=== PATIENT | female | born 1940 | race Caucasian/White ===

== ENCOUNTER 2023-01-06 10:15 | Emergency (ER) | payer MEDICARE, OTHER, SELFPAY ==
[2023-01-06] VITALS (15 sets, daily range): BP systolic 113–223; BP diastolic 49–98; PULSE 56–74; RESP 14–23; TEMP 36.4; O2SAT 91–95; BMI 33.3
--- NOTE | 2023-01-06 10:23 | ED_ITS ---
HPI - Syncope General Chief Complaint: Syncope Time Seen by Provider: 01/06/23 10:23 Source: patient Mode of arrival: ambulance Limitations: no limitations History of Present Illness HPI narrative: Patient presents to emergency department via EMS with a complaint of syncope. Patient comes from an extended care facility. She has a history of diabetes her blood sugar was 108. Patient states she has never passed out before. She was in the bathroom and passed out for approximately 20 seconds. She denies any palpitations, dizziness. She states she just felt weak. She states she had some chest pressure when it occurred. She denies any current chest pain, shortness of breath. She denies any nausea, vomiting, diarrhea, constipation, abdominal pain. She denies any headache, visual disturbance, or speech difficulties. He denies any paresthesias or focal weakness. Patient states she took all of her medications this morning. She states in the past she had a mini stroke. There was no report of seizure activity.She denies any lower extremity edema, or cramping. No previous history of heart disease, thormboembolic disease. Has not had any recent surgeries. Related Data Home Medications Medication Instructions Recorded Confirmed amlodipine 5 mg tablet 5 mg PO DAILY 01/06/23 01/06/23 aspirin 81 mg tablet,delayed 81 mg PO DAILY 01/06/23 01/06/23 release (Adult Low Dose Aspirin) atorvastatin 20 mg tablet 20 mg PO DAILY 01/06/23 01/06/23 carbidopa 25 mg-levodopa 100 mg 1 tab PO TID 01/06/23 01/06/23 tablet clopidogrel 75 mg tablet 75 mg PO DAILY 01/06/23 01/06/23 docusate sodium 100 mg capsule 100 mg PO BID 01/06/23 01/06/23 (Colace) escitalopram oxalate 5 mg tablet 5 mg PO DAILY 01/06/23 01/06/23 hydralazine 25 mg tablet 25 mg PO Q8H 01/06/23 01/06/23 insulin aspart U-100 100 unit/mL 10 unit subcut TID 01/06/23 01/06/23 (3 mL) subcutaneous pen (Novolog FlexPen U-100 Insulin aspart) insulin detemir U-100 100 unit/mL 16 unit subcut DAILY 01/06/23 01/06/23 (3 mL) subcutaneous pen (Levemir FlexPen) labetalol 300 mg tablet 300 mg PO Q12H 01/06/23 01/06/23 melatonin 5 mg capsule 5 mg PO DAILY PRN sleep 01/06/23 01/06/23 polyethylene glycol 3350 17 17 g PO DAILY 01/06/23 01/06/23 gram/dose oral powder (Miralax) Allergies Allergy/AdvReac Type Severity Reaction Status Date / Time acetaminophen [From Percocet] Allergy Unknown Verified 01/06/23 10:21 amoxicillin Allergy Unknown Verified 01/06/23 10:21 codeine Allergy Unknown Verified 01/06/23 10:21 oxycodone [From Percocet] Allergy Unknown Verified 01/06/23 10:21 Penicillins Allergy Unknown Verified 01/06/23 10:21 Sulfa (Sulfonamide Allergy Unknown Verified 01/06/23 10:21 Antibiotics) sulfamethoxazole Allergy Unknown Verified 01/06/23 10:21 [From Bactrim] trimethoprim [From Bactrim] Allergy Unknown Verified 01/06/23 10:21 cephalexin AdvReac Unknown Verified 01/06/23 10:21 Review of Systems ROS Status of ROS 10 or more systems reviewed and unremarkable except as noted in history and below [facility] Social History Smoking status: Never smoker Exam Narrative Exam Narrative: Nurses notes and vital signs reviewed and patient is not hypoxic. General: Nontoxic,Chronically ill,and in no apparent distress. Skin: Warm, dry, no pallor noted. No Rash Head: Normocephalic, atraumatic. Neck: Supple, non-tender. Eye: Pupils are equal, round and EOMI. No scleral icterus. Ears, Nose, Mouth, and Throat: TM clear, no posterior oropharynx erythema or nasal mucosal hypertrophy, uvula is mid-line Oral mucosa is moist Cardiovascular: Regular Rate and Rhythm without murmur, gallop or rub. Respiratory: No accessory muscle use or respiratory distress. Lungs are occasional bilateral rhonchi Chest Wall: no tenderness Back: No midline thoracic or lumbar vertebral tenderness. No CVA tenderness Musculoskeletal: normal ROM, no calf or popliteal tenderness, +1 bilateral lower extremity edema/swelling GI: Abdomen is soft, non-distended. Normal bowel sounds. No masses appreciated. No tenderness to palpation. No rebound, guarding, or rigidity noted. Neurological: A&O x4. No cranial nerve dysfunction observed. Moves all extremities. Psychiatric: Cooperative and interactive. Normal mood and affect. Constitutional Vital Signs, click to edit/add: Last Vital Signs Temp 97.5 F L 01/06/23 10:14 Pulse 59 L 01/06/23 12:01 Resp 16 01/06/23 12:01 BP 155/63 H 01/06/23 12:01 Pulse Ox 94 L 01/06/23 12:01 O2 Del Method Room Air 01/06/23 10:14 Course Vital Signs Vital signs: Vital Signs Temperature 97.5 F L 01/06/23 10:14 Pulse Rate 61 01/06/23 10:14 Respiratory Rate 20 01/06/23 10:14 Blood Pressure 115/62 01/06/23 10:14 Pulse Oximetry 92 L 01/06/23 10:14 Oxygen Delivery Method Room Air 01/06/23 10:14 Temperature 97.5 F L 01/06/23 10:14 Pulse Rate 59 L 01/06/23 12:01 Respiratory Rate 16 01/06/23 12:01 Blood Pressure 155/63 H 01/06/23 12:01 Pulse Oximetry 94 L 01/06/23 12:01 Oxygen Delivery Method Room Air 01/06/23 10:14 MDM - Syncope MDM Narrative Medical decision making narrative: She was given IV fluids. All the results were discussed with patient. The patient was discussed with Dr. Apodaca who advised the patient should be transferred to [facility] since we do nt have neuro or cardiology this weekend. Patient was hospitalized and evaluated for CVA in April. 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 Acutely has small bilateral pleural effusions. No pulmonary embolism. Patient was discussed with the hospitalist who has accepted the patient in transfer. He will be the delay. The patient was discussed with Dr. Smiley on-call for stroke who advised MRA of the head and neck with contrast. Stated he does not have to be done acutely back if available he should be done. MRI is not available today at [place]. Differential Diagnosis Differential diagnosis: Likely syncope due to orthostatic hypotension, complete atrioventricular block, pulmonary embolism and dehydration Medical Records Attestation: I reviewed the patient's medical records. Lab Data Attestation: I reviewed the patient's lab results. Labs: Lab Results 01/06/23 01/06/23 Range/Units 10:25 10:35 WBC 8.0 (4.0-11.0) 10^3/uL RBC 4.17 L (4.20-5.40) 10^6/uL Hgb 12.0 (12.0-16.0) g/dL Hct 38.3 (36.0-48.0) % MCV 91.8 (81.0-99.0) fL MCH 28.8 (26.7-34.0) pg MCHC 31.3 (29.9-35.2) g/dL RDW 13.5 (11.0-15.0) % Plt Count 220 (150-450) 10^3/uL MPV 10.9 (9.5-13.5) fL Neut % (Auto) 69.5 (43.0-75.0) % Lymph % (Auto) 21.6 (20.5-60.0) % [place] % (Auto) 5.7 (1.7-12.0) % Eos % (Auto) 2.4 (0.9-7.0) % Baso % (Auto) 0.4 (0.2-2.0) % Neut # (Auto) 5.6 (1.4-6.5) 10^3/uL Lymph # (Auto) 1.7 (1.2-3.8) 10^3/uL [place] # (Auto) 0.5 (0.3-0.8) 10^3/uL Eos # (Auto) 0.2 (0.0-0.7) 10^3/uL Baso # (Auto) 0.0 (0.0-0.1) 10^3/uL Abs Immat Gran (auto) 0.03 (0.00-0.03) 10^3/uL Imm/Tot Granulo (auto) 0.4 (0.0-0.5) % PT 11.2 (9.0-11.6) sec INR 1.06 Sodium 138 (136-145) mmol/L Potassium 4.0 (3.5-5.1) mmol/L Chloride 104 (98-107) mmol/L Carbon Dioxide 28.0 (21.0-32.0) mmol/L Anion Gap 10.0 BUN 18.0 (7.0-18.0) mg/dL Creatinine 1.27 H (0.55-1.02) mg/dL Est GFR ( Amer) 49 L (>=60) Est GFR (Non-Af Amer) 40 L (>=60) BUN/Creatinine Ratio 14.2 Glucose 190 H (74-106) mg/dL Lactate 2.4 H* (0.4-2.0) mmol/L Calcium 8.7 (8.5-10.1) mg/dL Total Bilirubin 0.5 (0.2-1.0) mg/dL AST 17 (15-37) U/L ALT 7 L (14-59) U/L Alkaline Phosphatase 100 (46-116) U/L Total Creatine Kinase 40 (26-192) U/L CK-MB (CK-2) 1.07 (<=3.60) ng/mL Troponin I High Sens 5.7 (4.0-51.3) pg/mL NT-Pro-B Natriuret Pep 594.0 (<=1800.0) pg/mL Total Protein 6.9 (6.4-8.2) g/dL Albumin 3.3 L (3.4-5.0) g/dL Globulin 3.6 g/dL Albumin/Globulin Ratio 0.9 Urine Color Yellow (YELLOW) Urine Clarity Clear (CLEAR) Urine pH 6.0 (5.0-9.0) Ur Specific [place] 1.010 (1.005-1.025) Urine Protein Negative (NEG/TRACE) mg/dL Urine Glucose (UA) Negative (NEGATIVE) mg/dL Urine Ketones Negative (NEGATIVE) mg/dL Urine Occult Blood Negative (NEGATIVE) Urine Nitrite Negative (NEGATIVE) Urine Bilirubin Negative (NEGATIVE) Urine Urobilinogen 0.2 (0.2-1.0) EU/dL Ur Leukocyte Esterase Negative (NEGATIVE) POC Glucose 189 H (74-106) mg/dL ECG Data Attestation: I personally reviewed and interpreted this ECG as follows: Interpretation: Sinus rhythm 63 bpm. QT 448, QTC 454. There are no acute ischemic changes. Normal axis Discharge Plan Discharge Chief Complaint: Syncope Clinical Impression: Pleural effusion, Syncope, Elevated lactic acid level Patient Disposition: [facility] Time of Disposition Decision: 14:02 Discharge Location: [facility] Condition: Good Mode of Transportation: EMS Prescriptions / Home Meds: No Action amlodipine 5 mg tablet 5 mg PO DAILY atorvastatin 20 mg tablet 20 mg PO DAILY carbidopa-levodopa 25-100 mg tablet 1 tab PO TID aspirin [Adult Low Dose Aspirin] 81 mg tablet,delayed release (DR/EC) 81 mg PO DAILY clopidogrel 75 mg tablet 75 mg PO DAILY docusate sodium [Colace] 100 mg capsule 100 mg PO BID escitalopram oxalate 5 mg tablet 5 mg PO DAILY hydralazine 25 mg tablet 25 mg PO Q8H labetalol 300 mg tablet 300 mg PO Q12H melatonin 5 mg capsule 5 mg PO DAILY PRN (Reason: sleep) polyethylene glycol 3350 [Miralax] 17 gram/dose powder 17 g PO DAILY insulin aspart U-100 [Novolog FlexPen U-100 Insulin] 100 unit/mL (3 mL) insulin pen 10 unit subcut TID Levemir FlexPen 100 unit/mL (3 mL) insulin pen 16 unit SUBCUT DAILY Referrals: Rolf Dai DO [Primary Care Provider] - 1 week
[2023-01-06 10:27] LABS: Glucometer 189 mg/dL (74-106)
--- NOTE | 2023-01-06 10:39 | ECG_ITS ---
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
--- NOTE | 2023-01-06 10:39 | CT_ITS ---
The [address] [address] Patient Name: SHRUTHI DE ANDA MRN: [id number] date: 1940 Sex: F Assigned Patient Location: ER Current Patient Location: Accession/Order Number: [id number] Exam Date: 01/06/2023 11:45 Report Date: 01/06/2023 20:40 At the request of: BLANE RICHMOND Procedure: CT angio chest EXAMINATION: CT angio chest HISTORY: syncope, cp COMPARISON: No relevant comparison available. TECHNIQUE: Multi-planar CT images were created with IV contrast. Axial, Coronal, and Sagittal images. Dose reduction techniques were achieved by using automated exposure control and/or adjustment of mA and/or kV according to patient size and/or use of iterative reconstruction technique. 3-D reconstruction was performed on a separate workstation. FINDINGS: VASCULATURE: No pulmonary embolism or abnormal opacity. LUNGS: Small bilateral pleural effusions and mild emphysematous changes. PLEURA: No mass, effusion, or pneumothorax. NATALIE: No mass or adenopathy. MEDIASTINUM: No mass or adenopathy. CARDIAC: No enlargement, pericardial effusion, or pericardial thickening. AORTA: No aneurysm or dissection. CHEST WALL: No mass or axillary adenopathy. BONES: Marked degenerative disc disease at thoracolumbar junction. No bone lesion or fracture. LIMITED ABDOMEN: No suspicious findings. Limited images of the upper abdomen. OTHER: Negative. CT/CT angio chest IMPRESSION: 1. No pulmonary embolism, pneumothorax, or pulmonary infiltrates. 2. Small bilateral pleural effusions and mild of some is changes. 3. Marked degenerative disc disease at the thoracolumbar junction. Preliminary findings were provided to the emergency department at time of imaging. Electronically authenticated by: JAIDEN EDDY Date: 01/06/2023 20:40
--- NOTE | 2023-01-06 10:39 | XR_ITS ---
The [address] [address] Patient Name: SHRUTHI DE ANDA MRN: [id number] date: 1940 Sex: F Assigned Patient Location: ER Current Patient Location: ER Accession/Order Number: [id number] Exam Date: 01/06/2023 10:58 Report Date: 01/06/2023 11:23 At the request of: BLANE RICHMOND Procedure: XR chest 1V EXAM: XR chest 1V HISTORY: . syncope . COMPARISON: 12/26/2021 TECHNIQUE: Single view of the chest. FINDINGS: Heart is slightly enlarged left ventricular contour. Vascularity is unremarkable. Lungs are free of focal infiltrates. Atherosclerotic changes of the thoracic aorta are noted. XR/XR chest 1V Impression: 1. Cardiac enlargement. 2. No acute heart or lung disease identified. Electronically authenticated by: LAURA ROSA Date: 01/06/2023 11:23
--- NOTE | 2023-01-06 10:41 | CT_ITS ---
The [address] [address] Patient Name: SHRUTHI DE ANDA MRN: [id number] date: 1940 Sex: F Assigned Patient Location: ER Current Patient Location: Accession/Order Number: [id number] Exam Date: 01/06/2023 10:55 Report Date: 01/06/2023 11:25 At the request of: BLANE RICHMOND Procedure: CT head/brain wo con CT head/brain wo con, 01/06/2023 10:55 AM EDT INDICATION: Syncope COMPARISON: Noncontrast CT of the head 04/28/2022, CT angiography of the head 04/30/2022. TECHNIQUE: Axial CT images of the brain from skull base to vertex, including portions of the face and sinuses, were obtained without contrast. Multiplanar reformatted images were generated and reviewed as needed. FINDINGS: No intracranial mass, hydrocephalus, midline shift or acute hemorrhage. No extra-axial collection. Remote ischemic events right frontal and bilateral parietal lobes. Remote lacunar infarct right basal ganglia. Periventricular and deep white matter microvascular ischemic change. Kumar-white matter differentiation is preserved. The paranasal sinuses and mastoid air cells are clear. Orbits are within normal limits. No acute skull fracture. CT/CT head/brain wo con IMPRESSION: No acute intracranial abnormality. Electronically authenticated by: AYAKA AYALA Date: 01/06/2023 11:25
--- NOTE | 2023-01-06 10:52 | PC.NURSE ---
straight cath completed for sample. 8F female kit used. damaris care done, sample labeled and sent to lab
[2023-01-06 11:03] LABS: Alanine Aminotransferase 7 U/L (14-59); Albumin Globulin Ratio 0.9; Albumin Level 3.3 g/dL (3.4-5.0); Alkaline Phosphatase 100 U/L (46-116); Aspartate Amino Transferase 17 U/L (15-37); BUN Creatinine Ratio 14.2; Bilirubin Total 0.5 mg/dL (0.2-1.0); Calcium 8.7 mg/dL (8.5-10.1); Chloride 104 mmol/L (98-107); Estimated GFR (African America 49 (>=60); Estimated GFR (Non-African Ame 40 (>=60); Globulin 3.6 g/dL; Glucose 190 mg/dL (74-106); Sodium 138 mmol/L (136-145); Total Protein 6.9 g/dL (6.4-8.2)
[2023-01-06 11:08] LABS: Lactate/Lactic Acid 2.4 mmol/L (0.4-2.0)
[2023-01-06 11:14] LABS: Basophils Percent Auto 0.4 % (0.2-2.0); Eosinophils Absolute Auto 0.2 10^3/uL (0.0-0.7); Eosinophils Percent Auto 2.4 % (0.9-7.0); Hematocrit 38.3 % (36.0-48.0); Immature Granulocytes Abs Auto 0.03 10^3/uL (0.00-0.03); Immature Granulocytes Pct Auto 0.4 % (0.0-0.5); Lymphocytes Absolute Auto 1.7 10^3/uL (1.2-3.8); Lymphocytes Percent Auto 21.6 % (20.5-60.0); Mean Corpuscular HGB Conc 31.3 g/dL (29.9-35.2); Mean Corpuscular Hemoglobin 28.8 pg (26.7-34.0); Mean Corpuscular Volume 91.8 fL (81.0-99.0); Mean Platelet Volume 10.9 fL (9.5-13.5); Monocytes Absolute Auto 0.5 10^3/uL (0.3-0.8); Monocytes Percent Auto 5.7 % (1.7-12.0); Neutrophils Absolute Auto 5.6 10^3/uL (1.4-6.5); Neutrophils Percent Auto 69.5 % (43.0-75.0); Platelet Count 220 10^3/uL (150-450); Red Blood Count 4.17 10^6/uL (4.20-5.40); Red Cell Distribution Width 13.5 % (11.0-15.0)
[2023-01-06] MEDS: 0.9 % SODIUM CHLORIDE 1,000 ML 999 ML IV (11:19)
[2023-01-06 11:25] LABS: Creatine Kinase 40 U/L (26-192); Creatine Kinase MB 1.07 ng/mL (<=3.60); Troponin I High Sensitivity 5.7 pg/mL (4.0-51.3)
[2023-01-06 11:29] LABS: Bilirubin Urine NEGATIVE (NEGATIVE); Blood Urine NEGATIVE (NEGATIVE); Clarity Urine CLEAR (CLEAR); Color Urine YELLOW (YELLOW); Glucose Urine UA NEGATIVE (NEGATIVE); Ketones Urine NEGATIVE (NEGATIVE); Leukocyte Esterase Urine NEGATIVE (NEGATIVE); Nitrite Urine NEGATIVE (NEGATIVE); Protein Urine NEGATIVE (NEG/TRACE); Urobilinogen Urine 0.2 EU/dL (0.2-1.0)
[2023-01-06 11:31] LABS: INR 1.06; Prothrombin Time 11.2 sec (9.0-11.6)
[2023-01-06 11:34] LABS: Urine Microscopic Indicated NO
[2023-01-06 14:00] LABS: Troponin I High Sensitivity 5.2 pg/mL (4.0-51.3)
--- NOTE | 2023-01-06 17:00 | PC.NURSE ---
pt daughter arrived after patient left to go to [facility]. Daughter was upset stating she did not want her mother to go to [facility] and wanted her to go somewhere closer. Dr. Ewing spoke to daughter informing her why we were sending her to [facility]. RN explained to pt daughter that Son Santiago Cifuentes is listed as POA and was updated on POC for patient at 1414 and was agreeable to patient going to [facility].
== END 2023-01-06 16:49 | disposition short-term general hospital (02) ==
PROVIDERS: Emergency Provider Emergency Medicine; PCP Internal Medicine
DX: R55 Syncope and collapse (principal); J90 Pleural effusion, not elsewhere classified; R79.89 Other specified abnormal findings of blood chemistry; E11.9 Type 2 diabetes mellitus without complications; Z86.73 Personal history of transient ischemic attack (TIA), and cerebral infarction without residual deficits; Z79.4 Long term (current) use of insulin; Z79.82 Long term (current) use of aspirin; Z79.899 Other long term (current) drug therapy
CPT/HCPCS: 36415; 36416; 70450; 71045; 71275; 80053; 81003; 82550; 82553; 83605; 83874; 83880; 84484; 85025; 85610; 93005; 96360; 96361; 99285; Q9967

== ENCOUNTER 2023-02-12 16:47 | Emergency (ER) | payer MEDICARE, OTHER, SELFPAY ==
[2023-02-12] VITALS (14 sets, daily range): BP systolic 163–181; BP diastolic 70–86; PULSE 61–76; RESP 19–24; TEMP 36.7; O2SAT 90–100; BMI 34.4
--- NOTE | 2023-02-12 16:52 | XR_ITS ---
The [address] [address] Patient Name: SHRUTHI DE ANDA MRN: [id number] date: 1940 Sex: F Assigned Patient Location: ER Current Patient Location: ED.MAIN Accession/Order Number: [id number] Exam Date: 02/12/2023 17:30 Report Date: 02/12/2023 18:30 At the request of: YAMILETH GAFFNEY Procedure: XR chest 2V EXAMINATION: XR chest 2V HISTORY: Cough and shortness of breath COMPARISON: Portable chest 01/06/2023 TECHNIQUE: PA and lateral chest x-rays FINDINGS: Small left pleural effusion. The lung parenchyma is free of consolidation or infiltrate. No pneumothorax. The cardiac, mediastinal and hilar contours are normal. The visualized osseous structures exhibit no gross abnormality. XR/XR chest 2V IMPRESSION: Small left pleural effusion. Electronically authenticated by: LAURA THOMAS Date: 02/12/2023 18:30
--- NOTE | 2023-02-12 16:57 | ECG_ITS ---
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
--- NOTE | 2023-02-12 16:57 | ED.GENADUL1 ---
Documented by User: ELISEO Lew 02/12/23 18:54 HPI - General Adult General Chief complaint: Shortness of Breath/Dyspnea Stated complaint: SHORTNESS OF BREATH Time Seen by Provider: 02/12/23 16:51 Source: patient Mode of arrival: ambulance Limitations: no limitations History of Present Illness HPI narrative: patient is an 83-year-old female presents from [facility] for concerns of shortness of breath. Patient denies fever. States she has had cough is semi-productive for the past few days. Recently placed on O2 tank at the facility and started on an inhaler today. Patient admits to wheezing prior to arrival, EMS noted that she was not hypoxic in the mid upper 90s on room air and wheezes improved greatly after one treatment in route. Patient is diabetic. EMS and FACILITY reports being DNR CC. patient denies any chest pain and notes her breathing is improved since transport. Patient appears nontoxic in no acute distress able to speak in full sentences states that she had cookies for breakfast. Related Data Home Medications Medication Instructions Recorded Confirmed amlodipine 5 mg tablet 5 mg PO DAILY 01/06/23 01/06/23 aspirin 81 mg tablet,delayed 81 mg PO DAILY 01/06/23 01/06/23 release (Adult Low Dose Aspirin) atorvastatin 20 mg tablet 20 mg PO DAILY 01/06/23 01/06/23 carbidopa 25 mg-levodopa 100 mg 1 tab PO TID 01/06/23 01/06/23 tablet clopidogrel 75 mg tablet 75 mg PO DAILY 01/06/23 01/06/23 docusate sodium 100 mg capsule 100 mg PO BID 01/06/23 01/06/23 (Colace) escitalopram oxalate 5 mg tablet 5 mg PO DAILY 01/06/23 01/06/23 hydralazine 25 mg tablet 25 mg PO Q8H 01/06/23 01/06/23 insulin aspart U-100 100 unit/mL 10 unit subcut TID 01/06/23 01/06/23 (3 mL) subcutaneous pen (Novolog FlexPen U-100 Insulin aspart) insulin detemir U-100 100 unit/mL 16 unit subcut DAILY 01/06/23 01/06/23 (3 mL) subcutaneous pen (Levemir FlexPen) labetalol 300 mg tablet 300 mg PO Q12H 01/06/23 01/06/23 melatonin 5 mg capsule 5 mg PO DAILY PRN sleep 01/06/23 01/06/23 polyethylene glycol 3350 17 17 g PO DAILY 01/06/23 01/06/23 gram/dose oral powder (Miralax) Previous Rx's Medication Instructions Recorded doxycycline hyclate 100 mg capsule 100 mg PO BID 10 days #20 caps 02/12/23 Allergies Allergy/AdvReac Type Severity Reaction Status Date / Time acetaminophen [From Percocet] Allergy Unknown Verified 01/06/23 10:21 amoxicillin Allergy Unknown Verified 01/06/23 10:21 codeine Allergy Unknown Verified 01/06/23 10:21 oxycodone [From Percocet] Allergy Unknown Verified 01/06/23 10:21 Penicillins Allergy Unknown Verified 01/06/23 10:21 Sulfa (Sulfonamide Allergy Unknown Verified 01/06/23 10:21 Antibiotics) sulfamethoxazole Allergy Unknown Verified 01/06/23 10:21 [From Bactrim] trimethoprim [From Bactrim] Allergy Unknown Verified 01/06/23 10:21 cephalexin AdvReac Unknown Verified 01/06/23 10:21 Review of Systems ROS Constitutional Denies: fever or chills Eyes Denies: change in vision Ears, nose, mouth, and throat Denies: throat pain, neck pain or nasal congestion Cardiovascular Denies: chest pain Respiratory Reports: shortness of breath, cough, wheezing and chest congestion; Denies: pain on inspiration or coughing up blood Gastrointestinal Denies: abdominal pain, nausea or vomiting Musculoskeletal Denies: back pain or neck pain Integumentary/Breast Denies: rash Neurological Denies: headache or behavioral changes Psychiatric Denies: anxiety PFSH PFSH Social History Smoking status: Never smoker Exam Narrative Exam Narrative: Nurses notes and vital signs reviewed and patient is not hypoxic. General:? The patient appears well and in no apparent distress.? Patient is resting comfortably on cart sitting upright? Skin:? Warm, dry, no pallor noted. no evidence of rash.? Head:? Normocephalic, atraumatic Neck:? Supple, trachea mid-line, no tenderness, no lymphadenopathy Eye:? Pupils are equal, round and reactive to light, EOMI Ears, Nose, Mouth, and Throat:? TM are clear, normal light reflex, mild to moderate cerumen bilaterally,? oral mucosa is moist, no posterior oropharynx erythema or hypertrophy, uvula is mid-line, + post nasal drip.? Cardiovascular:? Regular Rate and Rhythm,? Respiratory:? Patient is in no distress, no accessory muscle use, lungs diminished in bases with expiratory wheeze. no rales or rhonchi. Chest Wall:? no tenderness, no pleuritic chest complaints with breathing.? Back:? non-tender, no CVA tenderness, no sacral edema noted Musculoskeletal:? normal ROM, no tenderness, pression stockings bilateral legs, tenderness, 1+ edema.? GI:? Normal bowel sounds, no tenderness to palpation, no masses appreciated.? No rebound, guarding, or rigidity noted. Neurological:? A&O x4 Psychiatric:? Cooperative Constitutional Vital Signs, click to edit/add: Last Vital Signs Temp 98.0 F 02/12/23 16:50 Pulse 62 02/12/23 18:31 Resp 20 02/12/23 18:31 BP 181/86 H 02/12/23 18:31 Pulse Ox 98 02/12/23 18:31 O2 Del Method Room Air 02/12/23 17:07 O2 Flow Rate 2 02/12/23 16:50 Course Vital Signs Vital signs: Vital Signs Temperature 98.0 F 02/12/23 16:50 Pulse Rate 69 02/12/23 16:50 Respiratory Rate 24 02/12/23 16:50 Blood Pressure 163/70 H 02/12/23 16:50 Pulse Oximetry 94 L 02/12/23 16:50 Oxygen Delivery Method Nasal Cannula 02/12/23 16:50 Oxygen Delivery Flow Rate 2 02/12/23 16:50 Temperature 98.0 F 02/12/23 16:50 Pulse Rate 62 02/12/23 18:31 Respiratory Rate 20 02/12/23 18:31 Blood Pressure 181/86 H 02/12/23 18:31 Pulse Oximetry 98 02/12/23 18:31 Oxygen Delivery Method Room Air 02/12/23 17:07 Oxygen Delivery Flow Rate 2 02/12/23 16:50 Medical Decision Making MDM Narrative Medical decision making narrative: patient received albuterol prior to arrival with improvement in breathing, slight expiratory wheeze patient receive a DuoNeb treatment here, we'll hold on steroids pending chest x-ray and labwork evaluation. Prior history of pleural effusion noted in medical history, patient is on Plavix, labetalol and insulin. chest x-ray negative for infiltrate, patient has had upper respiratory symptoms for the past few days, we discussed her diabetes. Patient was educated by respiratory staff on how to use a spacer and inhaler. Recommend she continue with her inhaler as directed. She will be placed on doxycline given her diabetes and concern for asthmatic bronchitis. We will hold on oral steroids given her elevated sugars pending reevaluation with her PCP. Patient notes after receiving breathing treatment in the Emergency Room that her breathing is much improved and back to normal, her son is present at the bedside agreeable with disposition back to [facility], and he will facilitate transportation with his private car.. The patient is to followup with primary care physician in next 2-3 days or to return to the emergency department should any of the signs or symptoms worsen or new symptoms develop. Patient had questions answered. The patient agrees with the following Diagnosis and Treatment plan and the patient will be discharged back to SNF with Rx for doxycyline in hand with 1st dose given in ER. Medical Records Medical records reviewed: Yes I reviewed the patient's medical records Medical records narrative: previous CT of the chest on 01/06/23, noted for no pulmonary embolism pneumothorax or infiltrate, small bilateral pleural effusions with mild emphysematous changes. Lab Data Labs: Lab Results 02/12/23 02/12/23 Range/Units 15:07 16:00 WBC 7.0 (4.0-11.0) 10^3/uL RBC 3.88 L (4.20-5.40) 10^6/uL Hgb 11.3 L (12.0-16.0) g/dL Hct 36.9 (36.0-48.0) % MCV 95.1 (81.0-99.0) fL MCH 29.1 (26.7-34.0) pg MCHC 30.6 (29.9-35.2) g/dL RDW 13.4 (11.0-15.0) % Plt Count 180 (150-450) 10^3/uL MPV 10.5 (9.5-13.5) fL Neut % (Auto) 70.3 (43.0-75.0) % Lymph % (Auto) 19.3 L (20.5-60.0) % Sheridan % (Auto) 7.4 (1.7-12.0) % Eos % (Auto) 2.4 (0.9-7.0) % Baso % (Auto) 0.3 (0.2-2.0) % Neut # (Auto) 4.9 (1.4-6.5) 10^3/uL Lymph # (Auto) 1.4 (1.2-3.8) 10^3/uL [place]idan # (Auto) 0.5 (0.3-0.8) 10^3/uL Eos # (Auto) 0.2 (0.0-0.7) 10^3/uL Baso # (Auto) 0.0 (0.0-0.1) 10^3/uL Abs Immat Gran (auto) 0.02 (0.00-0.03) 10^3/uL Imm/Tot Granulo (auto) 0.3 (0.0-0.5) % Sodium 141 (136-145) mmol/L Potassium 4.0 (3.5-5.1) mmol/L Chloride 104 (98-107) mmol/L Carbon Dioxide 30.9 (21.0-32.0) mmol/L Anion Gap 10.1 BUN 21.0 H (7.0-18.0) mg/dL Creatinine 1.22 H (0.55-1.02) mg/dL Est GFR ( Amer) 51 L (>=60) Est GFR (Non-Af Amer) 42 L (>=60) BUN/Creatinine Ratio 17.2 Glucose 251 H (74-106) mg/dL Calcium 8.2 L (8.5-10.1) mg/dL Total Bilirubin 0.3 (0.2-1.0) mg/dL AST 14 L (15-37) U/L ALT 16 (14-59) U/L Alkaline Phosphatase 98 (46-116) U/L Troponin I High Sens 6.6 (4.0-51.3) pg/mL NT-Pro-B Natriuret Pep 645.0 (<=1800.0) pg/mL Total Protein 7.2 (6.4-8.2) g/dL Albumin 3.6 (3.4-5.0) g/dL Globulin 3.6 g/dL Albumin/Globulin Ratio 1.0 SARS-CoV-2 (PCR) Negative (NEGATIVE) Imaging Data Chest x-ray: Radiologist's impression: At the request of: YAMILETH GAFFNEY Procedure: XR chest 2V EXAMINATION: XR chest 2V HISTORY: Cough and shortness of breath COMPARISON: Portable chest 01/06/2023 TECHNIQUE: PA and lateral chest x-rays FINDINGS: Small left pleural effusion. The lung parenchyma is free of consolidation or infiltrate. No pneumothorax. The cardiac, mediastinal and hilar contours are normal. The visualized osseous structures exhibit no gross abnormality. IMPRESSION: Small left pleural effusion. Electronically authenticated by: LAURA THOMAS Date: 02/12/2023 18:30 ECG Data Interpretation: EKG interpretation: Emergency Department physician interpretation, normal sinus rhythm, 66 bpm first-degree AV block. no ectopy, no ST segment elevation, normal axis. Discharge Plan Discharge Chief Complaint: Shortness of Breath/Dyspnea Clinical Impression: Asthmatic bronchitis Patient Disposition: Home, Self-Care Time of Disposition Decision: 18:24 Condition: Good Mode of Transportation: Private Vehicle Prescriptions / Home Meds: New doxycycline hyclate 100 mg capsule 100 mg PO BID 10 Days Qty: 20 0RF No Action amlodipine 5 mg tablet 5 mg PO DAILY atorvastatin 20 mg tablet 20 mg PO DAILY carbidopa-levodopa 25-100 mg tablet 1 tab PO TID aspirin [Adult Low Dose Aspirin] 81 mg tablet,delayed release (DR/EC) 81 mg PO DAILY clopidogrel 75 mg tablet 75 mg PO DAILY docusate sodium [Colace] 100 mg capsule 100 mg PO BID escitalopram oxalate 5 mg tablet 5 mg PO DAILY hydralazine 25 mg tablet 25 mg PO Q8H labetalol 300 mg tablet 300 mg PO Q12H melatonin 5 mg capsule 5 mg PO DAILY PRN (Reason: sleep) polyethylene glycol 3350 [Miralax] 17 gram/dose powder 17 g PO DAILY insulin aspart U-100 [Novolog FlexPen U-100 Insulin] 100 unit/mL (3 mL) insulin pen 10 unit subcut TID Levemir FlexPen 100 unit/mL (3 mL) insulin pen 16 unit SUBCUT DAILY Instructions: Acute Bronchitis (ED), How to Use a Metered-Dose Inhaler and a Spacer (ED) Stand Alone Forms: Portal Instructions Referrals: Rolf Dai DO [Primary Care Provider] - 02/14/23 Discharge Date/Time: 02/12/23 19:00 Documented by User: Rafael Diaz 02/12/23 19:01 HPI - General Adult General Chief complaint: Shortness of Breath/Dyspnea Stated complaint: SHORTNESS OF BREATH Time Seen by Provider: 02/12/23 16:51 Related Data Home Medications Medication Instructions Recorded Confirmed amlodipine 5 mg tablet 5 mg PO DAILY 01/06/23 01/06/23 aspirin 81 mg tablet,delayed 81 mg PO DAILY 01/06/23 01/06/23 release (Adult Low Dose Aspirin) atorvastatin 20 mg tablet 20 mg PO DAILY 01/06/23 01/06/23 carbidopa 25 mg-levodopa 100 mg 1 tab PO TID 01/06/23 01/06/23 tablet clopidogrel 75 mg tablet 75 mg PO DAILY 01/06/23 01/06/23 docusate sodium 100 mg capsule 100 mg PO BID 01/06/23 01/06/23 (Colace) escitalopram oxalate 5 mg tablet 5 mg PO DAILY 01/06/23 01/06/23 hydralazine 25 mg tablet 25 mg PO Q8H 01/06/23 01/06/23 insulin aspart U-100 100 unit/mL 10 unit subcut TID 01/06/23 01/06/23 (3 mL) subcutaneous pen (Novolog FlexPen U-100 Insulin aspart) insulin detemir U-100 100 unit/mL 16 unit subcut DAILY 01/06/23 01/06/23 (3 mL) subcutaneous pen (Levemir FlexPen) labetalol 300 mg tablet 300 mg PO Q12H 01/06/23 01/06/23 melatonin 5 mg capsule 5 mg PO DAILY PRN sleep 01/06/23 01/06/23 polyethylene glycol 3350 17 17 g PO DAILY 01/06/23 01/06/23 gram/dose oral powder (Miralax) Previous Rx's Medication Instructions Recorded doxycycline hyclate 100 mg capsule 100 mg PO BID 10 days #20 caps 02/12/23 Allergies Allergy/AdvReac Type Severity Reaction Status Date / Time acetaminophen [From Percocet] Allergy Unknown Verified 01/06/23 10:21 amoxicillin Allergy Unknown Verified 01/06/23 10:21 codeine Allergy Unknown Verified 01/06/23 10:21 oxycodone [From Percocet] Allergy Unknown Verified 01/06/23 10:21 Penicillins Allergy Unknown Verified 01/06/23 10:21 Sulfa (Sulfonamide Allergy Unknown Verified 01/06/23 10:21 Antibiotics) sulfamethoxazole Allergy Unknown Verified 01/06/23 10:21 [From Bactrim] trimethoprim [From Bactrim] Allergy Unknown Verified 01/06/23 10:21 cephalexin AdvReac Unknown Verified 01/06/23 10:21 PFSH PFSH Social History Smoking status: Never smoker Exam Constitutional Vital Signs, click to edit/add: Last Vital Signs Temp 98.0 F 02/12/23 16:50 Pulse 62 02/12/23 18:31 Resp 20 02/12/23 18:31 BP 181/86 H 02/12/23 18:31 Pulse Ox 98 02/12/23 18:31 O2 Del Method Room Air 02/12/23 17:07 O2 Flow Rate 2 02/12/23 16:50 Course Vital Signs Vital signs: Vital Signs Temperature 98.0 F 02/12/23 16:50 Pulse Rate 69 02/12/23 16:50 Respiratory Rate 24 02/12/23 16:50 Blood Pressure 163/70 H 02/12/23 16:50 Pulse Oximetry 94 L 02/12/23 16:50 Oxygen Delivery Method Nasal Cannula 02/12/23 16:50 Oxygen Delivery Flow Rate 2 02/12/23 16:50 Temperature 98.0 F 02/12/23 16:50 Pulse Rate 62 02/12/23 18:31 Respiratory Rate 20 02/12/23 18:31 Blood Pressure 181/86 H 02/12/23 18:31 Pulse Oximetry 98 02/12/23 18:31 Oxygen Delivery Method Room Air 02/12/23 17:07 Oxygen Delivery Flow Rate 2 02/12/23 16:50 Medical Decision Making MDM Narrative Medical decision making narrative: patient received albuterol prior to arrival with improvement in breathing, slight expiratory wheeze patient receive a DuoNeb treatment here, we'll hold on steroids pending chest x-ray and labwork evaluation. Prior history of pleural effusion noted in medical history, patient is on Plavix, labetalol and insulin. chest x-ray negative for infiltrate, patient has had upper respiratory symptoms for the past few days, we discussed her diabetes. Patient was educated by respiratory staff on how to use a spacer and inhaler. Recommend she continue with her inhaler as directed. She will be placed on doxycline given her diabetes and concern for asthmatic bronchitis. We will hold on oral steroids given her elevated sugars pending reevaluation with her PCP. Patient notes after receiving breathing treatment in the Emergency Room that her breathing is much improved and back to normal, her son is present at the bedside agreeable with disposition back to [facility], and he will facilitate transportation with his private car.. The patient is to followup with primary care physician in next 2-3 days or to return to the emergency department should any of the signs or symptoms worsen or new symptoms develop. Patient had questions answered. The patient agrees with the following Diagnosis and Treatment plan and the patient will be discharged back to SNF with Rx for doxycyline in hand with 1st dose given in ER. For this patient encounter I reviewed the mid-level provider?s documentation, medical decision-making and treatment plan, and I personally spent time with this patient. Shared APC visit, physician attestation: [id number]: The visit was performed by both a physician and an APC. I performed all aspects of MDM as documented. - DO Rodolfo Lab Data Labs: Lab Results 02/12/23 02/12/23 Range/Units 15:07 16:00 WBC 7.0 (4.0-11.0) 10^3/uL RBC 3.88 L (4.20-5.40) 10^6/uL Hgb 11.3 L (12.0-16.0) g/dL Hct 36.9 (36.0-48.0) % MCV 95.1 (81.0-99.0) fL MCH 29.1 (26.7-34.0) pg MCHC 30.6 (29.9-35.2) g/dL RDW 13.4 (11.0-15.0) % Plt Count 180 (150-450) 10^3/uL MPV 10.5 (9.5-13.5) fL Neut % (Auto) 70.3 (43.0-75.0) % Lymph % (Auto) 19.3 L (20.5-60.0) % Sheridan % (Auto) 7.4 (1.7-12.0) % Eos % (Auto) 2.4 (0.9-7.0) % Baso % (Auto) 0.3 (0.2-2.0) % Neut # (Auto) 4.9 (1.4-6.5) 10^3/uL Lymph # (Auto) 1.4 (1.2-3.8) 10^3/uL Sheridan # (Auto) 0.5 (0.3-0.8) 10^3/uL Eos # (Auto) 0.2 (0.0-0.7) 10^3/uL Baso # (Auto) 0.0 (0.0-0.1) 10^3/uL Abs Immat Gran (auto) 0.02 (0.00-0.03) 10^3/uL Imm/Tot Granulo (auto) 0.3 (0.0-0.5) % Sodium 141 (136-145) mmol/L Potassium 4.0 (3.5-5.1) mmol/L Chloride 104 (98-107) mmol/L Carbon Dioxide 30.9 (21.0-32.0) mmol/L Anion Gap 10.1 BUN 21.0 H (7.0-18.0) mg/dL Creatinine 1.22 H (0.55-1.02) mg/dL Est GFR ( Amer) 51 L (>=60) Est GFR (Non-Af Amer) 42 L (>=60) BUN/Creatinine Ratio 17.2 Glucose 251 H (74-106) mg/dL Calcium 8.2 L (8.5-10.1) mg/dL Total Bilirubin 0.3 (0.2-1.0) mg/dL AST 14 L (15-37) U/L ALT 16 (14-59) U/L Alkaline Phosphatase 98 (46-116) U/L Troponin I High Sens 6.6 (4.0-51.3) pg/mL NT-Pro-B Natriuret Pep 645.0 (<=1800.0) pg/mL Total Protein 7.2 (6.4-8.2) g/dL Albumin 3.6 (3.4-5.0) g/dL Globulin 3.6 g/dL Albumin/Globulin Ratio 1.0 SARS-CoV-2 (PCR) Negative (NEGATIVE) Discharge Plan Discharge Chief Complaint: Shortness of Breath/Dyspnea Clinical Impression: Asthmatic bronchitis Patient Disposition: Home, Self-Care Time of Disposition Decision: 18:24 Condition: Good Mode of Transportation: Private Vehicle Prescriptions / Home Meds: New doxycycline hyclate 100 mg capsule 100 mg PO BID 10 Days Qty: 20 0RF No Action amlodipine 5 mg tablet 5 mg PO DAILY atorvastatin 20 mg tablet 20 mg PO DAILY carbidopa-levodopa 25-100 mg tablet 1 tab PO TID aspirin [Adult Low Dose Aspirin] 81 mg tablet,delayed release (DR/EC) 81 mg PO DAILY clopidogrel 75 mg tablet 75 mg PO DAILY docusate sodium [Colace] 100 mg capsule 100 mg PO BID escitalopram oxalate 5 mg tablet 5 mg PO DAILY hydralazine 25 mg tablet 25 mg PO Q8H labetalol 300 mg tablet 300 mg PO Q12H melatonin 5 mg capsule 5 mg PO DAILY PRN (Reason: sleep) polyethylene glycol 3350 [Miralax] 17 gram/dose powder 17 g PO DAILY insulin aspart U-100 [Novolog FlexPen U-100 Insulin] 100 unit/mL (3 mL) insulin pen 10 unit subcut TID Levemir FlexPen 100 unit/mL (3 mL) insulin pen 16 unit SUBCUT DAILY Instructions: Acute Bronchitis (ED), How to Use a Metered-Dose Inhaler and a Spacer (ED) Stand Alone Forms: Portal Instructions Referrals: Rolf Dai DO [Primary Care Provider] - 02/14/23 Discharge Date/Time: 02/12/23 19:00
[2023-02-12] MEDS: IPRATROPIUM/ALBUTEROL SULFATE 3 ML AMPUL.NEB IH (17:06)
[2023-02-12 17:14] LABS: Basophils Percent Auto 0.3 % (0.2-2.0); Eosinophils Absolute Auto 0.2 10^3/uL (0.0-0.7); Eosinophils Percent Auto 2.4 % (0.9-7.0); Hematocrit 36.9 % (36.0-48.0); Hemoglobin 11.3 g/dL (12.0-16.0); Immature Granulocytes Abs Auto 0.02 10^3/uL (0.00-0.03); Immature Granulocytes Pct Auto 0.3 % (0.0-0.5); Lymphocytes Absolute Auto 1.4 10^3/uL (1.2-3.8); Lymphocytes Percent Auto 19.3 % (20.5-60.0); Mean Corpuscular HGB Conc 30.6 g/dL (29.9-35.2); Mean Corpuscular Hemoglobin 29.1 pg (26.7-34.0); Mean Corpuscular Volume 95.1 fL (81.0-99.0); Mean Platelet Volume 10.5 fL (9.5-13.5); Monocytes Absolute Auto 0.5 10^3/uL (0.3-0.8); Monocytes Percent Auto 7.4 % (1.7-12.0); Neutrophils Absolute Auto 4.9 10^3/uL (1.4-6.5); Neutrophils Percent Auto 70.3 % (43.0-75.0); Platelet Count 180 10^3/uL (150-450); Red Blood Count 3.88 10^6/uL (4.20-5.40); Red Cell Distribution Width 13.4 % (11.0-15.0)
[2023-02-12 17:23] LABS: SARS-CoV-2 Ag NEGATIVE (NEGATIVE)
[2023-02-12 17:29] LABS: Troponin I High Sensitivity 6.6 pg/mL (4.0-51.3)
[2023-02-12 17:34] LABS: Alanine Aminotransferase 16 U/L (14-59); Albumin Level 3.6 g/dL (3.4-5.0); Alkaline Phosphatase 98 U/L (46-116); Anion Gap 10.1; Aspartate Amino Transferase 14 U/L (15-37); BUN Creatinine Ratio 17.2; Bilirubin Total 0.3 mg/dL (0.2-1.0); Calcium 8.2 mg/dL (8.5-10.1); Carbon Dioxide 30.9 mmol/L (21.0-32.0); Chloride 104 mmol/L (98-107); Estimated GFR (African America 51 (>=60); Estimated GFR (Non-African Ame 42 (>=60); Globulin 3.6 g/dL; Glucose 251 mg/dL (74-106); Sodium 141 mmol/L (136-145); Total Protein 7.2 g/dL (6.4-8.2)
[2023-02-12] MEDS: DOXYCYCLINE MONOHYDRATE 100 MG CAPSULE PO (18:53)
[2023-02-14 15:33] LABS: SARS-CoV-2 NAA NOT DETECTED (NOT DETECTE)
== END 2023-02-12 19:00 | disposition home or self-care (01) ==
PROVIDERS: Personal Emergency Response Attendant; Emergency Provider Emergency Medicine; PCP Internal Medicine
DX: J45.909 Unspecified asthma, uncomplicated (principal); E11.9 Type 2 diabetes mellitus without complications; Z99.81 Dependence on supplemental oxygen; Z66 Do not resuscitate; Z79.82 Long term (current) use of aspirin; Z79.4 Long term (current) use of insulin; Z79.899 Other long term (current) drug therapy; Z79.02 Long term (current) use of antithrombotics/antiplatelets; Z20.822 Contact with and (suspected) exposure to COVID-19
CPT/HCPCS: 36415; 71046; 80053; 83880; 84484; 85025; 87635; 93005; 94640; 99285

== ENCOUNTER 2023-04-26 11:30 | Inpatient (IN) | payer MEDICARE, OTHER, SELFPAY ==
[2023-04-26] VITALS (27 sets, daily range): BP systolic 134–175; BP diastolic 66–73; PULSE 63–94; RESP 16–28; TEMP 36.7–37.2; O2SAT 89–95; BMI 33.0; BMI 39.2
--- NOTE | 2023-04-26 11:42 | XR_ITS ---
The [address] [address] Patient Name: SHRUTHI DE ANDA MRN: [id number] date: 1940 Sex: F Assigned Patient Location: ER Current Patient Location: ER Accession/Order Number: [id number] Exam Date: 04/26/2023 11:50 Report Date: 04/26/2023 12:17 At the request of: CRISTI DAVIES Procedure: XR chest 1V EXAM: XR chest 1V at 1152 hours HISTORY: sob COMPARISON: 02/12/2023 TECHNIQUE: AP upright portable chest x-ray FINDINGS: Shallow inspiration. The heart appears borderline enlarged. No acute infiltrate, effusion or pneumothorax is identified. Mild elevation of left hemidiaphragm is noted. The osseous structures are grossly intact. The patient is rotated to the left. XR/XR chest 1V IMPRESSION: Borderline cardiac enlargement without overt cardiac decompensation. A focal infiltrate is not identified. The study is limited by shallow inspiration and rotation of the patient. If further evaluation is clinically indicated then perhaps a follow-up study with the patient taking a deep inspiration in the fully upright position may be helpful. Electronically authenticated by: PHI ALMONTE Date: 04/26/2023 12:17
--- NOTE | 2023-04-26 11:42 | ECG_ITS ---
The [facility] Test Date: 2023-04-26 Pat Name: SHRUTHI DE ANDA Department: Room: - Gender: Female Practice Clinician: : 1940 Requested By: MANUEL FRENCH Order Number: [id number] Reading MD: MANUEL FRENCH Measurements Intervals Morris Rate: 67 P: 24 NV: 202 QRS: 30 QRSD: 80 T: 54 QT: 420 QTc: 435 Interpretive Statements 1100 Sinus rhythm 8102 Low QRS voltage in chest leads 9120 atypical ECG Compared to ECG 02/12/2023 16:55:06 First degree AV block no longer present Electronically Signed On 04-27-2023 7:08:40 EDT by MANUEL FRENCH
[2023-04-26] MEDS: METHYLPREDNISOLONE SOD SUCC PF 125 MG/2 ML VIAL IVP (11:56)
[2023-04-26] MEDS: IPRATROPIUM/ALBUTEROL SULFATE 3 ML AMPUL.NEB IH ×4 (12:24→23:53)
[2023-04-26 12:25] LABS: Basophils Percent Auto 0.3 % (0.2-2.0); Eosinophils Absolute Auto 0.1 10^3/uL (0.0-0.7); Hematocrit 34.1 % (36.0-48.0); Hemoglobin 10.5 g/dL (12.0-16.0); Immature Granulocytes Abs Auto 0.04 10^3/uL (0.00-0.03); Immature Granulocytes Pct Auto 0.4 % (0.0-0.5); Lymphocytes Absolute Auto 1.2 10^3/uL (1.2-3.8); Lymphocytes Percent Auto 12.7 % (20.5-60.0); Mean Corpuscular HGB Conc 30.8 g/dL (29.9-35.2); Mean Corpuscular Hemoglobin 28.8 pg (26.7-34.0); Mean Corpuscular Volume 93.4 fL (81.0-99.0); Mean Platelet Volume 10.8 fL (9.5-13.5); Monocytes Absolute Auto 0.9 10^3/uL (0.3-0.8); Monocytes Percent Auto 9.4 % (1.7-12.0); Neutrophils Absolute Auto 7.5 10^3/uL (1.4-6.5); Neutrophils Percent Auto 76.2 % (43.0-75.0); Platelet Count 202 10^3/uL (150-450); Red Blood Count 3.65 10^6/uL (4.20-5.40); Red Cell Distribution Width 13.3 % (11.0-15.0); White Blood Count 9.8 10^3/uL (4.0-11.0)
[2023-04-26 12:38] LABS: INR 1.07; Prothrombin Time 11.3 sec (9.0-11.6)
[2023-04-26 12:51] LABS: Alanine Aminotransferase 15 U/L (14-59); Albumin Globulin Ratio 0.7; Albumin Level 2.8 g/dL (3.4-5.0); Alkaline Phosphatase 130 U/L (46-116); Anion Gap 8.8; Aspartate Amino Transferase 42 U/L (15-37); BUN Creatinine Ratio 21.5; Bilirubin Total 0.7 mg/dL (0.2-1.0); Calcium 8.6 mg/dL (8.5-10.1); Chloride 102 mmol/L (98-107); Estimated GFR (African America 51 (>=60); Estimated GFR (Non-African Ame 42 (>=60); Globulin 4.2 g/dL; Glucose 201 mg/dL (74-106); Magnesium 2.1 mg/dL (1.8-2.4); Potassium 3.8 mmol/L (3.5-5.1); Sodium 138 mmol/L (136-145)
--- NOTE | 2023-04-26 12:52 | PC.NURSE ---
pt wears 2L of O2 at all times
--- NOTE | 2023-04-26 13:26 | ED.GENADUL1 ---
HPI - General Adult General Chief complaint: Upper Respiratory Infection Stated complaint: SHORTNESS OF BREATH Time Seen by Provider: 04/26/23 12:17 Source: patient Mode of arrival: ambulance History of Present Illness HPI narrative: The patient coming to us from a detention facility with a concern for hypoxemia in addition to wheezing and cough productive of whitish sputum there was no abdominal pain nausea vomiting or any other concerns The patient does not usually use oxygen and she has been using 2 L nasal cannula for the last few days No chest pain no nausea no vomiting Related Data Home Medications Medication Instructions Recorded Confirmed amlodipine 5 mg tablet 5 mg PO DAILY 01/06/23 04/26/23 aspirin 81 mg tablet,delayed 81 mg PO DAILY 01/06/23 04/26/23 release (Adult Low Dose Aspirin) atorvastatin 20 mg tablet 20 mg PO DAILY 01/06/23 04/26/23 carbidopa 25 mg-levodopa 100 mg 1 tab PO TID 01/06/23 04/26/23 tablet clopidogrel 75 mg tablet 75 mg PO DAILY 01/06/23 04/26/23 docusate sodium 100 mg capsule 100 mg PO BID 01/06/23 04/26/23 (Colace) escitalopram oxalate 5 mg tablet 5 mg PO DAILY 01/06/23 04/26/23 hydralazine 25 mg tablet 25 mg PO Q8H 01/06/23 04/26/23 insulin aspart U-100 100 unit/mL 10 unit subcut TID 01/06/23 04/26/23 (3 mL) subcutaneous pen (Novolog FlexPen U-100 Insulin aspart) insulin detemir U-100 100 unit/mL 16 unit subcut DAILY 01/06/23 04/26/23 (3 mL) subcutaneous pen (Levemir FlexPen) labetalol 300 mg tablet 300 mg PO Q12H 01/06/23 04/26/23 melatonin 5 mg capsule 5 mg PO DAILY PRN sleep 01/06/23 04/26/23 polyethylene glycol 3350 17 17 g PO DAILY 01/06/23 04/26/23 gram/dose oral powder (Miralax) Allergies Allergy/AdvReac Type Severity Reaction Status Date / Time acetaminophen [From Percocet] Allergy Unknown Verified 01/06/23 10:21 amoxicillin Allergy Unknown Verified 01/06/23 10:21 codeine Allergy Unknown Verified 01/06/23 10:21 oxycodone [From Percocet] Allergy Unknown Verified 01/06/23 10:21 Penicillins Allergy Unknown Verified 01/06/23 10:21 Sulfa (Sulfonamide Allergy Unknown Verified 01/06/23 10:21 Antibiotics) sulfamethoxazole Allergy Unknown Verified 01/06/23 10:21 [From Bactrim] trimethoprim [From Bactrim] Allergy Unknown Verified 01/06/23 10:21 cephalexin AdvReac Unknown Verified 01/06/23 10:21 Review of Systems ROS Status of ROS 10 or more systems reviewed and unremarkable except as noted in history and below [facility] Social History Smoking status: Never smoker Exam Narrative Exam Narrative: Nurses notes and vital signs reviewed and patient is not hypoxic. General: Well-appearing and in no apparent distress. Skin: Warm, dry, no pallor noted. No rash. Head: Normocephalic, atraumatic. Neck: Supple, non-tender. Eye: Pupils are equal, round and EOMI. No scleral icterus. Ears, Nose, Mouth, and Throat: TM are clear, no nasal mucosal hypertrophy. Oral mucosa is moist, no posterior oropharynx erythema, uvula is mid-line Cardiovascular: Regular Rate and Rhythm without murmur, gallop or rub. Respiratory: No accessory muscle use or respiratory distress. Lungs the patient have wheezing expiratory in both lung lemus, decreased air entry in the bases Chest Wall: no tenderness Back: No midline thoracic or lumbar vertebral tenderness. No CVA tenderness Musculoskeletal: normal ROM, no calf or popliteal tenderness, no lower extremity edema/swelling GI: Abdomen is soft, non-distended. Normal bowel sounds. No masses appreciated. No tenderness to palpation. No rebound, guarding, or rigidity noted. Neurological: A&O x4. No cranial nerve dysfunction observed. Psychiatric: Cooperative and interactive. Normal mood and affect. Constitutional Vital Signs, click to edit/add: Last Vital Signs Temp 98.1 F 04/26/23 11:32 Pulse 64 04/26/23 12:50 Resp 23 04/26/23 12:50 BP 134/73 04/26/23 11:34 Pulse Ox 89 L 04/26/23 12:50 O2 Del Method Nasal Cannula 04/26/23 12:34 O2 Flow Rate 2 04/26/23 12:34 Course Vital Signs Vital signs: Vital Signs Temperature 98.1 F 04/26/23 11:32 Pulse Rate 69 04/26/23 11:32 Respiratory Rate 26 H 04/26/23 11:32 Blood Pressure 134/73 04/26/23 11:32 Pulse Oximetry 94 L 04/26/23 11:32 Oxygen Delivery Method Nasal Cannula 04/26/23 11:32 Oxygen Delivery Flow Rate 2 04/26/23 11:32 Temperature 98.1 F 04/26/23 11:32 Pulse Rate 64 04/26/23 12:50 Respiratory Rate 23 04/26/23 12:50 Blood Pressure 134/73 04/26/23 11:34 Pulse Oximetry 89 L 04/26/23 12:50 Oxygen Delivery Method Nasal Cannula 04/26/23 12:34 Oxygen Delivery Flow Rate 2 04/26/23 12:34 Medical Decision Making MDM Narrative Medical decision making narrative: The patient EKG upon presentation showing sinus rhythm with a heart rate of [address] elevation or depression The patient CBC chemistry showed no acute pathology and the x-ray although it was for poor inspiratory effort did not show any acute pathology Right now the patient presentation is mostly secondary to COPD exacerbation her case was discussed with Dr. Jolly and he agree on the above-mentioned plan the patient be admitted for further treatment Lab Data Labs: Lab Results 04/26/23 Range/Units 11:51 WBC 9.8 (4.0-11.0) 10^3/uL RBC 3.65 L (4.20-5.40) 10^6/uL Hgb 10.5 L (12.0-16.0) g/dL Hct 34.1 L (36.0-48.0) % MCV 93.4 (81.0-99.0) fL MCH 28.8 (26.7-34.0) pg MCHC 30.8 (29.9-35.2) g/dL RDW 13.3 (11.0-15.0) % Plt Count 202 (150-450) 10^3/uL MPV 10.8 (9.5-13.5) fL Neut % (Auto) 76.2 H (43.0-75.0) % Lymph % (Auto) 12.7 L (20.5-60.0) % Hockley % (Auto) 9.4 (1.7-12.0) % Eos % (Auto) 1.0 (0.9-7.0) % Baso % (Auto) 0.3 (0.2-2.0) % Neut # (Auto) 7.5 H (1.4-6.5) 10^3/uL Lymph # (Auto) 1.2 (1.2-3.8) 10^3/uL Hockley # (Auto) 0.9 H (0.3-0.8) 10^3/uL Eos # (Auto) 0.1 (0.0-0.7) 10^3/uL Baso # (Auto) 0.0 (0.0-0.1) 10^3/uL Abs Immat Gran (auto) 0.04 H (0.00-0.03) 10^3/uL Imm/Tot Granulo (auto) 0.4 (0.0-0.5) % PT 11.3 (9.0-11.6) sec INR 1.07 Sodium 138 (136-145) mmol/L Potassium 3.8 (3.5-5.1) mmol/L Chloride 102 (98-107) mmol/L Carbon Dioxide 31.0 (21.0-32.0) mmol/L Anion Gap 8.8 BUN 26.0 H (7.0-18.0) mg/dL Creatinine 1.21 H (0.55-1.02) mg/dL Est GFR ( Amer) 51 L (>=60) Est GFR (Non-Af Amer) 42 L (>=60) BUN/Creatinine Ratio 21.5 Glucose 201 H (74-106) mg/dL Calcium 8.6 (8.5-10.1) mg/dL Magnesium 2.1 (1.8-2.4) mg/dL Total Bilirubin 0.7 (0.2-1.0) mg/dL AST 42 H (15-37) U/L ALT 15 (14-59) U/L Alkaline Phosphatase 130 H (46-116) U/L Troponin I High Sens 6.0 (4.0-51.3) pg/mL NT-Pro-B Natriuret Pep 845.0 (<=1800.0) pg/mL Total Protein 7.0 (6.4-8.2) g/dL Albumin 2.8 L (3.4-5.0) g/dL Globulin 4.2 g/dL Albumin/Globulin Ratio 0.7 Discharge Plan Discharge Chief Complaint: Upper Respiratory Infection Clinical Impression: COPD with acute exacerbation, Hypoxemia Patient Disposition: Admitted As Inpatient Time of Disposition Decision: 13:29
--- NOTE | 2023-04-26 15:48 | P.HP_ITS ---
Patient not seen, agree with assessment and plan below. Admitted with increased SOB and hypoxia. Started steroids and breathing treatments. Resumed home medication. Diagnosis: 1. COPD exacerbation 2. Acute hypoxic resp failure 3. DM2 4. HTN 5. Cerebrovascular disease 6. Parkinson's disease 7. 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 The patient reports 2-day history of increasing shortness of breath, significant cough productive of thick, guzman sputum, requiring O2 supplementation at 2 L at her facility for the last 2 days. The patient denies any known history of COPD or asthma, denies history of tobacco abuse or secondhand smoke exposure. She has been diagnosed with bronchitis a few times and COPD from chronic bronchitis is possible. Work-up in the ED revealed unremarkable chest x-ray without evidence of infiltrate or decompensation. EKG was sinus rhythm. Labs with stable CKD 3. She was treated with nebulized breathing treatments and IV Solu-Medrol and her symptoms improved but persist. She is being admitted to the hospitalist service for acute COPD exacerbation and acute respiratory failure. At the time of my exam the patient is resting comfortably in the ED. She does continue to have mild accessory muscle use but her work of breathing is stable at this time and she does not appear in distress. She continues to have mild audible wheezing and significant end expiratory wheezing on exam. 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 No apparent unilateral deficit at this time but family reports that she remains very weak generally and is not safe to ambulate by herself. Review of Systems ROS Status of ROS 10 or more systems reviewed and unremarkable except as noted in history and below [facility] Medical History (Updated 04/27/23 @ 08:19 by Nalini Law NP) Carpal tunnel syndrome ?G56.00 - Carpal tunnel syndrome, unspecified upper limb (ICD-10) Dementia due to Parkinson's disease ?G20.A1 - Parkinson's disease without dyskinesia, without mention of fluctuations (ICD-10) ?F02.80 - Dementia in other diseases classified elsewhere, unspecified severity, without behavioral disturbance, psychotic disturbance, mood d isturbance, and anxiety (ICD-10) DM2 (diabetes mellitus, type 2) ?E11.9 - Type 2 diabetes mellitus without complications (ICD-10) Hemiplegia ?G81.90 - Hemiplegia, unspecified affecting unspecified side (ICD-10) History of CVA (cerebrovascular accident) ?Z86.73 - Personal history of transient ischemic attack (TIA), and cerebral infarction without residual deficits (ICD-10) HTN (hypertension) ?I10 - Essential (primary) hypertension (ICD-10) Parkinson disease ?G20.A1 - Parkinson's disease without dyskinesia, without mention of fluctuations (ICD-10) Syncope ?R55 - Syncope and collapse (ICD-10) Surgical History (Updated 04/26/23 @ 16:39 by Na Martinez) History of carpal tunnel surgery of left wrist ?Z98.890 - Other specified postprocedural states (ICD-10) History of carpal tunnel surgery of right wrist ?Z98.890 - Other specified postprocedural states (ICD-10) History of hysterectomy ?Z90.710 - Acquired absence of both cervix and uterus (ICD-10) Family History (Updated 04/26/23 @ 16:41 by Na Martinez) Mother Family history of CHF (congestive heart failure) Family history of cancer Son Family history of diabetes mellitus Social History Smoking status: Never smoker Do you think of yourself as: straight/heterosexual Gender Identity: female Meds Home Medications and Allergies Home Medications Medication Instructions Recorded Confirmed Type amlodipine 5 mg tablet 5 mg PO DAILY 01/06/23 04/26/23 History aspirin 81 mg tablet,delayed 81 mg PO DAILY 01/06/23 04/26/23 History release (Adult Low Dose Aspirin) atorvastatin 20 mg tablet 20 mg PO DAILY 01/06/23 04/26/23 History carbidopa 25 mg-levodopa 100 mg 1 tab PO TID 01/06/23 04/26/23 History tablet clopidogrel 75 mg tablet 75 mg PO DAILY 01/06/23 04/26/23 History docusate sodium 100 mg capsule 100 mg PO BID 01/06/23 04/26/23 History (Colace) escitalopram oxalate 5 mg tablet 5 mg PO DAILY 01/06/23 04/26/23 History hydralazine 25 mg tablet 25 mg PO Q8H 01/06/23 04/26/23 History insulin aspart U-100 100 unit/mL 10 unit subcut TID 01/06/23 04/26/23 History (3 mL) subcutaneous pen (Novolog FlexPen U-100 Insulin aspart) insulin detemir U-100 100 unit/mL 16 unit subcut DAILY 01/06/23 04/26/23 History (3 mL) subcutaneous pen (Levemir FlexPen) labetalol 300 mg tablet 300 mg PO Q12H 01/06/23 04/26/23 History melatonin 5 mg capsule 5 mg PO DAILY PRN sleep 01/06/23 04/26/23 History polyethylene glycol 3350 17 17 g PO DAILY 01/06/23 04/26/23 History gram/dose oral powder (Miralax) Allergies Allergy/AdvReac Type Severity Reaction Status Date / Time acetaminophen [From Percocet] Allergy Unknown Verified 01/06/23 10:21 amoxicillin Allergy Unknown Verified 01/06/23 10:21 codeine Allergy Unknown Verified 01/06/23 10:21 oxycodone [From Percocet] Allergy Unknown Verified 01/06/23 10:21 Penicillins Allergy Unknown Verified 01/06/23 10:21 Sulfa (Sulfonamide Allergy Unknown Verified 01/06/23 10:21 Antibiotics) sulfamethoxazole Allergy Unknown Verified 01/06/23 10:21 [From Bactrim] trimethoprim [From Bactrim] Allergy Unknown Verified 01/06/23 10:21 cephalexin AdvReac Unknown Verified 01/06/23 10:21 Exam Constitutional Vital Signs, click to edit/add: Last Vital Signs Temp 98.1 F 04/26/23 11:32 Pulse 64 04/26/23 13:50 Resp 23 04/26/23 13:50 BP 134/73 04/26/23 11:34 Pulse Ox 94 L 04/26/23 13:50 O2 Del Method Nasal Cannula 04/26/23 12:34 O2 Flow Rate 2 04/26/23 12:34 Common normals: no apparent distress, oriented x3, alert and well nourished General appearance: cooperative Orientation/consciousness: Yes awake HENMS Common normals: normocephalic, head/scalp atraumatic, hearing grossly normal bilaterally, external ears normal, external nose normal and moist oral mucous membranes Eye Common normals: PERRL, EOMs intact bilaterally, conjunctivae normal and no scleral icterus General eye: normal appearance of both eyes Chest Common normals: inspection of chest normal Chest: symmetrical chest wall rise Respiratory Common normals: no retractions Effort & inspection: uses accessory muscles (Mild) Auscultation: wheezes (Very tight. EE wheezing throughout. Faint upper airway audible wheezing) Cardio Common normals: no JVD, regular rate, regular rhythm, S1 normal heart sound, S2 normal heart sound, no gallops, no clicks, no murmurs, no rub and peripheral pulses 2+ throughout Heart sounds: murmur (HSM 2/6) GI Common normals: Normal to inspection, nondistended, normoactive bowel sounds present, soft to palpation, non-tender, no hepatosplenomegaly, no masses and no bruits Bladder/kidney exam: bladder normal to palpation Back & Pelvis Common normals: thoracic and lumbar spine normal to inspection Extremity Common normals: normal capillary refill General: normal exam except as noted; no clubbing and no cyanosis Neuro Avinger Coma Scale: GCS not evaluated Common normals: oriented x3, CN's II-XII intact bilaterally, moves all extremities, no focal motor deficits and no sensory deficits noted Sensorium/orientation: awake and alert Speech: speech normal Motor exam: strength 5/5 throughout Psych Common normals: mental status grossly normal, thought process normal, affect normal and activity/motor behavior normal Results Labs Labs: Short CBC 04/26/23 Range/Units 11:51 WBC 9.8 (4.0-11.0) 10^3/uL Hgb 10.5 L (12.0-16.0) g/dL Hct 34.1 L (36.0-48.0) % Plt Count 202 (150-450) 10^3/uL BMP 04/26/23 11:51 Sodium 138 Potassium 3.8 Chloride 102 Carbon Dioxide 31.0 BUN 26.0 H Creatinine 1.21 H Glucose 201 H Calcium 8.6 Liver Function 04/26/23 Range/Units 11:51 Total Bilirubin 0.7 (0.2-1.0) mg/dL AST 42 H (15-37) U/L ALT 15 (14-59) U/L Alkaline Phosphatase 130 H (46-116) U/L Albumin 2.8 L (3.4-5.0) g/dL Pulse Oximetry Attestation: I have reviewed the pertinent pulse oximetry results. ECG Attestation: ?I have reviewed the pertinent ECG results. Interpretation: Interpretive Statements 1100 Sinus rhythm 8102 Low QRS voltage in chest leads 9120 atypical ECG No previous ECG available for comparison Imaging Chest x-ray: Attestation: I have reviewed the pertinent imaging results. Radiologist's impression: IMPRESSION: Borderline cardiac enlargement without overt cardiac decompensation. A focal infiltrate is not identified. The study is limited by shallow inspiration and rotation of the patient. If further evaluation is clinically indicated then perhaps a follow-up study with the patient taking a deep inspiration in the fully upright position may be helpful. Assessment and Plan Assessment and Plan (1) COPD with acute exacerbation: Assessment and Plan: ACUTE * Adm inpatient * No Hx of COPD or asthma but clinically presents as COPD exacerbation * Duonebs q4h jack and PRN albuterol nebs * Pulmicort nebs BID * Solu-medrol 125 x 1 in ED, then 40 mg q6h * Levaquin for suspected underlying bronchitis vs occult pneumonia - gram neg and atypical coverage * Check D dimer to consider PE as possible source of acute hypoxia - obtain CTA chest if elevated * Repeat CXR in AM * CBC, CMP daily (2) Acute respiratory failure with hypoxia: Assessment and Plan: ACUTE * 89% on 2L on arrival * PF ratio remains 242 (<300) despite ED treatment * 2/2 COPD exacerbation and suspected underlying bronchitis * O2 to keep sats above 90 % (3) DM2 (diabetes mellitus, type 2): Assessment and Plan: CHRONIC * Continue home levemir and SS correction * Consider adding CHO coverage and/or increasing SS correction if BS poorly controlled * Check A1C in AM * ACHS glucometer checks * Med CC diet (4) Dementia due to Parkinson's disease: Assessment and Plan: CHRONIC * Not on dementia meds at home * Bed/chair alarms at all times * close monitoring - family reports impulsiveness (5) Hemiplegia: Assessment and Plan: CHRONIC * d/t CVA Mar 2022 * Resolved/nearly resolved per pt and family * Significant generalized weakness persists (6) Parkinson disease: Assessment and Plan: CHRONIC * Continue home Sinimet (7) HTN (hypertension): Assessment and Plan: CHRONIC * Continue home labetalol, hydralazine, amlodipine (8) History of CVA (cerebrovascular accident): Assessment and Plan: CHRONIC * Continue home ASA, plavix and statin * PT consult eval and treat
--- NOTE | 2023-04-26 16:13 | RESP.RT ---
Wears 2L @ shelter
[2023-04-26 16:57] LABS: D Dimer 0.94 mg/L FEU (<=0.59)
--- NOTE | 2023-04-26 17:03 | CT_ITS ---
[address] [address] Patient Name: SHRUTHI DE ANDA MRN: [id number] date: 1940 Sex: F Assigned Patient Location: [place] Current Patient Location: Accession/Order Number: [id number] Exam Date: 04/26/2023 17:34 Report Date: 04/26/2023 18:21 At the request of: JONO CASTRO Procedure: CT angio chest EXAM: CT angio chest; [id number] REASON FOR EXAM: cRITICAL D-DIMER TECHNIQUE: Helical CT images of the chest were obtained after the administration of IV contrast. Multiplanar reformats and maximum intensity projection images were created at the scanner. Dose reduction technique used: Automated exposure control and/or adjustment of the mA and/or kV according to patient size and/or use of iterative reconstruction technique. COMPARISON: CT pulmonary angiogram 01/06/2023. FINDINGS: Technical quality: Moderate respiratory motion obscures the right-sided segmental and subsegmental pulmonary arteries as well as the left-sided subsegmental pulmonary arteries.. Chest: Support devices: None. Chest wall: Within normal limits. Ora/mediastinum/esophagus: No mass. Thoracic lymph nodes: Mild mediastinal and bilateral hilar adenopathy is mildly worse compared with 01/06/2023. For example right anterior paratracheal lymph node measuring 12 x 15 mm (series 4 image 25), previously 12 x 9 mm. Heart and vasculature: -No large pulmonary embolism of the unobscured pulmonary arteries. -No pericardial effusion or aortic aneurysm. Visualized portions of the upper abdomen: Within normal limits. Musculoskeletal: No acute abnormality or suspicious osseous lesion. Lungs/airways: -Mild multifocal and bilateral consolidation is new compared with 01/06/2023. -The central airways are patent. Pleura: Trace bilateral pleural effusions, similar. No pneumothorax. CT/CT angio chest IMPRESSION: 1. Moderate respiratory motion obscures the right-sided segmental and subsegmental pulmonary arteries as well as the left-sided subsegmental pulmonary arteries. No large pulmonary embolism of the unobscured pulmonary arteries. 2. Mild multifocal and bilateral consolidation most compatible with mild bronchopneumonia. 3. Mild worsening mediastinal and bilateral hilar adenopathy, likely reactive. Electronically authenticated by: ALLEN STARR Date: 04/26/2023 18:21
[2023-04-26] MEDS: INSULIN ASPART 300 UNIT/3 ML PEN 10 UNIT SUBQ (18:05)
[2023-04-26 18:06] LABS: Glucometer 289 mg/dL (74-106)
[2023-04-26] MEDS: ENOXAPARIN SODIUM 40 MG/0.4 ML SYRINGE SUBQ (18:14)
[2023-04-26 20:16] LABS: Glucometer 365 mg/dL (74-106)
[2023-04-26] MEDS: CARBIDOPA/LEVODOPA 25 MG-100 MG TABLET 1 TAB PO (21:32)
[2023-04-26] MEDS: DOCUSATE SODIUM 100 MG CAPSULE PO (21:32)
[2023-04-26] MEDS: METHYLPREDNISOLONE SOD SUCC PF 40 MG/ML VIAL IVP (21:34)
[2023-04-26] MEDS: LABETALOL HCL 100 MG TABLET 300 MG PO (21:42)
[2023-04-26] MEDS: INSULIN ASPART 300 UNIT/3 ML PEN SUBQ (21:43)
[2023-04-26] MEDS: HYDRALAZINE HCL 25 MG TABLET PO (22:07)
[2023-04-26] MEDS: BUDESONIDE 0.5 MG/2 ML AMPULE NEB IH (23:53)
[2023-04-27] VITALS (16 sets, daily range): BP systolic 134–178; BP diastolic 64–74; PULSE 64–81; RESP 18–22; TEMP 36.8–37.2; O2SAT 88–96
[2023-04-27] MEDS: METHYLPREDNISOLONE SOD SUCC PF 40 MG/ML VIAL IVP ×4 (03:01→20:47)
[2023-04-27] MEDS: IPRATROPIUM/ALBUTEROL SULFATE 3 ML AMPUL.NEB IH ×6 (03:45→23:41)
--- NOTE | 2023-04-27 04:00 | XR_ITS ---
The [address] [address] Patient Name: SHRUTHI DE ANDA MRN: [id number] date: 1940 Sex: F Assigned Patient Location: [place] Current Patient Location: Accession/Order Number: [id number] Exam Date: 04/27/2023 04:11 Report Date: 04/27/2023 05:01 At the request of: JONO CASTRO Procedure: XR chest 1V EXAM: XR chest 1V HISTORY: hypoxia, sob COMPARISON: Chest x-ray, 04/26/2023. TECHNIQUE: AP upright portable chest x-ray. FINDINGS: The heart, mediastinum and pulmonary vascularity are within normal limits. The lungs are hypoinflated exaggerating bronchovascular markings. Mild central bronchial wall thickening is seen in the perihilar regions. Nonspecific mild blunting of the left costophrenic angle is noted. XR/XR chest 1V IMPRESSION: Hypoinflation exaggerating bronchovascular markings with mild central bronchial wall thickening compatible with bronchitis or possibly reactive airways disease. Mild blunting the left costophrenic angle could reflect small pleural effusion, lateral basilar atelectasis and/or infiltrate. Electronically authenticated by: JOSE RACHEL Date: 04/27/2023 05:01
[2023-04-27] MEDS: CARBIDOPA/LEVODOPA 25 MG-100 MG TABLET 1 TAB PO ×3 (05:19→21:37)
--- NOTE | 2023-04-27 05:26 | PC.NURSE ---
Patient got angry with this RN. Refused medication, will try again.
[2023-04-27 05:59] LABS: Basophils Percent Auto 0.1 % (0.2-2.0); Hematocrit 34.4 % (36.0-48.0); Hemoglobin 10.9 g/dL (12.0-16.0); Immature Granulocytes Abs Auto 0.08 10^3/uL (0.00-0.03); Immature Granulocytes Pct Auto 0.8 % (0.0-0.5); Lymphocytes Absolute Auto 0.6 10^3/uL (1.2-3.8); Lymphocytes Percent Auto 6.3 % (20.5-60.0); Mean Corpuscular HGB Conc 31.7 g/dL (29.9-35.2); Mean Corpuscular Volume 91.5 fL (81.0-99.0); Mean Platelet Volume 10.6 fL (9.5-13.5); Monocytes Absolute Auto 0.2 10^3/uL (0.3-0.8); Monocytes Percent Auto 1.8 % (1.7-12.0); Neutrophils Absolute Auto 8.6 10^3/uL (1.4-6.5); Platelet Count 221 10^3/uL (150-450); Red Blood Count 3.76 10^6/uL (4.20-5.40); White Blood Count 9.4 10^3/uL (4.0-11.0)
[2023-04-27] MEDS: HYDRALAZINE HCL 25 MG TABLET PO ×3 (06:03→21:37)
[2023-04-27 06:14] LABS: Alanine Aminotransferase 15 U/L (14-59); Albumin Globulin Ratio 0.6; Albumin Level 2.9 g/dL (3.4-5.0); Alkaline Phosphatase 135 U/L (46-116); Anion Gap 8.7; Aspartate Amino Transferase 28 U/L (15-37); BUN Creatinine Ratio 26.1; Bilirubin Total 0.4 mg/dL (0.2-1.0); Calcium 9.1 mg/dL (8.5-10.1); Carbon Dioxide 30.3 mmol/L (21.0-32.0); Chloride 100 mmol/L (98-107); Estimated GFR (African America 52 (>=60); Estimated GFR (Non-African Ame 43 (>=60); Globulin 4.5 g/dL; Glucose 293 mg/dL (74-106); Sodium 135 mmol/L (136-145); Total Protein 7.4 g/dL (6.4-8.2)
[2023-04-27 07:36] LABS: Glucometer 379 mg/dL (74-106)
[2023-04-27] MEDS: INSULIN ASPART 300 UNIT/3 ML PEN SUBQ ×7 (07:42→21:50)
[2023-04-27] MEDS: POLYETHYLENE GLYCOL 3350 17 GM POWDER PACKET PO (08:23)
[2023-04-27] MEDS: AMLODIPINE BESYLATE 5 MG TABLET PO (08:24)
[2023-04-27] MEDS: DOCUSATE SODIUM 100 MG CAPSULE PO ×2 (08:24→21:36)
[2023-04-27] MEDS: CLOPIDOGREL BISULFATE 75 MG TABLET PO (08:26)
[2023-04-27] MEDS: ATORVASTATIN CALCIUM 20 MG TABLET PO (08:26)
[2023-04-27] MEDS: ESCITALOPRAM 10 MG TABLET 5 MG PO (08:27)
[2023-04-27] MEDS: ASPIRIN 81 MG TABLET.DR PO (08:27)
[2023-04-27] MEDS: INSULIN DETEMIR 300 UNIT/3 ML INSULN.PEN 16 UNIT SUBQ (08:30)
[2023-04-27] MEDS: LABETALOL HCL 100 MG TABLET 300 MG PO ×2 (08:44→21:36)
[2023-04-27 08:45] LABS: Adenovirus NOT DETECTED (NOT DETECTE); Bordetella parapertussis NOT DETECTED (NOT DETECTE); Coronavirus 229E NOT DETECTED (NOT DETECTE); Coronavirus HKU1 NOT DETECTED (NOT DETECTE); Coronavirus NL63 NOT DETECTED (NOT DETECTE); Coronavirus OC43 NOT DETECTED (NOT DETECTE); Human Metapneumovirus NOT DETECTED (NOT DETECTE); Human Rhinovirus/Enterovirus NOT DETECTED (NOT DETECTE); Influenza A NOT DETECTED (NOT DETECTE); Influenza B NOT DETECTED (NOT DETECTE); Mycoplasma pneumoniae NOT DETECTED (NOT DETECTE); Parainfluenza Virus 1 NOT DETECTED (NOT DETECTE); Parainfluenza Virus 2 NOT DETECTED (NOT DETECTE); Parainfluenza Virus 3 NOT DETECTED (NOT DETECTE); Parainfluenza Virus 4 NOT DETECTED (NOT DETECTE); Respiratory Syncytial Virus NOT DETECTED (NOT DETECTE); SARS-CoV-2 NOT DETECTED (NOT DETECTE)
[2023-04-27 08:51] LABS: Estimated Average Glucose 146 mg/dL; Glycohemoglobin A1C 6.7 % (4.5-6.2)
[2023-04-27] MEDS: BUDESONIDE 0.5 MG/2 ML AMPULE NEB IH ×2 (11:00→23:41)
[2023-04-27 11:04] LABS: Glucometer 360 mg/dL (74-106)
--- NOTE | 2023-04-27 11:09 | P.PN_ITS ---
Patient seen and examined, agree with assessment and plan below. CT showed infiltrate and likely pneumonia. Continue antibiotics, steroids, and breathing treatments. Wean O2 as tolerated. Continue PT/OT for weakness. Diagnosis: 1. Pneumonia 2. COPD exacerbation 3. Acute hypoxic resp failure 4. DM2 5. HTN 6. Cerebrovascular disease 7. Parkinson's disease 8. 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 Her hypoxia persists and she remains on O2 supplementation. Her wheezing is improved and she no longer is using accessory muscles. CTA obtained yesterday evening after an elevated D-dimer result was neg for PE but did reveal multifocal, bilateral infiltrates. She is already on Levaquin IVPB which is appropriate for Gram neg (suspected in community living setting) and atypical pathogens. She remains slightly confused per her baseline but is cooperative with exam. She verbalizes feeling a little better . Exam Constitutional Vital Signs, click to edit/add: Last Vital Signs Temp 98.9 F 04/27/23 05:18 Pulse 78 04/27/23 05:18 Resp 18 04/27/23 08:00 BP 153/64 H 04/27/23 08:24 Pulse Ox 96 04/27/23 11:00 O2 Del Method Nasal Cannula 04/27/23 11:00 O2 Flow Rate 2 04/27/23 11:00 Common normals: no apparent distress, oriented x3 and alert General appearance: cooperative Orientation/consciousness: Yes awake HENCT Common normals: normocephalic, head/scalp atraumatic and hearing grossly normal bilaterally Head and scalp: normocephalic and atraumatic Eye Common normals: PERRL, EOMs intact bilaterally, conjunctivae normal and no scleral icterus General eye: normal appearance of both eyes Chest Common normals: inspection of chest normal Chest: symmetrical chest wall rise Respiratory Common normals: normal respiratory effort and no use of accessory muscles Effort & inspection: able to speak in complete sentences Auscultation: wheezes (Faint EE BUL) and diminished lung sounds (BLL) Cardio Common normals: no JVD, regular rate, regular rhythm, S1 normal heart sound, S2 normal heart sound, no gallops, no clicks, no murmurs, no rub and peripheral pulses 2+ throughout GI Common normals: Normal to inspection, nondistended, normoactive bowel sounds present, soft to palpation, non-tender and no hepatosplenomegaly Bladder/kidney exam: bladder normal to palpation Extremity Common normals: normal to inspection and no calf tenderness General: no clubbing, no cyanosis and no edema Neuro Common normals: oriented x3, CN's II-XII intact bilaterally, moves all extremities, no focal motor deficits and no sensory deficits noted Sensorium/orientation: awake and alert Psych Common normals: mental status grossly normal Progress Note: Objective Labs Labs: Short CBC 04/26/23 04/27/23 Range/Units 11:51 05:30 WBC 9.8 9.4 (4.0-11.0) 10^3/uL Hgb 10.5 L 10.9 L (12.0-16.0) g/dL Hct 34.1 L 34.4 L (36.0-48.0) % Plt Count 202 221 (150-450) 10^3/uL BMP 04/26/23 04/27/23 11:51 05:30 Sodium 138 135 L Potassium 3.8 4.0 Chloride 102 100 Carbon Dioxide 31.0 30.3 BUN 26.0 H 31.0 H Creatinine 1.21 H 1.19 H Glucose 201 H 293 H Calcium 8.6 9.1 Liver Function 04/26/23 04/27/23 Range/Units 11:51 05:30 Total Bilirubin 0.7 0.4 (0.2-1.0) mg/dL AST 42 H 28 (15-37) U/L ALT 15 15 (14-59) U/L Alkaline Phosphatase 130 H 135 H (46-116) U/L Albumin 2.8 L 2.9 L (3.4-5.0) g/dL Imaging CTA Chest: Attestation: I have reviewed the pertinent imaging results. Radiologist's impression: 04/26/23 6923 IMPRESSION: 1. Moderate respiratory motion obscures the right-sided segmental and subsegmental pulmonary arteries as well as the left-sided subsegmental pulmonary arteries. No large pulmonary embolism of the unobscured pulmonary arteries. 2. Mild multifocal and bilateral consolidation most compatible with mild bronchopneumonia. 3. Mild worsening mediastinal and bilateral hilar adenopathy, likely reactive. Chest x-ray: Attestation: I have reviewed the pertinent imaging results. Radiologist's impression: IMPRESSION: Hypoinflation exaggerating bronchovascular markings with mild central bronchial wall thickening compatible with bronchitis or possibly reactive airways disease. Mild blunting the left costophrenic angle could reflect small pleural effusion, lateral basilar atelectasis and/or infiltrate. Progress Note: A&P Assessment and Plan (1) COPD with acute exacerbation: Assessment and Plan: ACUTE * Mildly improved * No Hx of COPD or asthma but clinically presents as COPD exacerbation * Continue Duonebs q4h jack and PRN albuterol nebs * Continue Pulmicort nebs BID * Continue Solu-medrol 40 mg q6h * Continue Levaquin for suspected underlying bronchitis vs occult pneumonia - gram neg and atypical coverage * D-Dimer elevated but CTA neg for PE. Multifocal, bilateral pneumonia noted on CTA (see below) * Sputum culture ordered - pending collection * Repeat CXR in AM * CBC, CMP daily (2) Pneumonia: Assessment and Plan: ACUTE * Multifocal, bilateral infiltrates noted on CTA Chest 04/26/23 * Pt already on Levaquin - appropriate gram neg and atypical coverage * Remains afebrile, without leukocytosis * * See COPD exacerbation above and resp failure below (3) Acute respiratory failure with hypoxia: Assessment and Plan: ACUTE * Persistent hypoxia requiring O2 supplementation. * Not usually on home O2 - only the last few days d/t SOB * PF ratio remains low at 213 (<300) despite aggressive tx * 2/2 COPD exacerbation and underlying pneumonia * O2 to keep sats above 90% (4) DM2 (diabetes mellitus, type 2): Assessment and Plan: CHRONIC * Continue home levemir and SS correction * Add 4 un CHO w/ meals * A1C - 6.7 today. No indication for acute adjustment to home regimen. Defer to PCP management * ACHS glucometer checks * Med CC diet (5) Dementia due to Parkinson's disease: Assessment and Plan: CHRONIC * Not on dementia meds at home * Bed/chair alarms at all times * close monitoring - family reports impulsiveness (6) Hemiplegia: Assessment and Plan: CHRONIC * d/t CVA Mar 2022 * Resolved/nearly resolved per pt and family * Significant generalized weakness persists (7) Parkinson disease: Assessment and Plan: CHRONIC * Continue home Sinimet (8) HTN (hypertension): Assessment and Plan: CHRONIC * Continue home labetalol, hydralazine, amlodipine (9) History of CVA (cerebrovascular accident): Assessment and Plan: CHRONIC * Continue home ASA, plavix and statin * PT consult eval and treat
--- NOTE | 2023-04-27 11:14 | SWNOTE1 ---
Pt is from [facility].
--- NOTE | 2023-04-27 11:46 | CM.NOTE ---
Rounds made with Dr. Jolly, no discharge today. PT and OT will evaluate pt today for further discharge planning.
--- NOTE | 2023-04-27 11:50 | CM.NOTE ---
Important Message From Medicare discussed with pt, pt verbalizes understanding and signs paper. Original given to pt and copy placed on pt's chart.
--- NOTE | 2023-04-27 13:01 | SWNOTE1 ---
SW spoke with case management and pt would like to go skilled at [facility]. She worked with therapy and SNF was recommended. SW to send referral to [facility].
--- NOTE | 2023-04-27 13:29 | SWNOTE1 ---
History of dementia documented for pt. SW called to speak with daughter in regards to rehab. Pt's daughter is here in room. SW spoke with daughter. SW explained that therapy recommended rehab. Pt's daughter asked for what? SW explained for strengthening. Daughter voiced she has been like that for a year, and she has been to [facility] in past. She stated she does not feel it is beneficial to take her out of [facility] and have her go skilled as she is pretty much at baseline. She stated the aides at [facility] walk with her and family stops in nearly daily to walk her as well. She stated she thinks [facility] is coming in again to do therapy 2x a week. She has them for awhile and then is cut and then they get them back. SW to call [facility] to find out. SW sent updates to [facility] as well.
--- NOTE | 2023-04-27 13:44 | SWNOTE1 ---
[facility]. MIL sent updates to them. MIL called [facility] and OT is coming in currently, PT ended at beginning of March. MIL to resume HH and add on PT at discharge.
[2023-04-27 16:42] LABS: Glucometer 391 mg/dL (74-106)
[2023-04-27] MEDS: ENOXAPARIN SODIUM 40 MG/0.4 ML SYRINGE SUBQ (16:44)
[2023-04-27 20:47] LABS: Glucometer 331 mg/dL (74-106)
[2023-04-28] VITALS (9 sets, daily range): BP systolic 126–186; BP diastolic 71–83; PULSE 65–77; RESP 16–22; TEMP 36.7–36.8; O2SAT 91–95; BMI 15.4
[2023-04-28] MEDS: METHYLPREDNISOLONE SOD SUCC PF 40 MG/ML VIAL IVP ×2 (01:36→08:09)
[2023-04-28] MEDS: IPRATROPIUM/ALBUTEROL SULFATE 3 ML AMPUL.NEB IH ×3 (03:52→11:05)
--- NOTE | 2023-04-28 04:00 | XR_ITS ---
The [address] [address] Patient Name: SHRUTHI DE ANDA MRN: [id number] date: 1940 Sex: F Assigned Patient Location: [place] Current Patient Location: [place] Accession/Order Number: [id number] Exam Date: 04/28/2023 04:05 Report Date: 04/28/2023 04:32 At the request of: JONO CASTRO Procedure: XR chest 1V EXAM: XR chest 1V HISTORY: SOB COMPARISON: Chest x-ray, 04/27/2023. TECHNIQUE: AP upright portable chest x-ray. FINDINGS: The heart, mediastinum and pulmonary vascularity are within normal limits. The lungs are grossly clear. There is mild asymmetric elevation of the left diaphragm. A small left pleural effusion cannot be excluded. XR/XR chest 1V IMPRESSION: Possible small left pleural effusion. The lungs appear otherwise clear. Electronically authenticated by: JOSE RACHEL Date: 04/28/2023 04:32
[2023-04-28 05:04] LABS: Basophils Percent Auto 0.1 % (0.2-2.0); Hematocrit 35.2 % (36.0-48.0); Immature Granulocytes Abs Auto 0.09 10^3/uL (0.00-0.03); Immature Granulocytes Pct Auto 0.7 % (0.0-0.5); Lymphocytes Absolute Auto 0.8 10^3/uL (1.2-3.8); Mean Corpuscular HGB Conc 31.3 g/dL (29.9-35.2); Mean Corpuscular Hemoglobin 28.8 pg (26.7-34.0); Mean Corpuscular Volume 92.1 fL (81.0-99.0); Mean Platelet Volume 10.6 fL (9.5-13.5); Monocytes Absolute Auto 0.4 10^3/uL (0.3-0.8); Monocytes Percent Auto 2.8 % (1.7-12.0); Neutrophils Absolute Auto 11.5 10^3/uL (1.4-6.5); Neutrophils Percent Auto 90.4 % (43.0-75.0); Platelet Count 250 10^3/uL (150-450); Red Blood Count 3.82 10^6/uL (4.20-5.40); Red Cell Distribution Width 13.1 % (11.0-15.0); White Blood Count 12.7 10^3/uL (4.0-11.0)
[2023-04-28] MEDS: CARBIDOPA/LEVODOPA 25 MG-100 MG TABLET 1 TAB PO (05:06)
[2023-04-28] MEDS: HYDRALAZINE HCL 25 MG TABLET PO (05:06)
[2023-04-28 05:22] LABS: Alanine Aminotransferase 18 U/L (14-59); Albumin Globulin Ratio 0.7; Alkaline Phosphatase 128 U/L (46-116); Aspartate Amino Transferase 28 U/L (15-37); Bilirubin Total 0.3 mg/dL (0.2-1.0); Calcium 9.3 mg/dL (8.5-10.1); Carbon Dioxide 32.3 mmol/L (21.0-32.0); Chloride 100 mmol/L (98-107); Estimated GFR (African America 48 (>=60); Estimated GFR (Non-African Ame 39 (>=60); Globulin 4.4 g/dL; Glucose 323 mg/dL (74-106); Potassium 4.3 mmol/L (3.5-5.1); Sodium 136 mmol/L (136-145); Total Protein 7.4 g/dL (6.4-8.2)
[2023-04-28 08:06] LABS: Glucometer 323 mg/dL (74-106)
[2023-04-28] MEDS: INSULIN ASPART 300 UNIT/3 ML PEN SUBQ ×4 (08:10→14:03)
[2023-04-28] MEDS: ATORVASTATIN CALCIUM 20 MG TABLET PO (08:12)
[2023-04-28] MEDS: AMLODIPINE BESYLATE 5 MG TABLET PO (08:12)
[2023-04-28] MEDS: ESCITALOPRAM 10 MG TABLET 5 MG PO (08:12)
[2023-04-28] MEDS: CLOPIDOGREL BISULFATE 75 MG TABLET PO (08:12)
[2023-04-28] MEDS: LABETALOL HCL 100 MG TABLET 300 MG PO (08:12)
[2023-04-28] MEDS: DOCUSATE SODIUM 100 MG CAPSULE PO (08:12)
[2023-04-28] MEDS: POLYETHYLENE GLYCOL 3350 17 GM POWDER PACKET PO (08:12)
[2023-04-28] MEDS: ASPIRIN 81 MG TABLET.DR PO (08:12)
[2023-04-28] MEDS: INSULIN DETEMIR 300 UNIT/3 ML INSULN.PEN 16 UNIT SUBQ (08:48)
[2023-04-28 10:29] LABS: Bilirubin Urine NEGATIVE (NEGATIVE); Blood Urine NEGATIVE (NEGATIVE); Clarity Urine CLEAR (CLEAR); Color Urine LT. YELLOW (YELLOW); Glucose Urine UA 500 mg/dL (NEGATIVE); Ketones Urine NEGATIVE (NEGATIVE); Leukocyte Esterase Urine NEGATIVE (NEGATIVE); Nitrite Urine NEGATIVE (NEGATIVE); Protein Urine TRACE mg/dL (NEG/TRACE); Specific Gravity Urine 1.025 (1.005-1.025); Urobilinogen Urine 0.2 EU/dL (0.2-1.0)
[2023-04-28] MEDS: LEVOFLOXACIN IN DEXTROSE 5 % 750 MG/150 ML IV.SOLN 100 MG IV (10:29)
[2023-04-28 10:30] LABS: Urine Microscopic Indicated NO
[2023-04-28] MEDS: BUDESONIDE 0.5 MG/2 ML AMPULE NEB IH (11:05)
[2023-04-28 11:06] LABS: Glucometer 360 mg/dL (74-106)
--- NOTE | 2023-04-28 11:37 | CM.NOTE ---
Rounds made with Dr. Jolly, pt ok to discharge back to [facility] and pt has [facility].
--- NOTE | 2023-04-28 11:49 | PT.DAILY ---
Physical Therapy Daily Note PT Daily Note/Assess Start: 04/28/23 11:45 Freq: Status: Active Protocol: Document 04/28/23 11:45 ANA (Rec: 04/28/23 11:49 ANA [id number]) Physical Therapy Daily Note/Assessment Time In/Time Out Time In 10:05 Time Out 10:20 Pain In Pain N/A Pain Out Pain N/A Subjective Subjective Pt supine upon arrival. agrees to PT. Denies pain just tired . Reports being in chair this morning. Therapeutic Exercise Time Therapeutic Exercise Minutes (minutes) 5 Therapeutic Exercise Units 0 Therapeutic Exercise Treatment Therapeutic Exercise Treatment Pt completes bilat LE strengthening ex in supine prior to gait/transfers - AP, heel slides, abd slides, and SLR 10x ea. Increased time needed and occ vc to stay on task. Therapeutic Activity Time Therapeutic Activity Minutes (minutes) 8 Therapeutic Activity Units 1 Therapeutic Activity Treatment Bed Mobility Ability Moderate Assist Chair Transfer Ability Standby Assistance Therapeutic Activity Comments Supine>sit ModA to advance upper body to sit EOB. Pt sits EOB 2 min unsupported without LOB. Sit>stand to RW SBA with increased time needed to complete. Pt amb in room 60' then needs to use restroom. Pt tends to drag L foot. Pt unable to make it to toilet and soils her brief. Pt sits on toilet and brief is changed . Sit>stand from toilet SBA with increased time and requires assistance for pericare. Pt amb back to bed 30' with RW without LOB - short step length and drags L foot. Pt requires ModA to advance LEs into bed. Remains supine upon completion with call light in reach and bed alarm set. Total Physical Therapy Time Total Therapy Minutes 13 Total Physical Therapy Units 1 Summary Daily Note Summary Improved gait endurance. Fatigued with activity. Cont to need modA for transfers due to weakness.
--- NOTE | 2023-04-28 12:03 | SWNOTE1 ---
MIL spoke with nurse practicioner and pt will need nebulizer at [place]. MIL spoke with daughter and she does not think she has one there. SW called [employer] and pt does have a nebulizer, it was ordered recently and she is getting albuterol. MIL let CLAY MAKER know. CLAY MAKER printed script for nebulizer, SW to place in the packet for pt to go back with. Pt's daughter can't transport today. SW to set up trips. SW to also resume [facility] .
--- NOTE | 2023-04-28 12:49 | SWNOTE1 ---
MIL did call and confirm, pt is wearing 2 liters of oxygen continuous at Assisted Living. SW let them know time she is returning and let them know there are scripts in the packet. MIL let daughter know time as well. MIL sent discharge orders to [facility].
--- NOTE | 2023-04-28 13:14 | P.DS_ITS ---
Patient seen and examined, agree with assessment and plan below. Admitted with SOB and hypoxia then found pneumonia. Improved with antibiotics, steroids, and breathing treatments. Discharged in stable condition. Diagnosis: 1. Pneumonia 2. COPD exacerbation 3. Acute hypoxic resp failure 4. DM2 5. HTN 6. Cerebrovascular disease 7. Parkinson's disease 8. 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 Residual gen weakness Has provider been notified: No 04/27/23 Occupational Therapy Eval and Treat Routine Reason for consultation: weakness Discharging clinician: Nalini Law DS: Diagnosis Discharge Diagnosis (1) COPD with acute exacerbation: (2) Pneumonia: (3) Acute respiratory failure with hypoxia: (4) DM2 (diabetes mellitus, type 2): (5) Dementia due to Parkinson's disease: (6) Hemiplegia: (7) Parkinson disease: (8) HTN (hypertension): (9) History of CVA (cerebrovascular accident): DS: Summary Hospital Course Hospital Course: The patient was admitted with a COPD exacerbation despite no previous COPD diagnosis as this fit her clinical presentation; and acute on chronic respiratory failure. She was subsequently diagnosed with pneumonia based on CT chest imaging results. A PE was ruled out w/ a CTA Chest study. She was treated with high-dose IV steroids, scheduled breathing treatments, and antibiotics. We initially thought that she was not on O2 prior to admission, but have subsequently found that she was placed on 2 L of O2 continuously approximately 2 months ago per her jewel lathe operator so there is clearly at least some chronic respiratory failure. Her clinical condition improved and she was stable on her baseline 2 L of O2 supplementation at the time of discharge. Her adventitious lung sounds are significantly improved and her cough is resolving. She is being discharged back to her home assisted living facility with home health services in stable condition. She has been prescribed albuterol/duoneb nebulized treatments, p.o. Levaquin to complete a 10-day course, and a long st eroid taper. She should follow-up with her PCP in 5 to 7 days. Status at Discharge Functional status at discharge: uses cane/walker Overall status at discharge: patient is progressing back to baseline Time Spent with Patient Time attestation: Total time spent providing and/or coordinating discharge services: Time spent: greater than 30 minutes Specific discharge activities: Physical exam, discussion of discharge plan, questions answered. Exam Constitutional Vital Signs, click to edit/add: Last Vital Signs Temp 98.2 F 04/28/23 09:17 Pulse 74 04/28/23 09:17 Resp 20 04/28/23 08:04 BP 126/72 04/28/23 09:17 Pulse Ox 91 L 04/28/23 11:09 O2 Del Method Nasal Cannula 04/28/23 11:09 O2 Flow Rate 2 04/28/23 11:09 Common normals: no apparent distress, oriented x3 and alert General appearance: cooperative Orientation/consciousness: Yes awake HENMT Common normals: normocephalic and head/scalp atraumatic Eye Common normals: PERRL, EOMs intact bilaterally, conjunctivae normal and no scleral icterus Respiratory Common normals: normal respiratory effort and no use of accessory muscles Effort & inspection: able to speak in complete sentences and symmetric chest movement Auscultation: wheezes (faint, scattered EE) and diminished lung sounds (BLL) Cardio Common normals: no JVD, regular rate, regular rhythm, S1 normal heart sound, S2 normal heart sound, no gallops, no clicks, no murmurs, no rub and peripheral pulses 2+ throughout GI Common normals: Normal to inspection, nondistended, normoactive bowel sounds present, soft to palpation and non-tender Extremity Common normals: normal to inspection, full ROM, normal capillary refill and no pedal edema General: no clubbing and no cyanosis Neuro Common normals: oriented x3, CN's II-XII intact bilaterally, moves all extremities, no focal motor deficits and no sensory deficits noted Psych Common normals: mental status grossly normal and activity/motor behavior normal DS: Data Data Completed and Pending Labs on day of discharge: Labs from last 24 hours 04/28/23 04/28/23 04/28/23 11:06 10:00 08:05 WBC RBC Hgb Hct MCV MCH MCHC RDW Plt Count MPV Neut % (Auto) Lymph % (Auto) [place] % (Auto) Eos % (Auto) Baso % (Auto) Neut # (Auto) Lymph # (Auto) [place] # (Auto) Eos # (Auto) Baso # (Auto) Abs Immat Gran (auto) Imm/Tot Granulo (auto) Sodium Potassium Chloride Carbon Dioxide Anion Gap BUN Creatinine Est GFR ( Amer) Est GFR (Non-Af Amer) BUN/Creatinine Ratio Glucose Calcium Total Bilirubin AST ALT Alkaline Phosphatase Total Protein Albumin Globulin Albumin/Globulin Ratio Urine Color Lt. yellow Urine Clarity Clear Urine pH 6.0 Ur Specific [place] 1.025 Urine Protein Trace Urine Glucose (UA) 500 A Urine Ketones Negative Urine Occult Blood Negative Urine Nitrite Negative Urine Bilirubin Negative Urine Urobilinogen 0.2 Ur Leukocyte Esterase Negative POC Glucose 360 H 323 H 04/28/23 04/27/23 04/27/23 04:46 20:46 16:35 WBC 12.7 H RBC 3.82 L Hgb 11.0 L Hct 35.2 L MCV 92.1 MCH 28.8 MCHC 31.3 RDW 13.1 Plt Count 250 MPV 10.6 Neut % (Auto) 90.4 H Lymph % (Auto) 6.0 L [place] % (Auto) 2.8 Eos % (Auto) 0.0 L Baso % (Auto) 0.1 L Neut # (Auto) 11.5 H Lymph # (Auto) 0.8 L [place] # (Auto) 0.4 Eos # (Auto) 0.0 Baso # (Auto) 0.0 Abs Immat Gran (auto) 0.09 H Imm/Tot Granulo (auto) 0.7 H Sodium 136 Potassium 4.3 Chloride 100 Carbon Dioxide 32.3 H Anion Gap 8.0 BUN 40.0 H Creatinine 1.29 H Est GFR ( Amer) 48 L Est GFR (Non-Af Amer) 39 L BUN/Creatinine Ratio 31.0 Glucose 323 H Calcium 9.3 Total Bilirubin 0.3 AST 28 ALT 18 Alkaline Phosphatase 128 H Total Protein 7.4 Albumin 3.0 L Globulin 4.4 Albumin/Globulin Ratio 0.7 Urine Color Urine Clarity Urine pH Ur Specific [place] Urine Protein Urine Glucose (UA) Urine Ketones Urine Occult Blood Urine Nitrite Urine Bilirubin Urine Urobilinogen Ur Leukocyte Esterase POC Glucose 331 H 391 H Imaging Chest x-ray: Radiologist's impression: 04/26/23 IMPRESSION: Borderline cardiac enlargement without overt cardiac decompensation. A focal infiltrate is not identified. The study is limited by shallow inspiration and rotation of the patient. If further evaluation is clinically indicated then perhaps a follow-up study with the patient taking a deep inspiration in the fully upright position may be helpful. 04/27/23 IMPRESSION: Hypoinflation exaggerating bronchovascular markings with mild central bronchial wall thickening compatible with bronchitis or possibly reactive airways disease. Mild blunting the left costophrenic angle could reflect small pleural effusion, lateral basilar atelectasis and/or infiltrate. 04/28/23 IMPRESSION: Possible small left pleural effusion. The lungs appear otherwise clear. CT scan - chest: Radiologist's impression: 04/26/23 IMPRESSION: 1. Moderate respiratory motion obscures the right-sided segmental and subsegmental pulmonary arteries as well as the left-sided subsegmental pulmonary arteries. No large pulmonary embolism of the unobscured pulmonary arteries. 2. Mild multifocal and bilateral consolidation most compatible with mild bronchopneumonia. 3. Mild worsening mediastinal and bilateral hilar adenopathy, likely reactive. Discharge Plan Discharge Disposition: Home Health Service Discharge Medications: New albuterol sulfate 2.5 mg /3 mL (0.083 %) Solution For Nebulization 2.5 mg inhalation Q4H PRN (Reason: Shortness Of Breath Or Wheezing) Qty: 75 0RF ipratropium-albuterol 0.5 mg-3 mg(2.5 mg base)/3 mL Solution For Nebulization 3 ml inhalation Q4H 14 Days Qty: 90 0RF levofloxacin 750 mg tablet 750 mg PO DAILY 10 Days Qty: 10 0RF prednisone 10 mg tablet See Rx Instructions .ROUTE .COMPLEX Qty: 42 0RF Rx Instructions: 6 tabs daily x 2 days, then 5 tabs daily x 2 days, then 4 tabs daily x 2 days, then 3 tabs daily x 2 days, then 2 tabs daily x 2 days, then 1 tab daily x 2 days, then stop Continued amlodipine 5 mg tablet 5 mg PO DAILY atorvastatin 20 mg tablet 20 mg PO DAILY carbidopa-levodopa 25-100 mg tablet 1 tab PO TID aspirin [Adult Low Dose Aspirin] 81 mg tablet,delayed release (DR/EC) 81 mg PO DAILY clopidogrel 75 mg tablet 75 mg PO DAILY docusate sodium [Colace] 100 mg capsule 100 mg PO BID escitalopram oxalate 5 mg tablet 5 mg PO DAILY hydralazine 25 mg tablet 25 mg PO Q8H labetalol 300 mg tablet 300 mg PO Q12H melatonin 5 mg capsule 5 mg PO DAILY PRN (Reason: sleep) polyethylene glycol 3350 [Miralax] 17 gram/dose powder 17 g PO DAILY insulin aspart U-100 [Novolog FlexPen U-100 Insulin] 100 unit/mL (3 mL) insulin pen 10 unit subcut TID Levemir FlexPen 100 unit/mL (3 mL) insulin pen 16 unit SUBCUT DAILY Partner Cco/Husbandry Technician Instructions: Discharge back to [facility], will resume her [facility] coming in as well. [facility] phone number is [phone] Forms: Portal Instructions Follow Up Appointments: - Follow up with PCP in 5-7 days
--- NOTE | 2023-05-01 15:22 | CM.DCFOLLOWU ---
Attempted call back at home phone and 's cell phone listed in this chart. Both numbers were non working numbers. Attempted discharge follow up call at this time without success, first attempt.
--- NOTE | 2023-05-01 15:23 | CM.DCFOLLOWU ---
First discharge follow up call attempted at patient's home number and 's cell listed in this chart and both numbers a recording stated they were non-working numbers. Will attempt again at later date.
--- NOTE | 2023-05-02 14:36 | CM.DCFOLLOWU ---
Spoke with MARIO Sousa and stated patient resides at [facility] and home phone number is no longer a working number but patient is doing well post-discharge.
== END 2023-04-28 14:25 | disposition home health service (06) | DRG 193 ==
LOC: ER 13:29 → MS 14:21
PROVIDERS: Nurse Practitioner; Admitting Provider Family Medicine; Emergency Provider Emergency Medicine; PCP Internal Medicine; Visit Provider Family Medicine
DX: J18.9 Pneumonia, unspecified organism (principal); J96.21 Acute and chronic respiratory failure with hypoxia; J44.1 Chronic obstructive pulmonary disease with (acute) exacerbation; J44.0 Chronic obstructive pulmonary disease with (acute) lower respiratory infection; I12.9 Hypertensive chronic kidney disease with stage 1 through stage 4 chronic kidney disease, or unspecified chronic kidney disease; E11.22 Type 2 diabetes mellitus with diabetic chronic kidney disease; N18.31 Chronic kidney disease, stage 3a; G20.A1 Parkinson's disease without dyskinesia, without mention of fluctuations; F02.80 Dementia in other diseases classified elsewhere, unspecified severity, without behavioral disturbance, psychotic disturbance, mood disturbance, and anxiety; Z79.82 Long term (current) use of aspirin; Z79.4 Long term (current) use of insulin; Z99.81 Dependence on supplemental oxygen; Z79.899 Other long term (current) drug therapy; Z88.1 Allergy status to other antibiotic agents; Z88.5 Allergy status to narcotic agent; Z88.0 Allergy status to penicillin; Z88.2 Allergy status to sulfonamides; Z90.710 Acquired absence of both cervix and uterus; Z83.3 Family history of diabetes mellitus; Z82.49 Family history of ischemic heart disease and other diseases of the circulatory system; Z80.9 Family history of malignant neoplasm, unspecified; Z86.73 Personal history of transient ischemic attack (TIA), and cerebral infarction without residual deficits
CPT/HCPCS: 0202U; 36415; 71045; 71275; 80053; 81003; 82948; 83036; 83735; 83880; 84484; 85025; 85378; 85610; 87070; 87205; 87811; 93005; 94640; 94667; 94668; 94761; 96365; 96366; 96372; 96375; 96376; 97110; 97163; 97165; 97530; 99285; J2920; J2930; Q9967

== ENCOUNTER 2023-07-27 13:02 | Emergency (ER) | payer MEDICARE, OTHER, SELFPAY ==
[2023-07-27 13:04] VITALS: BP 176/70; PULSE 67; RESP 18; TEMP 36.7; O2SAT 98; BMI 34.1
--- OUTSIDE RECORDS SUMMARY | 2023-07-27 13:16 | XMS_ITS | CCD ---
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 Name Role Phone SUHAS, DR JACKSON Admitting Unavailable BALL, DR JACKSON Attending Unavailable BALL, DR JACKSON Primary Care Unavailable BALL, DR JACKSON Consulting Unavailable SUHAS, DR JACKSON Primary Care Unavailable ALYSA, DR GRIDER Admitting Unavailable HOY, DR GRIDER Attending Unavailable HOY, DR GRIDER Consulting Unavailable WEST, DR LAURA Bahena Consulting Unavailable NADERER, DR LISA Grady Consulting Unavailable GRECHNY, ELISEO MESSINA Consulting Unavailable HAY, DR HALEY Consulting Unavailable FALVO, AMY Consulting Unavailable KLYM, CM Consulting Unavailable KLIPPER, LAURA Consulting Unavailable CRONIN, TANVIR Consulting Unavailable BUNDY, CARLEY Consulting Unavailable Suhas, Rolf Unavailable Allergies Allergy Classification Reported Allergen(s) Allergy Type Date of Onset Reaction(s) Facility (1 source) Acetaminophen / oxyCODONE Drug Allergy 11-21-19 16 [facility] (20 sources) Amoxicillin Drug Allergy Unknown [facility] (1 source) Cephalosporins (Antibiotic) Drug allergy (disorder) [facility] (1 source) Codeine Drug Allergy 11-21-19 16 [facility] (20 sources) levoFLOXacin Drug Allergy Unknown [facility] (20 sources) Penicillin Drug Allergy Unknown [facility] (1 source) Sulfamethoxazole / Trimethoprim Drug Allergy [facility] (1 source) Sulfonamides (Antibiotic) Drug allergy (disorder) [facility] (20 sources) Codeine Drug Allergy 03-15-20 13 Unknown [facility] Other (20 sources) Non-steroidal anti-inflammatory agent Drug allergy Unknown [facility] Other (20 sources) predniSONE Drug Allergy Unknown [facility] Other (20 sources) Sulfamethoxazole / Trimethoprim Drug Allergy Unknown [facility] Other (17 sources) Cephalosporins (Antibiotic) Drug allergy 03-15-20 13 Unknown [facility] Other (17 sources) Corticosteroids Drug allergy 03-15-20 13 Unknown [facility] Other (17 sources) HMG-CoA reductase inhibitor Drug allergy 03-15-20 13 Unknown [facility] Other (17 sources) Penicillins Drug allergy 03-15-20 13 Unknown [facility] Other (17 sources) Sulfamethoxazole Drug Allergy 03-15-20 13 Unknown [facility] Other (17 sources) patient allergy list reviewed by nurse or physicia Propensity to adverse reactions 01-25-20 16 Comment:Done [facility] Other (17 sources) Vioxx *ANALGESICS - ANTI-INFLAMMATORY* Propensity to adverse reactions 03-15-20 13 Unknown [facility] Other Medications Current Medications Medication Drug Class(es) Dates Sig (Normalized) Sig (Original) acetaminophen 325 mg oral tablet (13 sources) take 1 tablet by mouth every four hours Acetaminophen 325 MG 1 tablet as needed Orally every 4 hrs Active albuterol 0.83 mg/ml inhalation solution (20 sources) beta2-Adrenergic Agonist Start: 02-13-2023 Albuterol Sulfat e 0.63 MG/3ML as directed Inhalation Active take 1 puff(s) by in halation every four hours as needed Ventolin HFA 108 (90 Base) MCG/ACT 1 puf f as needed Inhalation every 4 hrs Not-Taking/PRN aluminum hydroxide 40 mg/ml / magnesium hydroxide 40 mg/ml / simethicone 4 mg/ml oral suspension (1 source) take 10 mL by mouth four times daily as needed Christiana-Lanta 200-200-20 MG/5ML 10 mL as needed Orally Four times a day Active amLODIPine 5 mg oral tablet (20 sources) Dihydropyridine Calcium Channel Dariana Start: take 1 tablet by mouth every twenty-four hours amLODIPine Besylate 5 MG 1 tablet Orally Once a day Jun, Active Aspir-81 81 MG (20 sources) take 1 tablet by mouth once toribio y Aspir-81 81 MG 1 tablet Orally Once a day Active aspirin 81 mg delayed release oral tablet (1 source) Platelet Aggregation Inhibitor, Nonsteroidal Anti-inflammatory Drug take 1 tablet by mouth every twenty-four hours Aspirin Adult Low Dose 81 MG 1 tablet Orally Once a day Active atorvastatin 40 mg oral tablet (20 sources) HMG-CoA Reductase Inhibitor Start: take 1 tablet by mouth every twenty-four hours Atorvastatin Calcium 20 MG 1 tablet Orally Once a day Jun, Active Start: 07-20-2022 take 1 tablet by georgina th every twenty-four hours Atorvastatin Calcium 40 MG 1 tablet Orally Once a day Jun, Active carbidopa 25 mg / levodopa 100 mg oral tablet (20 sources) Aromatic Amino Acid Decarboxylation Inhibitor, Aromatic Amino Acid Start: 07-20-2022 take 1 tablet by mouth two times weekly as needed Carbidopa-Levodopa 25-100 MG 1 tablet as needed Orally Two times a Week Jun, Active Start: 07-20-2022 clopidogrel 75 mg oral tablet (14 sources) P2Y12 Platelet Inhibitor take 1 tablet by mouth every twenty-four hours Clopidogrel Bisulfate 75 MG 1 tablet Orally Once a day Active 12 hr dextromethorphan hydrobromide 60 mg / guaiFENesin 1200 mg extended release oral tablet (6 sources) Uncompetitive H-tqoqxr-D-aspartat e Receptor Antagonist, Sigma-1 Agonist Start: 2022 take 1 tablet by mouth every twelve hours Mucinex DM Maximum Strength 60-1200 MG 1 tablet as needed Orally every 12 hrs for 14 days Mar, Active docusate sodium 100 mg oral capsule (12 sources) take 1 capsule by mouth every twenty-four hours Docusate Sodium 100 MG 1 capsule as needed Orally Once a day Active doxycycline hyclate 100 mg oral capsule (12 sources) Tetracycline-class Drug take 1 capsule by mouth every twenty-four hours Doxycycline Hyclate 100 MG 1 capsule Orally Once a day Active escitalopram 5 mg oral tablet (20 sources) Serotonin Reuptake Inhibitor Start: 2022 take 1 tablet by mouth once at bedtime Escitalopram Oxalate 5 MG 1 tablet Orally q HS for 90 days Jul, Active FreeStyle Ronna 14 Day Sensor - (10 sources) Start: 2022 FreeStyle Ronna 14 Day Sensor - Use to monitor BS transcutaneous 6x daily for 30 days Feb, Active FreeStyle Ronna 2 Sensor - (1 source) Start: 2023 FreeStyle Ronna 2 Sensor - Use to test home BS transcutaneous 4x daily for 30 days Jun, Active gabapentin 100 mg oral capsule (20 sources) Anti-epileptic Agent hydrALAZINE hydrochloride 25 mg oral tablet (20 sources) Arteriolar Vasodilator Start: 2022 take 1 tablet by mouth every eight hours hydrALAZINE HCl 25 MG 1 tablet with food Orally Three times a day Jun, Active 3 ml insulin aspart, human 100 unt/ml pen injector (10 sources) Insulin Analog Start: 2022 inject 100 [IU] by subcutaneous injection three times daily before mealtime Insulin Aspart FlexPen 100 UNIT/ML 6-14units Subcutaneous AC tid for 30 days Feb, Active Start: 03-13-2023 inject 10 [IU] by arizmendi bcutaneous injection three times daily before mealtime Insulin Aspart FlexPen 100 UNIT/ML Up to 10 units before meals Subcutaneous AC tid for 30 days Feb, Active 3 ml insulin detemir 100 unt/ml pen injector (20 sources) Insulin Analog Start: 03-13-2023 Levemir FlexPe n 100 UNIT/ML 16 units Subcutaneous q HS for 30 days Feb, Active Start: 03-13-2023 inject 10 [IU] by arizmendi bcutaneous injection once at bedtime Levemir FlexPen 100 UNIT/ML 10 units Subcutaneous q HS for 30 days Feb, Active Levemir FlexPen 100 UNIT/ML as directed Subcutaneous Active 1.5 ml insulin glargine 300 unt/ml pen injector (1 source) Insulin Analog Start: 07-25-2023 inject 300 [IU] by subcutaneous injection once daily Toujeo SoloStar 300 UNIT/ML 10-12 units Subcutaneous qd for 30 days Jun, Active 3 ml insulin lispro 100 unt/ml pen injector (20 sources) Insulin Analog Start: 07-20-2022 HumaLOG KwikPe n 100 UNIT/ML as directed Subcutaneous Jun, Active Start: 07-20-2022 labetalol hydrochloride 300 mg oral tablet (20 sources) beta-Adrenergic Dariana Start: 07-20-2022 take 1 tablet by mouth every twelve hours Labetalol HCl 300 MG 1 tablet Orally Twice a day Jun, Active magnesium hydroxide 80 mg/ml oral suspension (1 source) Milk of Magnesia 400 MG/5ML 5 mL at least 4 hours between doses as needed Orally Four times a day Active melatonin 5 mg oral tablet (13 sources) take 1 tablet by mouth every twenty-four hours Melatonin 5 MG 1 tablet in the evening Orally Once a day Active Milk of Magnesia (12 sources) Milk of Magnesia Active nitroglycerin 0.4 mg sublingual tablet (12 sources) Nitrate Vasodilator Nitroglyceri n 0.4 MG as directed Sublingual Active polyethylene glycol 3350 02810 mg powder for oral solution (1 source) Osmotic Laxative ClearLax 17 GM/SCOOP 1 scoop mixed with 8 ounces of fluid Orally Once a day Active Polyethylene Glycols (12 sources) Polyethylene Glycol - as directed Active Completed/Discontinued Medications Medication Drug Class(es) Dates Sig (Normalized) Sig (Original) Calcium + D3 600-200 MG-UNIT (20 sources) Calcium + D3 600 -200 MG-UNIT Orally Not-Taking Co Q-10 200 MG (20 sources) take 1 capsule by mo uth once daily Co Q-10 200 MG 1 capsule with a meal Orally Once a day Not-Taking take 1 capsule by mouth once liliana ly doxepin hydrochloride 10 mg oral capsule (20 sources) Tricyclic Antidepressant take 1 capsule by mouth every twenty-four hours Doxepin HCl 10 MG 1 capsule at bedtime Orally Once a day Not-Taking gemfibrozil 600 mg oral tablet (20 sources) Peroxisome Proliferator Receptor alpha Agonist take 1 tablet by mouth every twelve hours Gemfibrozil 600 MG 1 tablet Orally Twice a day Not-Taking lisinopril 40 mg oral tablet (20 sources) Angiotensin Converting Enzyme Inhibitor Lisinopril 40 MG Orally Not-Taking losartan potassium 25 mg oral tablet (20 sources) Angiotensin 2 Receptor Dariana take 1 tablet by mouth every twenty-four hours Losartan Potassium 25 MG 1 tablet Orally Once a day Not-Taking metFORMIN hydrochloride 1000 mg oral tablet (20 sources) Biguanide take 1 tablet by mouth every twelve hours metFORMIN HCl 1000 MG 1 tablet with meals Orally Twice a day Not-Taking OXcarbazepine 150 mg oral tablet (20 sources) Anti-epileptic Agent take 1 tablet by mouth every twelve hours Trileptal 150 MG 1 tablet Orally Twice a day Not-Taking Problems Active Problems Problem Classification Problem Date Documented Date Episodic/Chronic Acute and unspecified renal failure (1 source) Acute kidney failure, unspecified; Translations: [ACUTE KIDNEY FAILURE UNSPECIFIED] Onset: 05-09-2022 Episodic Acute cerebrovascular disease (20 sources) Cerebral infarction, unspecified; 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] Onset: 05-09-2022 Chronic Chronic kidney disease (17 sources) Chronic kidney disease stage 3; Translations: [Chronic kidney disease, stage 3 unspecified] Onset: 03-28-2018 Chronic Chronic kidney disease (1 source) Chronic kidney disease; Translations: [CHRONIC KIDNEY DISEASE STAGE 3A] Onset: 05-09-2022 Chronic obstructive pulmonary disease and bronchiectasis (17 sources) Mucopurulent chronic bronchitis; Translations: [Mucopurulent chronic bronchitis] Chronic Diabetes mellitus with complications (20 sources) Type 2 diabetes mellitus with hyperglycemia; Translations: [Type 2 diabetes mellitus with diabetic chronic kidney disease] Onset: 01-07-2014 Chronic Diabetes mellitus without complication (17 sources) Type 2 diabetes mellitus without complication; Translations: [Diabetes mellitus without mention of complication, type II or unspecified type, not stated as uncontrolled] Onset: 03-15-2013 Chronic Disorders of lipid metabolism (20 sources) Hyperlipidemia, unspecified; Translations: [Hypercholesterolemia ] Onset: 12-30-2014 Chronic Esophageal disorders (9 sources) Gastro-esophageal reflux disease with esophagitis; Translations: [Gastro-esophageal reflux disease with esophagitis, without bleeding] Chronic Essential hypertension (20 sources) Essential hypertension; Translations: [Essential (primary) hypertension] Chronic Fluid and electrolyte disorders (1 source) Dehydration; Translations: [DEHYDRATION] Onset: 05-09-2022 Episodic Hypertension with complications and secondary hypertension (2 sources) Hypertensive urgency; Translations: [Hypertensive chronic kidney disease with stage 1 through stage 4 chronic kidney disease, or unspecified chronic kidney disease] Onset: 05-09-2022 Chronic Immunizations and screening for infectious disease (18 sources) Encounter for immunization; Translations: [Vaccination given] Onset: 02-17-2022 Episodic Late effects of cerebrovascular disease (20 sources) 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; Translations: [Hemiplegia and 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] Chronic Melanomas of skin (20 sources) Melanoma in situ of trunk; Translations: [Melanoma in situ of other part of trunk] Onset: 06-26-2011 Chronic Menopausal disorders (17 sources) Primary ovarian failure; Translations: [Other primary ovarian failure] Onset: 01-15-2017 Chronic Mood disorders (20 sources) Recurrent major depressive episodes, mild ; Translations: [Major depressive disorder, recurrent, mild] Chronic Neoplasms of unspecified nature or uncertain behavior (17 sources) Neoplasm of uncertain behavior of colon; Translations: [Neoplasm of uncertain behavior of colon] Episodic Nutritional deficiencies (17 sources) Vitamin D deficiency; Translations: [Unspecified vitamin D deficiency] Chronic Osteoarthritis (17 sources) Localized, primary osteoarthritis of the ankle and/or foot; Translations: [Primary localized osteoarthrosis, ankle and foot] Onset: 01-07-2014 Chronic Other aftercare (1 source) terminal operations supervisor (current) use of aspirin; Translations: [LINUX SERVER ADMINISTRATOR CURRENT USE OF ASPIRIN] Onset: 05-09-2022 Episodic Other aftercare (1 source) terminal operations supervisor (current) use of oral hypoglycemic drugs; Translations: [LINUX SERVER ADMINISTRATOR USE ORAL HYPOGLYCEMIC DX] Onset: 05-09-2022 Episodic Other aftercare (17 sources) Long-term current use of drug therapy; Translations: [Other remote computer terminal operator (current) drug therapy] Episodic Other aftercare (1 source) Long-term current use of insulin; Translations: [terminal operations supervisor (current) use of insulin] Episodic Other and ill-defined cerebrovascular disease (20 sources) Cerebral atherosclerosis; Translations: [Cerebral atherosclerosis] Chronic Other and ill-defined cerebrovascular disease (5 sources) Cerebral atherosclerosis Chronic Other and unspecified benign neoplasm (17 sources) Benign neoplasm of descending colon; Translations: [Benign neoplasm of descending colon] Episodic Other circulatory disease (17 sources) Orthostatic hypotension; Translations: [Orthostatic hypotension] Episodic Other circulatory disease (1 source) Orthostatic hypotension Episodic Other diseases of veins and lymphatics (20 sources) Peripheral venous insufficiency; Translations: [Venous insufficiency (chronic) (peripheral)] Onset: 07-11-2017 Episodic Other hereditary and degenerative nervous system conditions (2 sources) Impaired cognition; Translations: [Mild cognitive impairment, so stated] Chronic Other hereditary and degenerative nervous system conditions (2 sources) Resting tremor; Translations: [Other specified forms of tremor] Chronic Other hereditary and degenerative nervous system conditions (1 source) Mild cognitive impairment, so stated Chronic Other infections; including parasitic (17 sources) H/O: infectious disease; Translations: [Personal history of other infectious and parasitic diseases] Episodic Other lower respiratory disease (17 sources) Solitary nodule of lung; Translations: [Solitary pulmonary nodule] Episodic Other lower respiratory disease (17 sources) Hypoxemia; Translations: [Hypoxemia] Episodic Other lower respiratory disease (2 sources) Hypoxemia Episodic Other nervous system disorders (17 sources) Hereditary peripheral neuropathy; Translations: [Unspecified hereditary and idiopathic peripheral neuropathy] Onset: 01-07-2014 Chronic Other non-epithelial cancer of skin (20 sources) 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; Translations: [Basal cell carcinoma of skin of nose] Episodic Other nutritional; endocrine; and metabolic disorders (20 sources) Obese class II; Translations: [Body mass index (BMI) 35.0-35.9, adult] Onset: 12-30-2014 Chronic Other nutritional; endocrine; and metabolic disorders (17 sources) Obesity; Translations: [Obesity, unspecified] Chronic Other nutritional; endocrine; and metabolic disorders (17 sources) Body mass index 30+ - obesity; Translations: [Body mass index 36.0-36.9, adult] Onset: 12-30-2014 Chronic Paralysis (20 sources) Hemiplegia, unspecified affecting left nondominant side; Translations: [Left hemiparesis] Onset: 05-09-2022 Chronic Parkinson`s disease (20 sources) Parkinson's disease; Translations: [Parkinson's disease] Onset: 05-09-2022 Chronic Residual codes; unclassified (20 sources) Obstructive sleep apnea syndrome; Translations: [Obstructive sleep apnea (adult) (pediatric)] Chronic Residual codes; unclassified (4 sources) Obstructive sleep apnea (adult) (pediatric) Chronic Residual codes; unclassified (2 sources) Altered mental status, unspecified; Translations: [ALTERED MENTAL STATUS UNSPECIFIED] Onset: 04-29-2022 Episodic Residual codes; unclassified (1 source) Patient's other noncompliance with medication regimen; Translations: [PT OTH NONCOMPLIANCE W/ MED REGIMEN] Onset: 05-09-2022 Episodic Respiratory failure; insufficiency; arrest (adult) (18 sources) Dependence on supplemental oxygen; Translations: [Dependence on supplemental oxygen] Chronic Spondylosis; intervertebral disc disorders; other back problems (17 sources) Cervical spondylosis without myelopathy; Translations: [Spondylosis without myelopathy or radiculopathy, cervical region] Chronic Unclassified (1 source) CONTACT W/AND (SUSP) EXPOS COVID-19; Translations: [CONTACT W/AND (SUSP) EXPOS COVID-19] Onset: 05-09-2022 Urinary tract infections (1 source) Urinary tract infection, site not specified; Translations: [UTI SITE NOT SPECIFIED] Onset: 05-09-2022 Episodic Viral infection (20 sources) COVID-19; Translations: [Disease caused by 2019-nCoV] Onset: 02-15-2022 Past or Other Problems Problem Classification Problem Date Documented Da te Episodic/Chronic Acute bronchitis (17 sources) Acute bronchitis; Translations: [Acute bronchitis, unspecified] Onset: 10-07-2014 Episodic Conditions associated with dizziness or vertigo (17 sources) Benign paroxysmal positional vertigo; Translations: [Benign paroxysmal vertigo, unspecified ear] Onset: 01-25-2016 Episodic Esophageal disorders (16 sources) Esophageal disorders; Translations: [Gastro-esophageal reflux disease with esophagitis, without bleeding] Joint disorders and dislocations; trauma-related (17 sources) Current tear of medial cartilage AND/OR meniscus of knee; Translations: [Tear of medial cartilage or meniscus of knee, current] Onset: 02-27-2015 Episodic Malaise and fatigue (17 sources) Malaise and fatigue; Translations: [Other malaise and fatigue] Onset: 12-14-2016 Episodic Mycoses (17 sources) Candidal vulvovaginitis; Translations: [Candidiasis of vulva and vagina] Onset: 10-03-2014 Episodic Nausea and vomiting (17 sources) Nausea and vomiting; Translations: [Nausea with vomiting, unspecified] Onset: 01-25-2016 Episodic Other and unspecified benign neoplasm (17 sources) History of polyp of colon; Translations: [Personal history of colonic polyps] Onset: 07-11-2017 Episodic Other injuries and conditions due to external causes (17 sources) History of fall; Translations: [Personal history of fall] Onset: 12-14-2016 Episodic Other lower respiratory disease (17 sources) Cough; Translations: [Cough, unspecified] Onset: 10-07-2014 Episodic Other non-traumatic joint disorders (17 sources) Arthralgia of the lower leg; Translations: [Pain in unspecified knee] Onset: 02-20-2015 Episodic Other nutritional; endocrine; and metabolic disorders (17 sources) Morbid obesity; Translations: [Morbid (severe) obesity due to excess calories] Resolved: 09-01-2020 Chronic Other screening for suspected conditions (not mental disorders or infectious disease) (17 sources) Mammography abnormal; Translations: [Unspecified abnormal mammogram] Onset: 01-06-2015 Episodic Other upper respiratory infections (20 sources) Acute maxillary sinusitis; Translations: [Acute maxillary sinusitis, unspecified] Onset: 10-03-2014 Episodic Parkinson`s disease (1 source) Parkinson`s disease Unclassified (2 sources) Acute cough R05.1 Results Test Name Value Interpretation Reference Range Facility CBC AUTO DIFFon 05-01-2022 BASO # 0.0 103/ul Normal 0.0-0.1 [facility] Comment on above: Performed By: #### C BC #### [facility] [address] [place] [address] Dr. Misha Torres Basophils/100 WBC (Bld) 0.5 % Normal 0.2-2.0 [facility] Comment on above: Performed By: #### C BC #### [facility] [address] [place] [address] Dr. Misha Torres EO # 0.2 103/ul Normal 0.0-0.7 [facility] Comment on above: Performed By: #### C BC #### [facility] [address] [place] [address] Dr. Misha Torres Eosinophils/100 WBC (Bld) 2.5 % Normal 0.9-7.0 [facility] Comment on above: Performed By: #### C BC #### [facility] [address] [place] [address] Dr. Misha Torres Erythrocyte distribution width (RBC) [Ratio] 13.6 % Normal 11.0-15.0 [facility] Comment on above: Performed By: #### C BC #### [facility] [address] [place] [address] Dr. Misha Torres Hematocrit (Bld) [Volume fraction] 36.0 % Normal 36.0-48.0 [facility] Comment on above: Performed By: #### C BC #### [facility] [address] [place] [address] Dr. Misha Torres Hemoglobin (Bld) [Mass/Vol] 11.7 g/dL Critically low 12.0-16.0 [facility] Comment on above: Performed By: #### C BC #### [facility] [address] [place] [address] Dr. Misha Torres IG # 0.01 10e3/ul Normal 0.00-0.03 [facility] Comment on above: Performed By: #### C BC #### [facility] [address] [place] [address] Dr. Misha Torres IG % 0.2 % Normal 0.0-0.5 [facility] Comment on above: Performed By: #### C BC #### [facility] [address] [place] [address] Dr. Misha Torres LYMPH # 2.0 103/ul Normal 1.2-3.8 [facility] Comment on above: Performed By: #### C BC #### [facility] [address] [place] [address] Dr. Misha Torres Lymphocytes/100 WBC (Bld) 31.2 % Normal 20.5-60.0 [facility] Comment on above: Performed By: #### C BC #### [facility] [address] [place] [address] Dr. Misha Torres MANUAL DIFF REQ NO Normal [facility] Comment on above: Performed By: #### C BC #### [facility] [address] [place] [address] Dr. Misha Torres MCH (RBC) [Entitic mass] 29.4 pg Normal 26.7-34.0 [facility] Comment on above: Performed By: #### C BC #### [facility] [address] [place] [address] Dr. Misha Torres MCHC (RBC) [Mass/Vol] 32.5 g/dL Normal 29.9-35.2 [facility] Comment on above: Performed By: #### C BC #### [facility] [address] [address] [address] Misha Torres MCV (RBC) [Entitic vol] 90.5 fL Normal 81.0-99.0 [facility] Comment on above: Performed By: #### C BC #### [facility] [address] [address] [address] Misha Torres MONO # 0.6 103/ul Normal 0.3-0.8 [facility] Comment on above: Performed By: #### C BC #### [facility] [address] [address] [address] Misha Torres Monocytes/100 WBC (Bld) 9.5 % Normal 1.7-12.0 [facility] Comment on above: Performed By: #### C BC #### [facility] [address] [address] [address] Misha Torres NEUT # 3.6 103/ul Normal 1.4-6.5 [facility] Comment on above: Performed By: #### C BC #### [facility] [address] [address] [address] Misha Torres Neutrophils/100 WBC (Bld) 56.1 % Normal 43.0-75.0 [facility] Comment on above: Performed By: #### C BC #### [facility] [address] [address] [address] Misha Torres Platelet mean volume (Bld) [Entitic vol] 11.0 fL Normal 9.5-13.5 [facility] Comment on above: Performed By: #### C BC #### [facility] [address] [address] [address] Misha Torres PLT 152 103/ul Normal 150-450 [facility] Comment on above: Performed By: #### C BC #### [facility] [id number] Misha Torres RBC 3.98 106/ul Critically low 4.20-5.40 [facility] Comment on above: Performed By: #### C BC #### [facility] [address] [address] [address] Misha Torres WBC 6.4 103/ul Normal 4.0-11.0 [facility] Comment on above: Performed By: #### C BC #### [facility] [address] [address] [address] Misha Torres POINT OF CARE GLUCOSEon 110 Glucose [Mass/Vol] 253 mg/dL Critically high 74-106 [facility] Comment on above: Performed By: #### P OCGLUC #### [facility] [address] [address] [address] Misha Torres Glucose [Mass/Vol] 201 mg/dL Critically high 74-106 [facility] Comment on above: Performed By: #### P OCGLUC #### [facility] [address] [place] [address] Dr. Misha Torres PROF CHEM 8 (BAS METB)on Anion gap [Moles/Vol] 9.2 mmol/L Normal [facility] Comment on above: Performed By: #### P OCGLUC #### [facility] [address] [address] [address] Misha Torres Calcium [Mass/Vol] 8.1 mg/dL Critically low 8.5-10.1 [facility] Comment on above: Performed By: #### P OCGLUC #### [facility] [address] [address] [address] Misha Torres Chloride [Moles/Vol] 104 mmol/L Normal 98-107 [facility] Comment on above: Performed By: #### P OCGLUC #### [facility] [address] [address] [address] Misha Torres CO2 [Moles/Vol] 25.4 mmol/L Normal 21.0-32.0 [place] Comment on above: Performed By: #### P OCGLUC #### [facility] [address] [place] [address] Dr. Misha Torres Creatinine [Mass/Vol] 1.22 mg/dL Critically high 0.55-1.02 [facility] Comment on above: Performed By: #### P OCGLUC #### [facility] [address] [address] [address] Misha Torres EGFR-AF JAPANESE 51 mL/min/1.73m2 Critically low >=60 [facility] Comment on above: Performed By: #### P OCGLUC #### [facility] [address] [address] [address] Misha Torres EGFR-NON AF [place] 42 mL/min/1.73m2 Critically low >=60 [facility] Comment on above: Performed By: #### P OCGLUC #### [facility] [address] [address] [address] Misha Torres Glucose [Mass/Vol] 180 mg/dL Critically high 74-106 [facility] Comment on above: Performed By: #### P OCGLUC #### [facility] [address] [address] [address] Misha Torres Potassium [Moles/Vol] 3.6 mmol/L Normal 3.5-5.1 [facility] Comment on above: Performed By: #### P OCGLUC #### [facility] [address] [address] [address] Misha Torres Sodium [Moles/Vol] 135 mmol/L Critically low 136-145 Th [facility] Comment on above: Performed By: #### P OCGLUC #### [facility] [address] [address] [address] Misha Torres Urea nitrogen [Mass/Vol] 23.0 mg/dL Critically high 7.0-18.0 [facility] Comment on above: Performed By: #### P OCGLUC #### [facility] [address] [address] [address] Misha Torres Urea nitrogen/Creatinine [Mass ratio] 18.9 mg/mg Normal [facility] Comment on above: Performed By: #### P OCGLUC #### [facility] [address] [address] [address] Misha Torres CBC AUTO DIFFon 04-30-2022 BASO # 0.0 103/ul Normal 0.0-0.1 [facility] Comment on above: Performed By: #### P OCGLUC #### [facility] [address] [place] [address] Dr. Misha Torres Basophils/100 WBC (Bld) 0.3 % Normal 0.2-2.0 [facility] Comment on above: Performed By: #### P OCGLUC #### [facility] [address] [place] [address] Dr. Misha Torres EO # 0.1 103/ul Normal 0.0-0.7 [facility] Comment on above: Performed By: #### P OCGLUC #### [facility] [address] [place] [address] Dr. Misha Torres Eosinophils/100 WBC (Bld) 0.8 % Critically low 0.9-7.0 [facility] Comment on above: Performed By: #### P OCGLUC #### [facility] [address] [place] [address] Dr. Misha Torres Erythrocyte distribution width (RBC) [Ratio] 13.3 % Normal 11.0-15.0 [facility] Comment on above: Performed By: #### P OCGLUC #### [facility] [address] [place] [address] Dr. Misha Torres Hematocrit (Bld) [Volume fraction] 37.7 % Normal 36.0-48.0 [facility] Comment on above: Performed By: #### P OCGLUC #### [facility] [address] [place] [address] Dr. Misha Torres Hemoglobin (Bld) [Mass/Vol] 12.4 g/dL Normal 12.0-16.0 [facility] Comment on above: Performed By: #### P OCGLUC #### [facility] [address] [place] [address] Dr. Misha Torres IG # 0.02 10e3/ul Normal 0.00-0.03 [facility] Comment on above: Performed By: #### P OCGLUC #### [facility] [address] [place] [address] Dr. Misha Torres IG % 0.2 % Normal 0.0-0.5 [facility] Comment on above: Performed By: #### P OCGLUC #### [facility] [address] [place] [address] Dr. Misha Torres LYMPH # 2.4 103/ul Normal 1.2-3.8 [facility] Comment on above: Performed By: #### P OCGLUC #### [facility] [address] [place] [address] Dr. Misha Torres Lymphocytes/100 WBC (Bld) 24.6 % Normal 20.5-60.0 [facility] Comment on above: Performed By: #### P OCGLUC #### [facility] [address] [place] [address] Dr. Misha Torres MANUAL DIFF REQ NO Normal [facility] Comment on above: Performed By: #### P OCGLUC #### [facility] [address] [place] [address] Dr. Misha Torres MCH (RBC) [Entitic mass] 29.4 pg Normal 26.7-34.0 [facility] Comment on above: Performed By: #### P OCGLUC #### [facility] [address] [place] [address] Dr. Misha Torres MCHC (RBC) [Mass/Vol] 32.9 g/dL Normal 29.9-35.2 [facility] Comment on above: Performed By: #### P OCGLUC #### [facility] [address] [place] [address] Dr. Misha Torres MCV (RBC) [Entitic vol] 89.3 fL Normal 81.0-99.0 [facility] Comment on above: Performed By: #### P OCGLUC #### [facility] [address] [place] [address] Dr. Misha Torres MONO # 0.9 103/ul Critically high 0.3-0.8 [facility] Comment on above: Performed By: #### P OCGLUC #### [facility] [address] [place] [address] Dr. Misha Torres Monocytes/100 WBC (Bld) 8.9 % Normal 1.7-12.0 [facility] Comment on above: Performed By: #### P OCGLUC #### [facility] [address] [place] [address] Dr. Misha Torres NEUT # 6.2 103/ul Normal 1.4-6.5 [facility] Comment on above: Performed By: #### P OCGLUC #### [facility] [address] [place] [address] Dr. Misha Torres Neutrophils/100 WBC (Bld) 65.2 % Normal 43.0-75.0 [facility] Comment on above: Performed By: #### P OCGLUC #### [facility] [address] [place] [address] Dr. Misha Torres Platelet mean volume (Bld) [Entitic vol] 10.3 fL Normal 9.5-13.5 [facility] Comment on above: Performed By: #### P OCGLUC #### [facility] [address] [place] [address] Dr. Misha Torres PLT 168 103/ul Normal 150-450 [facility] Comment on above: Performed By: #### P OCGLUC #### [facility] [address] [place] [address] Dr. Misha Torres RBC 4.22 106/ul Normal 4.20-5.40 [facility] Comment on above: Performed By: #### P OCGLUC #### [facility] [address] [place] [address] Dr. Misha Torres WBC 9.6 103/ul Normal 4.0-11.0 [facility] Comment on above: Performed By: #### P OCGLUC #### [facility] [address] [place] [address] Dr. Misha Torres CTA HEAD WO W CONon 04-30-20 CTA HEAD WO W CON CTA HEAD/NECK. HISTORY: Disturbance of consciousness COMPARISON: None. TECHNIQUE: CT angiogram of the head and neck obtained after administration of 75 mL of nonionic intravenous contrast material, Isovue-300. Multiplanar and volume rendered 3-D reformats were created. NASCET criteria was used for evaluation of luminal stenosis. Approximately 100 ml Omnipaque 350 was administered intravenously. 3-D vascular images were constructed on a separate workstation. FINDINGS: THORACIC AORTA: Normal. There is a normal anatomy at the origin of the great vessels. RIGHT COMMON CAROTID ARTERY: No significant stenosis. There is approximately 30-40% stenosis of the right CCA bifurcation secondary to calcified atherosclerosis. RIGHT EXTERNAL CAROTID ARTERY: There is approximately 70-80% stenosis RIGHT INTERNAL CAROTID ARTERY: No significant stenosis. LEFT COMMON CAROTID ARTERY: No significant stenosis. There is approximately 30% stenosis of the distal CCA secondary to calcified pelvis quadrant plaque. LEFT EXTERNAL CAROTID ARTERY: No significant stenosis. LEFT INTERNAL CAROTID ARTERY: There is approximately 50% stenosis of the proximal ICA secondary to noncalcified discrete plaque. RIGHT VERTEBRAL ARTERY: No significant stenosis. LEFT VERTEBRAL ARTERY: No significant stenosis. [place]: The bilateral intracranial internal carotid arteries, anterior cerebral arteries, middle cerebral arteries and anterior and posterior communicating arteries are normal. 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 There is reconstitution of the distal segment. Somewhat limited evaluation. 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 There is a 6 mm fusiform dilatation of the left cavernous ICA.. No intracranial AVM. LUNG APICES: The lung apices are clear. SOFT TISSUES: The prevertebral soft tissues are normal. No soft tissue inflammation. OSSEOUS STRUCTURES: No acute osseous abnormality throughout the imaged axial skeleton and skull base. IMPRESSION: 1. 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 2. Approximately 50% stenosis of the proximal left ICA. 3. Approximately 30% stenosis of the distal left CCA. 4. Approximately 30-40% stenosis of the right CCA bifurcation. 5. Left cavernous ICA focal 6 mm dilatation suggestive of a nonruptured aneurysm. Electronically authenticated by: CARLEY BUNDY Date: 2022-04-30 13:42 Normal [facility] POINT OF CARE GLUCOSEon 11-0 Glucose [Mass/Vol] 320 mg/dL Critically high 74-106 [facility] Comment on above: Performed By: #### P OCGLUC #### [facility] [address] [address] [address] Misha Torres Glucose [Mass/Vol] 289 mg/dL Critically high 74-106 [facility] Comment on above: Performed By: #### P OCGLUC #### [facility] [address] [address] [address] Misha Torres Glucose [Mass/Vol] 285 mg/dL Critically high 74-106 [facility] Comment on above: Performed By: #### P OCGLUC #### [facility] [address] [address] [address] Misha Torres Glucose [Mass/Vol] 179 mg/dL Critically high 74-106 [facility] Comment on above: Performed By: #### P OCGLUC #### [facility] [address] [place] [address] Dr. Misha Torres PROF CHEM 8 (BAS METB)on Anion gap [Moles/Vol] 7.6 mmol/L Normal [facility] Comment on above: Performed By: #### B MP #### [facility] [address] [address] [address] Misha Torres Calcium [Mass/Vol] 8.1 mg/dL Critically low 8.5-10.1 [facility] Comment on above: Performed By: #### B MP #### [facility] [address] [place] [address] Dr. Misha Torres Chloride [Moles/Vol] 102 mmol/L Normal 98-107 [facility] Comment on above: Performed By: #### B MP #### [facility] [address] [address] [address] Misha Torres CO2 [Moles/Vol] 27.8 mmol/L Normal 21.0-32.0 [place] Comment on above: Performed By: #### B MP #### [facility] [address] [place] [address] Dr. Misha Torres Creatinine [Mass/Vol] 1.34 mg/dL Critically high 0.55-1.02 [facility] Comment on above: Performed By: #### B MP #### [facility] [address] [address] [address] Misha Torres EGFR-AF JAPANESE 46 mL/min/1.73m2 Critically low >=60 [facility] Comment on above: Performed By: #### B MP #### [facility] [address] [address] [address] Misha Torres EGFR-NON AF [place]ESE 38 mL/min/1.73m2 Critically low >=60 [facility] Comment on above: Performed By: #### B MP #### [facility] [address] [address] [address] Misha Torres Glucose [Mass/Vol] 178 mg/dL Critically high 74-106 [facility] Comment on above: Performed By: #### B MP #### [facility] [address] [address] [address] Misha Torres Potassium [Moles/Vol] 3.4 mmol/L Critically low 3.5-5.1 [facility] Comment on above: Performed By: #### B MP #### [facility] [address] [address] [address] Misha Torres Sodium [Moles/Vol] 134 mmol/L Critically low 136-145 Th [facility] Comment on above: Performed By: #### B MP #### [facility] [address] [address] [address] Misha Torres Urea nitrogen [Mass/Vol] 24.0 mg/dL Critically high 7.0-18.0 [facility] Comment on above: Performed By: #### B MP #### [facility] [address] [address] [address] Misha Torres Urea nitrogen/Creatinine [Mass ratio] 17.9 mg/mg Normal [facility] Comment on above: Performed By: #### B MP #### [facility] [address] [address] [address] Misha Torres CBC AUTO DIFFon 04-29-2022 BASO # 0.0 103/ul Normal 0.0-0.1 [facility] Comment on above: Performed By: #### C BC ####[facility] [address] [place], [place] [id number]. Misha Torres Basophils/100 WBC (Bld) 0.2 % Normal 0.2-2.0 [facility] Comment on above: Performed By: #### C BC ####[facility] [address] [place], [place] [address]Dr. Misha Torres EO # 0.0 103/ul Normal 0.0-0.7 [facility] Comment on above: Performed By: #### C BC ####[facility] [address] [place], [place] [address]Dr. Misha Torres Eosinophils/100 WBC (Bld) 0.1 % Critically low 0.9-7.0 [facility] Comment on above: Performed By: #### C BC ####[facility] [address] [place], [place] [address]Dr. Misha Torres Erythrocyte distribution width (RBC) [Ratio] 13.1 % Normal 11.0-15.0 [facility] Comment on above: Performed By: #### C BC ####[facility] [address] [place], [place] [address]Dr. Misha Torres Hematocrit (Bld) [Volume fraction] 41.3 % Normal 36.0-48.0 [facility] Comment on above: Performed By: #### C BC ####[facility] [address] [place], [place] [address]Dr. Misha Torres Hemoglobin (Bld) [Mass/Vol] 13.9 g/dL Normal 12.0-16.0 [facility] Comment on above: Performed By: #### C BC ####[facility] [address] [place], [place] [address]Dr. Misha Torres IG # 0.03 10e3/ul Normal 0.00-0.03 [facility] Comment on above: Performed By: #### C BC ####[facility] [address] [place], [place] [address]Dr. Misha Torres IG % 0.3 % Normal 0.0-0.5 [facility] Comment on above: Performed By: #### C BC ####[facility] [address] [id number]. Misha Torres LYMPH # 1.7 103/ul Normal 1.2-3.8 [facility] Comment on above: Performed By: #### C BC ####[facility] [address] [place], [place] [address]Ok. Misha Brian Lymphocytes/100 WBC (Bld) 16.3 % Critically low 20.5-60.0 [facility] Comment on above: Performed By: #### C BC ####[facility] [address] [id number]. Misha Torres MANUAL DIFF REQ NO Normal [facility] Comment on above: Performed By: #### C BC ####[facility] [address] [id number]. Kirajonna Torres MCH (RBC) [Entitic mass] 29.4 pg Normal 26.7-34.0 [facility] Comment on above: Performed By: #### C BC ####[facility] [address] [id number]. Misha Torres MCHC (RBC) [Mass/Vol] 33.7 g/dL Normal 29.9-35.2 [facility] Comment on above: Performed By: #### C BC ####[facility] [address] [id number]. Misha Torres MCV (RBC) [Entitic vol] 87.3 fL Normal 81.0-99.0 [facility] Comment on above: Performed By: #### C BC ####[facility] [address] [address]Dr. Misha Brian MONO # 0.7 103/ul Normal 0.3-0.8 [facility] Comment on above: Performed By: #### C BC ####[facility] [address] [id number]. Misha Torres Monocytes/100 WBC (Bld) 6.9 % Normal 1.7-12.0 [facility] Comment on above: Performed By: #### C BC ####[facility] [address] [place], [place] [address]Rs. Misha Torres NEUT # 7.9 103/ul Critically high 1.4-6.5 [facility] Comment on above: Performed By: #### C BC ####[facility] [address] [id number]. Misha Torres Neutrophils/100 WBC (Bld) 76.2 % Critically high 43.0-75.0 [facility] Comment on above: Performed By: #### C BC ####[facility] [address] [id number]. Misha Torres Platelet mean volume (Bld) [Entitic vol] 10.8 fL Normal 9.5-13.5 [facility] Comment on above: Performed By: #### C BC ####[facility] [address] [id number]. Misha Torres PLT 202 103/ul Normal 150-450 [facility] Comment on above: Performed By: #### C BC ####[facility] [address] [address]Dr. Misha Torres RBC 4.73 106/ul Normal 4.20-5.40 [facility] Comment on above: Performed By: #### C BC ####[facility] [address] [id number]. Misha Torres WBC 10.3 103/ul Normal 4.0-11.0 [facility] Comment on above: Performed By: #### C BC ####[facility] [address] [id number]. Misha Torres ECHOCARDIO M/2D COMPLETEon 1 06-29-2021 ECHOCARDIO M/2D COMPLETE Patient: SHRUTHI DE ANDA Exam Date: 04/29/2022 : 1940 Gender:F Ordering : TANVIR CRONIN Admission #: [id number] Family : DR LISA WAYNE . Order #: [id number] CLICK HERE TO VIEW EXAM ECHOCARDIOGRAM REPORT PROCEDURE: CARDIO PULMONARY ECHOCARDIO M/2D COMP INDICATIONS: Confusion, CVA symptoms, Parkinson's, hypertension COMPARISON: None. DESCRIPTION: COMPLETE ECHOCARDIOGRAM Real-time transthoracic echocardiography with 2D, M-mode, spectral and color flow Doppler performed. QUALITY: Technically difficult due to patients condition. 67 200# BP 188/91 LEFT VENTRICLE: Normal chamber size. Moderate concentric left ventricular hypertrophy. Systolic function is normal. LV EF: Normal left ventricular ejection fraction, (>55%). DIASTOLIC: Diastolic function is indeterminate. ATRIAL SEPTUM: Visually appears intact. LEFT ATRIUM: Normal chamber size. RIGHT ATRIUM: Normal chamber size. RIGHT VENTRICLE: Normal chamber size. Normal systolic function. TRICUSPID VALVE: Normal mobility and thickness. No stenosis with no regurgitation. MITRAL VALVE: Normal mobility and thickness. No evidence of mitral valve stenosis. There is no mitral annular calcification. No mitral regurgitation. AORTIC VALVE: Normal trileaflet appearance. Mildly calcified aortic valve. Normal leaflet mobility. No evidence of aortic valve stenosis. No aortic regurgitation. AORTIC ROOT: Normal diameter and appearance. PULMONIC VALVE: Not well visualized. No stenosis. No regurgitation. PERICARDIUM: No evidence of pericardial effusion. IVC: Collapses with inspirations. IVC is normal in size. PLEURA: CONCLUSION: 1. Moderate concentric left ventricular hypertrophy. Normal ventricular systolic function. LVEF is 60 to 65%. 2. No significant valvular dysfunction. 3. No pericardial effusion. Adult Echocardiography Procedure Report Left Ventricle LVEDD (3.7 - 5.6 cm): 4.25 cm LVESD (2.2 - 4.0 cm): 2.85 cm LVIVS thickness (0.6 - 1.2 cm): 1.30 cm LVPW thickness (0.5 - 1.0 cm): 1.36 cm e': 0.06 m/s E - e': 10.55 LVOT Max Gradient: 3.34 mm[Hg] Peak Velocity (LVOT): 0.91 m/s LVOT Diameter 2.54 cm Left Ventricular Ejection Fraction: 60-65% Left Atrium LA Volume Index (2D A2C): 61.54 ml, 61.54 ml Left Atrium Systolic Dimension: 4.36 cm Mitral Valve MV E to A Ratio: 0.56 Mitral Valve A-Wave Peak Velocity: 1.20 m/s Mitral Valve E-Wave Peak Velocity: 0.68 m/s Right Ventricle Aorta AO Root Diam: 3.14 cm Aortic Valve AoV Area (Peak Joni): 2.98 cm2, 2.98 cm2 Peak Velocity(Antegrade Flow): 1.56 m/s, 1.56 m/s Peak Gradient(Antegrade Flow): 9.68 mm[Hg], 9.68 mm[Hg] Mean Velocity(Antegrade Flow): 1.09 m/s, 1.06 m/s Mean Gradient(Antegrade Flow): 5.35 mm[Hg], 5.12 mm[Hg] Velocity Time Integral: 34.86 cm, 34.40 cm Tricuspid Valve Peak Velocity: 0.61 m/s Pulmonic Valve Peak Velocity: 0.97 m/s, 0.89 m/s Peak Gradient: 3.73 mm[Hg], 3.13 mm[Hg] Right Atrium Right Atrium Systolic Pressure: 45.31 ml, 45.31 ml Dictated by: Mesfin Pretty M.D. on 04/29/2022 at 17:58 Approved by: Mesfin Pretty M.D. on 04/29/2022 at 18:00 Normal [facility] GLYCOHEMOGLOBIN A1Con 2021 ADA RECOMMENDATION SEE BELOW Normal [facility] Comment on above: Result Comment: ADA RECOMMENDED LIMIT 4.0 - 6.0 ADA THERAPEUTIC TARGET < 7.0 ACTION SUGGESTED > 7.0 Performed By: #### A 1C ####[facility] [address] [place], [place] [address]Dr. Misha Torres Glucose [Mass/Vol] 269 mg/dL Normal [facility] Comment on above: Performed By: #### A 1C ####[facility] [address] [place] [address]Dr. Misha Torres HbA1c (Bld) [Mass fraction] 11.0 % Critically high 4.5-6.2 [facility] Comment on above: Performed By: #### A 1C ####[facility] D[address]bf[address] [place], [place] [address]Dr. Misha Torres LACTATE/LACTIC ACIDon 2021 Lactate [Moles/Vol] 1.8 mmol/L Normal 0.4-1.9 [facility] Comment on above: Performed By: #### L ACT ####[facility] [address] [place] [id number]. Misha Torres LIPID PROFILEon 04-29-2022 CHOL-HDL RATIO NORM SEE BELOW Normal [facility] Comment on above: Result Comment: 3.3 - 4.4 LOW RISK 4.4 - 7.1 AVERAGE RISK 7.1 - 11.0 MODERATE RISK >11.0 HIGH RISK Performed By: #### M [place], LIPID, BMP ####[facility] [address] [place] [id number]. Misha Torres Cholesterol [Mass/Vol] 231 mg/dL Critically high <=200 [facility] Comment on above: Performed By: #### M [place], LIPID, BMP ####[facility] Yzehs[address]ul[address] [place] [phone]. Kirajonna Torres Cholesterol in HDL [Mass/Vol] 39 mg/dL Critically low 40-60 [facility] Comment on above: Performed By: #### [place] Eisenberg, LIPID, BMP ####[facility] [address] [place] [phone]. Kirajonna Torres Cholesterol in LDL [Mass/Vol] 144.6 mg/dL Normal [facility] Comment on above: Performed By: #### M [place], LIPID, BMP ####[facility] Fsx[address]un[address] [place] [id number]. Misha Torres Cholesterol.total/[place] sterol in HDL [Mass ratio] 5.9 {ratio} Normal [facility] Comment on above: Performed By: #### [place] Eisenberg, LIPID, BMP ####[facility] [address] [place] [id number]. Kiralan Torres HDL NORMAL > or = 60 mg/dl - LO W CARDIOVASCULAR RISK <40 mg/dl - HIGH CARDIOVASCULAR RISK Normal [facility] Comment on above: Performed By: #### [place] Eisenberg, LIPID, BMP ####[facility] [address]re[address] [place] [phone]. Kiralan Torres LDL CALC NORMAL SEE BELOW Normal [facility] Comment on above: Result Comment: <100 mg/dl OPTIMAL 100 - 129 mg/dl NEAR OR ABOVE OPTIMAL 130 - 159 mg/dl BORDERLINE HIGH 160 - 189 mg/dl HIGH >190 mg/dl VERY HIGH Performed By: #### M G, LIPID, BMP ####[facility] [address] [place], [place] [address]Gm. Misha Torres Triglyceride [Mass/Vol] 237 mg/dL Critically high <=150 [facility] Comment on above: Performed By: #### M G, LIPID, BMP ####[facility] [address] [place], [place] [address]Su. Misha Torres VLDL CALC 47.4 mg/dL Normal The [facility] Comment on above: Performed By: #### M G, LIPID, BMP ####[facility] [address] [place], [place] [address]Ay. Misha Torres MAGNESIUMon 04-29-2022 Magnesium [Mass/Vol] 1.7 mg/dL Critically low 1.8-2.4 [facility] Comment on above: Performed By: #### M [place], LIPID, BMP ####[facility] [address] [place], [place] [address]Ap. Misha Torres MRI BRAIN WO CONon MRI BRAIN WO CON EXAM: MRI BRAIN WO CON CLINICAL INDICATION: Disturbance of consciousness COMPARISON: CT head 04/28/2022 TECHNIQUE/PROTOCOL: Standard noncontrast protocol brain MRI performed (Sagittal T1 with axial T1, T2, GRE, FLAIR, and diffusion-weighted imaging). FINDINGS: Evaluation is limited due to patient motion artifact. Given this constraint, there are a few small diffusion restricting foci scattered throughout the superior right frontal and parietal lobes with faint hyperintense T2 and FLAIR parenchymal signal changes. No extra-axial fluid collection, hydrocephalus, midline shift, or other mass effect. Intracranial flow voids are grossly maintained. Patchy hyperintense T2/FLAIR periventricular and subcortical foci are likely on the basis of chronic microvascular angiopathic changes. Moderate to advanced symmetric global volume loss without lobar predominance. Commensurate ventricular system enlargement. Left parietal, occipital, and temporal encephalomalacia/glio sis. Normal marrow signal. No soft tissue abnormalities. Paranasal sinuses and mastoid air cells are well-aerated. 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 Report was submitted to the clinical operation support team for expedited review by the provider. Electronically authenticated by: AMY SHANNAN Date: 2022-04-29 12:50 Normal [facility] POINT OF CARE GLUCOSEon 11- Glucose [Mass/Vol] 216 mg/dL Critically high 74-106 [facility] Comment on above: Performed By: #### P OCGLUC ####[facility] [address] [place] [address]DrErrol Torres Glucose [Mass/Vol] 308 mg/dL Critically high 74-106 [facility] Comment on above: Performed By: #### P OCGLUC #### [facility] [address] [place] [address] [address] Misha Torres Glucose [Mass/Vol] 305 mg/dL Critically high -106 [facility] Comment on above: Performed By: #### P OCGLUC #### [facility] [address] [address] [address] Misha Torres PROF CHEM 8 (BAS METB)on Anion gap [Moles/Vol] 9.6 mmol/L Normal [facility] Comment on above: Performed By: #### M G, LIPID, BMP ####[facility] [address] [place] [address]DrErrol Torres Calcium [Mass/Vol] 8.3 mg/dL Critically low 8.5-10.1 [facility] Comment on above: Performed By: #### M G, LIPID, BMP ####[facility] [address]fr[address] [place] [phone] Torres Chloride [Moles/Vol] 98 mmol/L Normal 98-107 [facility] Comment on above: Performed By: #### M G, LIPID, BMP ####[facility] [address]26[address] [place] [phone] Torres CO2 [Moles/Vol] 27.2 mmol/L Normal 21.0-32.0 [place] Comment on above: Performed By: #### M G, LIPID, BMP ####[facility] I[address]ctrs[address] [place] [address]Dr. Misha Torres Creatinine [Mass/Vol] 1.09 mg/dL Critically high 0.55-1.02 [facility] Comment on above: Performed By: #### M [place], LIPID, BMP ####[facility] [address] [place] [address]Dr. Misha Torres EGFR-AF JAPANESE 58 mL/min/1.73m2 Critically low >=60 [facility] Comment on above: Performed By: #### M [place], LIPID, BMP ####[facility] [address] [place] [address]Dr. Misha Torres EGFR-NON AF JAPANESE 48 mL/min/1.73m2 Critically low >=60 [facility] Comment on above: Performed By: #### M [place], LIPID, BMP ####[facility] [address] [place] [address]Dr. Kirajonna Torres Glucose [Mass/Vol] 288 mg/dL Critically high 74-106 [facility] Comment on above: Performed By: #### M [place], LIPID, BMP ####[facility] F[address]ilqypx[address] [place] [address]Dr. Misha Torres Potassium [Moles/Vol] 3.8 mmol/L Normal 3.5-5.1 [facility] Comment on above: Performed By: #### M [place], LIPID, BMP ####[facility] [address] [place] [address]Dr. Kirajonna Torres Sodium [Moles/Vol] 131 mmol/L Critically low 136-145 [facility] Comment on above: Performed By: #### M [place], LIPID, BMP ####[facility] [address] [place] [address]Dr. Kirajonna Torres Urea nitrogen [Mass/Vol] 17.0 mg/dL Normal 7.0-18.0 [facility] Comment on above: Performed By: #### M G, LIPID, BMP ####[facility] [address] [place] [address]Dr. Misha Torres Urea nitrogen/Creatinine [Mass ratio] 15.6 mg/mg Normal [facility] Comment on above: Performed By: #### M G, LIPID, BMP ####[facility] [address] [place], [place] [address]Sm. Misha Torres US CAROTID ART BILon 022 US CAROTID ART AMY EXAMINATION: US CAROTID ART AMY HISTORY: Disturbance of consciousness COMPARISON: No relevant comparison available. TECHNIQUE: Duplex Doppler ultrasound analysis of carotid and vertebral arteries. . Bilateral carotid arterial duplex examination was performed using B-mode, color flow and spectral analysis. Carotid stenosis is reported according to validated velocity parameters, similar to NASCET criteria. FINDINGS: RIGHT CAROTID ARTERY Marked atherosclerotic plaque in the bulb Subclavian: PSV: 52.9 cm/s cm/s EDV: 10.1 cm/s cm/s CCA: Prox: PSV: 47.6 cm/s cm/s EDV: 0.0 cm/s cm/s Mid: PSV: 60.7 cm/s cm/s EDV: 9.2 cm/s cm/s Distal: PSV: 68.6 cm/s cm/s EDV: 11.9 cm/s cm/s BULB: PSV: 52.9 cm/s cm/s EDV: 7.5 cm/s cm/s ICA: Prox: PSV: 52.6 cm/s cm/s EDV: 10.9 cm/s cm/s Mid: PSV: 96.8 cm/s cm/s EDV: 19.2 cm/s cm/s Distal: PSV: 72.5 cm/s cm/s EDV: 14.4 cm/s cm/s ECA: PSV: 244.4 cm/s cm/s EDV: 8.4 cm/s cm/s VERTEBRAL: PSV: 52.4 cm/s cm/s EDV: 7.1 cm/s cm/s ICA/CCA ratio: PSV: 1.4 EDV: 1.6 LEFT CAROTID ARTERY Marked atherosclerotic plaque in the bulb Subclavian: PSV: 139.0 cm/s cm/s EDV: 0.0 cm/s CCA: Prox: PSV: 89.8 cm/s cm/s EDV: 13.0 cm/s Mid: PSV: 112.4 cm/s cm/s EDV: 13.9 cm/s Distal: PSV: 123.7 cm/s cm/s EDV: 13.9 cm/s BULB: PSV: 65.9 cm/s cm/s EDV: 6.3 cm/s ICA: Prox: PSV: 87.5 cm/s cm/s EDV: 16.3 cm/s Mid: PSV: 62.9 cm/s cm/s EDV: 11.1 cm/s Distal: PSV: 77.1 cm/s cm/s EDV: 15.0 cm/s ECA: PSV: 160.8 cm/s cm/s EDV: 5.1 cm/s VERTEBRAL: PSV: 81.7 cm/s cm/s EDV: 0.0 cm/s ICA/CCA ratio: PSV: 0.7 EDV: 1.2 IMPRESSION: Marked bilateral carotid bulb atherosclerotic plaque 0-49% flow stenosis bilateral internal carotid arteries Elevated flow velocity right external carotid artery Spectral Doppler US Thresholds (Reference: Prince EG, et al. Radiology 2000; 214:247-252) Stenosis (%) PSV (cm/sec) VICA/VCCA 0-49 <150 <2.5 50-69 150-225 2.5-4.0 >70 >225 >4.0 Electronically authenticated by: LAURA BRAGA Date: 2022-04-29 14:17 Normal The [facility] ACETONE SERUMon 04-28-2022 ACETONE Negative Normal NEGATIVE The [facility] Comment on above: Performed By: #### A CETON ####[facility] [address] [place] [address]Dr. Misha Torres AMMONIAon 04-28-2022 Ammonia (P) [Mass/Vol] ug/dL Critically low The [facility] Comment on above: Performed By: #### P OCGLUC #### [facility] [address] [place] [address] [address] Misha Torres BLOOD CULTURE ID PANELon A. baumannii Not detected Normal NOT DETECTED [facility] Comment on above: Performed By: #### B CID2 ####[facility] [address]wsq[address] [place] [address]Dr. Misha Torres Bacteriodes fragilis Not detected Normal NOT DETECTED The [facility] Comment on above: Performed By: #### B CID2 ####[facility] [address]dexm[address] [place] [id number]. Yilan Torres BCID CONTROLS PASSED Normal [facility] Comment on above: Performed By: #### B CID2 ####[facility] Uv[address]jouwf[address] [place] [id number]. Yijonna Torres BCIDBTHD BLOOD CULTURE BOTTLE INFORMATION Normal The [facility] Comment on above: Performed By: #### B CID2 ####[facility] Ofq[address]alzjsg[address] [place] [address]Dr. Yilan Torres BCIDHD1 ANTIMICROBIAL RESISTANCE GENES Normal [facility] Comment on above: Performed By: #### B CID2 ####[facility] [address] [place] [address]Dr. Yilan Torres BCIDHD2 SEE BELOW [place] [facility] Comment on above: Result Comment: Note : Antimicrobial resitance can occur via multiple mechanisms. A Not Detected result for the [employer] antomicrobial resistance gene assays does not indicate antimicrobial susceptibility. Subculturing is required for species identification and susceptibility testing of isolates. Performed By: #### B CID2 ####[facility] [address] [place], [place] [address]Dr. Yilan Torres BCIDHD3 Positive Normal [facility] Comment on above: Performed By: #### B CID2 ####[facility] [address] [place] [address]Dr. Yilan Torres BCIDHD4 Negative Normal The [facility] Comment on above: Performed By: #### B CID2 ####[facility] [address] [place] [address]Dr. Yilan Torres BCIDHD5 YEAST Normal The [facility] Comment on above: Performed By: #### B CID2 ####[facility] [address] [place], [place] [address]Dr. Yilan Torres Bottle Set: Set 2 Normal [facility] Comment on above: Performed By: #### B CID2 ####[facility] C[address]es[address]cil[address] [place], [place] [address]Dr. Yilan Torres Bottle: Anaerobic Normal [facility] Comment on above: Performed By: #### B CID2 ####[facility] [address]scj[address] [place] [address]Dr. Yijonna Torres C. neoformans/gattii Not detected Normal NOT DETECTED The [facility] Comment on above: Performed By: #### B CID2 ####[facility] O[address]iew[address]zmh[address] [place] [phone]. Yijonna Torres Rylee albicans Not detected Normal NOT DETECTED The [facility] Comment on above: Performed By: #### B CID2 ####[facility] Onq[address]qsafh[address] [place] [address]Dr. Yijonna Torres Rylee auris Not detected Normal NOT DETECTED The [facility] Comment on above: Performed By: #### B CID2 ####[facility] [address]vb[address] [place], [place] [address]Dr. Yijonna Torres Rylee glabrata Not detected Normal NOT DETECTED The [facility] Comment on above: Performed By: #### B CID2 ####[facility] Aoeruggtdq[address] [place], [place] [address]Dr. Yijonna Torres Rylee Krusei Not detected Normal NOT DETECTED [facility] Comment on above: Performed By: #### B CID2 ####[facility] [address]scadqxcsz[address] [place], [place] [address]Dr. Yijonna Torres Rylee Parapsilosis Not detected Normal NOT DETECTED The [facility] Comment on above: Performed By: #### B CID2 ####[facility] Ewunqhdoti[address] [place], [place] [address]Dr. Yijonna Torres Rylee Tropicalis Not detected Normal NOT DETECTED [facility] Comment on above: Performed By: #### B CID2 ####[facility] Imrosiepmn[address] [place], [place] [address]Dr. Misha Torres CTX-M Resistant Gene Not detected Normal NOT DETECTED The [facility] Comment on above: Performed By: #### B CID2 ####[facility] Aeqvdxzdxx[address] [place], [place] [address]Dr. Yijonna Torres E. Cloacae complex Not detected Normal NOT DETECTED [facility] Comment on above: Performed By: #### B CID2 ####[facility] Zbievzuehh[address] [place] [address]Dr. Misha Torres E. faecalis Not detected Normal NOT DETECTED [facility] Comment on above: Performed By: #### B CID2 ####[facility] Jjywknmbwz[address] [place], [place] [address]Dr. Misha Torres E. faecium Not detected Normal NOT DETECTED The [facility] Comment on above: Performed By: #### B CID2 ####[facility] Neixksjjbz[address] [place], [place] [address]Dr. Misha Torres Enterobacteriaceae Not detected Normal NOT DETECTED [facility] Comment on above: Performed By: #### B CID2 ####[facility] Fjcrxfidxp[address] [place], [place] [address]Dr. Misha Torres Escherichia coli Not detected Normal NOT DETECTED The [facility] Comment on above: Performed By: #### B CID2 ####[facility] Zpwiobrcpr[address] [place], [place] [address]Dr. Misha Torres H. influenzae Not detected Normal NOT DETECTED The [facility] Comment on above: Performed By: #### B CID2 ####[facility] Djnbqnvery[address] [place], [place] [address]Dr. Misha Torres IMP Resistant Gene Not detected Normal NOT DETECTED [facility] Comment on above: Performed By: #### B CID2 ####[facility] Odsxmwcgof[address] [place], [place] [address]Dr. Misha Torres K. oxytoca Not detected Normal NOT DETECTED The [facility] Comment on above: Performed By: #### B CID2 ####[facility] Jnnviashkg[address] [place], [place] [address]Dr. Misha Torres K. pneumoniae Not detected Normal NOT DETECTED The [facility] Comment on above: Performed By: #### B CID2 ####[facility] Oktxjzjyqc[address] [place], [place] [address]Dr. Misha Torres Klebsiella aerogenes Not detected Normal NOT DETECTED The [facility] Comment on above: Performed By: #### B CID2 ####[facility] Qdsyenxugf[address] [place] [address]Dr. Misha Torres KPC Resistant Gene Not detected Normal NOT DETECTED [facility] Comment on above: Performed By: #### B CID2 ####[facility] Roomftfaqw[address] [place] [address]Dr. Misha Torres List. monocytogenes Not detected Normal NOT DETECTED [facility] Comment on above: Performed By: #### B CID2 ####[facility] M[address]dvsevfpb[address] [place], [place] [address]Dr. Misha Torres Mcr-1 Resistant Gene Not detected Normal NOT DETECTED The [facility] Comment on above: Performed By: #### B CID2 ####[facility] Tucgreblrz[address] [place], [place] [address]Dr. Misha Torres mecA/C Not detected Normal NOT DETECTED The [facility] Comment on above: Performed By: #### B CID2 ####[facility] [address]qeywry[address] [place], [place] [address]Dr. Misha Torres mecA/C MREJ Not detected Normal NOT DETECTED [facility] Comment on above: Performed By: #### B CID2 ####[facility] Arafyxrkvz[address] [place], [place] [address]Dr. Misha Torres N. meningitidis Not detected Normal NOT DETECTED The [facility] Comment on above: Performed By: #### B CID2 ####[facility] Jdvninooto[address] [place], [place] [address]Dr. Misha Torres NDM Resistant Gene Not detected Normal NOT DETECTED [facility] Comment on above: Performed By: #### B CID2 ####[facility] Fsldunbiqq[address] [place], [place] [address]Dr. Misha Torres Oxa-48-like Not detected Normal NOT DETECTED [facility] Comment on above: Performed By: #### B CID2 ####[facility] Layqtaxmmx[address] [place], [place] [address]Dr. Misha Torres Proteus Not detected Normal NOT DETECTED The [facility] Comment on above: Performed By: #### B CID2 ####[facility] Hredgclkgj[address] [place], [place] [address]Dr. Misha Torres Pseud. aeruginosa Not detected Normal NOT DETECTED The [facility] Comment on above: Performed By: #### B CID2 ####[facility] Lqqamkwtfy[address] [place], [place] [address]Dr. Misha Torres S. maltophilia Not detected Normal NOT DETECTED [facility] Comment on above: Performed By: #### B CID2 ####[facility] Wqljesdmlw[address] [place], [place] [address]Dr. Misha Torres Salmonella Not detected Normal NOT DETECTED The [facility] Comment on above: Performed By: #### B CID2 ####[facility] Tdgvuqxcxz[address] [place], [place] [address]Dr. Misha Torres Seratia marcescens Not detected Normal NOT DETECTED [facility] Comment on above: Performed By: #### B CID2 ####[facility] Opujxkuxht[address] [place], [place] [address]Dr. Misha Torres Site: left ac Normal The [facility] Comment on above: Performed By: #### B CID2 ####[facility] Ukroncpxjx[address] [place], [place] [address]Dr. Misha Torres Staph. aureus Not detected Normal NOT DETECTED The [facility] Comment on above: Performed By: #### B CID2 ####[facility] [address]qvjv[address] [place], [place] [address]Dr. Misha Torres Staph. epidermidis Not detected Normal NOT DETECTED [facility] Comment on above: Performed By: #### B CID2 ####[facility] Ywvrgvpvxs[address] [place], [place] [address]Dr. Misha Torres Staph. lugdunensis Not detected Normal NOT DETECTED [facility] Comment on above: Performed By: #### B CID2 ####[facility] [address]hlawfhlc[address] [place], [place] [address]Dr. Misha Torres Staphylococcus Not detected Normal NOT DETECTED [facility] Comment on above: Performed By: #### B CID2 ####[facility] Bdynwtlrjj[address] [place], [place] [address]Dr. Misha Torres Strep. agalactiae Not detected Normal NOT DETECTED [facility] Comment on above: Performed By: #### B CID2 ####[facility] Tornesxyag[address] [place], [place] [address]Dr. Misha Torres Strep. pneumoniae Not detected Normal NOT DETECTED [facility] Comment on above: Performed By: #### B CID2 ####[facility] Oidjavedej[address] [place], [place] [address]Dr. Misha Torres Strep. pyogenes Not detected Normal NOT DETECTED The [facility] Comment on above: Performed By: #### B CID2 ####[facility] [address]ounbsogkf[address] [place], [place] [address]Dr. Misha Torres Streptococcus Not detected Normal NOT DETECTED The [facility] Comment on above: Performed By: #### B CID2 ####[facility] Vlrctkderi[address] [place], [place] [address]Dr. Misha Torres Murtaza/B Resist. Gene Not detected Normal NOT DETECTED [facility] Comment on above: Performed By: #### B CID2 ####[facility] Ncloiiprjl[address] [place], [place] [address]Dr. Misha Torres VIM Resistant Gene Not detected Normal NOT DETECTED [facility] Comment on above: Performed By: #### B CID2 ####[facility] Djabvfekbe[address] [place], [place] [address]Dr. Misha Torres CBC AUTO DIFFon 04-28-2022 BASO # 0.0 103/ul Normal 0.0-0.1 [facility] Comment on above: Performed By: #### P OCGLUC #### [facility] [address] [place] [address] Dr. Misha Torres Basophils/100 WBC (Bld) 0.3 % Normal 0.2-2.0 [facility] Comment on above: Performed By: #### P OCGLUC #### [facility] [address] [place] [address] Dr. Msiha Torres EO # 0.0 103/ul Normal 0.0-0.7 [facility] Comment on above: Performed By: #### P OCGLUC #### [facility] [address] [address] [address] Misha Torres Eosinophils/100 WBC (Bld) 0.0 % Critically low 0.9-7.0 [facility] Comment on above: Performed By: #### P OCGLUC #### [facility] [address] [place] [address] Dr. Misha Torres Erythrocyte distribution width (RBC) [Ratio] 13.1 % Normal 11.0-15.0 [facility] Comment on above: Performed By: #### P OCGLUC #### [facility] [address] [place] [address] Dr. Misha Torres Hematocrit (Bld) [Volume fraction] 46.8 % Normal 36.0-48.0 [facility] Comment on above: Performed By: #### P OCGLUC #### [facility] [address] [place] [address] Dr. Misha Torres Hemoglobin (Bld) [Mass/Vol] 15.9 g/dL Normal 12.0-16.0 [facility] Comment on above: Performed By: #### P OCGLUC #### [facility] [address] [place] [address] Dr. Misha Torres IG # 0.03 10e3/ul Normal 0.00-0.03 [facility] Comment on above: Performed By: #### P OCGLUC #### [facility] [address] [place] [address] Dr. Misha Torres IG % 0.3 % Normal 0.0-0.5 The [facility] Comment on above: Performed By: #### P OCGLUC #### [facility] [address] [place] [address] Dr. Misha Torres LYMPH # 1.4 103/ul Normal 1.2-3.8 The [facility] Comment on above: Performed By: #### P OCGLUC #### [facility] [address] [place] [address] Dr. Misha Torres Lymphocytes/100 WBC (Bld) 14.8 % Critically low 20.5-60.0 [facility] Comment on above: Performed By: #### P OCGLUC #### [facility] [address] [address] [address] Misha Torres MANUAL DIFF REQ NO Normal [facility] Comment on above: Performed By: #### P OCGLUC #### [facility] [address] [place] [address] Dr. Misha Torres MCH (RBC) [Entitic mass] 29.6 pg Normal 26.7-34.0 [facility] Comment on above: Performed By: #### P OCGLUC #### [facility] [address] [place] [address] Dr. Misha Torres MCHC (RBC) [Mass/Vol] 34.0 g/dL Normal 29.9-35.2 [facility] Comment on above: Performed By: #### P OCGLUC #### [facility] [address] [place] [address] Dr. Misha Torres MCV (RBC) [Entitic vol] 87.0 fL Normal 81.0-99.0 [facility] Comment on above: Performed By: #### P OCGLUC #### [facility] [address] [place] [address] Dr. Misha Torres MONO # 0.4 103/ul Normal 0.3-0.8 [facility] Comment on above: Performed By: #### P OCGLUC #### [facility] [address] [place] [address] Dr. Misha Torres Monocytes/100 WBC (Bld) 3.6 % Normal 1.7-12.0 [facility] Comment on above: Performed By: #### P OCGLUC #### [facility] [address] [place] [address] Dr. Misha Torres NEUT # 7.8 103/ul Critically high 1.4-6.5 [facility] Comment on above: Performed By: #### P OCGLUC #### [facility] [address] [place] [address] Dr. Misha Torres Neutrophils/100 WBC (Bld) 81.0 % Critically high 43.0-75.0 [facility] Comment on above: Performed By: #### P OCGLUC #### [facility] [address] [address] [address] Misha Torres Platelet mean volume (Bld) [Entitic vol] 10.7 fL Normal 9.5-13.5 [facility] Comment on above: Performed By: #### P OCGLUC #### [facility] [address] [address] [address] Misha Torres PLT 231 103/ul Normal 150-450 [facility] Comment on above: Performed By: #### P OCGLUC #### [facility] [address] [address] [address] Misha Torres RBC 5.38 106/ul Normal 4.20-5.40 [facility] Comment on above: Performed By: #### P OCGLUC #### [facility] [address] [address] [address] Misha Torres WBC 9.6 103/ul Normal 4.0-11.0 [facility] Comment on above: Performed By: #### P OCGLUC #### [facility] [address] [address] [address] STROKE HEAD WOon 04-28-20 CT STROKE HEAD WO HEAD CT WITHOUT CONTRAST: 04/28/2022 4:25 PM EDT Clinical Data: Disturbance of consciousness Comparison: No previous Unenhanced axial data from base to vertex. INTRA-AXIAL: No acute hemorrhage. No acute infarction is evident. Chronic encephalomalacia/infa rction left parietal region. This is primarily subcortical. 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 Small old lacunar infarcts right lentiform region and a few tiny old lacunar infarcts in the periventricular regions EXTRA-AXIAL: No acute hemorrhage. No focal fluid collection. BRAIN VOLUME: Unremarkable for age. VENTRICLES: No hydrocephalus PARANASAL SINUSES: No air-fluid levels in the included aspects. MASTOIDS: Clear. CALVARIUM: No acute finding. EXTRACALVARIAL: No acute findings IMPRESSION: 1. No evidence of acute intracranial process on this unenhanced study as described. All CT scans at this facility use dose modulation, iterative reconstruction, and/or weight based dosing when appropriate to reduce radiation dose to as low as reasonably achievable. Electronically authenticated by: CM SANTOS Date: 2022-04-28 16:41 Normal [facility] CULTURE BLOODon 04-28-2022 Microscopic examination of blood, culture Culture Observations: NO GROWTH AT 5 DAYS. Normal [facility] Comment on above: Performed By: #### B LDCX2 #### [facility] [address] [address] [address] Misha Torres Performed By: #### B LDCX1 ####[facility] [address] [id number]. Misha Torres CULTURE URINEon 04-28-2022 CULTURE URINE Culture Observations : NO GROWTH. Normal [facility] Comment on above: Performed By: #### U RCX ####[facility] [address] [id number]. Misha Torres [facility]on SARS-CoV-2 (COVID-19) RNA KRYSTA+probe Ql (Unsp spec) Not detected Normal NOT DETECTED [facility] Comment on above: Result Comment: When diagnostic testing is negative, the possibility of a false negative should be considered in the context of a patient's recent exposures and the presence of clinical signs and symptoms consistent with SARS-CoV-2. This test is not yet approved or cleared by the [place] FDA. When there are no FDA-approved or cleared tests available, and other criteria are met, FDA can make tests available under an emergency access mechanism called an Emergency Use Authorization (EUA). The EUA for this test is supported by the [employer] of Health and Human Service's declaration that circumstances exist to justify the emergency use of in vitro diagnostics for the detection and/or diagnosis of the virus that causes COVID-19. This EUA will remain in effect for the duration of the COVID-19 declaration justifying emergency of IVDs, unless it is terminated or revoked by the FDA (after which the test may no longer be used). Performed By: #### P OCGLUC #### [facility] [address] [address] [address] Misha Torres ER URINE PROFILEon 2 Bilirubin Ql (U) Negative Normal NEGATIVE [facility] Comment on above: Performed By: #### U MICRO, ERUR ####[facility] [address] [place], [place] [address]Dr. Misha Torres Clarity (U) CLEAR Normal CLEAR [facility] Comment on above: Performed By: #### U MICRO, ERUR ####[facility] [address] [place], [place] [address]Dr. Misha Torres Color (U) LT. YELLOW Normal YELLOW [facility] Comment on above: Performed By: #### U MICRO, ERUR ####[facility] [address] [place], [place] [address]Dr. Misha Torres ERUAHD A micrscopic examination will be performed if indicated. Normal [facility] Comment on above: Performed By: #### U MICRO, ERUR ####[facility] [address] [place], [place] [address]Dr. Misha Torres Glucose Ql (U) >1000 Abnormal NEGATIVE [facility] Comment on above: Performed By: #### U MICRO, ERUR ####[facility] [address] [place], [place] [address]Dr. Misha Torres Hemoglobin Ql (U) TRACE-INTACT Abnormal NEGATIVE [facility] Comment on above: Performed By: #### U MICRO, ERUR ####[facility] [address] [place], [place] [address]Dr. Misha Torres Ketones Ql (U) 40 mg/dl Abnormal NEGATIVE [facility] Comment on above: Performed By: #### U MICRO, ERUR ####[facility] [address] [place], [place] [address]Dr. Misha Torres LEUKOCYTES TRACE Abnormal NEGATIVE [facility] Comment on above: Performed By: #### U MICRO, ERUR ####[facility] [address] [place], [place] [address]Dr. Misha Torres Nitrite Ql (U) Negative Normal NEGATIVE [facility] Comment on above: Performed By: #### U MICRO, ERUR ####[facility] [address] [place], [place] [address]Dr. Misha Torres pH (U) 5.5 [pH] Normal 5-9 [facility] Comment on above: Performed By: #### U MICRO, ERUR ####[facility] [address] [address]Dr. Misha Torres Protein (U) [Mass/Vol] 30 mg/dL Abnormal NEGAT CAROLYN/ TRACE [facility] Comment on above: Performed By: #### U MICRO, ERUR ####[facility] [address] [address]Dr. Misha Torres SPEC GRAVITY >=1.030 Abnormal 1.005-<=1.025 [facility] Comment on above: Performed By: #### U MICRO, ERUR ####[facility] [address] [place], [place] [address]Dr. Misha Torres UR MICRO IND INDICATED Normal [facility] Comment on above: Performed By: #### U MICRO, ERUR ####[facility] [address] [address]Dr. Misha Torres Urobilinogen Qn (U) 0.2 {Felipa'U}/dL Normal 0.2 - 1. 0 [facility] Comment on above: Performed By: #### U MICRO, ERUR ####[facility] [address] [place], [place] [address]Dr. Misha Torres LACTATE/LACTIC ACIDon 2021 Lactate [Moles/Vol] 1.8 mmol/L Normal 0.4-1.9 [facility] Comment on above: Performed By: #### L ACT #### [facility] [address] [place] [address] Dr. Misha Torres Lactate [Moles/Vol] 2.1 mmol/L Critically high 0.4-1.9 [facility] Comment on above: Performed By: #### P OCGLUC #### [facility] [address] [address] [address] Misha Torres PH VENOUS BLOODon 04-28-2022 PCO2 VENOUS 47.6 mmHg Normal 40.0-52.0 [facility] Comment on above: Performed By: #### P OCGLUC #### [facility] [address] [address] [address] Misha Torres pH VENOUS 7.403 Normal 7.330-7.430 [facility] Comment on above: Performed By: #### P OCGLUC #### [facility] [address] [place] [address] Dr. Misha Torres POINT OF CARE GLUCOSEon 11-0 Glucose [Mass/Vol] 337 mg/dL Critically high 74-106 [facility] Comment on above: Performed By: #### P OCGLUC #### [facility] [address] [place] [address] Dr. Misha Torres PROF 14(COMP METB)on 022 Albumin [Mass/Vol] 3.7 g/dL Normal 3.4-5.0 [facility] Comment on above: Performed By: #### P OCGLUC #### [facility] [address] [place] [address] Dr. Misha Torres Albumin/Globulin [Mass ratio] 0.9 {ratio} Normal [facility] Comment on above: Performed By: #### P OCGLUC #### [facility] [address] [place] [address] Dr. Misha Torres ALP [Catalytic activity/Vol] 115 U/L Normal 46-116 [facility] Comment on above: Performed By: #### P OCGLUC #### [facility] [address] [place] [address] Dr. Misha Torres ALT [Catalytic activity/Vol] 36 U/L Normal 14-59 [facility] Comment on above: Performed By: #### P OCGLUC #### [facility] [address] [place] [address] Dr. Misha Torres Anion gap [Moles/Vol] 8.8 mmol/L Normal [facility] Comment on above: Performed By: #### P OCGLUC #### [facility] [address] [place] [address] Dr. Misha Torres AST [Catalytic activity/Vol] 24 U/L Normal 15-37 [facility] Comment on above: Performed By: #### P OCGLUC #### [facility] [address] [address] [address] Misha Torres Bilirubin [Mass/Vol] 0.8 mg/dL Normal 0.2-1.0 [facility] Comment on above: Performed By: #### P OCGLUC #### [facility] [address] [address] [address] Misha Torres Calcium [Mass/Vol] 9.0 mg/dL Normal 8.5-10.1 [facility] Comment on above: Performed By: #### P OCGLUC #### [facility] [address] [address] [address] Misha Torres Chloride [Moles/Vol] 96 mmol/L Critically low 98-107 [facility] Comment on above: Performed By: #### P OCGLUC #### [facility] [address] [address] [address] Misha Torres CO2 [Moles/Vol] 30.1 mmol/L Normal 21.0-32.0 [place] Comment on above: Performed By: #### P OCGLUC #### [facility] [address] [address] [address] Misha Torres Creatinine [Mass/Vol] 1.24 mg/dL Critically high 0.55-1.02 [facility] Comment on above: Performed By: #### P OCGLUC #### [facility] [address] [address] [address] Misha Torres EGFR-AF JAPANESE 50 mL/min/1.73m2 Critically low >=60 [facility] Comment on above: Performed By: #### P OCGLUC #### [facility] [address] [address] [address] Misha Torres EGFR-NON AF JAPANESE 41 mL/min/1.73m2 Critically low >=60 [facility] Comment on above: Performed By: #### P OCGLUC #### [facility] [address] [address] [address] Misha Torres Globulin (S) [Mass/Vol] 4.3 g/dL Normal [facility] Comment on above: Performed By: #### P OCGLUC #### [facility] [address] [address] [address] Misha Torres Glucose [Mass/Vol] 309 mg/dL Critically high 74-106 [facility] Comment on above: Performed By: #### P OCGLUC #### [facility] [address] [address] [address] Misha Torres Potassium [Moles/Vol] 3.9 mmol/L Normal 3.5-5.1 [facility] Comment on above: Performed By: #### P OCGLUC #### [facility] [address] [address] [address] Misha Torres Protein [Mass/Vol] 8.0 g/dL Normal 6.4-8.2 [facility] Comment on above: Performed By: #### P OCGLUC #### [facility] [address] [address] [address] Misha Torres Sodium [Moles/Vol] 131 mmol/L Critically low 136-145 [facility] Comment on above: Performed By: #### P OCGLUC #### [facility] [address] [address] [address] Misha Torres Urea nitrogen [Mass/Vol] 17.0 mg/dL Normal 7.0-18.0 [facility] Comment on above: Performed By: #### P OCGLUC #### [facility] [address] [address] [address] Misha Torres Urea nitrogen/Creatinine [Mass ratio] 13.7 mg/mg Normal [facility] Comment on above: Performed By: #### P OCGLUC #### [facility] [address] [address] [address] Misha Torres PROTIMEon 04-28-2022 INR Coag (PPP) [Relative time] 1.00 {INR} Normal [facility] Comment on above: Performed By: #### P T, PTT ####[facility] [address] [address]Dr. Misha Torres INR GUIDELINES SEE BELOW Normal [facility] Comment on above: Result Comment: KRISTOPHER RED INR: 2.0 - 3.0 CONDITIONS NOT LISTED BELOW 2.5 - 3.5 FOR PROSTHETIC HEART VALVE REPLACEMENT 2.5 - 3.5 RECURRENT THROMBOSIS Performed By: #### P T, PTT ####[facility] [address] [address]Dr. Misha Torres PT Coag (PPP) [Time] 10.8 s Normal 9.0-11.6 [facility] Comment on above: Performed By: #### P T, PTT ####[facility] [address] [address]DrErrol Torres PTTon 04-28-2022 aPTT Coag (Bld) [Time] 26.6 s Normal 22.3-36.2 [facility] Comment on above: Performed By: #### P T, PTT ####[facility] [address] [address]Dr. Misha Torres TROPONIN, HIGH SENSITIVITYon 04-28-2022 HSTROP 21.3 pg/mL Normal 4.0-51.3 [facility] Comment on above: Result Comment: CUT- OFF POINTS HAVE BEEN ESTABLISHED BASED ON THE FOURTH UNIVERSAL DEFINITIONS OF MYOCARDIAL INFARCTION. THE UPPER REFERENCE LIMIT (URL) OF TROPONIN, DEFINED THE 99TH PERCENTILE OF cTnI DISTRIBUTION IN A REFERENCE POPULATION, HAS BEEN CONFIRMED THE DECISION THRESHOLD FOR [place] DIAGNOSIS. Performed By: #### P OCGLUC #### [facility] [address] [place] [address] Dr. Misha Torres TSHon 04-28-2022 TSH 1.257 uIU/mL Normal 0.358-3.740 [facility] Comment on above: Performed By: #### P OCGLUC #### [facility] [address] [place] [address] Dr. Misha Torres URINE MICROSCOPIC ONLYon BACTERIA LARGE Abnormal NONE SEEN The [facility] Comment on above: Performed By: #### U MICRO, ERUR ####[facility] [address] [address]DrErrol Torres Bacteria identified Cx Nom (U) INDICATED Normal [facility] Comment on above: Performed By: #### U MICRO, ERUR ####[facility] [address] [address]Dr. Misha Torres CAST NONE SEEN Normal NONE SEEN [facility] Comment on above: Performed By: #### U MICRO, ERUR ####[facility] [address] [address]Dr. Misha Torres Crystals LM Nom (Urine sed) NONE SEEN Normal NONE SEEN [facility] Comment on above: Performed By: #### U MICRO, ERUR ####[facility] [address] [address]Dr. Misha Torres Epithelial cells LM Ql (Urine sed) RARE Normal NONE SEEN /RARE [facility] Comment on above: Performed By: #### U MICRO, ERUR ####[facility] [address] [address]Dr. Misha Torres MUCOUS NONE SEEN Normal NONE SEEN [facility] Comment on above: Performed By: #### U MICRO, ERUR ####[facility] [address] [address]Dr. Misha Torres RBC NONE SEEN Abnormal 0-2 [facility] Comment on above: Performed By: #### U MICRO, ERUR ####[facility] [address] [address]Dr. Misha Torres WBC 0-2 Abnormal NONE SEEN The [facility] Comment on above: Performed By: #### U MICRO, ERUR ####[facility] [address] [address]Dr. Misha Torres XR CHEST 1 Von 04-28-2022 XR CHEST 1 V EXAMINATION: XR CHES T 1 V HISTORY: Altered mental status COMPARISON: Portable chest 04/15/2019 TECHNIQUE: PA and lateral chest x-rays FINDINGS: The lung parenchyma is free of consolidation or infiltrate. No pneumothorax or pleural effusion. The cardiac, mediastinal and hilar contours are normal. The visualized osseous structures exhibit no gross abnormality. IMPRESSION: No acute cardiopulmonary abnormality. Electronically authenticated by: LAURA THOMAS Date: 2022-04-28 17:27 Normal [facility] Coding Summary.on 01-11-2021 Coding Summary. CD:[id number] G h0bWw+PGhlYWQ+YC1XZTA vV80qcPFhbE2SJ0zYBH4H SCNHMCNJBE0ROS6bnRA0D QhyP1GgvxAk YrspnVYoWY67DQl2EUO5l LxmOQeebI2hsSDhE1l0Ho GlSS35mE30IDslUFKyKiW 3LjZpbjsgbWFy E5mtKsIzxZWhFnj+PHRhY mxlIHdpZHRoPScxMDAlJy YosMurRT0gGz6bZVItBRR vbGxhcHNlOiBj b6ozZBQeXZouAG5esAtxE 7MdnOR7HCPth7v1Hg59iE I+AMUrONG0dSicIQnrs94 0QiKoy2dsXRX8 nXAiDAbvQVB7M70sr4V8M RZaOUQcQQX2aDJ3gI9nzY zjimldS4RppRQxTjR3BGW 0iBAmcQ4glQbz seyvhQ0jFkc+M92GSC1DF AXHBH9ZOqs9S8KaWvxhwR I+EE58MKKgJQ95lRMgnWT hf4wtdWy5LoCt NXXzGGF3vUifXLogg1EtQ XAwS79scEAbj8C2OUAthW bzyUHxLxGtnCX8xB5xJRj enhqaa7erlrcm Frrua7zlsx04iU96U92jG PzgBCUhERM3PBKpCHFofK plee3obF7sIo2+ODskc3l ph7gimMd1XpZq KYVzwqUpfZpqJED0t1EwG o06F8SsbMwxf7JlErz3pw 00wHNpx5K4qDK8HPhyMHF wzL8iACglWjK4 NIZpFlVanE92cFNcZZcjN v7nuGdxxXplQD6mVDWtmz zlNCPlnJ9vMZVclYAcvXy oGY6aXIResrsf b581DvMsLID1FOGhbSIhZ 9RgvV2oOdHgXXTeWVIhC4 TgpUNmWWzlY896GNseVvF 7IYOofdZlZ4Iq UKTwcZscUpN6w0K9Ws3Hj 8CmvfleAUX0JVljECD7Iq R5GgNwEpF4F2PiDlv4ISI vlYccKO8aM7Fj NENnlcfjehpmyWO6EKJaJ JNiiO64zFEmJOjrXe4fm6 M8q049CMKiYERzkH83Zx0 udDogMTBwdCBU dF5ihruoy1habixqErIyW LRwDYw9VCg7PXPzwGstLe SpKFL7FcT2NSZ4pRMlsA2 npSckbvpzeB9c Oyc+P10tfT1iGOO5NIT8l barWTZjlnZjJH16SO06G5 RyPjwvdGFibGU+PGRpdiB mcDwhBI3aOxBk d4coz9EiUGgqR5TkVFZyF EqeGfr2VNYkYOI0fPT6kP 6hSFGwEEfmg5W3nEF6J1D ljcKyct9ao2cp OKQcHFxeR34cbMIko1U9X GLykSH8KXKfaHdbUbJzeF 93Oyc+VCNziZhme3CmWwy gt1vyc5qirWc1 LhZaPYMwfyAwfTmfYTK4o 9IwDt67T18iVTkeNFYrQY FzCUXtHQYpgKqppe4gzL7 wIi8+PGNvbCB3 kHN5sE3jNULqQkU8CYyiI 330YhIqmPZzYdnhr8abt1 ontYy5FyYqGKWxwyDiyWt cVKU7z1ZcWu58 U14nNRotJXZuDWZsDZBhD GEaiEebsr9qkM1vTh1+PC 6gz5pjgo22gD56yOB+PHR vCGC5oZfqCPwl AKXfuJ1qLYnpNoS1KBAsT yLuoS67bCGgXSkaFr0ypQ kunDemVI1xMJEqxsmnr93 5MeLvy8ptNZJd kCCnVZymLOJ3C34nk6N3O ICiHNDbSQA7tMI9fM7eyH lnbjogbGVmdDsgdmVydGl rGTgqHQuzL483 IHRvcDsnPlBhdGllbnQgT xSnECg1X8ViQoi7AUMaeS xqRE2ubHYrWVomMl7aoKp ttVlzKR9cXTRo gtunz300RzKrc7swTZOyx FUlWJcvQNE7A16fb7R7HF BrXXEdFVN8xLQ2wS3ikAr nbjogbGVmdDsg rvEleFofJYlxGVmuY176Y HRvcDsnPkJpcnRoIERhdG K5VI64JI96bCKcs1T2uSY 1J5XuROLogaid yrvokLX6EAUbWPPdjO34Q k0pwVmiZk7qJHPeODS6IT OscIHlM5VfjV5mIlUiSPU wCUUdV9UekXUc NOdvZ923IOqyPwZ1LIMvr iYbF7JtWABivTqsWoA8y0 J7Iv1MP8J9HM47NH72iOI fh0I7oGW0W0Nr QGFvkegnefrueBR0JCLeZ NRsaI82Zw9idMhvKo6lPS YrKAK1DINykYPoF5SmfG0 yOiAjMDAwMDAw W9TtbAMeXQccN671UXorO lU0CZOigeNvH8VdMXOxkH iwZpT5f6B4Al9COLs5US4 8RS08iCBxo6W4 iLH0B5SnNXMjvqgjvzxid SS5JHWmBZSbyN83Pr4gpV qfKf3tGZHrNWG9SFVunZN lC5TnfY1fXjMw KOKbRWWvC7NgdAUrOOmtA 560YCvuCrZ6BGTurvKiO7 WqABHfkOkpDfQ9y5H3Qg8 TJRNtEQ03IJE0 yOG7IM67TD08M0SyVrqku GFibGU+PHRhYmxlIHdpZH RoPScxMDAlJyBzdHlsZT0 mWi4zBTXxLIFt pSxiaWOfNfJgs9jlGEPtA LkcBP1kmIlwU9AylCQ6VE Uhk0a2Fq63A02rC6BwzEB +EFEuaNS3qHP5 bY3gTmSxRvQ4JXvfN692Q zXjlHTkHcuye1bhc6wohW y3GmZ6SEAofuYofTueJWY 1z3HnXs01C02k IHdpZHRoPSIxNSUiIHZhb Jteyg7wsJ0sYp9+PGNvbC X0vGX0zE4tHxRtBcR7EHk lQ130GuXyqVFs Zsoiv7xxa5iesZh0PoSlZ MUulkCioXwePBF2c0IyXx 38K1ItcRuux7KoHhj4kz9 5kDOkt1S6fZP9 Y2OtAZCpxvvrtKSzcAyyF R1eVXQllmrcBQKrhC1lLM VsY9w4EtWaYmL8VYcaL5T llnU3GNBjgFBo EAdqWYU7T03me6P5IXLsQ ZNpJHM4wUA7dV1ltIoeit ogbGVmdDsgdmVydGljYWw mHCneM281MGCn eSvkHYKwhA4jIRJawHNrz HnkXV9sDIGgutrvQsnDNr MUXdiOMmooURTYCP1OHCQ 5V2WgPnz9WFIb tHjmQX3kjNOgAVjwIv6yz RzvvYxrJH7yGDRdyktbVV XafG1gNRQhkQEobDtxMQ3 oBDImviche321 HiUyQUB0EIYefWNtG3Uly O1eDiQcEPXrWDZdX0CmdJ CfXDthH311XMysTxX9EHZ bosZtI2CbLOOx zRlmZjI4v8N3Mh4wKB3yK H0gGOEkNE98KI69cGDzn5 U1aCV9B2YfILFfiqdqvse zhPB2RTXwZHTo dV69qDXdMDjpGr7ac4R9y 844VDEgGVDavI25Iy2atY ylSTHfyHMNkD9fstqyu5q vcjogIzAwMDAw SBd3TMs3GEBnpGwsQkCnL IW8FsD0LEU5xXSwkZ8axS xriqelfZ2jTls+ODAgWWV oyhA5O8BbZdf1 KLZzxNxtMW1yoMLyWYeiX x5dfIbouEyuOW3iOHWqxq reHVXajT0oMYZchTKalOc rLL2mCVXkrbod h003DhGxGYA4JWKqyLUxP 9UpmB7yJyNuOVJbDULrM8 ArjEEeSFypQ375MHscFpX 6IHTjbrKdB8Wg XKKnfWliMtX1u8H9Fg3EQ I4iaGH5Y0BnWmt2CXFxyH yqTD0miSGePSoiWw4anAq vjQovLI4jOADr xzzeDQIaoX3rJCMseMMxv BpcDM3cYPOyqvvih262Ww LrYYO3KCLsfWKzC1LnvQ7 yOiAjMDAwMDAw O1OxiKQdRClcG232CGozX aP9SEQxrvOwY4CnIMPrgC cbDjJ3s9N6Gj6UbEJrRFY kZM91SI98PA57 P9GxVpnqvXQabLE+PHRhY mxlIHdpZHRoPScxMDAlJy FvsJqmJA2jWj9mSRWsWDG vbGxhcHNlOiBj r1icUKYoFMmpAI1roHxdL 9UarGT0EJZhm3a8Iy94S1 9gX0FlaYW+WJVpwMO6vHR 0bE9cGfSyGkN9 IYofO130AcYnkRZuAmswc 1elg1jdeSi1DgVqHPCydb VuzYvtZDO4y7SwTd47I44 sIHdpZHRoPSIy LVUzZZAvlPhxft6tyE5gG i8+FZBdbQG2vRJ1wB5nAn RuXwT1AHbrW958OeQqiRK tYynfT32mY4Km dXA+KYCbAko2PVKtqMzoI O8axUMpFGccPp2iGYX4Ct MnBnKpRZroP6ZiUNSucys oqilirZY9WKHh ZYPjeP14Iv7qbVecDx2rA ONjXVC8XKNiwFBuM4KxwU 2fHkJaULEbYBMcM5AauZM lHOxsV560LGjz YxZ4HLNewiDgP1HeGBFze QekIyI1j4P1Jd6PmGogcX QtTF0yFaYoITa7R8ZuFfw 2WHZjpIevSR3d oPIwGByyPe9okAovcIwdZ S9nRCOvymjxz450YqYnw6 muDQRqnODzHBlcEMC6R84 ws3R3MMKuGQBu INN8eXU7pY0piHjuduiwl GVmdDsgdmVydGljYWwtYW teJ854PAVidFkkVxQWKub 6V1WiCrm3YZBp iFfoFJ6woLZhWAtdWk4ao FnttFrtIH1oKDSczdpmr8 05NcJio6ppTGWywDEtJOh uKVY4X60ik3M9 QCCmIVNoADQ0mBX0gB9bk GlnbjogbGVmdDsgdmVydG mfZSkaLQujU194WANpdFa xSv4QZrd8C0Xs Xiu7SBMdpJohDW6jhTSnV TzrGr4iyGradOrnTM1gWX Pmcezqd692OdOcq1ncGME wcHQgVGltZXM7 W94wa0B5FVGcNQIfOTB4f NK7uD3xtMmuyfqxzREjbT ezucEqmDljRTeyVNxnC46 6IHRvcDsnPlBh eWVyOjwvdGQ+BK82eb33D 8KcCkqrWjq6MLGbPMJ7jW K3kR0iFGAjALiaa8G8fSJ 3V7IqpwIfof5w b2xs (more content not included)... Normal [facility] IntraOperative Documentson 0 01-11-2021 IntraOperative Documents [id number]# [email or web address] Normal [facility] Consent for Procedure/Surger yon 01-06-2021 Consent for Procedure/Surgery [id number]# [email or web address] Normal [facility] Main OR Intraoperative Recor don 01-05-2021 Main OR Intraoperative Record IntraOp Document Type FT Summary Primary Physician: Sherine DAO MD Finalized Date/Time: 01/05/21 12:27:08 Pt. Name: SHRUTHI DE ANDA/Sex: 1940 Female Med Rec #: [id number] Physician: Sherine DAO MD Financial #: [id number] Pt. Type: O Room/Bed: / Admit/Disch: 01/01/21 09:41:37 - 01/01/21 23:59:59 Institution: Case Times FT Entry 1 Patient Times In Room 01/01/21 10:41:00 Out Room 01/01/21 10:59:00 Procedure Times Start 01/01/21 10:46:00 Stop 01/01/21 10:57:00 Anesthesia Times Start 01/01/21 10:41:00 Stop 01/01/21 10:59:00 Time at [facility] 01/01/21 10:49:00 Last Modified By: Brina Garvin RN 01/01/21 10:59:23 General Comments: 01/05/2021 Chart opened to review and send charges. David VERGARA. Case Attendance FT Entry 1 Entry 2 Entry 3 Case Attendee Papito Oliver Jr., DO, MD, Brina Reis RN Role Performed Anesthesiologist of Surgeon - Primary Director Adult - Primary Record Time In 01/01/21 10:41:00 01/01/21 10:41:00 01/01/21 10:41:00 Time Out 01/01/21 10:59:00 01/01/21 10:59:00 01/01/21 10:59:00 Procedure COLONOSCOPY(.) COLONOSCOPY(.) COLONOSCOPY(.) Comments Last Modified By: Virgie GARY, Brina Garvin RN, Brina Garvin RN, Brina 01/01/21 10:59:28 01/01/21 10:59:28 01/01/21 10:59:28 Entry 4 Entry 5 Case Attendee Yadira Saucedo Micala E Role Performed Scrub - Primary Scrub - Primary Time In 01/01/21 10:41:00 01/01/21 10:41:00 Time Out 01/01/21 10:59:00 01/01/21 10:59:00 Procedure COLONOSCOPY(.) COLONOSCOPY(.) Comments Last Modified By: Virgie GARY, Brina Garvin RN, Brina 01/01/21 10:59:28 01/01/21 10:59:28 Perioperative Protocols FT Pre-Care Text: Implements protective measures prior to operative or invasive procedure, confirms identity before the operative or invasive procedure, verifies operative procedure, surgical site, and laterality Entry 1 Procedure(s) COLONOSCOPY(.) Patient Identity Birthday, ID Band Verified (select at Check, Patient least 2): Participation Consents / H and P Anesthesia Consent, Operative Site N/A Verified HandP, Surgery/Procedure Marking Verified Consent Surgical Site Yes Laterality Verified n/a Verified Procedure Verified Yes Correct Patient Yes Position Verified Availability Equipment, Medication Prep Dry n/a Verified (If Applicable) PreOp Antibiotic No Time Out Papito Oliver Jr., DO Given Participants ALLEN Eisenberg MD, Virgie Basurto RN, Antonino Gonsalves Micala E Time Out Complete 01/01/21 10:44:00 Outcomes Met? Yes Last Modified By: Brina Garvin RN 01/01/21 10:45:03 Post-Care Text: The patient is free from signs and symptoms of injury caused by extraneous objects Allergy Information FT Pre-Care Text: Verifies allergies Entry 1 Allergies Reviewed? Yes Allergies Reviewed Self/Patient With Outcomes Met? Yes Last Modified By: Brina Garvin RN 01/01/21 10:45:07 Post-Care Text: The patient received appropriate medication(s) safely administered during the perioperative period Surgical Procedures FT Entry 1 Procedure Description Procedure COLONOSCOPY Modifiers . Surgeon Description Colonoscopy with ascending colon polypectomies Primary Procedure Yes Primary Surgeon Sherine DAO MD 01/01/21 10:46:00 Stop 01/01/21 10:57:00 Anesthesia Type General Surgical Service Gastroenterology Wound Class 2 - Clean-Contaminated Last Modified By: Brina Garvin RN 01/01/21 10:57:35 General Case Data FT Pre-Care Text: Classifies surgical wound, implements aseptic technique, initiates traffic control Entry 1 Case Information OR ENDO 1 FT Case Level Level 2 Wound Class 2 - Clean-Contaminated Specialty Gastroenterology ASA Class 3 Preop Diagnosis PERSONAL HX OF COLON Postop Same As Preop No POLYPS Postop Diagnosis Ascending colon polyps, Outcomes Met? Yes diverticulosis Last Modified By: Brina Garvin RN 01/01/21 10:56:53 Post-Care Text: The patient is free from signs and symptoms of infection Skin Assessment (Pre Procedure) FT Pre-Care Text: Implements protective measures to prevent skin/ tissue injury due to thermal or mechanical sources Evaluates for signs and symptoms of physical injury to skin and tissue Entry 1 Skin Integrity Intact, [place], Warm, and Skin Abnormality No Dry Outcomes Met? Yes Last Modified By: Brina Garvin RN 01/01/21 10:45:31 Post-Care Text: The patient is free from signs and symptoms of injury caused by extraneous objects Patient Positioning FT Pre-Care Text: Identifies physical alterations that require additional precautions for procedure-specific positioning, verifies presence of prosthetics or corrective devices, positions the patient, evaluates the patient for signs and symptoms of injury as a result of positioning Entry 1 Procedure COLONOSCOPY(.) Body Position Lateral, right side up Feet Uncrossed? Yes Left Arm Position Resting at Side Right Arm Position Resting at [place] (more content not included)... Normal [facility] Postoperative Documentson Postoperative Documents [id number]# 1.00CD:127 Normal [facility] IntraOperative Documentson 0 01-04-2021 IntraOperative Documents [id number]# 1.00CD:127 [facility] Consent for Anesthesiaon Consent for Anesthesia [id number]#1 .00CD:127 [facility] Consent for Treatmenton Consent for Treatment [id number]#1 .00CD:127 [facility] Discharge Instructionson Discharge Instructions [id number]#1 .00CD:127 [facility] Endoscopic Procedure Report - Otheron 01-01-2021 Endoscopic Procedure Report - Other Patient: SHRUTHI DE ANDA Age: 80 years Sex: Female : 1940 Associated Diagnoses: None Author: Sherine DAO MD Pre-Procedure Procedure Date 01/01/2021 10:58:00 . Procedure Type: Colonoscopy with removal of tumor(s), polyp(s), or other lesion(s) by cold snare technique. Procedure provider Performed by Sherine Dao MD. Current history and physical Documented on chart. Colorectal neoplasm risk assessment Average risk. Informed Consent After discussing the rationale, risks and benefits, and alternatives to this procedure, the patient provided signed consent for the procedure. Pre-procedure diagnosis: History of colon polyps. ASA Classification: Class II. . Procedure The procedure was performed in the hospital. Rectal exam was performed and was normal with no masses palpated. The patient was positioned in the left lateral decubitus position and a digital rectal exam was performed.. Endoscope type used was an adult-size. The endoscope was lubricated then introduced through the anus. The scope was advanced to the cecum verified by photographing the appendiceal orifice, verified by photographing the ileocecal valve, verified by transillumination, The time to the cecum was 3 minutes, The withdrawal time was 8 minutes. No difficulties encountered during the procedure. The bowel preparation quality was adequate (see polyps greater than or equal to 6 millimeters). The patient tolerated the procedure well. Findings 1. 2 sessile polyps, 5 mm each, in the ascending, both removed with cold snare 2. Mild diverticulosis in the sigmoid and descending colon 3. Small nonbleeding internal hemorrhoids Images Procedure images: [id number]_ _[id number].jpg Rec1_hd_video_ _[id number].jpg [id number]_video_[id number]_ _[id number].jpg [id number]_hd_video_[id number]_ _[id number].jpg [id number]_hd_video_[id number]_ _[id number].jpg . Post-Procedure Complications: none. Estimated blood loss: none. Specimens: sent to pathology. Devices/ implants: none left in place. Impression and Plan 1. 2 sessile polyps, 5 mm each, in the ascending, both removed with cold snare 2. Mild diverticulosis in the sigmoid and descending colon 3. Small nonbleeding internal hemorrhoids Recommendations: Repeat colonoscopy:: None, Pending pathology results. Follow-up:: Clinic follow-up in 1-2 weeks. Diet:: Resume previous diet. Medication resumption:: Continue current medications. Return to activities:: After 24 hours. Normal [facility] Comment on above: Result Comment: Elec tronically Signed By: ALLEN REED, Sherine\.br\Date and Time Signed: 01/01/21 11:00 EDT Other Comment: Aaliyah thompson Attachment - attachment storage system not supported [id number] Can be viewed in source systemMissing Attachment - attachment storage system not supported [id number] Can be viewed in source systemMissing Attachment - attachment storage system not supported [id number] Can be viewed in source systemMissing Attachment - attachment storage system not supported [id number] Can be viewed in source systemMissing Attachment - attachment storage system not supported [id number] Can be viewed in source system Inpatient Patient Summaryon 01-01-2021 Inpatient Patient Summary [address] [address] [facility] Clinical Discharge Instructions PERSON INFORMATION Name: SHRUTHI DE ANDA PHYSICIANS Admitting Physician: Sherine DAO MD Attending Physician: Sherine DAO MD PCP: ROLF DAI DO Discharge Diagnosis: Colon polyp Comment: PATIENT EDUCATION INFORMATION Instructions: Medication Leaflets: Follow up: MEDICATION LIST Medications to Continue with No Changes Other Medications amlodipine 10 Milligram By Mouth every day. aspirin 81 Milligram By Mouth every day. bisoprolol-hydrochlor othiazide (bisoprolol-hydrochlo rothiazide 5 mg-6.25 mg Tab) 1 Tablets By Mouth every day. diphenhydrAMINE-ibupr ofen (Ibuprofen PM) 2 Tablets By Mouth once a day (at bedtime). gabapentin 100 Milligram By Mouth 3 times a day. glimepiride 1 Milligram By Mouth every day. lisinopril 40 Milligram By Mouth every day. Comment: Normal [facility] Main OR PACU I Recordon Main OR PACU I Record PACU Phase I Docum ent Type FT Summary Primary Physician: Sherine DAO MD Finalized Date/Time: 01/01/21 13:03:02 Pt. Name: SHRUTHI DE ANDA Miguel A Oneil/Sex: 1940 Female Med Rec #: [id number] Physician: Sherine DAO MD Financial #: [id number] Pt. Type: O Room/Bed: / Admit/Disch: 01/01/21 09:41:37 - Institution: Case Times PACU I FT Pre-Care Text: Identifies barriers to communication and implements measures to provide psychological support Develops individualized plan of care, and ensures continuity of care Maintains patient's dignity and privacy, and maintains patient confidentiality Identifies and reports philosophical, cultural, and spiritual beliefs and values Identifies individual values and wishes concerning care Implements aseptic technique, and administers prescribed antibiotic therapy and immunizing agents as ordered Evaluates postoperative tissue perfusion Implements thermoregulation measures, and monitors body temperature Evaluates postoperative respiratory status Evaluates postoperative cardiac status Evaluates postoperative neurological status Assesses pain control, collaborated in initiating patient-controlled analgesia and implements alternative methods of pain control Verifies allergies, administers prescribed medications and solutions, evaluates response to medications Entry 1 In PACU I 01/01/21 11:00:00 Discharge from PACU 01/01/21 11:30:00 I Outcomes Met? Yes Last Modified By: Francesca Ramirez RN 01/01/21 13:02:48 Post-Care Text: The patient demonstrates knowledge of the expected response to the operative or invasive procedure The patient's care is consistent with the individualized perioperative plan of care The patient's right to privacy is maintained The patient's value system, lifestyle, ethnicity, and culture are considered, respected, and incorporated into the perioperative plan of care The patient participates in decisions affecting his or her perioperative plan of care The patient is free from signs and symptoms of infection The patient has wound/tissue perfusion consistent with or improved from baseline levels established preoperatively The patient is at or returning to normothermia at the conclusion of the immediate postoperative period The patient's respiratory function is consistent with or improved from baseline levels established preoperatively The patient's cardiovascular status is consistent with or improved from baseline levels established preoperatively The patient's cardiovascular status is consistent with or improved from baseline levels established preoperatively The patient demonstrates and/or reports adequate pain control throughout the perioperative period The patient received appropriate medication(s), safely administered during the perioperative period Acuity Level PACU I FT Entry 1 Start Time 01/01/21 11:00:00 Stop Time 01/01/21 11:30:00 Acuity Level Acuity Level I Last Modified By: Francesca Ramirez RN 01/01/21 13:02:58 Finalized By: Francesca Ramirez RN Document Signatures Signed By: Francesca Ramirez RN 01/01/21 13:03 Normal [facility] Main OR Preoperative Recordo n 01-01-2021 Main OR Preoperative Record Holding Area Document Type FT Summary Primary Physician: Sherine DAO MD Finalized Date/Time: 01/01/21 10:41:02 Pt. Name: SHRUTHI DE ANDA/Sex: 1940 Female Med Rec #: [id number] Physician: Sherine DAO MD Financial #: [id number] Pt. Type: O Room/Bed: / Admit/Disch: 01/01/21 09:41:37 - Institution: Case Times Holding FT Pre-Care Text: Verifies consent for planned procedure, identifies individual values and wishes concerning care, includes family members in perioperative teaching Secures patient's records' belongings, and valuables, maintains patient's dignity and privacy, and maintains patient confidentiality Entry 1 In Holding 01/01/21 09:56:00 Outcomes Met? Yes Last Modified By: Yoon Best RN 01/01/21 09:56:11 Post-Care Text: The patient participates in decisions affecting his or her perioperative plan of care The patient's right to privacy is maintained Surgery Checklist FT Entry 1 Patient Birthday, ID Band Procedure History and Physical, Identification: Check, Patient Verification: Surgical Consent, With Participation Patient NPO after Midnight: No Personal Items Walker Comment: Limitations: Walker Case Cancelled in No Holding Area see comments below for reason Last Modified By: Yoon Best RN 01/01/21 09:57:50 General Comments: NPO after prep completed around per patient. RHRn Finalized By: Yoon Best RN Document Signatures Signed By: Yoon Best RN 01/01/21 10:41 Normal [facility] Monitor Recordon 01-01-2021 Monitor Record [id number]# 1.00CD:127 Normal [facility] Outpatient Surgery Discharge Instructionon 01-01-2021 Outpatient Surgery Discharge Instruction [place] [id number] Patient Discharge Instructions PERSON INFORMATION Name: NEETU SHRUTHI Grady Date of : 1940 Current Date: 01/01/2021 10:59:40 PHYSICIANS Admitting Physician: ALLEN REED, Basurto Discharge Diagnosis: Colon polyp SHRUTHI DE ANDA has been given the following list of follow-up instructions, prescriptions, and patient education materials: PATIENT FOLLOW-UP INFORMATION Diet: Regular Discharge Activity: Resume normal activities in 24 hours Discharge Restrictions: No driving for 24 hrs, Do not operate machinery or tools, Do not make important decisions for 24 hours IF UNABLE TO CONTACT YOUR PHYSICIAN AND YOU FEEL IT IS AN EMERGENCY, GO TO THE NEAREST EMERGENCY ROOM OR CALL 911 I, SHRUTHI DE NADA, have received the attached patient education materials/instruction s and have verbalized understanding: May we do a follow up call? Yes No I was present when discharge instructions were given Patient Signature Date Clinican/Nurse Signature Date Follow up: Pharmacy Information: [facility] You may receive a survey from [facility] asking you to rate your care experience. Your feedback is important and will help us understand what we do well and how we can improve the quality of care we provide to you, your loved ones and our community. It?s an honor to serve you. Thank you for choosing [facility] HERE ARE THE MEDICATION CHANGES THAT OCCURRED DURING YOUR HOSPITAL STAY Medications to Continue with No Changes Other Medications amlodipine 10 Milligram By Mouth every day. aspirin 81 Milligram By Mouth every day. bisoprolol-hydrochlor othiazide (bisoprolol-hydrochlo rothiazide 5 mg-6.25 mg Tab) 1 Tablets By Mouth every day. diphenhydrAMINE-ibupr ofen (Ibuprofen PM) 2 Tablets By Mouth once a day (at bedtime). gabapentin 100 Milligram By Mouth 3 times a day. glimepiride 1 Milligram By Mouth every day. lisinopril 40 Milligram By Mouth every day. PATIENT EDUCATION INFORMATION Instructions: Normal [facility] Patient Education - Texton 0 01-01-2021 Patient Education - Text [facility] Progress Note-Physicianon Progress Note-Physician Patient: SHRUTHI SAVAGE Age: 80 years Sex: Female : 1940 Associated Diagnoses: None Author: Papito Oliver Jr., DO Postoperative Information Post Operative Note: Post Anesthesia Care Unit. Anesthetic utilized: General. Health Status Allergies: Allergic Reactions (Selected) Severity Not Documented Beta-lactam antibiotics- Unknown. Cephalosporins- Unknown. Codeine- Unknown. Demerol HCl- Unknown. Penicillins- Unknown. Sulfa drugs- Unknown. Problem list: No problem items selected or recorded. Physical Examination Vital Signs 01/01/2021 11:30 EDT Heart Rate Monitored 65 bpm Respiratory Rate Monitored 25 br/min Systolic Blood Pressure 163 mmHg HI Diastolic Blood Pressure 78 mmHg SpO2 93 % 01/01/2021 11:15 EDT Heart Rate Monitored 69 bpm Respiratory Rate Monitored 14 br/min Systolic Blood Pressure 148 mmHg HI Diastolic Blood Pressure 77 mmHg SpO2 93 % 01/01/2021 11:10 EDT Heart Rate Monitored 68 bpm Respiratory Rate Monitored 12 br/min Systolic Blood Pressure 161 mmHg HI Diastolic Blood Pressure 70 mmHg SpO2 94 % 01/01/2021 11:05 EDT Heart Rate Monitored 73 bpm Respiratory Rate Monitored 13 br/min Systolic Blood Pressure 146 mmHg HI Diastolic Blood Pressure 89 mmHg SpO2 99 % 01/01/2021 11:00 EDT Temperature Temporal Artery 36.4 DegC Heart Rate Monitored 73 bpm Respiratory Rate Monitored 20 br/min Systolic Blood Pressure 152 mmHg HI Diastolic Blood Pressure 73 mmHg Blood Pressure Location Right arm SpO2 98 % Pain assessment: Controlled. General: Alert and oriented, No acute distress, No nausea. Adequate hydration.. Respiratory: Adequate air exchange.. Cardiovascular: stable. Neurologic: Normal sensory. Review / Management Condition: Stable. Assessment Anesthetic outcome No anesthetic complications noted. Plan Transfer/ Discharge: Condition stable. [facility] Comment on above: Result Comment: Elec tronically Signed By: Papito Oliver Jr., DO\.br\Date and Time Signed: 01/01/21 12:05 EDT Progress Note-Physician Patient: SHRUTHI SAVAGE Age: 80 years Sex: Female : 1940 Associated Diagnoses: None Author: Papito Oliver Jr., DO Preoperative Information Anesthesia history: Patient History: No prior problems.. Re-eval prior to induction: Inital eval reviewed: No significant interval change. Anesthesia results Review of Systems Constitutional: Negative except as documented in history of present illness. Cardiovascular: Negative except as documented in history of present illness. Respiratory: Negative. Health Status Allergies: Allergic Reactions (Selected) Severity Not Documented Beta-lactam antibiotics- Unknown. Cephalosporins- Unknown. Codeine- Unknown. Demerol HCl- Unknown. Penicillins- Unknown. Sulfa drugs- Unknown., Allergies (6) Active Reaction beta-lactam antibiotics Unknown cephalosporins Unknown codeine Unknown Demerol HCl Unknown penicillins Unknown sulfa drugs unknown Current medications: (Selected) Inpatient Medications Ordered Sodium Chloride 0.9% IV Breanna 1000 mL 1,000 mL: 1,000 mL, IV, 20 mL/hr, Routine, Start date 01/01/21 10:01:00 EDT, 50 hour(s), Total volume (mL): 1,000 Prescriptions Prescribed Sutab oral tablet: See Instructions, 1 EA, Refill(s) 0, Please follow instructions per packaging and physician's handout, [facility] [id number] Documented Medications Documented Ibuprofen PM: 2 tab(s), Oral, Once a day (at bedtime), Refill(s) 0, Sleep Trulicity Pen: 1.5 mg, SubCutaneous, qWeek, Refills(s) 0, Blood glucose amlodipine: 10 mg, Oral, Daily, Refills(s) 0, High blood pressure aspirin: 81 mg, Oral, Daily, Refills(s) 0, Prophylaxis bisoprolol-hydrochlor othiazide 5 mg-6.25 mg Tab: 1 tab(s), Oral, Daily, 90 tab(s), Refill(s) 0, High blood pressure gabapentin: 100 mg, Oral, TID, Refills(s) 0, Pain glimepiride: 1 mg, Oral, Daily, Refills(s) 0, Blood glucose lisinopril: 40 mg, Oral, Daily, Refills(s) 0, High blood pressure Histories Past Medical History: No active or resolved past medical history items have been selected or recorded. Family History: No family history items have been selected or recorded. Procedure history: Colonoscopy ([id number]). Social History Social & Psychosocial Habits Tobacco 11/30/2020 Tobacco Use: Never (less than 100 in l . Physical Examination Respiratory: Lungs are clear to auscultation. Cardiovascular: Regular rhythm. Plan [employer] [employer] (ASA) physical status classification: Class III. Anesthetic Preoperative Plan Anesthesia: General. . Anesthetic plan, risks, benefits, and alternatives discussed with the patient and/or family. Patient verbalized understanding. [facility] Comment on above: Result Comment: Elec tronically Signed By: Papito Oliver Jr., DO.haley\Date and Time Signed: 01/01/21 10:04 EDT Consent for Procedure/Surger yon 12-02-2020 Consent for Procedure/Surgery [id number]# 1.00CD:127 [facility] Historical Records Officeon 12-02-2020 Historical Records Office [id number]#1 .00CD:127 [facility] Gastroenterology Office/Clin ic Noteon 12-01-2020 Gastroenterology Office/Clinic Note Chief Complaint 3yr colon recall HPI Staff This is a 80 year old female who presents today for a 3 year colon recall. History of Present Illness The patient or their guardian verbally consented to allow [facility]err[facility] Peter to record this visit. The patient presents today for a 3-year surveillance colonoscopy. She had a colonoscopy done by Dr. Bright Menchaca in 10/25/2017 and had 6 polyps removed, revealing tubular adenoma. She is not currently taking anticoagulants other than aspirin. Review of Systems PHQ Score Initial Depression Screen Score: 1 Constitutional: no fever, no chills, no sweats, no weakness Skin: no Jaundice, no rash, no lesions, no petechiae ENMT: no ear pain, no sore throat, no congestion, no hoarseness Respiratory: no shortness of breath, no cough, no orthopnea, no wheezing Cardiovascular: no chest pain, no palpitations, no edema Gastrointestinal: no nausea, no vomiting, no diarrhea, no constipation, no GI bleeding, no abdominal pain, no dysphagia, no bloating, no heartburn Genitourinary: no dysuria, no hematuria, no discharge, no pain Musculoskeletal: no back pain, no trauma Neurologic: no numbness, no sleeping problems Additional ROS info: Except as noted in the above Review of Systems and in the History of Present Illness all other systems have been reviewed and are negative or noncontributory. Physical Exam Vitals & Measurements T: 36.5 ?C (Temporal Artery) HR: 69(Peripheral) RR: 16 BP: 154/83 Constitutional: Appearance: well developed Skin: Inspection: no rashes, ulcers, icterus, or telangiectasias. Eyes: Conjunctivae/lids: normal conjunctivae and lids. ENMT: Hearing: within normal limits. Lips/Teeth/Gums: normal oral mucosa Neck: Neck: normal motion, central trachea Respiratory: Percussion: thorax normoresonant. Auscultation: normal breath sounds; no rubs, wheezes, rale or ronchi. Cardiovascular: Auscultation: normal rhythm, S1 and S2; no rubs, murmurs or gallop. Peripheral: no edema Gastrointestinal/Abdo men: Abdomen: normal consistency and bowel sounds; no tenderness or masses. Liver/Spleen: normal size and consistency, not palpable. Rectal: deferred Musculoskeletal: Gait/station: normal gait Procedure RESULTS Colonoscopy(6-month follow-up) 10/25/2017 Findings: Internal hemorrhoids Colonoscopy 02/15/2017 Findings: 1. 4 sessile polyps, in transverese colon, removed with cold snare. 2. 2 polyps, in sigmoid colon, a 4mm polyp removed with cold snare, and a 1.5cm polyp with short stalk removed with hot snare. An endo clip was applied to polypectomy site. 3. Internal hemmorhoids 4. Mild diverticulosis in the sigmoid colon Surgical Pathology 02/15/2017 Final Diagnosis: A: POLYPS, SIGMOID COLON, POLYPECTOMY: ? TUBULOVILLOUS ADENOMAS. ? ONE HYPERPLASTIC POLYP. B: POLYPS, TRANSVERSE COLON, POLYPECTOMY: ? TUBULAR ADENOMAS. Assessment/Plan 1. Personal history of colonic polyps (Z86.010: Personal history of colonic polyps) The patient will be scheduled for a surveillance colonoscopy. The risks and benefits were discussed with her. ATTESTATION: Documentation services were performed by DANNY after patient consented to recording for virtual orthopedic cast specialist and provider reviewed before signing. DANNY: Carolann Aguila Follow-up With When Contact Information ALLEN REED, Sherine, GAS, MED Only if needed [facility] [address] [place] [address]- Additional Instructions: Patient Education Colon Polyps Problem List/Past Medical History Ongoing No qualifying data Historical No qualifying data Procedure/Surgical History Colonoscopy. Medications amlodipine, 10 mg, Oral, Daily aspirin, 81 mg, Oral, Daily bisoprolol-hydrochlor othiazide 5 mg-6.25 mg Tab, 1 tab(s), Oral, Daily gabapentin, 100 mg, Oral, TID glimepiride, 1 mg, Oral, Daily Ibuprofen PM, 2 tab(s), Oral, Once a day (at bedtime) lisinopril, 40 mg, Oral, Daily Trulicity Pen, 1.5 mg, SubCutaneous, qWeek Allergies Demerol HCl (Unknown) beta-lactam antibiotics (Unknown) cephalosporins (Unknown) codeine (Unknown) penicillins (Unknown) sulfa drugs (unknown) Social History Tobacco Never (less than 100 in lifetime) Tobacco Use:., 11/30/2020 [facility] Comment on above: Result Comment: Elec tronically Signed By: Sherine ADO MD\.br\Date and Time Signed: 12/01/20 12:38 EDT\.br\Electronically Co-Signed By: Carolann Aguila\.br\Date and Time Co-Signed: 11/30/20 15:20 EDT Ambulatory Clinical Summaryo n 11-30-2020 Ambulatory Clinical Summary {[id number]}CD:[id number] [facility] Patient Educationon 12-01-19 21 Patient Education Oncology Colon Polyps Polyps are tissue growths inside the body. Polyps can grow in many places, including the large intestine (colon). A polyp may be a round bump or a mushroom-shaped growth. You could have one polyp or several. Most colon polyps are noncancerous (benign). However, some colon polyps can become cancerous over time. Finding and removing the polyps early can help prevent this. What are the causes? The exact cause of colon polyps is not known. What increases the risk? You are more likely to develop this condition if you: ? Have a family history of colon cancer or colon polyps. ? Are older than 50 or older than 45 if you are . ? Have inflammatory bowel disease, such as ulcerative colitis or Crohn's disease. ? Have certain hereditary conditions, such as: ? Familial adenomatous polyposis. ? Alfaro syndrome. ? Turcot syndrome. ? Peutz?Jeghers syndrome. ? Are overweight. ? Smoke cigarettes. ? Do not get enough exercise. ? Drink too much alcohol. ? Eat a diet that is high in fat and red meat and low in fiber. ? Had childhood cancer that was treated with abdominal radiation. What are the signs or symptoms? Most polyps do not cause symptoms. If you have symptoms, they may include: ? Blood coming from your rectum when having a bowel movement. ? Blood in your stool. The stool may look dark red or black. ? Abdominal pain. ? A change in bowel habits, such as constipation or diarrhea. How is this diagnosed? This condition is diagnosed with a colonoscopy. This is a procedure in which a lighted, flexible scope is inserted into the anus and then passed into the colon to examine the area. Polyps are sometimes found when a colonoscopy is done as part of routine cancer screening tests. How is this treated? Treatment for this condition involves removing any polyps that are found. Most polyps can be removed during a colonoscopy. Those polyps will then be tested for cancer. Additional treatment may be needed depending on the results of testing. Follow these instructions at home: Lifestyle ? Maintain a healthy weight, or lose weight if recommended by your health care provider. ? Exercise every day or as told by your health care provider. ? Do not use any products that contain nicotine or tobacco, such as cigarettes and e-cigarettes. If you need help quitting, ask your health care provider. ? If you drink alcohol, limit how much you have: ? 0?1 drink a day for women. ? 0?2 drinks a day for men. ? Be aware of how much alcohol is in your drink. In the [place] one drink equals one 12 oz bottle of beer (355 mL), one 5 oz glass of wine (148 mL), or one 1? oz shot of hard liquor (44 mL). Eating and drinking ? Eat foods that are high in fiber, such as fruits, vegetables, and whole grains. ? Eat foods that are high in calcium and vitamin D, such as milk, cheese, yogurt, eggs, liver, fish, and broccoli. ? Limit foods that are high in fat, such as fried foods and desserts. ? Limit the amount of red meat and processed meat you eat, such as hot dogs, sausage, valencia, and lunch meats. General instructions ? Keep all follow-up visits as told by your health care provider. This is important. ? This includes having regularly scheduled colonoscopies. ? Talk to your health care provider about when you need a colonoscopy. Contact a health care provider if: ? You have new or worsening bleeding during a bowel movement. ? You have new or increased blood in your stool. ? You have a change in bowel habits. ? You lose weight for no known reason. Summary ? Polyps are tissue growths inside the body. Polyps can grow in many places, including the colon. ? Most colon polyps are noncancerous (benign), but some can become cancerous over time. ? This condition is diagnosed with a colonoscopy. ? Treatment for this condition involves removing any polyps that are found. Most polyps can be removed during a colonoscopy. This information is not intended to replace advice given to you by your health care provider. Make sure you discuss any questions you have with your health care provider. Document Released: 03/08/2005 Document Revised: 09/27/2018 Document Reviewed: 09/27/2018 [place] [employer] Patient Education ? 2019 [employer]. [facility] November 16, [address]DA [address] [place] [address] SHRUTHI DE ANDA 1940 Dear Shruthi, This is a SECOND ATTEMPT to remind you that you are due for an appointment with Dr. Dao or Dr. Omer. Please call [facility] at [phone] to schedule an appointment at your earliest convenience. Thank you, [facility] Patient Letter FTon 2020 Patient Letter [facility] September 30, 2020 [address] DE ANDA [address] [place] [address] SHRUTHI DE ANDA 1940 Dear Shruthi, This is a reminder that you are due for an appointment with Dr. Dao or Dr. Omer. Please call [facility] at [phone] to schedule an appointment at your earliest convenience. Thank you, [facility] Encounters Encounter Date Encounter Type Care Provider Facility Start: 07-17-2023 End: 07-17-2023 ambulatory Rolf Dai Other [facility] Other Start: 07-17-2023 Telephone encounter Rolf Ball [facility] Start: 06-08-2023 End: 06-08-2023 ambulatory Rolf Ball Other [facility] Other Start: 06-08-2023 Home visit est pt mod-hi severity 40 minutes Rolf Dai [facility] Start: 05-15-2023 End: 05-15-2023 ambulatory Rolf Suhas Other [facility] Other Start: 05-15-2023 Telephone encounter Rolf Ball [facility] Start: 05-04-2023 End: 05-04-2023 ambulatory Rolf Ball Other [facility] Other Start: 05-04-2023 Telephone encounter Rolf Ball [facility] Start: 04-28-2023 End: 04-28-2023 ambulatory Rolf Ball Other [facility] Other Start: 04-28-2023 Telephone encounter Rolf Ball [facility] Start: 04-26-2023 End: 04-26-2023 ambulatory Rolf Ball Other [facility] Other Start: 04-26-2023 Telephone encounter Rolf Ball [facility] Start: 04-24-2023 End: 04-24-2023 ambulatory Rolf Ball Other [facility] Other Start: 04-24-2023 Telephone encounter Rolf Ball [facility] Start: 04-07-2023 End: 04-07-2023 ambulatory Rolf Ball Other [facility] Other Start: 04-07-2023 Telephone encounter Rolf Ball [facility] Start: 03-15-2023 End: 03-15-2023 ambulatory Rolf Ball Other [facility] Other Start: 03-15-2023 Telephone encounter Rolf Ball [facility] Start: 03-13-2023 End: 03-13-2023 ambulatory Rolf Ball Other [facility] Other Start: 03-13-2023 Telephone encounter Rolf Ball [facility] Start: 02-16-2023 End: 02-16-2023 ambulatory Rolf Ball Other [facility] Other Start: 02-16-2023 Telephone encounter Rolf Ball [facility] Start: 02-13-2023 End: 02-13-2023 ambulatory Rolf Ball Other [facility] Other Start: 02-13-2023 Telephone encounter Rolf Ball [facility] Start: 01-17-2023 End: 01-17-2023 ambulatory Rolf Ball Other [facility] Other Start: 01-17-2023 Telephone encounter Rolf Ball [facility] Start: 01-12-2023 End: 01-12-2023 ambulatory Rolf Ball Other [facility] Other Start: 01-12-2023 Home visit est pt mod-hi severity 40 minutes Rolf Dai [facility] Start: 01-11-2023 End: 01-11-2023 ambulatory Rolf Ball Other [facility] Other Start: 01-11-2023 Telephone encounter Rolf Ball [facility] Start: 01-03-2023 End: 01-03-2023 ambulatory Rolf Ball Other [facility] Other Start: 01-03-2023 Telephone encounter Rolf Ball [facility] Start: 12-26-2022 End: 12-26-2022 ambulatory Rolf Ball Other [facility] Other Start: 12-26-2022 Telephone encounter Rolf Ball [facility] Start: 12-22-2022 End: 12-22-2022 ambulatory Rolf Ball Other [facility] Other Start: 12-22-2022 Home visit est pt mod-hi severity 40 minutes Rolf Ball [facility] [address] Start: 12-08-2022 End: 12-08-2022 ambulatory Rolf Ball Other [facility] Other Start: 12-08-2022 Telephone encounter Rolf Ball [facility] Start: 10-26-2022 End: 10-26-2022 ambulatory Rolf Ball Other [facility] Other Start: 10-26-2022 Telephone encounter Rolf Ball [facility] Start: 10-06-2022 End: 10-06-2022 ambulatory Rolf Ball Other [facility] Other Start: 10-06-2022 Telephone encounter Rolf Ball [facility] Start: 09-22-2022 End: 09-22-2022 ambulatory Rolf Ball Other [facility] Other Start: 09-22-2022 Home visit est pt mod-hi severity 40 minutes Rolf Ball [facility] Start: 04-29-2022 End: 05-01-2022 Evaluation and management of inpatient DR ROLF DAI Facility:[facility] Start: 02-15-2022 End: 02-15-[address] ROLF DAI Facility:[facility] Start: 05-19-2020 Adult health examination Rolf Dai Other [facility] Other Procedures Date Procedure Procedure Detail Performing Clinician Start: 01-15-2017 Screening for osteoporosis Rolf Dai Other Start: 08-05-2016 Pre-surgery evaluation Rolf Dai Other Start: 08-05-2016 Preoperative cardiov ascular examination Rolf Dai Other Start: 12-30-2014 Screening for osteoporosis Rolf Dai Other Start: 12-30-2014 Screening mammography B keke Dai Other Start: 03-15-2013 General examination of patient Rolf Dai Other Depression screening Lexis Dai Other Screening for malign ant neoplasm of breast Rolf Dai Other Immunizations Immunization Date Immunization Notes Care Provider Graciela morales 03-10-2021 influenza virus vaccine, split virus (incl. purified surface antigen) Rolf Dai Other [facility] Other 07-27-2020 COVID-19 Vaccine Moderna - Documentation Purposes Only Rolf Dai Other [facility] Other 04-01-2020 influenza virus vaccine, split virus (incl. purified surface antigen) Rolf Dai Other [facility] Other 04-19-2017 influenza virus vaccine, split virus (incl. purified surface antigen) Rolf Dai Other [facility] Other 05-11-2016 influenza virus vaccine, split virus (incl. purified surface antigen) Rolf Dai Other [facility] Other 03-08-2016 pneumococcal conjuga te vaccine, 13 valent Rolf Dai Other [facility] Other 03-08-2016 pneumococcal Conjuga te, unspecified formulation; Translations: [Need for prophylactic vaccination against Streptococcus pneumoniae (pneumococcus)] Rolf Dai Other [facility] Other 02-29-2012 tetanus and diphther ia toxoids, adsorbed, preservative free, for adult use (5 Lf of tetanus toxoid and 2 Lf of diphtheria toxoid) Rolf Dai Other [facility] Other Payers Date Payer Category Payer Medicare [id number] 1959 Private Health Insurance [id number] 1940 Unknown [id number] 1940 Unknown [id number] Unknown [id number] Social History Date Type Detail Facility Sex Assigned At [facility] Other Medical Equipment Procedure Code Equipment Code Equipment Origin al Text Equipment Identifier Dates Pen [place] [id number] X 8 MM Start: 03-13-2023 Clinical Notes 01-06-2021 to 06-08-2023 Note Date & Type Note Facility 06-08-2023 Evaluation note Encounter Date Diagnosis Assessment Notes May, Type 2 diabetes mellitus with hyperglycemia (ICD-10 - E11.65) This patient is following a comprehensive diabetic treatment plan. They are checking their feet daily for calluses and nonhealing ulcers. They are being seen for yearly dilated eye examinations. Goals: SBP less than 130, LDL less than 100, FBS less than 140, A1C less than 7%. They are checking their BS daily, will which are reviewed at the office visit. Continue regular routine monitoring of A1C,] Microalbumin, Dilated eye exam and Foot exam May, Mucopurulent chronic bronchitis (ICD-10 - J41.1) HHN as needed to clear secretions. Weakened by age, cerebral infartion, Parkinson's desease causing increased secretions difficult to clear May, Hypoxemia (ICD-10 - R09.02) Continue supplemental oxygen to maintain sats > 90%. Elevate HOB to assist w/ pulmonary toilet. May, Cerebral atherosclerosis (ICD-10 - I67.2) Continue secondary prevention measures. Monitor for stroke symptoms. Continue assists w/ MRADL. May, Hemiparesis of left nondominant side as late effect of cerebral infarction (ICD-10 - I69.354) Much improved but remains weak. Impairs MRADL and ADL involving personal hygiene and feeding May, Parkinson's disease without dyskinesia or fluctuating manifestations (ICD-10 - G20.A1) Stable w/ treatment but continues w/ persistent bradykinesia, ataxia, and cognitive impairment. May, Mild cognitive impairment (ICD-10 - G31.84) Due to vascular disease and Parkinson's disease. Require assistance w/ ADL. Requires assistance w/ IADL Requires assistance w/ all MRADL [facility] Other 10-30-2023 Evaluation note* Encounter Date Diagnosis Assessment Notes Treatment Notes Treatment Clinical Notes Mar, Acute cough (ICD-10 - R05.1) [facility] Other 09-18-2023 Evaluation note* Encounter Date Diagnosis Assessment Notes Treatment Notes Treatment Clinical Notes Feb, Type 2 diabetes mellitus with hyperglycemia (ICD-10 - E11.65) This patient is following a comprehensive diabetic treatment plan. They are checking their feet daily and scheduling a dilated eye exam yearly. Goals: SBP<130, LDL<100, BS<140 AC, A1C<7% They are checking their BS before each meal. Humalog 5u before each meal Correction dose: added to the 5u order before e meals < 150 no correction 151-200 6u 201-250 8u 251-300 10u 301-350 12u > 350 14u Continue to monitor BS. [facility] Other 08-21-2023 Evaluation note* Encounter Date Diagnosis Assessment Notes Treatment Notes Treatment Clinical Notes Jan, Mucopurulent chronic bronchitis (ICD-10 - J41.1) [facility] Other 07-19-2023 Evaluation note* Encounter Date Diagnosis Assessment Notes Treatment Notes Treatment Clinical Notes Dec, High cholesterol (ICD-10 - E78.00) [facility] Other 06-29-2023 Evaluation note* Encounter Date Diagnosis Assessment Notes Treatment Notes Treatment Clinical Notes Nov, Controlled type 2 diabetes mellitus with hyperglycemia (ICD-10 - E11.65) This patient is following a comprehensive diabetic treatment plan. They are checking their feet daily for calluses and nonhealing ulcers. They are being seen for yearly dilated eye examinations. Goals: SBP less than 130, LDL less than 100, FBS less than 140, AC and A1C less than 7%. They are checking their BS daily, will which are reviewed at the office visit. Continue regular routine monitoring of A1C,] Microalbumin, Dilated eye exam and Foot exam Nov, Type 2 diabetes mellitus with diabetic polyneuropathy (ICD-10 - E11.42) Inspect feet daily for cuts and calluses.Recommend diabetic shoes and inserts to prevent callus formation.Fall precautions. Nov, Essential hypertension (ICD-10 - I10) This patient is instructed to consume a healthy, low-fat, low-salt diet. They are also encouraged to continue exercise to achieve/maintain a normal BMI. Nov, Left hemiparesis (ICD-10 - G81.94) Continue ROM exercises and strengthening exercises. Nov, Obstructive sleep apnea (adult) (pediatric) (ICD-10 - G47.33) This patient is aware of the benefits associated with RAMÓN: With continued use, the patient reduces the risk for OH, CVA, HTN, cardiac dysrhythmias and sudden cardiac deaths.The patient is also aware of the association between RAMÓN and morning headaches, daytime somnolence, fatigue and obesity, which also has been improved with continued use.The patient is compliant with treatment, wearing the equipment every night for greater than 4 hours.The patient is instructed to continue use of the CPAP for RAMÓN treatment. Nov, Cerebral atherosclerosis (ICD-10 - I67.2) Continue secondary preventive measures. No new focal neurologic deficits Nov, Parkinson''s disease (ICD-10 - G20) Fall precautions, stable w/ treatment. f/u Neurology Nov, High cholesterol (ICD-10 - E78.00) [facility] Other 03-30-2023 Evaluation note* Encounter Date Diagnosis Assessment Notes Treatment Notes Treatment Clinical Notes Aug, Essential hypertension (ICD-10 - I10) This patient is instructed to consume a healthy, low-fat, low-salt diet. They are also encouraged to continue exercise to achieve/maintain a normal BMI. Aug, Controlled type 2 diabetes mellitus with hyperglycemia (ICD-10 - E11.65) Aug, Type 2 diabetes mellitus with diabetic polyneuropathy (ICD-10 - E11.42) This patient is following a comprehensive diabetic treatment plan. They are checking their feet daily for calluses and nonhealing ulcers. They are being seen for yearly dilated eye examinations. Goals: SBP less than 130, LDL less than 100, FBS less than 140, AC and A1C less than 7%. They are checking their BS daily, will which are reviewed at the office visit. Aug, Left hemiparesis (ICD-10 - G81.94) Fall precautions, up w/ assistance only. Aug, Obstructive sleep apnea (adult) (pediatric) (ICD-10 - G47.33) This patient is aware of the benefits associated with RAMÓN: With continued use, the patient reduces the risk for OH, CVA, HTN, cardiac dysrhythmias and sudden cardiac deaths.The patient is also aware of the association between RAMÓN and morning headaches, daytime somnolence, fatigue and obesity Aug, Cerebral atherosclerosis (ICD-10 - I67.2) Continue secondary prevention w/ ASA and Statin therapy Aug, Parkinson''s disease (ICD-10 - G20) Continue present treatment, f/u Neurology as needed [place] [facility] Other 07-14-2021 Note [id number]:[address] [place] [address] 01-06-2021 [id number]:[address] [place], [place] [address]Evaluation noteNo InformationNortFoundations [facility]al [facility] Other Evaluation noteNortFoundations [facility]al Health [facility] Other History general Narrative - Reported* Type Description Date Medical History Essential hypertension Medical History Controlled type 2 diabetes karina serrano with hyperglycemia Medical History Type 2 diabetes mellitus with di abetic polyneuropathy Medical History Obstructive sleep apnea (adult) (pediatric) Medical History 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 Medical History Gastro-esophageal re flux disease with esophagitis, without bleeding Medical History Chronic venous insufficiency Medical History Left hemiparesis Medical History Cerebral atherosclerosis Medical History Parkinson''s disease Medical History High cholesterol Medical History Obesity (BMI 30-39.9) Medical History COVID Medical History Pulmonary nodule, right Medical History Adenomatous polyp of descending colon Medical History Hyperlipidemia type II Medical History High risk medication use Surgical History hysterectomy Surgical History tonsillectomy Surgical History bladder surgery Surgical History cancer Hospitalization History SEE SURGICAL HX [facility] Other History general Narrative - [facility]No[facility] Other History general Narrative - [facility]ortedNoprogress [facility] Other Summary Purpose Family History No Family History Records FoundNo Family History Records Found Advance Directives No Advanced Directives Records FoundNo Advanced Directives Records Found Additional Source Comments INFORMATION SOURCE (unrecogn ized section and content) DATE CREATED AUTHOR 01/11/2021 [facility] DATE CREATED AUTHOR AUTHOR'S ORGANIZ ATION 05/09/2022 [facility] REASON FOR VISIT (unrecogniz ed section and content) [facility] PlaceERRORUpdateRefillcompression stockingsNebulizer and medicationNo InformationClyde Gardens PlaceNo InformationNo InformationUpdatePTCoughPrescription needs faxedupdateTCMmessageUpdateCle [facility] bed FOR RECORDS PERTAINING TO PATIENTS WHO ARE OR HAVE BEEN ENROLLED IN A CHEMICAL DEPENDENCY/SUBSTANCEABUSE PROGRAM, SOME INFORMATION MAY BE OMITTED. This clinical summary was aggregated from multiple sources. Caution should be exercised in using it in the provision of clinical care. This summary normalizes information from multiple sources, and as a consequence, information in this document may materially change the coding, format and clinical context of patient data. In addition, data may be omitted in some cases. CLINICAL DECISIONS SHOULD BE BASED ON THE PRIMARY CLINICAL RECORDS. [facility] [email or web address]. provides no warranty or guarantee of the accuracy or completeness of information in this document.
--- NOTE | 2023-07-27 13:56 | CT_ITS ---
The [address] [address] Patient Name: SHRUTHI DE ANDA MRN: [id number] date: 1940 Sex: F Assigned Patient Location: ER Current Patient Location: ER Accession/Order Number: [id number] Exam Date: 07/27/2023 14:39 Report Date: 07/27/2023 15:25 At the request of: BERT DIAZ Procedure: CT head/brain wo con CT head without contrast, 07/27/2023. HISTORY: Fall. Head injury. Hematoma at back of head. COMPARISON: CT head, 01/06/2023. TECHNIQUE: Noncontrast axial CT images obtained through the head. Reconstructions were obtained in the sagittal and coronal planes. Dose reduction techniques were achieved by using automated exposure control and/or adjustment of mA and/or kV according to patient size and/or use of iterative reconstruction technique. FINDINGS: Paranasal sinuses are clear. The mastoid air cells and middle ear cavities are clear. Skull base is intact. No skull fracture identified. Orbital contents are normal. Nasopharynx and professor of poultry science spaces are normal. Generalized brain atrophy is stable. There are areas of chronic infarction throughout the right frontal and right parietal lobes as well as left parietal lobe. These findings are stable. No mass effect or shift of midline. No subdural fluid collections. No acute intracranial hemorrhage. CT/CT head/brain wo con IMPRESSION: 1. Stable CT of the head. No new acute findings. No intracranial hemorrhage. No skull fracture. 2. Areas of chronic infarction in the right frontal and parietal lobes as well as left parietal lobe are stable. Stable brain atrophy. Electronically authenticated by: GLORIA HINSON Date: 07/27/2023 15:25
--- NOTE | 2023-07-27 13:56 | CT_ITS ---
The [address] [address] Patient Name: SHRUTHI DE ANDA MRN: [id number] date: 1940 Sex: F Assigned Patient Location: ER Current Patient Location: ER Accession/Order Number: [id number] Exam Date: 07/27/2023 14:39 Report Date: 07/27/2023 15:26 At the request of: BERT DIAZ Procedure: CT cervical spine wo con CLINICAL HISTORY: Trauma. Status post fall. EXAMINATION: Unenhanced CT scan of the cervical spine: COMPARISON: None. TECHNIQUE: 2 mm axial images from skull base through top of T3 without intravenous or intrathecal contrast were obtained. Sagittal, coronal reconstructions were also performed. The visualized skull base calvarium, mastoid air cells appear intact. The C1 ring appears intact. At C2-C3 there is no significant spinal stenosis, or neural foraminal narrowing. There is no focal disc bulge. There is slight asymmetric hypertrophy of the uncovertebral joints, left greater than right. C3-C4: There is diffuse degenerative disc disease with asymmetric hypertrophic changes of the uncovertebral joints, left greater than right, which results in moderate to severe left and minimal neural foraminal narrowing on the right without spinal canal stenosis. C4-C5: There is degenerative disc disease with hypertrophic changes of the uncovertebral joints, right greater than left, without significant spinal canal stenosis or neural foraminal narrowing. C5-C6: There is significant degenerative disc disease with broad-based slightly asymmetric disc-osteophyte complex towards the left. This results in some impingement of the thecal sac with severe left, moderate to severe right neural foraminal narrowing with central canal measuring approximately 8 mm. C6-C7 there is significant degenerative disc disease with asymmetric disc-osteophyte complex towards left, measuring approximately 5 mm, impinging on the thecal sac towards the left with mild narrowing with central canal measuring 8 mm. This results in moderate to severe left, mild neural foraminal narrowing on the right. There are no fractures of the cervical or the upper thoracic segments of the vertebral bodies. The visualized clavicles, upper ribs appear intact. The visualized upper lungs, pre-, paravertebral soft tissues appear normal. There is normal alignment on sagittal, coronal reconstructions. CT/CT cervical spine wo con IMPRESSION: 1. No acute fractures or subluxations. 2. Multilevel degenerative changes, most pronounced at C5-C6, C6-C7. Electronically authenticated by: GIGI RENDON Date: 07/27/2023 15:26
[2023-07-27 14:22] LABS: Basophils Percent Auto 0.3 % (0.2-2.0); Eosinophils Absolute Auto 0.1 10^3/uL (0.0-0.7); Eosinophils Percent Auto 1.9 % (0.9-7.0); Hematocrit 34.8 % (36.0-48.0); Hemoglobin 10.9 g/dL (12.0-16.0); Immature Granulocytes Abs Auto 0.02 10^3/uL (0.00-0.03); Immature Granulocytes Pct Auto 0.3 % (0.0-0.5); Lymphocytes Absolute Auto 1.2 10^3/uL (1.2-3.8); Lymphocytes Percent Auto 16.6 % (20.5-60.0); Mean Corpuscular HGB Conc 31.3 g/dL (29.9-35.2); Mean Corpuscular Hemoglobin 28.9 pg (26.7-34.0); Mean Corpuscular Volume 92.3 fL (81.0-99.0); Mean Platelet Volume 10.6 fL (9.5-13.5); Monocytes Absolute Auto 0.5 10^3/uL (0.3-0.8); Monocytes Percent Auto 7.4 % (1.7-12.0); Neutrophils Absolute Auto 5.4 10^3/uL (1.4-6.5); Neutrophils Percent Auto 73.5 % (43.0-75.0); Platelet Count 163 10^3/uL (150-450); Red Blood Count 3.77 10^6/uL (4.20-5.40); Red Cell Distribution Width 13.9 % (11.0-15.0); White Blood Count 7.3 10^3/uL (4.0-11.0)
[2023-07-27 14:46] LABS: Anion Gap 9.8; BUN Creatinine Ratio 17.3; Calcium 8.9 mg/dL (8.5-10.1); Carbon Dioxide 32.5 mmol/L (21.0-32.0); Chloride 104 mmol/L (98-107); Estimated GFR (African America 57 (>=60); Estimated GFR (Non-African Ame 47 (>=60); Glucose 155 mg/dL (74-106); Potassium 4.3 mmol/L (3.5-5.1); Sodium 142 mmol/L (136-145)
[2023-07-27 15:53] LABS: Bilirubin Urine NEGATIVE (NEGATIVE); Blood Urine SMALL (NEGATIVE); Clarity Urine CLEAR (CLEAR); Color Urine LT. YELLOW (YELLOW); Glucose Urine UA NEGATIVE (NEGATIVE); Ketones Urine NEGATIVE (NEGATIVE); Leukocyte Esterase Urine TRACE (NEGATIVE); Nitrite Urine NEGATIVE (NEGATIVE); Protein Urine NEGATIVE (NEG/TRACE); Specific Gravity Urine 1.015 (1.005-1.025); Urobilinogen Urine 0.2 EU/dL (0.2-1.0)
[2023-07-27 15:56] LABS: Urine Microscopic Indicated YES
[2023-07-27 16:07] LABS: Bacteria Urine TRACE #/HPF (NONE SEEN); Cast Seen? NONE SEEN #/LPF (NONE SEEN); Crystals Seen? None Seen #/HPF (None Seen); Mucus Urine NONE SEEN (NONE SEEN); RBC Urine 20-50 #/HPF (0-2); Squamous Epithelial Cell Urine FEW #/LPF (NONE/RARE); Urine Culture Indicated YES; WBC Urine 20-50 #/HPF (NONE SEEN)
[2023-07-27] MEDS: CIPROFLOXACIN HCL 500 MG TABLET PO (16:39)
--- NOTE | 2023-07-27 18:02 | ED.GENADUL1 ---
HPI - General Adult General Chief complaint: Head Injury Stated complaint: FELL Time Seen by Provider: 07/27/23 13:08 Source: patient Mode of arrival: ambulance History of Present Illness HPI narrative: 83-year-old female presents to the emergency department via EMS from extended care facility status post fall. Patient states she went to push herself away from a lunch table while in the wheelchair, when she fell over. States she struck the back of her head on the corner of the table. Complains of mild headache. Facility also reported some intermittent episodes of confusion over the past couple days. Patient also complains of some neck pain. Denies any loss of consciousness, memory impairment, chest, back, extremity, pelvis pain. Patient is on Plavix. 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 Modifying factors:?none Associated symptoms: as above Related Data Home Medications Medication Instructions Recorded Confirmed amlodipine 5 mg tablet 5 mg PO DAILY 01/06/23 07/27/23 aspirin 81 mg tablet,delayed 81 mg PO DAILY 01/06/23 07/27/23 release (Adult Low Dose Aspirin) atorvastatin 20 mg tablet 20 mg PO DAILY 01/06/23 07/27/23 carbidopa 25 mg-levodopa 100 mg 1 tab PO TID 01/06/23 07/27/23 tablet clopidogrel 75 mg tablet 75 mg PO DAILY 01/06/23 07/27/23 docusate sodium 100 mg capsule 100 mg PO BID 01/06/23 07/27/23 (Colace) escitalopram oxalate 5 mg tablet 5 mg PO DAILY 01/06/23 07/27/23 hydralazine 25 mg tablet 25 mg PO Q8H 01/06/23 07/27/23 insulin aspart U-100 100 unit/mL 10 unit subcut TID 01/06/23 07/27/23 (3 mL) subcutaneous pen (Novolog FlexPen U-100 Insulin aspart) insulin detemir U-100 100 unit/mL 16 unit subcut DAILY 01/06/23 07/27/23 (3 mL) subcutaneous pen (Levemir FlexPen) melatonin 5 mg capsule 5 mg PO DAILY PRN sleep 01/06/23 07/27/23 polyethylene glycol 3350 17 17 g PO DAILY 01/06/23 07/27/23 gram/dose oral powder (Miralax) Previous Rx's Medication Instructions Recorded albuterol sulfate 2.5 mg/3 mL 2.5 mg (3 mL) inhalation Q4H PRN 04/28/23 (0.083 %) solution for nebulization Shortness Of Breath Or Wheezing #75 mL ipratropium 0.5 mg-albuterol 3 mg 3 ml inhalation Q4H 2 weeks #90 mL 04/28/23 (2.5 mg base)/3 mL nebulization soln ciprofloxacin HCl 500 mg tablet 500 mg PO BID 7 days #14 tabs 07/27/23 (Cipro) Allergies Allergy/AdvReac Type Severity Reaction Status Date / Time acetaminophen [From Percocet] Allergy Unknown Verified 01/06/23 10:21 amoxicillin Allergy Unknown Verified 01/06/23 10:21 codeine Allergy Unknown Verified 01/06/23 10:21 oxycodone [From Percocet] Allergy Unknown Verified 01/06/23 10:21 Penicillins Allergy Unknown Verified 01/06/23 10:21 Sulfa (Sulfonamide Allergy Unknown Verified 01/06/23 10:21 Antibiotics) sulfamethoxazole Allergy Unknown Verified 01/06/23 10:21 [From Bactrim] trimethoprim [From Bactrim] Allergy Unknown Verified 01/06/23 10:21 cephalexin AdvReac Unknown Verified 01/06/23 10:21 Review of Systems ROS Narrative CONST: Denies activity change HENT: Denies facial swelling, dental problems, hearing loss, tinnitus EYES: Denies visual changes, eye pain RESP: Denies shortness of breath, chest tightness CV: Denies chest pain, palpitations GI: Denies abd pain, nausea : Denies flank pain MS: + neck pain. Denies arthralgias, myalgias, back pain SKIN: Denies known color change, swelling NEURO: +headache.? 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 ?I69.352 - Hemiplegia and 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 (ICD-10) HTN (hypertension) ?I10 - Essential (primary) hypertension (ICD-10) Carpal tunnel syndrome ?G56.00 - Carpal tunnel syndrome, unspecified upper limb (ICD-10) Hemiplegia ?G81.90 - Hemiplegia, unspecified affecting unspecified side (ICD-10) History of CVA (cerebrovascular accident) ?Z86.73 - Personal history of transient ischemic attack (TIA), and cerebral infarction without residual deficits (ICD-10) Parkinson disease ?G20.A1 - Parkinson's disease without dyskinesia, without mention of fluctuations (ICD-10) Dementia due to Parkinson's disease ?G20.A1 - Parkinson's disease without dyskinesia, without mention of fluctuations (ICD-10) ?F02.80 - Dementia in other diseases classified elsewhere, unspecified severity, without behavioral disturbance, psychotic disturbance, mood disturbance, and anxiety (ICD-10) DM2 (diabetes mellitus, type 2) ?E11.9 - Type 2 diabetes mellitus without complications (ICD-10) Asthmatic bronchitis ?J45.909 - Unspecified asthma, uncomplicated (ICD-10) Elevated lactic acid level ?R79.89 - Other specified abnormal findings of blood chemistry (ICD-10) Syncope ?R55 - Syncope and collapse (ICD-10) Surgical History History of carpal tunnel surgery of right wrist ?Z98.890 - Other specified postprocedural states (ICD-10) History of carpal tunnel surgery of left wrist ?Z98.890 - Other specified postprocedural states (ICD-10) History of hysterectomy ?Z90.710 - Acquired absence of both cervix and uterus (ICD-10) Family History Mother Family history of CHF (congestive heart failure) Family history of cancer Son Family history of diabetes mellitus Social History Smoking status: Never smoker Do you think of yourself as: straight/heterosexual Gender Identity: female Exam Narrative Exam Narrative: Vital signs reviewed Nurses notes noted CONST: Nontoxic, well appearing, well nourished, in no distress.? No diaphoresis.?? HENT: + cephalohematoma to the mid posterior parietal aspect of the scalp with mild tenderness. Normocephalic.? There is no crepitus, instability, step off of the scalp, face. Moist mucous membrane, no abnormalities of the nose noted, normal appearing ext ears.? No drainage, blood from ears.? Hearing normal.? No dental injury. EYES: PERRL, EOMI.? Normal appearing conjunctiva, no apparent discharge bilat.? No orbital or periorbital swelling or tenderness. NECK: normal appearance, no tenderness, swelling CV: normal rate, regular rhythm, no murmur RESP: normal effort, speaking in complete sentences, Lung sounds clear and equal bilat.? No wheezes, rales, rhonchi.? 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 No extremity tenderness, swelling.? No tenderness of the spinous process, paraspinal musculature of the T, L-S. + left lateral muscular tenderness of the neck. No spinous processes of the cervical spine. No swelling, discoloration, crepitus, deformity, instability, step off. SKIN: intact.? Warm, dry.? No abrasions, lacerations, pallor NEURO: A&Ox 3, GCS = 15, no sensory, motor deficits.? CN normal as tested.? No abnormalities noted with coordination PSYCH: normal mood, affect.? Normal speech.? Memory intact. Constitutional Vital Signs, click to edit/add: Last Vital Signs Temp 98.0 F 07/27/23 13:04 Pulse 67 07/27/23 13:04 Resp 07/27/23 13:04 BP 176/70 H 07/27/23 13:04 Pulse Ox 98 07/27/23 13:04 O2 Del Method Nasal Cannula 07/27/23 13:04 Course Vital Signs Vital signs: Vital Signs Temperature 98.0 F 07/27/23 13:04 Pulse Rate 67 07/27/23 13:04 Respiratory Rate 18 07/27/23 13:04 Blood Pressure 176/70 H 07/27/23 13:04 Pulse Oximetry 98 07/27/23 13:04 Oxygen Delivery Method Nasal Cannula 07/27/23 13:04 Temperature 98.0 F 02/01/24 13:04 Pulse Rate 67 07/27/23 13:04 Respiratory Rate 18 07/27/23 13:04 Blood Pressure 176/70 H 07/27/23 13:04 Pulse Oximetry 98 07/27/23 13:04 Oxygen Delivery Method Nasal Cannula 07/27/23 13:04 Medical Decision Making MDM Narrative Medical decision making narrative: This is a pleasant 83-year-old female presented via EMS from [facility] for evaluation status post fall, head injury. States she was pushing himself away from the table when she fell over, striking the corner of the table. Complains of pain, tenderness, swelling to the back of her head. Facility also reports that she has seemed a little bit intermittently confused over the past couple days. Patient voices no other complaints of injury. She is on Plavix. On arrival, afebrile, vital signs are stable. On exam, nontoxic, well-appearing patient in no apparent distress. She has tenderness, swelling to the midline, posterior parietal region of her scalp. No crepitus, instability, step-off was noted. Patient is alert and oriented ?4. No focal deficits were noted. 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 No facial asymmetry. She does have some tenderness to the posterior lateral aspect, left side of her neck. No spinous process tenderness. Denies any tenderness throughout the remainder of her spine as well. Denies any extremity injury, pain. Denies any pelvis injury or pain. Labs reveal no leukocytosis, stable anemia, no thrombocytopenia. No electrolyte imbalance, renal impairment. Urinalysis reveals evidence of infection with 20?50 red and white blood cells. She had trace leukocyte esterase. Urine culture was sent for further analysis. Patient remained stable during Emergency Department course. She was given dose of Cipro after ALLERGIES reviewed. Prior urine cultures were reviewed in the old system without findings concerning for multidrug resistant urinary infections in the past. Favor head contusion, neck strain status post fall Suspect urinary tract infection as etiology for the reported confusion over the past couple days. ICH less likely based on imaging Fracture, dislocation. Likely based on imaging CVA less likely based on history and physical exam. She is alert and oriented ?4, no deficits Disposition ? The patient was discharged. Prescription for Cipro recent for her pharmacy. Plan: Patient will be discharged to [facility]. Condition at time of disposition: stable ? Advised to follow up with referral provider, phone number to call for appointment placed on discharge instructions. Advised to return for any worsening and/or development of new, concerning signs or symptoms Lab Data Lab results reviewed: Yes I reviewed the patient's lab results Labs: Lab Results 07/27/23 07/27/23 Range/Units 14:14 15:43 WBC 7.3 (4.0-11.0) 10^3/uL RBC 3.77 L (4.20-5.40) 10^6/uL Hgb 10.9 L (12.0-16.0) g/dL Hct 34.8 L (36.0-48.0) % MCV 92.3 (81.0-99.0) fL MCH 28.9 (26.7-34.0) pg MCHC 31.3 (29.9-35.2) g/dL RDW 13.9 (11.0-15.0) % Plt Count 163 (150-450) 10^3/uL MPV 10.6 (9.5-13.5) fL Neut % (Auto) 73.5 (43.0-75.0) % Lymph % (Auto) 16.6 L (20.5-60.0) % [place] % (Auto) 7.4 (1.7-12.0) % Eos % (Auto) 1.9 (0.9-7.0) % Baso % (Auto) 0.3 (0.2-2.0) % Neut # (Auto) 5.4 (1.4-6.5) 10^3/uL Lymph # (Auto) 1.2 (1.2-3.8) 10^3/uL [place] # (Auto) 0.5 (0.3-0.8) 10^3/uL Eos # (Auto) 0.1 (0.0-0.7) 10^3/uL Baso # (Auto) 0.0 (0.0-0.1) 10^3/uL Abs Immat Gran (auto) 0.02 (0.00-0.03) 10^3/uL Imm/Tot Granulo (auto) 0.3 (0.0-0.5) % Sodium 142 (136-145) mmol/L Potassium 4.3 (3.5-5.1) mmol/L Chloride 104 (98-107) mmol/L Carbon Dioxide 32.5 H (21.0-32.0) mmol/L Anion Gap 9.8 BUN 19.0 H (7.0-18.0) mg/dL Creatinine 1.10 H (0.55-1.02) mg/dL Est GFR ( Amer) 57 L (>=60) Est GFR (Non-Af Amer) 47 L (>=60) BUN/Creatinine Ratio 17.3 Glucose 155 H (74-106) mg/dL Calcium 8.9 (8.5-10.1) mg/dL Urine Color Lt. yellow (YELLOW) Urine Clarity Clear (CLEAR) Urine pH 7.0 (5.0-9.0) Ur Specific [place] 1.015 (1.005-1.025) Urine Protein Negative (NEG/TRACE) mg/dL Urine Glucose (UA) Negative (NEGATIVE) mg/dL Urine Ketones Negative (NEGATIVE) mg/dL Urine Occult Blood Small A (NEGATIVE) Urine Nitrite Negative (NEGATIVE) Urine Bilirubin Negative (NEGATIVE) Urine Urobilinogen 0.2 (0.2-1.0) EU/dL Ur Leukocyte Esterase Trace A (NEGATIVE) Urine RBC 20-50 A (0-2) #/HPF Urine WBC 20-50 A (NONE SEEN) #/HPF Ur Squamous Epith Cells Few A (NONE/RARE) #/LPF Urine Crystals None seen (None Seen) #/HPF Urine Bacteria Trace A (NONE SEEN) #/HPF Urine Casts None seen (NONE SEEN) #/LPF Urine Mucus None seen (NONE SEEN) Ur Culture Indicated? Yes Imaging Data CT scan - head: Radiologist's impression: ITS Impressions Cervical Spine CT 07/27/23 13:56 IMPRESSION: 1. No acute fractures or subluxations. 2. Multilevel degenerative changes, most pronounced at C5-C6, C6-C7. Electronically authenticated by: GIGI RENDON Date: 07/27/2023 15:[address] 07/27/23 13:56 IMPRESSION: 1. Stable CT of the head. No new acute findings. No intracranial hemorrhage. No skull fracture. 2. Areas of chronic infarction in the right frontal and parietal lobes as well as left parietal lobe are stable. Stable brain atrophy. Electronically authenticated by: GLORIA HINSON Date: 07/27/2023 15:25 Discharge Plan Discharge Chief Complaint: Head Injury Clinical Impression: Acute UTI Neck strain Qualifiers: Encounter type: initial encounter Qualified Code(s): S16.1XXA - Strain of muscle, fascia and tendon at neck level, initial encounter Contusion of head Qualifiers: Encounter type: initial encounter Contusion of head detail: scalp Qualified Code(s): S00.03XA - Contusion of scalp, initial encounter Patient Disposition: Home, Self-Care Time of Disposition Decision: 16:29 Condition: Good Mode of Transportation: Other Prescriptions / Home Meds: New ciprofloxacin HCl [Cipro] 500 mg tablet 500 mg PO BID 7 Days Qty: 14 0RF No Action amlodipine 5 mg tablet 5 mg PO DAILY atorvastatin 20 mg tablet 20 mg PO DAILY carbidopa-levodopa 25-100 mg tablet 1 tab PO TID aspirin [Adult Low Dose Aspirin] 81 mg tablet,delayed release (DR/EC) 81 mg PO DAILY clopidogrel 75 mg tablet 75 mg PO DAILY docusate sodium [Colace] 100 mg capsule 100 mg PO BID escitalopram oxalate 5 mg tablet 5 mg PO DAILY hydralazine 25 mg tablet 25 mg PO Q8H melatonin 5 mg capsule 5 mg PO DAILY PRN (Reason: sleep) polyethylene glycol 3350 [Miralax] 17 gram/dose powder 17 g PO DAILY insulin aspart U-100 [Novolog FlexPen U-100 Insulin] 100 unit/mL (3 mL) insulin pen 10 unit subcut TID Levemir FlexPen 100 unit/mL (3 mL) insulin pen 16 unit SUBCUT DAILY albuterol sulfate 2.5 mg /3 mL (0.083 %) Solution For Nebulization 2.5 mg inhalation Q4H PRN (Reason: Shortness Of Breath Or Wheezing) Qty: 75 0RF ipratropium-albuterol 0.5 mg-3 mg(2.5 mg base)/3 mL Solution For Nebulization 3 ml inhalation Q4H 14 Days Qty: 90 0RF Instructions: Cervical Strain (ED), Head Injury (ED), Urinary Tract Infection in Older Adults (ED) Stand Alone Forms: Portal Instructions Referrals: Rolf Dai DO [Primary Care Provider] - 1 week Discharge Date/Time: 07/27/23 17:05
== END 2023-07-27 17:05 | disposition home or self-care (01) ==
PROVIDERS: Physician Assistant; Emergency Provider Emergency Medicine; PCP Internal Medicine
DX: S00.03XA Contusion of scalp, initial encounter (principal); S16.1XXA Strain of muscle, fascia and tendon at neck level, initial encounter; N39.0 Urinary tract infection, site not specified; W05.0XXA Fall from non-moving wheelchair, initial encounter; G47.33 Obstructive sleep apnea (adult) (pediatric); N18.31 Chronic kidney disease, stage 3a; I12.9 Hypertensive chronic kidney disease with stage 1 through stage 4 chronic kidney disease, or unspecified chronic kidney disease; I69.352 Hemiplegia and hemiparesis following cerebral infarction affecting left dominant side; G20.A1 Parkinson's disease without dyskinesia, without mention of fluctuations; F02.80 Dementia in other diseases classified elsewhere, unspecified severity, without behavioral disturbance, psychotic disturbance, mood disturbance, and anxiety; E11.22 Type 2 diabetes mellitus with diabetic chronic kidney disease; J45.909 Unspecified asthma, uncomplicated; Z98.890 Other specified postprocedural states; Z79.02 Long term (current) use of antithrombotics/antiplatelets; Z79.82 Long term (current) use of aspirin; Z79.899 Other long term (current) drug therapy; Z79.4 Long term (current) use of insulin; Z90.710 Acquired absence of both cervix and uterus
CPT/HCPCS: 36415; 70450; 72125; 80048; 81001; 85025; 87086; 87150; 87186; 99285

== ENCOUNTER 2023-08-31 12:46 | Emergency (ER) | payer MEDICARE, OTHER, SELFPAY ==
[2023-08-31] VITALS (10 sets, daily range): BP systolic 166–179; BP diastolic 65–80; PULSE 52–88; RESP 16–24; TEMP 36.7; O2SAT 97–100; BMI 39.1
--- NOTE | 2023-08-31 13:06 | XR_ITS ---
The [address] [address] Patient Name: SHRUTHI DE ANDA MRN: [id number] date: 1940 Sex: F Assigned Patient Location: ER Current Patient Location: ER Accession/Order Number: [id number] Exam Date: 08/31/2023 13:15 Report Date: 08/31/2023 13:33 At the request of: MAYURI ORONA Procedure: XR chest 1V EXAM: XR chest 1V HISTORY: Altered mental COMPARISON: None. TECHNIQUE: AP view of the chest. FINDINGS: The cardiomediastinal silhouette is normal. The lungs are clear. There is no pneumothorax. There is trace left pleural effusion. The osseous structures are intact. XR/XR chest 1V IMPRESSION: Trace left pleural effusion. Electronically authenticated by: AMAYA SALAZAR Date: 08/31/2023 13:33
--- NOTE | 2023-08-31 13:06 | ECG_ITS ---
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
--- NOTE | 2023-08-31 13:06 | CT_ITS ---
The [address] [address] Patient Name: SHRUTHI DE ANDA MRN: [id number] date: 1940 Sex: F Assigned Patient Location: ER Current Patient Location: ER Accession/Order Number: [id number] Exam Date: 08/31/2023 13:15 Report Date: 08/31/2023 13:59 At the request of: MAYURI ORONA Procedure: CT stroke head/brain wo con EXAMINATION: CT stroke head/brain wo con HISTORY: Altered mental , weakness; recent fall striking head COMPARISON: CT head 07/27/2023 oh TECHNIQUE: Axial CT images were obtained without IV contrast. Dose reduction techniques were achieved by using automated exposure control and/or adjustment of mA and/or kV according to patient size and/or use of iterative reconstruction technique. FINDINGS: BRAIN: Stable large areas of decreased attenuation involving the right frontal, parietal, and left parietal-occipital regions consistent with encephalomalacic changes from remote infarctions. No edema, hemorrhage, mass, or appreciable acute infarction. CSF SPACES: No hydrocephalus, subarachnoid hemorrhage, or mass. Appropriate for age. SKULL: No fracture, mass, or other significant visible lesion. SINUSES: No significant mucosal thickening or fluid on the limited views. ORBITS: No appreciable abnormality on the limited views. OTHER: Negative CT/CT stroke head/brain wo con IMPRESSION: 1. No acute cranial hemorrhage or appreciable acute abnormality. 2. Stable chronic atrophy and prominent encephalomalacic changes from remote infarctions. Findings discussed with Cynthia in the emergency department to be relayed to Dr. Almendarez at 1:56 PM. Electronically authenticated by: JAIDEN EDDY Date: 08/31/2023 13:59
--- NOTE | 2023-08-31 13:07 | ED.GENADUL1 ---
HPI - General Adult General Chief complaint: Altered Mental Status Stated complaint: ALTERED MENTAL Time Seen by Provider: 08/31/23 13:04 Source: EMR Mode of arrival: ambulance Limitations: altered mental status and other Limitations comment: possibly baseline AMS History of Present Illness HPI narrative: Patient is an 83-year-old female with a history of dementia who presents to the emergency department from the group home where she is a resident for the evaluation of possible altered mental status. assisted staff reports that the patient did not respond to them when they called her name, on EMS arrival she is alert and oriented to self. On my evaluation, patient is alert and oriented to person and place. She is a DNR comfort care. She denies any focal medical complaints at this time. History is otherwise limited. Per group home documentation, patient is a DNR comfort care, she has a history of diabetes, Parkinson's, hemiparesis and history of stroke. She takes Plavix and aspirin daily. Related Data Home Medications Medication Instructions Recorded Confirmed amlodipine 5 mg tablet 5 mg PO DAILY 01/06/23 07/27/23 aspirin 81 mg tablet,delayed 81 mg PO DAILY 01/06/23 07/27/23 release (Adult Low Dose Aspirin) atorvastatin 20 mg tablet 20 mg PO DAILY 01/06/23 07/27/23 carbidopa 25 mg-levodopa 100 mg 1 tab PO TID 01/06/23 07/27/23 tablet clopidogrel 75 mg tablet 75 mg PO DAILY 01/06/23 07/27/23 docusate sodium 100 mg capsule 100 mg PO BID 01/06/23 07/27/23 (Colace) escitalopram oxalate 5 mg tablet 5 mg PO DAILY 01/06/23 07/27/23 hydralazine 25 mg tablet 25 mg PO Q8H 01/06/23 07/27/23 insulin aspart U-100 100 unit/mL 10 unit subcut TID 01/06/23 07/27/23 (3 mL) subcutaneous pen (Novolog FlexPen U-100 Insulin aspart) insulin detemir U-100 100 unit/mL 16 unit subcut DAILY 01/06/23 07/27/23 (3 mL) subcutaneous pen (Levemir FlexPen) melatonin 5 mg capsule 5 mg PO DAILY PRN sleep 01/06/23 07/27/23 polyethylene glycol 3350 17 17 g PO DAILY 01/06/23 07/27/23 gram/dose oral powder (Miralax) Previous Rx's Medication Instructions Recorded albuterol sulfate 2.5 mg/3 mL 2.5 mg (3 mL) inhalation Q4H PRN 04/28/23 (0.083 %) solution for nebulization Shortness Of Breath Or Wheezing #75 mL ipratropium 0.5 mg-albuterol 3 mg 3 ml inhalation Q4H 2 weeks #90 mL 04/28/23 (2.5 mg base)/3 mL nebulization soln ciprofloxacin HCl 500 mg tablet 500 mg PO BID 7 days #14 tabs 07/27/23 (Cipro) ciprofloxacin HCl 500 mg tablet 500 mg PO BID #14 tabs 08/31/23 (Cipro) Allergies Allergy/AdvReac Type Severity Reaction Status Date / Time acetaminophen [From Percocet] Allergy Unknown Verified 01/06/23 10:21 amoxicillin Allergy Unknown Verified 01/06/23 10:21 codeine Allergy Unknown Verified 01/06/23 10:21 oxycodone [From Percocet] Allergy Unknown Verified 01/06/23 10:21 Penicillins Allergy Unknown Verified 01/06/23 10:21 Sulfa (Sulfonamide Allergy Unknown Verified 01/06/23 10:21 Antibiotics) sulfamethoxazole Allergy Unknown Verified 01/06/23 10:21 [From Bactrim] trimethoprim [From Bactrim] Allergy Unknown Verified 01/06/23 10:21 cephalexin AdvReac Unknown Verified 01/06/23 10:21 Review of Systems ROS Constitutional Denies: fever or chills Ears, nose, mouth, and throat Denies: throat pain or nasal congestion Cardiovascular Denies: chest pain Respiratory Denies: shortness of breath or cough Gastrointestinal Denies: nausea or vomiting Musculoskeletal Denies: back pain or neck pain Neurological Denies: numbness in extremities or slurred speech [facility] Medical History RAMÓN (obstructive sleep apnea) ?G47.33 - Obstructive sleep apnea (adult) (pediatric) (ICD-10) Stage 3a chronic kidney disease (CKD) ?N18.31 - Chronic kidney disease, stage 3a (ICD-10) 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 ?I69.352 - Hemiplegia and 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 (ICD-10) HTN (hypertension) ?I10 - Essential (primary) hypertension (ICD-10) Carpal tunnel syndrome ?G56.00 - Carpal tunnel syndrome, unspecified upper limb (ICD-10) Hemiplegia ?G81.90 - Hemiplegia, unspecified affecting unspecified side (ICD-10) History of CVA (cerebrovascular accident) ?Z86.73 - Personal history of transient ischemic attack (TIA), and cerebral infarction without residual deficits (ICD-10) Parkinson disease ?G20.A1 - Parkinson's disease without dyskinesia, without mention of fluctuations (ICD-10) Dementia due to Parkinson's disease ?G20.A1 - Parkinson's disease without dyskinesia, without mention of fluctuations (ICD-10) ?F02.80 - Dementia in other diseases classified elsewhere, unspecified severity, without behavioral disturbance, psychotic disturbance, mood disturbance, and anxiety (ICD-10) DM2 (diabetes mellitus, type 2) ?E11.9 - Type 2 diabetes mellitus without complications (ICD-10) Asthmatic bronchitis ?J45.909 - Unspecified asthma, uncomplicated (ICD-10) Elevated lactic acid level ?R79.89 - Other specified abnormal findings of blood chemistry (ICD-10) Syncope ?R55 - Syncope and collapse (ICD-10) Surgical History History of carpal tunnel surgery of right wrist ?Z98.890 - Other specified postprocedural states (ICD-10) History of carpal tunnel surgery of left wrist ?Z98.890 - Other specified postprocedural states (ICD-10) History of hysterectomy ?Z90.710 - Acquired absence of both cervix and uterus (ICD-10) Family History Mother Family history of CHF (congestive heart failure) Family history of cancer Son Family history of diabetes mellitus Social History Smoking status: Former smoker Do you think of yourself as: straight/heterosexual Gender Identity: female Exam Narrative Exam Narrative: Gen.: Awake, alert, in no distress Head: Normocephalic, atraumatic ENT: Moist mucous membranes Respiratory: No respiratory distress, lungs clear bilaterally Cardio: Regular rate and rhythm Gastrointestinal: Abdomen is soft, nondistended and nontender to palpation Extremities: Moves extremities equally, no injuries noted Psych: Normal mood and affect Neuro: Resting on entering her room, wakes easily and alert and oriented to person, place; 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 Skin: Warm, dry, intact Constitutional Vital Signs, click to edit/add: Last Vital Signs Temp 98.1 F 08/31/23 12:48 Pulse 61 08/31/23 14:01 Resp 16 08/31/23 14:01 BP 179/80 H 08/31/23 13:28 Pulse Ox 100 08/31/23 14:11 O2 Del Method Nasal Cannula 08/31/23 14:11 O2 Flow Rate 3 08/31/23 14:11 Course Vital Signs Vital signs: Vital Signs Temperature 98.1 F 08/31/23 12:48 Pulse Rate 63 08/31/23 12:48 Respiratory Rate 18 08/31/23 12:48 Blood Pressure 166/65 H 08/31/23 12:48 Pulse Oximetry 97 08/31/23 12:48 Oxygen Delivery Method Nasal Cannula 08/31/23 12:48 Oxygen Delivery Flow Rate 3 08/31/23 12:48 Temperature 98.1 F 08/31/23 12:48 Pulse Rate 61 08/31/23 14:01 Respiratory Rate 16 08/31/23 14:01 Blood Pressure 179/80 H 08/31/23 13:28 Pulse Oximetry 100 08/31/23 14:11 Oxygen Delivery Method Nasal Cannula 08/31/23 14:11 Oxygen Delivery Flow Rate 3 08/31/23 14:11 Medical Decision Making [facility] Narrative Medical decision making narrative: Patient sent for CT of the brain, chest x-ray, the studies are unremarkable per the radiologist. EKG with no acute changes. Patient with stable labs, nitrate positive UTI. Previous urine culture was reviewed showing growth of E. coli with global susceptibility to antibiotic therapy. The patient's daughter did present to bedside, she is the patient's POA. She is very frustrated with the facility that the patient is in. Patient was reevaluated by myself and attending physician. She is started on oral Cipro in the ER. Discharged with Cipro for the facility. She does not meet any sepsis criteria and is at her baseline on reevaluation. She is discharged home to follow-up with PCP and return to the ER if symptoms change or worsen Medical Records Medical records reviewed: Yes I reviewed the patient's medical records Lab Data Lab results reviewed: Yes I reviewed the patient's lab results Labs: Lab Results 08/31/23 Range/Units 13:57 WBC 6.7 (4.0-11.0) 10^3/uL RBC 3.94 L (4.20-5.40) 10^6/uL Hgb 11.3 L (12.0-16.0) g/dL Hct 36.9 (36.0-48.0) % MCV 93.7 (81.0-99.0) fL MCH 28.7 (26.7-34.0) pg MCHC 30.6 (29.9-35.2) g/dL RDW 13.2 (11.0-15.0) % Plt Count 175 (150-450) 10^3/uL MPV 10.9 (9.5-13.5) fL Neut % (Auto) 64.5 (43.0-75.0) % Lymph % (Auto) 24.0 (20.5-60.0) % [place] % (Auto) 7.6 (1.7-12.0) % Eos % (Auto) 3.0 (0.9-7.0) % Baso % (Auto) 0.6 (0.2-2.0) % Neut # (Auto) 4.3 (1.4-6.5) 10^3/uL Lymph # (Auto) 1.6 (1.2-3.8) 10^3/uL [place] # (Auto) 0.5 (0.3-0.8) 10^3/uL Eos # (Auto) 0.2 (0.0-0.7) 10^3/uL Baso # (Auto) 0.0 (0.0-0.1) 10^3/uL Abs Immat Gran (auto) 0.02 (0.00-0.03) 10^3/uL Imm/Tot Granulo (auto) 0.3 (0.0-0.5) % PT 10.8 (9.0-11.6) sec INR 1.02 Sodium 143 (136-145) mmol/L Potassium 4.0 (3.5-5.1) mmol/L Chloride 105 (98-107) mmol/L Carbon Dioxide 31.8 (21.0-32.0) mmol/L Anion Gap 10.2 BUN 21.0 H (7.0-18.0) mg/dL Creatinine 1.09 H (0.55-1.02) mg/dL Est GFR ( Amer) 58 L (>=60) Est GFR (Non-Af Amer) 48 L (>=60) BUN/Creatinine Ratio 19.3 Glucose 146 H (74-106) mg/dL Lactate 1.3 (0.4-2.0) mmol/L Calcium 8.8 (8.5-10.1) mg/dL Total Bilirubin 0.3 (0.2-1.0) mg/dL AST 14 L (15-37) U/L ALT 10 L (14-59) U/L Alkaline Phosphatase 92 (46-116) U/L Troponin I High Sens <4.0 L (4.0-51.3) pg/mL Total Protein 7.1 (6.4-8.2) g/dL Albumin 3.3 L (3.4-5.0) g/dL Globulin 3.8 g/dL Albumin/Globulin Ratio 0.9 TSH 3.701 (0.358-3.740) uIU/mL Urine Color Lt. yellow (YELLOW) Urine Clarity Clear (CLEAR) Urine pH 6.0 (5.0-9.0) Ur Specific [place] 1.025 (1.005-1.025) Urine Protein Negative (NEG/TRACE) mg/dL Urine Glucose (UA) Negative (NEGATIVE) mg/dL Urine Ketones Negative (NEGATIVE) mg/dL Urine Occult Blood Small A (NEGATIVE) Urine Nitrite Positive A (NEGATIVE) Urine Bilirubin Negative (NEGATIVE) Urine Urobilinogen 0.2 (0.2-1.0) EU/dL Ur Leukocyte Esterase Small A (NEGATIVE) Urine RBC 5-10 A (0-2) #/HPF Urine WBC 10-20 A (NONE SEEN) #/HPF Ur Squamous Epith Cells Rare (NONE/RARE) #/LPF Urine Crystals None seen (None Seen) #/HPF Urine Bacteria Large A (NONE SEEN) #/HPF Urine Casts None seen (NONE SEEN) #/LPF Urine Mucus None seen (NONE SEEN) Ur Culture Indicated? Yes Imaging Data Chest x-ray: Attestation: I have reviewed the pertinent imaging results. Radiologist's impression: ITS Impressions Brain CT 08/31/23 13:06 IMPRESSION: 1. No acute cranial hemorrhage or appreciable acute abnormality. 2. Stable chronic atrophy and prominent encephalomalacic changes from remote infarctions. Findings discussed with Cynthia in the emergency department to be relayed to Dr. Almendarez at 1:56 PM. Electronically authenticated by: JAIDEN EDDY Date: 08/31/2023 13:59 Chest X-Ray 08/31/23 13:06 IMPRESSION: Trace left pleural effusion. Electronically authenticated by: AMAYA SALAZAR Date: 08/31/2023 13:33 ECG Data Attestation: I personally reviewed and interpreted this ECG as follows: (Normal sinus rhythm at a rate of 55, first-degree AV block with no acute ST elevation or ectopy. EKG reviewed by attending physician) Discharge Plan Discharge Stand Alone Forms: Portal Instructions Chief Complaint: Altered Mental Status Clinical Impression: Acute UTI Patient Disposition: Home, Self-Care Time of Disposition Decision: 15:14 Condition: Good Prescriptions / Home Meds: New ciprofloxacin HCl [Cipro] 500 mg tablet 500 mg PO BID Qty: 14 0RF No Action amlodipine 5 mg tablet 5 mg PO DAILY atorvastatin 20 mg tablet 20 mg PO DAILY carbidopa-levodopa 25-100 mg tablet 1 tab PO TID aspirin [Adult Low Dose Aspirin] 81 mg tablet,delayed release (DR/EC) 81 mg PO DAILY clopidogrel 75 mg tablet 75 mg PO DAILY docusate sodium [Colace] 100 mg capsule 100 mg PO BID escitalopram oxalate 5 mg tablet 5 mg PO DAILY hydralazine 25 mg tablet 25 mg PO Q8H melatonin 5 mg capsule 5 mg PO DAILY PRN (Reason: sleep) polyethylene glycol 3350 [Miralax] 17 gram/dose powder 17 g PO DAILY insulin aspart U-100 [Novolog FlexPen U-100 Insulin] 100 unit/mL (3 mL) insulin pen 10 unit subcut TID Levemir FlexPen 100 unit/mL (3 mL) insulin pen 16 unit SUBCUT DAILY albuterol sulfate 2.5 mg /3 mL (0.083 %) Solution For Nebulization 2.5 mg inhalation Q4H PRN (Reason: Shortness Of Breath Or Wheezing) Qty: 75 0RF ipratropium-albuterol 0.5 mg-3 mg(2.5 mg base)/3 mL Solution For Nebulization 3 ml inhalation Q4H 14 Days Qty: 90 0RF ciprofloxacin HCl [Cipro] 500 mg tablet 500 mg PO BID 7 Days Qty: 14 0RF Instructions: Urinary Tract Infection in Older Adults (ED) Referrals: Rolf Dai DO [Primary Care Provider] - 1 week
--- OUTSIDE RECORDS SUMMARY | 2023-08-31 13:17 | XMS_ITS | CCD ---
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 (20 sources) Amoxicillin Drug Allergy Unknown [facility] (1 source) Cephalosporins (Antibiotic) Drug allergy (disorder) [facility] (1 source) Codeine Drug Allergy 11-21-[address] [facility] (20 sources) levoFLOXacin Drug Allergy Unknown [facility] (20 sources) Penicillin Drug Allergy Unknown [facility] (1 source) Sulfamethoxazole / Trimethoprim Drug Allergy [facility] (1 source) Sulfonamides (Antibiotic) Drug allergy (disorder) [facility] (20 sources) Codeine Drug Allergy 03-15-20 13 Unknown [email or web address] Other (20 sources) Non-steroidal anti-inflammatory agent Drug allergy Unknown [email or web address] Other (20 sources) predniSONE Drug Allergy Unknown [email or web address] Other (20 sources) Sulfamethoxazole / Trimethoprim Drug Allergy Unknown [email or web address] Other (20 sources) Cephalosporins (Antibiotic) Drug allergy 03-15-20 13 Unknown [email or web address] Other (20 sources) Corticosteroids Drug allergy 03-15-20 13 Unknown [email or web address] Other (20 sources) HMG-CoA reductase inhibitor Drug allergy 03-15-20 13 Unknown [email or web address] Other (20 sources) Penicillins Drug allergy 03-15-20 13 Unknown [email or web address] Other (20 sources) Sulfamethoxazole Drug Allergy 03-15-20 13 Unknown [email or web address] Other (20 sources) patient allergy list reviewed by nurse or physicia Propensity to adverse reactions 01-25-20 16 Comment:Done [email or web address] Other (20 sources) Vioxx *ANALGESICS - ANTI-INFLAMMATORY* Propensity to adverse reactions 03-15-20 13 Unknown [email or web address] Other Medications Current Medications Medication Drug Class(es) Dates Sig (Normalized) Sig (Original) acetaminophen 325 mg oral tablet (17 sources) take 1 tablet by mouth every [...] mg/ml / simethicone 4 mg/ml oral suspension (5 sources) take 10 mL by mouth four times [...] aspirin 81 mg delayed release oral tablet (5 sources) Platelet Aggregation Inhibitor, Nonsteroidal Anti-inflammatory Drug take [...] Active Start: 07-20-2022 [facility] Atorvastatin Calcium 40 MG [...] Start: 07-20-2022 clopidogrel 75 mg oral tablet (18 sources) P2Y12 Platelet Inhibitor take 1 tablet by mouth every twenty-four hours Clopidogrel Bisulfate 75 MG 1 tablet Orally Once a day Active 12 hr dextromethorphan hydrobromide 60 mg / guaiFENesin 1200 mg extended release oral tablet (6 sources) Uncompetitive U-nexffo-R-aspartate Receptor Antagonist, Sigma-1 Agonist Start: take 1 tablet by mouth every twelve hours Mucinex DM Maximum Strength 60-1200 MG 1 tablet as needed Orally every 12 hrs for 14 days Mar, Active docusate sodium 100 mg oral capsule (12 sources) take 1 capsule by mouth every twenty-four hours Docusate Sodium 100 MG 1 capsule as needed Orally Once a day Active doxycycline hyclate 100 mg oral capsule (13 sources) Tetracycline-class Drug Start: take 1 capsule by mouth twice daily Doxycycline Hyclate 100 MG 1 capsule Orally twice daily for 5 days Jul, Active take 1 capsule by mo [facility] every twenty-four hours Doxycycline Hyclate 100 MG 1 capsule Orally Once a day Active escitalopram 5 mg oral tablet (20 sources) Serotonin Reuptake Inhibitor Start: 08-18-2022 take 1 tablet by mouth once at bedtime Escitalopram Oxalate 5 MG 1 tablet Orally q HS for 90 days Jul, Active FreeStyle Ronna 14 Day Sensor - (10 sources) Start: 03-13-2023 FreeStyle Ronna 14 Day Sensor - Use to monitor BS transcutaneous 6x daily for 30 days Feb, Active FreeStyle Ronna 2 Sensor - (5 sources) Start: 07-05-2023 FreeStyle Ronna 2 Sensor - Use to test home BS transcutaneous 4x daily for 30 days Jun, Active gabapentin 100 mg oral capsule (20 sources) Anti-epileptic Agent hydrALAZINE hydrochloride 25 mg oral tablet (20 sources) Arteriolar Vasodilator Start: 07-20-2022 take 1 tablet by mouth every eight hours hydrALAZINE HCl 25 MG 1 tablet with food Orally Three times a day Jun, Active 3 ml insulin aspart, human 100 unt/ml pen injector (10 sources) Insulin Analog Start: 03-13-2023 inject 100 [IU] by subcutaneous injection three [...] ml insulin glargine 300 unt/ml pen injector (5 sources) Insulin Analog Start: 07-25-2023 inject 300 [IU] [...] Active magnesium hydroxide 80 mg/ml oral suspension (5 sources) Milk of Magnesia 400 MG/5ML 5 mL at least 4 hours between doses as needed Orally Four times a day Active melatonin 5 mg oral tablet (17 sources) take 1 tablet by mouth every twenty-four hours Melatonin 5 MG 1 tablet in the evening Orally Once a day Active Milk of Magnesia (12 sources) Milk of Magnesia Active nitroglycerin 0.4 mg sublingual tablet (12 sources) Nitrate Vasodilator Nitroglyceri n 0.4 MG as directed Sublingual Active polyethylene glycol 3350 [id number] mg powder for oral solution (5 sources) Osmotic Laxative ClearLax 17 GM/SCOOP 1 scoop [...] stroke] Onset: 05-09-2022 Chronic Chronic kidney disease (20 sources) Chronic kidney disease stage 3; Translations: [Chronic kidney disease, stage 3 unspecified] Onset: 03-28-2018 Chronic Chronic kidney disease (1 source) Chronic kidney disease; Translations: [CHRONIC KIDNEY DISEASE STAGE 3A] Onset: 05-09-2022 Chronic obstructive pulmonary disease and bronchiectasis (20 sources) Mucopurulent chronic bronchitis; Translations: [Mucopurulent chronic bronchitis] Chronic Diabetes mellitus with complications (20 sources) Type 2 diabetes mellitus with hyperglycemia; Translations: [Type 2 diabetes mellitus with diabetic chronic kidney disease] Onset: 01-07-2014 Chronic Diabetes mellitus without complication (20 sources) Type 2 diabetes mellitus without complication; Translations: [Diabetes mellitus without mention of complication, type II or unspecified type, not stated as uncontrolled] Onset: 03-15-2013 Chronic Disorders of lipid metabolism (20 sources) Hyperlipidemia, unspecified; Translations: [Hypercholesterolemia ] Onset: 12-30-2014 Chronic Esophageal disorders (13 sources) Gastro-esophageal reflux disease with esophagitis; Translations: [...] Chronic Immunizations and screening for infectious disease (20 sources) Encounter for immunization; Translations: [Vaccination given] Onset: 02-17-2022 Episodic Late effects of cerebrovascular disease (20 sources) 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; Translations: [Hemiplegia and 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] Chronic Melanomas of skin (20 sources) Melanoma in situ of trunk; Translations: [Melanoma in situ of other part of trunk] Onset: 06-26-2011 Chronic Menopausal disorders (20 sources) Primary ovarian failure; Translations: [Other primary ovarian failure] Onset: 01-15-2017 Chronic Mood disorders (20 sources) Recurrent major depressive episodes, mild ; Translations: [Major depressive disorder, recurrent, mild] Chronic Neoplasms of unspecified nature or uncertain behavior (20 sources) Neoplasm of uncertain behavior of colon; Translations: [Neoplasm of uncertain behavior of colon] Episodic Nutritional deficiencies (20 sources) Vitamin D deficiency; Translations: [Unspecified vitamin D deficiency] Chronic Osteoarthritis (20 sources) Localized, primary osteoarthritis of the ankle and/or foot; Translations: [Primary localized osteoarthrosis, ankle and foot] Onset: 01-07-2014 Chronic Other aftercare (1 source) shelter (current) use of aspirin; Translations: [WOOD FUEL PELLETIZER CURRENT USE OF ASPIRIN] Onset: 05-09-2022 Episodic Other aftercare (1 source) terminal carman (current) use of oral hypoglycemic drugs; Translations: [JAIL USE ORAL HYPOGLYCEMIC DX] Onset: 05-09-2022 Episodic Other aftercare (20 sources) Long-term current use of drug therapy; Translations: [Other senior care (current) drug therapy] Episodic Other aftercare (5 sources) Long-term current use of insulin; Translations: [shelter (current) use of insulin] Episodic Other aftercare (1 source) terminal carman (current) use of insulin Episodic Other and ill-defined cerebrovascular disease (20 sources) Cerebral atherosclerosis; Translations: [Cerebral atherosclerosis] Chronic Other and ill-defined cerebrovascular disease (5 sources) Cerebral atherosclerosis Chronic Other and unspecified benign neoplasm (20 sources) Benign neoplasm of descending colon; Translations: [Benign neoplasm of descending colon] Episodic Other circulatory disease (20 sources) Orthostatic hypotension; Translations: [Orthostatic hypotension] Episodic Other circulatory disease (1 source) Orthostatic hypotension Episodic Other diseases of veins and lymphatics (20 sources) Peripheral venous insufficiency; Translations: [Venous insufficiency (chronic) (peripheral)] Onset: 07-11-2017 Episodic Other hereditary and degenerative nervous system conditions (6 sources) Impaired cognition; Translations: [Mild cognitive impairment, so stated] Chronic Other hereditary and degenerative nervous system conditions (6 sources) Resting tremor; Translations: [Other specified forms of tremor] Chronic Other hereditary and degenerative nervous system conditions (1 source) Mild cognitive impairment, so stated Chronic Other infections; including parasitic (20 sources) H/O: infectious disease; Translations: [Personal history of other infectious and parasitic diseases] Episodic Other lower respiratory disease (20 sources) Solitary nodule of lung; Translations: [Solitary pulmonary nodule] Episodic Other lower respiratory disease (20 sources) Hypoxemia; Translations: [Hypoxemia] Episodic Other lower respiratory disease (2 sources) Hypoxemia Episodic Other nervous system disorders (20 sources) Hereditary peripheral neuropathy; Translations: [Unspecified hereditary [...] Chronic Other nutritional; endocrine; and metabolic disorders (20 sources) Obesity; Translations: [Obesity, unspecified] Chronic Other nutritional; endocrine; and metabolic disorders (20 sources) Body mass index 30+ - obesity; [...] 05-09-2022 Episodic Respiratory failure; insufficiency; arrest (adult) (20 sources) Dependence on supplemental oxygen; Translations: [Dependence on supplemental oxygen] Chronic Spondylosis; intervertebral disc disorders; other back problems (20 sources) Cervical spondylosis without myelopathy; Translations: [Spondylosis without myelopathy or radiculopathy, cervical region] Chronic Unclassified (1 source) CONTACT W/AND (SUSP) EXPOS COVID-19; Translations: [CONTACT W/AND (SUSP) EXPOS COVID-19] Onset: 05-09-2022 Urinary tract infections (2 sources) Urinary tract infection, site not specified; Translations: [Acute cystitis with hematuria] Onset: 05-09-2022 Episodic Viral infection (20 sources) COVID-19; Translations: [Disease caused by 2019-nCoV] Onset: 02-15-2022 Past or Other Problems Problem Classification Problem Date Documented Da te Episodic/Chronic Acute bronchitis (20 sources) Acute bronchitis; Translations: [Acute bronchitis, unspecified] Onset: 10-07-2014 Episodic Conditions associated with dizziness or vertigo (20 sources) Benign paroxysmal positional vertigo; Translations: [Benign paroxysmal vertigo, unspecified ear] Onset: 01-25-2016 Episodic Esophageal disorders (16 sources) Esophageal disorders; Translations: [Gastro-esophageal reflux disease with esophagitis, without bleeding] Joint disorders and dislocations; trauma-related (20 sources) Current tear of medial cartilage AND/OR meniscus of knee; Translations: [Tear of medial cartilage or meniscus of knee, current] Onset: 02-27-2015 Episodic Malaise and fatigue (20 sources) Malaise and fatigue; Translations: [Other malaise and fatigue] Onset: 12-14-2016 Episodic Mycoses (20 sources) Candidal vulvovaginitis; Translations: [Candidiasis of vulva and vagina] Onset: 10-03-2014 Episodic Nausea and vomiting (20 sources) Nausea and vomiting; Translations: [Nausea with vomiting, unspecified] Onset: 01-25-2016 Episodic Other and unspecified benign neoplasm (20 sources) History of polyp of colon; Translations: [Personal history of colonic polyps] Onset: 07-11-2017 Episodic Other injuries and conditions due to external causes (20 sources) History of fall; Translations: [Personal history of fall] Onset: 12-14-2016 Episodic Other lower respiratory disease (20 sources) Cough; Translations: [Cough, unspecified] Onset: 10-07-2014 Episodic Other non-traumatic joint disorders (20 sources) Arthralgia of the lower leg; Translations: [Pain in unspecified knee] Onset: 02-20-2015 Episodic Other nutritional; endocrine; and metabolic disorders (20 sources) Morbid obesity; Translations: [Morbid (severe) obesity due to excess calories] Resolved: 09-01-2020 Chronic Other screening for suspected conditions (not mental disorders or infectious disease) (20 sources) Mammography abnormal; Translations: [Unspecified abnormal mammogram] Onset: 01-06-2015 Episodic Other upper respiratory infections (20 sources) Acute maxillary sinusitis; Translations: [Acute maxillary sinusitis, unspecified] Onset: 10-03-2014 Episodic Parkinson`s disease (1 source) Parkinson`s disease Unclassified (2 sources) Acute cough R05.1 Results Test Name Value Interpretation Reference Range Facility CBC AUTO DIFFon 05-01-2022 BASO # 0.0 103/ul Normal 0.0-0.1 [facility] Comment on above: Performed By: #### C BC #### [facility] [address] [place] [address] Dr. Misha Torres Basophils/100 WBC (Bld) 0.5 % Normal 0.2-2.0 [facility] Comment on above: Performed By: #### C BC #### [facility] [address] [address] [address] Misha Torers EO # 0.2 103/ul Normal 0.0-0.7 [facility] Comment on above: Performed By: #### C BC #### [facility] [address] [address] [address] Misha Torres Eosinophils/100 WBC (Bld) 2.5 % Normal 0.9-7.0 [facility] Comment on above: Performed By: #### C BC #### [facility] [address] [place] [address] Dr. Misha Torres Erythrocyte distribution width (RBC) [Ratio] 13.6 % Normal 11.0-15.0 [facility] Comment on above: Performed By: #### C BC #### [facility] [address] [place] [address] Dr. Misha Torres Hematocrit (Bld) [Volume fraction] 36.0 % Normal 36.0-48.0 [facility] Comment on above: Performed By: #### C BC #### [facility] [address] [place] [address] Dr. Misha Torres Hemoglobin (Bld) [Mass/Vol] 11.7 g/dL Critically low 12.0-16.0 [facility] Comment on above: Performed By: #### C BC #### [facility] [address] [place] [address] Dr. Misha Torres IG # 0.01 10e3/ul Normal 0.00-0.03 [facility] Comment on above: Performed By: #### C BC #### [facility] [address] [place] [address] Dr. Misha Torres IG % 0.2 % Normal 0.0-0.5 [facility] Comment on above: Performed By: #### C BC #### [facility] [address] [place] [address] Dr. Misha Torres LYMPH # 2.0 103/ul Normal 1.2-3.8 [facility] Comment on above: Performed By: #### C BC #### [facility] [address] [place] [address] Dr. Misha Torres Lymphocytes/100 WBC (Bld) 31.2 % Normal 20.5-60.0 [facility] Comment on above: Performed By: #### C BC #### [facility] [address] [place] [address] Dr. Misha Torres MANUAL DIFF REQ NO Normal [facility] Comment on above: Performed By: #### C BC #### [facility] [address] [place] [address] Dr. Misha Torres MCH (RBC) [Entitic mass] 29.4 pg Normal 26.7-34.0 [facility] Comment on above: Performed By: #### C BC #### [facility] [address] [address] [address] Misha Torres MCHC (RBC) [Mass/Vol] 32.5 g/dL Normal 29.9-35.2 [facility] Comment on above: Performed By: #### C BC #### [facility] [address] [place] [address] Dr. Misha Torres MCV (RBC) [Entitic vol] 90.5 fL Normal 81.0-99.0 [facility] Comment on above: Performed By: #### C BC #### [facility] [address] [place] [address] Dr. Misha Torres MONO # 0.6 103/ul Normal 0.3-0.8 [facility] Comment on above: Performed By: #### C BC #### [facility] [address] [place] [address] Dr. Misha Torres Monocytes/100 WBC (Bld) 9.5 % Normal 1.7-12.0 [facility] Comment on above: Performed By: #### C BC #### [facility] [address] [place] [address] Dr. Misha Torres NEUT # 3.6 103/ul Normal 1.4-6.5 [facility] Comment on above: Performed By: #### C BC #### [facility] [address] [place] [address] Dr. Misha Torres Neutrophils/100 WBC (Bld) 56.1 % Normal 43.0-75.0 [facility] Comment on above: Performed By: #### C BC #### [facility] [address] [place] [address] Dr. Misha Torres Platelet mean volume (Bld) [Entitic vol] 11.0 fL Normal 9.5-13.5 [facility] Comment on above: Performed By: #### C BC #### [facility] [address] [place] [address] Dr. Misha Torres PLT 152 103/ul Normal 150-[address] [facility] Comment on above: Performed By: #### C BC #### [facility] [address] [address] [address] Misha Torres RBC 3.98 106/ul Critically low 4.20-5.40 [facility] Comment on above: Performed By: #### C BC #### [facility] [address] [address] [address] Misha Torres WBC 6.4 103/ul Normal 4.0-11.0 [facility] Comment on above: Performed By: #### C BC #### [facility] [address] [address] [address] Misha Torres POINT OF CARE GLUCOSEon 11-0 Glucose [Mass/Vol] 253 mg/dL Critically high 74-106 [facility] Comment on above: Performed By: #### P OCGLUC #### [facility] [address] [address] [address] Misha Torres Glucose [Mass/Vol] 201 mg/dL Critically high 74-106 [facility] Comment on above: Performed By: #### P OCGLUC #### [facility] [address] [address] [address] Misha Torres PROF CHEM 8 (BAS METB)on Anion gap [Moles/Vol] 9.2 mmol/L Normal [facility] Comment on above: Performed By: #### P OCGLUC #### [facility] [address] [address] [address] Misha Torres Calcium [Mass/Vol] 8.1 mg/dL Critically low 8.5-10.1 [facility] Comment on above: Performed By: #### P OCGLUC #### [facility] [address] [address] [address] Misha Torres Chloride [Moles/Vol] 104 mmol/L Normal 98-107 [facility] Comment on above: Performed By: #### P OCGLUC #### [facility] [address] [address] [address] Misha Torres CO2 [Moles/Vol] 25.4 mmol/L Normal 21.0-32.0 [facility] Comment on above: Performed By: #### P OCGLUC #### [facility] [address] [address] [address] Misha Torres Creatinine [Mass/Vol] 1.22 mg/dL Critically high 0.55-1.02 [facility] Comment on above: Performed By: #### P OCGLUC #### [facility] [address] [address] [address] Misha Torres EGFR-AF [place] 51 mL/min/1.73m2 Critically low >=60 [facility] Comment on above: Performed By: #### P OCGLUC #### [facility] [address] [address] [address] Misha Torres EGFR-NON AF [place] 42 mL/min/1.73m2 Critically low >=60 [facility] Comment on above: Performed By: #### P OCGLUC #### [facility] [address] [address] [address] Misha Torres Glucose [Mass/Vol] 180 mg/dL Critically high 74-106 [facility] Comment on above: Performed By: #### P OCGLUC #### [facility] [address] [address] [address] Misha Torres Potassium [Moles/Vol] 3.6 mmol/L Normal 3.5-5.1 [facility] Comment on above: Performed By: #### P OCGLUC #### [facility] [address] [address] [address] Misha Torres Sodium [Moles/Vol] 135 mmol/L Critically low 136-[address] [facility] Comment on above: Performed By: #### P OCGLUC #### [facility] [address] [address] [address] Misha Torres Urea nitrogen [Mass/Vol] 23.0 mg/dL Critically high 7.0-18.0 [facility] Comment on above: Performed By: #### P OCGLUC #### [facility] [address] [address] [address] Misha Torres Urea nitrogen/Creatinine [Mass ratio] 18.9 mg/mg Normal [facility] Comment on above: Performed By: #### P OCGLUC #### [facility] [address] [place] [address] Dr. Misha Torres CBC AUTO DIFFon 04-30-2022 BASO # 0.0 103/ul Normal 0.0-0.1 [facility] Comment on above: Performed By: #### P OCGLUC #### [facility] [address] [place] [address] Dr. Misha Torres Basophils/100 WBC (Bld) 0.3 % Normal 0.2-2.0 [facility] Comment on above: Performed By: #### P OCGLUC #### [facility] [address] [place] [address] Dr. Misha Torres EO # 0.1 103/ul Normal 0.0-0.7 [facility] Comment on above: Performed By: #### P OCGLUC #### [facility] [address] [place] [address] Dr. Misha Torres Eosinophils/100 WBC (Bld) 0.8 % Critically low 0.9-7.0 [facility] Comment on above: Performed By: #### P OCGLUC #### [facility] [address] [place] [address] Dr. Misha Torres Erythrocyte distribution width (RBC) [Ratio] 13.3 % Normal 11.0-15.0 [facility] Comment on above: Performed By: #### P OCGLUC #### [facility] [address] [place] [address] Dr. Misha Torres Hematocrit (Bld) [Volume fraction] 37.7 % Normal 36.0-48.0 [facility] Comment on above: Performed By: #### P OCGLUC #### [facility] [address] [place] [address] Dr. Misha Torres Hemoglobin (Bld) [Mass/Vol] 12.4 g/dL Normal 12.0-16.0 [facility] Comment on above: Performed By: #### P OCGLUC #### [facility] [address] [place] [address] Dr. Misha Torres IG # 0.02 10e3/ul Normal 0.00-0.03 [facility] Comment on above: Performed By: #### P OCGLUC #### [facility] [address] [place] [address] Dr. Misha Torres IG % 0.2 % Normal 0.0-0.5 [facility] Comment on above: Performed By: #### P OCGLUC #### [facility] [address] [place] [address] Dr. Misha Torres LYMPH # 2.4 103/ul Normal 1.2-3.8 [facility] Comment on above: Performed By: #### P OCGLUC #### [facility] [address] [place] [address] Dr. Misha Torres Lymphocytes/100 WBC (Bld) 24.6 % Normal 20.5-60.0 [facility] Comment on above: Performed By: #### P OCGLUC #### [facility] [address] [place] [address] Dr. Misha Torres MANUAL DIFF REQ NO Normal [facility] Comment on above: Performed By: #### P OCGLUC #### [facility] [address] [place] [address] Dr. Misha Torres MCH (RBC) [Entitic mass] 29.4 pg Normal 26.7-34.0 [facility] Comment on above: Performed By: #### P OCGLUC #### [facility] [address] [place] [address] Dr. Misha Torres MCHC (RBC) [Mass/Vol] 32.9 g/dL Normal 29.9-35.2 [facility] Comment on above: Performed By: #### P OCGLUC #### [facility] [address] [place] [address] Dr. Misha Torres MCV (RBC) [Entitic vol] 89.3 fL Normal 81.0-99.0 [facility] Comment on above: Performed By: #### P OCGLUC #### [facility] [address] [place] [address] Dr. Misha Torres MONO # 0.9 103/ul Critically high 0.3-0.8 [facility] Comment on above: Performed By: #### P OCGLUC #### [facility] [facility] [address] [address] [address] Misha Torres Monocytes/100 WBC (Bld) 8.9 % Normal 1.7-12.0 [facility] Comment on above: Performed By: #### P OCGLUC #### [facility] [address] [place] [address] Dr. Misha Torres NEUT # 6.2 103/ul Normal 1.4-6.5 [facility] Comment on above: Performed By: #### P OCGLUC #### [facility] [address] [place] [address] Dr. Misha Torres Neutrophils/100 WBC (Bld) 65.2 % Normal 43.0-75.0 [facility] Comment on above: Performed By: #### P OCGLUC #### [facility] [address] [place] [address] Dr. Misha Torres Platelet mean volume (Bld) [Entitic vol] 10.3 fL Normal 9.5-13.5 [facility] Comment on above: Performed By: #### P OCGLUC #### [facility] [address] [place] [address] Dr. Misha Torres PLT 168 103/ul Normal 150-450 [facility] Comment on above: Performed By: #### P OCGLUC #### [facility] [address] [place] [address] Dr. Misha Torres RBC 4.22 106/ul Normal 4.20-5.40 [facility] Comment on above: Performed By: #### P OCGLUC #### [facility] [address] [place] [address] Dr. Misha Torres WBC 9.6 103/ul Normal 4.0-11.0 [facility] Comment on above: Performed By: #### P OCGLUC #### [facility] [address] [place] [address] Dr. Misha Torres CTA HEAD WO W CONon 04-30-20 22 CTA HEAD WO W CON CTA HEAD/NECK. [...] stenosis. LEFT VERTEBRAL ARTERY: No significant stenosis. [place] OF [place]: The bilateral intracranial internal carotid arteries, anterior cerebral arteries, middle cerebral arteries and anterior and posterior communicating arteries are normal. 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 There is reconstitution of the distal segment. Somewhat limited evaluation. Patent bilateral TWITCHELL OPERATOR. 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 [address] [address] [address] Misha Torres Glucose [Mass/Vol] 289 mg/dL Critically high 74-106 [facility] Comment on above: Performed By: #### P OCGLUC #### [facility] [address] [address] [address] Misha Torres Glucose [Mass/Vol] 285 mg/dL Critically high -106 [facility] Comment on above: Performed By: #### P OCGLUC #### [facility] [address] [address] [address] Misha Torres Glucose [Mass/Vol] 179 mg/dL Critically high -106 [facility] Comment on above: Performed By: #### P OCGLUC #### [facility] [address] [address] [address] Misha Torres PROF CHEM 8 (BAS METB)on Anion gap [Moles/Vol] 7.6 mmol/L Normal [facility] Comment on above: Performed By: #### B MP #### [facility] [address] [address] [address] Misha Torres Calcium [Mass/Vol] 8.1 mg/dL Critically low 8.5-10.1 [facility] Comment on above: Performed By: #### B MP #### [facility] [address] [address] [address] Misha Torres Chloride [Moles/Vol] 102 mmol/L Normal 98-107 [facility] Comment on above: Performed By: #### B MP #### [facility] [address] [address] [address] Misha Torres CO2 [Moles/Vol] 27.8 mmol/L Normal 21.0-32.0 [facility] Comment on above: Performed By: #### B MP #### [facility] [address] [address] [address] Misha Torres Creatinine [Mass/Vol] 1.34 mg/dL Critically high 0.55-1.02 [facility] Comment on above: Performed By: #### B MP #### [facility] [address] [address] [address] Misha Torres EGFR-AF SOLOMON ISLANDER 46 mL/min/1.73m2 Critically low >=60 [facility] Comment on above: Performed By: #### B MP #### [facility] [address] [address] [address] Misha Torres EGFR-NON AF [place] ISLANDER 38 mL/min/1.73m2 Critically low >=60 [facility] Comment on above: Performed By: #### B MP #### [facility] [address] [address] [address] Misha Torres Glucose [Mass/Vol] 178 mg/dL Critically high 74-106 [facility] Comment on above: Performed By: #### B MP #### [facility] [address] [address] [address] Misha Torres Potassium [Moles/Vol] 3.4 mmol/L Critically low 3.5-5.1 [facility] Comment on above: Performed By: #### B MP #### [facility] [address] [address] [address] Misha Torres Sodium [Moles/Vol] 134 mmol/L Critically low 136-[address] [facility] Comment on above: Performed By: #### B MP #### [facility] [address] [address] [address] Misha Torres Urea nitrogen [Mass/Vol] 24.0 mg/dL Critically high 7.0-18.0 [facility] Comment on above: Performed By: #### B MP #### [facility] [address] [address] [address] Misha Torres Urea nitrogen/Creatinine [Mass ratio] 17.9 mg/mg Normal [facility] Comment on above: Performed By: #### B MP #### [facility] [address] [address] [address] Misha Torres CBC AUTO DIFFon 04-29-2022 BASO # 0.0 103/ul Normal 0.0-0.1 [facility] Comment on above: Performed By: #### C BC ####[facility] [address] [address]Dr. Misha Torres Basophils/100 WBC (Bld) 0.2 % Normal 0.2-2.0 [facility] Comment on above: Performed By: #### C BC ####[facility] [address] [place], [place] [address]DrErrol Torres EO # 0.0 103/ul Normal 0.0-0.7 [facility] Comment on above: Performed By: #### C BC ####[facility] [address] [place], [place] [address]DrErrol Torres Eosinophils/100 WBC (Bld) 0.1 % Critically low 0.9-7.0 [facility] Comment on above: Performed By: #### C BC ####[facility] [address] [place], [place] [address]Dr. Misha Torres Erythrocyte distribution width (RBC) [Ratio] 13.1 % Normal 11.0-15.0 [facility] Comment on above: Performed By: #### C BC ####[facility] [address] [place], [place] [address]Dr. Misha Torres Hematocrit (Bld) [Volume fraction] 41.3 % Normal 36.0-48.0 [facility] Comment on above: Performed By: #### C BC ####[facility] [address] [place], [place] [address]Dr. Misha Torres Hemoglobin (Bld) [Mass/Vol] 13.9 g/dL Normal 12.0-16.0 [facility] Comment on above: Performed By: #### C BC ####[facility] [address] [place], [place] [address]Dr. Misha Torres IG # 0.03 10e3/ul Normal 0.00-0.[address] [facility] Comment on above: Performed By: #### C BC ####[facility] [address] [place], [place] [address]Tq. Misha Torres IG % 0.3 % Normal 0.0-0.5 [facility] Comment on above: Performed By: #### C BC ####[facility] [address] [address]Dr. Misha Torres LYMPH # 1.7 103/ul Normal 1.2-3.8 [facility] Comment on above: Performed By: #### C BC ####[facility] [address] [id number]. Misha Torres Lymphocytes/100 WBC (Bld) 16.3 % Critically low 20.5-60.0 [facility] Comment on above: Performed By: #### C BC ####[facility] [address] [address]Dr. Misha Torres MANUAL DIFF REQ NO Normal [facility] Comment on above: Performed By: #### C BC ####[facility] [address] [address]Dr. Misha Torres MCH (RBC) [Entitic mass] 29.4 pg Normal 26.7-34.0 [facility] Comment on above: Performed By: #### C BC ####[facility] [address] [address]Dr. Misha Torres MCHC (RBC) [Mass/Vol] 33.7 g/dL Normal 29.9-35.2 [facility] Comment on above: Performed By: #### C BC ####[facility] [address] [address]Dr. Misha Torres MCV (RBC) [Entitic vol] 87.3 fL Normal 81.0-99.0 [facility] Comment on above: Performed By: #### C BC ####[facility] [address] [address]Dr. Misha Torres MONO # 0.7 103/ul Normal 0.3-0.8 [facility] Comment on above: Performed By: #### C BC ####[facility] [address] [address]Dr. Misha Torres Monocytes/100 WBC (Bld) 6.9 % Normal 1.7-12.0 [facility] Comment on above: Performed By: #### C BC ####[facility] [address] [address]Dr. Misha Torres NEUT # 7.9 103/ul Critically high 1.4-6.5 [facility] Comment on above: Performed By: #### C BC ####[facility] [address] [address]Dr. Misha Torres Neutrophils/100 WBC (Bld) 76.2 % Critically high 43.0-75.0 [facility] Comment on above: Performed By: #### C BC ####[facility] [address] [address]Dr. Misha Torres Platelet mean volume (Bld) [Entitic vol] 10.8 fL Normal 9.5-13.5 [facility] Comment on above: Performed By: #### C BC ####[facility] [address] [address]Dr. Misha Torres PLT 202 103/ul Normal 150-450 [facility] Comment on above: Performed By: #### C BC ####[facility] [address] [address]Dr. Misha Torres RBC 4.73 106/ul Normal 4.20-5.[address] [facility] Comment on above: Performed By: #### C BC ####[facility] [address] [address]Dr. Misha Torres WBC 10.3 103/ul Normal 4.0-11.[address] [facility] Comment on above: Performed By: #### C BC ####[facility] [address] [address]Dr. Misha Torres ECHOCARDIO M/2D COMPLETEon 1 06-29-2021 ECHOCARDIO M/2D COMPLETE Patient: SHRUTHI DE ANDAErrol Exam Date: 04/29/2022 : 1940 Gender:F Ordering : TANVIR CRNOIN Admission #: [id number] Family : DR LISA WAYNE . Order #: [id number] CLICK HERE TO VIEW EXAM ECHOCARDIOGRAM REPORT [...] Pretty M.D. on 04/29/2022 at 18:00 Normal [facility] GLYCOHEMOGLOBIN A1Con 2021 ADA RECOMMENDATION SEE BELOW Normal [facility] Comment on above: Result Comment: ADA RECOMMENDED LIMIT 4.0 - 6.0 ADA THERAPEUTIC TARGET < 7.0 ACTION SUGGESTED > 7.0 Performed By: #### A 1C ####[facility] [address] [address]Dr. Misha Torres Glucose [Mass/Vol] 269 mg/dL Normal [facility] Comment on above: Performed By: #### A 1C ####[facility] [address] [address]Dr. Misha Torres HbA1c (Bld) [Mass fraction] 11.0 % Critically high 4.5-6.2 [facility] Comment on above: Performed By: #### A 1C ####[facility] [address] [address]Dr. Misha Torres LACTATE/LACTIC ACIDon 2021 Lactate [Moles/Vol] 1.8 mmol/L Normal 0.4-1.9 [facility] Comment on above: Performed By: #### L ACT ####[facility] [address] [address]Dr. Misha Torres LIPID PROFILEon 04-29-2022 CHOL-HDL RATIO NORM SEE BELOW Normal [facility] Comment on above: Result Comment: 3.3 - 4.4 LOW RISK 4.4 - 7.1 AVERAGE RISK 7.1 - 11.0 MODERATE RISK >11.0 HIGH RISK Performed By: #### M [place], LIPID, BMP ####[facility] [address] [address]Dr. Misha Torres Cholesterol [Mass/Vol] 231 mg/dL Critically high <=200 [facility] Comment on above: Performed By: #### Sonia Eisenberg, LIPID, BMP ####[facility] [address] [address]Dr. Misha Torres Cholesterol in HDL [Mass/Vol] 39 mg/dL Critically low 40-60 [facility] Comment on above: Performed By: #### Sonia Eisenberg, LIPID, BMP ####[facility] [address] [address]Dr. Misha Torres Cholesterol in LDL [Mass/Vol] 144.6 mg/dL Normal [facility] Comment on above: Performed By: #### Sonia Eisenberg, LIPID, BMP ####[facility] [address] [address]Dr. Misha Torres Cholesterol.total/[place] sterol in HDL [Mass ratio] 5.9 {ratio} Normal [facility] Comment on above: Performed By: #### M [place], LIPID, BMP ####[facility] [address] [address]Dr. Misha Torres HDL NORMAL > or = 60 mg/dl - LO W CARDIOVASCULAR RISK <40 mg/dl - HIGH CARDIOVASCULAR RISK Normal [facility] Comment on above: Performed By: #### Sonia G, LIPID, BMP ####[facility] [address] [place], [place] [address]Ij. Misha Torres LDL CALC NORMAL SEE BELOW Normal [facility] Comment on above: Result Comment: <100 mg/dl OPTIMAL 100 - 129 mg/dl NEAR OR ABOVE OPTIMAL 130 - 159 mg/dl BORDERLINE HIGH 160 - 189 mg/dl HIGH >190 mg/dl VERY HIGH Performed By: #### M G, LIPID, BMP ####[facility] [address] [place], [place] [address]Hb. Misha Torres Triglyceride [Mass/Vol] 237 mg/dL Critically high <=[address] [facility] Comment on above: Performed By: #### M G, LIPID, BMP ####[facility] [address] [place], [place] [address]Zb. Misha Torres VLDL CALC 47.4 mg/dL Normal [facility] Comment on above: Performed By: #### M G, LIPID, BMP ####[facility] [address] [phone]. Misha Torres MAGNESIUMon 04-29-2022 Magnesium [Mass/Vol] 1.7 mg/dL Critically low 1.8-2.[address] [facility] Comment on above: Performed By: #### M G, LIPID, BMP ####[facility] [address] [phone]. Misha Torres MRI BRAIN WO CONon 2 MRI BRAIN WO CON EXAM: MRI BRAIN [...] by the provider. Electronically authenticated by: AMY CAMPBELL Date: 2022-04-29 12:50 Normal [facility] POINT OF CARE GLUCOSEon 11-0 Glucose [Mass/Vol] 216 mg/dL Critically high 74-106 [facility] Comment on above: Performed By: #### P OCGLUC ####[facility] [address] [address]Dr. Misha Torres Glucose [Mass/Vol] 308 mg/dL Critically high -106 [facility] Comment on above: Performed By: #### P OCGLUC #### [facility] [address] [address] [address] Misha Torres Glucose [Mass/Vol] 305 mg/dL Critically high -106 [facility] Comment on above: Performed By: #### P OCGLUC #### [facility] [address] [address] [address] Misha Torres PROF CHEM 8 (BAS METB)on Anion gap [Moles/Vol] 9.6 mmol/L Normal [facility] Comment on above: Performed By: #### M G, LIPID, BMP ####[facility] [address] [address]Dr. Misha Torres Calcium [Mass/Vol] 8.3 mg/dL Critically low 8.5-10.[address] [facility] Comment on above: Performed By: #### M G, LIPID, BMP ####[facility] [address] [address]Dr. Misha Torres Chloride [Moles/Vol] 98 mmol/L Normal 98-107 [facility] Comment on above: Performed By: #### M G, LIPID, BMP ####[facility] [address] [address]Dr. Misha Torres CO2 [Moles/Vol] 27.2 mmol/L Normal 21.0-32.0 [facility] Comment on above: Performed By: #### M [place] LIPID, BMP ####[facility] [address] [address]Dr. Misha Torres Creatinine [Mass/Vol] 1.09 mg/dL Critically high 0.55-1.02 [facility] Comment on above: Performed By: #### Sonia Eisenberg LIPID, BMP ####[facility] [address] [address]Dr. Misha Torres EGFR-AF SOL[place] ISLANDER 58 mL/min/1.73m2 Critically low >=60 [facility] Comment on above: Performed By: #### Sonia Eisenberg LIPID, BMP ####[facility] [address] [address]Dr. Misha Torres EGFR-NON AF [place] ISLANDER 48 mL/min/1.73m2 Critically low >=60 [facility] Comment on above: Performed By: #### Sonia Eisenberg LIPID, BMP ####[facility] [address] [address]Dr. Misha Torres Glucose [Mass/Vol] 288 mg/dL Critically high 74-106 [facility] Comment on above: Performed By: #### Sonia Eisenberg LIPID, BMP ####[facility] [address] [address]Dr. Misha Torres Potassium [Moles/Vol] 3.8 mmol/L Normal 3.5-5.1 [facility] Comment on above: Performed By: #### Sonia Eisenberg, LIPID, BMP ####[facility] [address] [address]Dr. Misha Torres Sodium [Moles/Vol] 131 mmol/L Critically low 136-[address] [facility] Comment on above: Performed By: #### Sonia Eisenberg LIPID, BMP ####[facility] [address] [address]Dr. Misha Torres Urea nitrogen [Mass/Vol] 17.0 mg/dL Normal 7.0-18.0 [facility] Comment on above: Performed By: #### M G, LIPID, BMP ####[facility] [address]fe[address]pp[address] [place], [place] [address]Fk. Kirajonna Torres Urea nitrogen/Creatinine [Mass ratio] 15.6 mg/mg Normal [facility] Comment on above: Performed By: #### M [place], LIPID, BMP ####[facility] [address] [place], [place] [address]Op. Misha Torres US CAROTID ART BILon 022 [...] LAURA BRAGA Date: 2022-04-29 14:[address] [facility] ACETONE SERUMon 04-28-2022 ACETONE Negative Normal NEGATIVE [facility] Comment on above: Performed By: #### A CETON ####[facility] [address]uvs[address] [place], [place] [address]ZyDr. Misha Torres AMMONIAon 04-28-2022 Ammonia (P) [Mass/Vol] ug/dL Critically low [facility] Comment on above: Performed By: #### P OCGLUC #### [facility] [address] [place], [place] [address] Dr. Misha Torres BLOOD CULTURE ID PANELon A. baumannii Not detected Normal NOT DETECTED [facility] Comment on above: Performed By: #### B CID2 ####[facility] [address] [id number]. Yijonna Torres Bacteriodes fragilis Not detected Normal NOT DETECTED [facility] Comment on above: Performed By: #### B CID2 ####[facility] [address] [address]Dr. Yilan Torres BCID CONTROLS PASSED Normal [facility] Comment on above: Performed By: #### B CID2 ####[facility] [address] [address]Dr. Yijonna Torres BCIDBTHD BLOOD CULTURE BOTTLE INFORMATION [place] [facility] Comment on above: Performed By: #### B CID2 ####[facility] [address] [address]Dr. Yijonna Torres BCIDHD1 ANTIMICROBIAL RESISTANCE GENES Normal [facility] Comment on above: Performed By: #### B CID2 ####[facility] [address] [address]Dr. Yilan Torres BCIDHD2 SEE BELOW [facility] Comment on above: Result Comment: Note : Antimicrobial resitance can occur via multiple mechanisms. A Not Detected result for the [employer] antomicrobial resistance gene assays does not indicate antimicrobial susceptibility. Subculturing is required for species identification and susceptibility testing of isolates. Performed By: #### B CID2 ####[facility] [address] [address]Dr. Yijonna Torres BCIDHD3 Positive [facility] Comment on above: Performed By: #### B CID2 ####[facility] [address] [address]Dr. Yilan Torres BCIDHD4 Negative Normal [facility] Comment on above: Performed By: #### B CID2 ####[facility] [address] [address]Dr. Yijonna Torres BCIDHD5 YEAST Normal [facility] Comment on above: Performed By: #### B CID2 ####[facility] [address] [address]Dr. Yilan Torres Bottle Set: Set [address] [facility] Comment on above: Performed By: #### B CID2 ####[facility] [address] [place], [place] [address]Dr. Misha Torres Bottle: Anaerobic Normal [facility] Comment on above: Performed By: #### B CID2 ####[facility] [address] [place], [place] [address]Dr. Misha Torres C. neoformans/gattii Not detected Normal NOT DETECTED [facility] Comment on above: Performed By: #### B CID2 ####[facility] [address] [place], [place] [address]Dr. Misha [facility] Rylee albicans Not detected Normal NOT DETECTED [facility] Comment on above: Performed By: #### B CID2 ####[facility] [address] [place], [place] [address]Dr. Misha Torres Rylee auris Not detected Normal NOT DETECTED [facility] Comment on above: Performed By: #### B CID2 ####[facility] Romtsyzoic[address] [place], [place] [address]Dr. [facility] Rylee glabrata Not detected Normal NOT DETECTED [facility] Comment on above: Performed By: #### B CID2 ####[facility] [address] [place], [place] [address]Dr. Misha [facility] Rylee Krusei Not detected Normal NOT DETECTED [facility] Comment on above: Performed By: #### B CID2 ####[facility] [address] [place], [place] [address]Dr. Misha Torres Rylee Parapsilosis Not detected Normal NOT DETECTED [facility] Comment on above: Performed By: #### B CID2 ####[facility] [address]xfigu[address] [place], [place] [address]Dr. Misha Torres Rylee Tropicalis Not detected Normal NOT DETECTED [facility] Comment on above: Performed By: #### B CID2 ####[facility] [address]ct[address] [place], [place] [address]Dr. Misha Torres CTX-M Resistant Gene Not detected Normal NOT DETECTED [facility] Comment on above: Performed By: #### B CID2 ####[facility] [address] [address]Dr. Misha Torres E. Cloacae complex Not detected Normal NOT DETECTED [facility] Comment on above: Performed By: #### B CID2 ####[facility] [address] [address]Dr. Misha Torres E. faecalis Not detected Normal NOT DETECTED [facility] Comment on above: Performed By: #### B CID2 ####[facility] [address] [place], [place] [address]Dr. Misha Torres E. faecium Not detected Normal NOT DETECTED [facility] Comment on above: Performed By: #### B CID2 ####[facility] [address]fcw[address] [place], [place] [address]Dr. Kirajonna Torres Enterobacteriaceae Not detected Normal NOT DETECTED [facility] Comment on above: Performed By: #### B CID2 ####[facility] [address] [place], [place] [address]Dr. Misha Torres Escherichia coli Not detected Normal NOT DETECTED [facility] Comment on above: Performed By: #### B CID2 ####[facility] [address] [place], [place] [address]Dr. Misha Torres H. influenzae Not detected Normal NOT DETECTED [facility] Comment on above: Performed By: #### B CID2 ####[facility] [address]icef[address] [place], [place] [address]Dr. Kirajonna Torres IMP Resistant Gene Not detected Normal NOT DETECTED [facility] Comment on above: Performed By: #### B CID2 ####[facility] [address] [place], [place] [address]Dr. Misha Torres K. oxytoca Not detected Normal NOT DETECTED [facility] Comment on above: Performed By: #### B CID2 ####[facility] [address]ci[address] [place], [place] [address]Dr. Misha Torres K. pneumoniae Not detected Normal NOT DETECTED [facility] Comment on above: Performed By: #### B CID2 ####[facility] [address]rsajm[address] [place], [place] [address]Dr. Misha Torres Klebsiella aerogenes Not detected Normal NOT DETECTED [facility] Comment on above: Performed By: #### B CID2 ####[facility] [address]fg[address] [place], [place] [address]Dr. Misha Torres KPC Resistant Gene Not detected Normal NOT DETECTED [facility] Comment on above: Performed By: #### B CID2 ####[facility] [address] [place], [place] [address]Dr. Misha Torres List. monocytogenes Not detected Normal NOT DETECTED [facility] Comment on above: Performed By: #### B CID2 ####[facility] Zhnaxozub[address] [place], [place] [address]Dr. Misha Torres Mcr-1 Resistant Gene Not detected Normal NOT DETECTED [facility] Comment on above: Performed By: #### B CID2 ####[facility] Ntiodxnswc[address] [place], [place] [address]Dr. Misha Torres mecA/C Not detected Normal NOT DETECTED The [facility] Comment on above: Performed By: #### B CID2 ####[facility] Iditicxibh[address] [place], [place] [address]Dr. Misha Torres mecA/C MREJ Not detected Normal NOT DETECTED [facility] Comment on above: Performed By: #### B CID2 ####[facility] Y[address]ucrneaz[address] [place], [place] [address]Dr. Misha Torres N. meningitidis Not detected Normal NOT DETECTED [facility] Comment on above: Performed By: #### B CID2 ####[facility] Jknjjafzmf[address] [place], [place] [address]Dr. Misha Torres NDM Resistant Gene Not detected Normal NOT DETECTED [facility] Comment on above: Performed By: #### B CID2 ####[facility] Aljsijbuye[address] [place], [place] [address]Dr. Misha Torres Oxa-48-like Not detected Normal NOT DETECTED [facility] Comment on above: Performed By: #### B CID2 ####[facility] Ifhjwkkldg[address] [place], [place] [address]Dr. Misha Torres Proteus Not detected Normal NOT DETECTED [facility] Comment on above: Performed By: #### B CID2 ####[facility] Huwjehnrto[address] [place], [place] [address]Dr. Misha Torres Pseud. aeruginosa Not detected Normal NOT DETECTED [facility] Comment on above: Performed By: #### B CID2 ####[facility] Adenisngmy[address] [place], [place] [address]Dr. Misha Torres S. maltophilia Not detected Normal NOT DETECTED The [facility] Comment on above: Performed By: #### B CID2 ####[facility] Yraycwxwsf330[address] [place], [place] [address]Dr. Misha Torres Salmonella Not detected Normal NOT DETECTED [facility] Comment on above: Performed By: #### B CID2 ####[facility] Dsjgkchibi[address] [place], [place] [address]Dr. Misha Torres Seratia marcescens Not detected Normal NOT DETECTED [facility] Comment on above: Performed By: #### B CID2 ####[facility] Jhyayzycbf[address] [place], [place] [address]Dr. Misha Torres Site: left ac Normal [facility] Comment on above: Performed By: #### B CID2 ####[facility] Hbqfvhvpbz[address] [place], [place] [address]Dr. Misha Torres Staph. aureus Not detected Normal NOT DETECTED [facility] Comment on above: Performed By: #### B CID2 ####[facility] Vennlmuloh[address] [place], [place] [address]Dr. Misha Torres Staph. epidermidis Not detected Normal NOT DETECTED [facility] Comment on above: Performed By: #### B CID2 ####[facility] Tojonalgle[address] [place], [place] [address]Dr. Misha Torres Staph. lugdunensis Not detected Normal NOT DETECTED [facility] Comment on above: Performed By: #### B CID2 ####[facility] Fznftclwdn[address] [place], [place] [address]Dr. Misha Torres Staphylococcus Not detected Normal NOT DETECTED [facility] Comment on above: Performed By: #### B CID2 ####[facility] [address] [place] [address]Dr. Misha Torres Strep. agalactiae Not detected Normal NOT DETECTED [facility] Comment on above: Performed By: #### B CID2 ####[facility] [address] [place] [address]Dr. Misha Torres Strep. pneumoniae Not detected Normal NOT DETECTED [facility] Comment on above: Performed By: #### B CID2 ####[facility] [address] [place] [address]Dr. Misha Torres Strep. pyogenes Not detected Normal NOT DETECTED [facility] Comment on above: Performed By: #### B CID2 ####[facility] Bwdozerbsi[address] [place], [place] [address]Dr. Misha Torres Streptococcus Not detected Normal NOT DETECTED [facility] Comment on above: Performed By: #### B CID2 ####[facility] Tihghdciqt[address] [place], [place] [address]Dr. Misha Torres Murtaza/B Resist. Gene Not detected Normal NOT DETECTED [facility] Comment on above: Performed By: #### B CID2 ####[facility] Pskyyddhwb[address] [place], [place] [address]Dr. Misha Torres VIM Resistant Gene Not detected Normal NOT DETECTED [facility] Comment on above: Performed By: #### B CID2 ####[facility] Yvlwjpgulk[address] [place], [place] [address]Dr. Misha Torres CBC AUTO DIFFon 04-28-2022 BASO # 0.0 103/ul Normal 0.0-0.1 [facility] Comment on above: Performed By: #### P OCGLUC #### [facility] [address] [place] [address] Dr. Misha Torres Basophils/100 WBC (Bld) 0.3 % Normal 0.2-2.0 [facility] Comment on above: Performed By: #### P OCGLUC #### [facility] [address] [place] [address] Dr. Misha Torres EO # 0.0 103/ul Normal 0.0-0.[address] [facility] Comment on above: Performed By: #### P OCGLUC #### [facility] [address] [place] [address] Dr. Misha Torres Eosinophils/100 WBC (Bld) 0.0 % Critically low 0.9-7.[address] [facility] Comment on above: Performed By: #### P OCGLUC #### [facility] [address] [place] [address] Dr. Misha Torres Erythrocyte distribution width (RBC) [Ratio] 13.1 % Normal 11.0-15.[address] [facility] Comment on above: Performed By: #### P OCGLUC #### [facility] [address] [place] [address] Dr. Misha Torres Hematocrit (Bld) [Volume fraction] 46.8 % Normal 36.0-48.[address] [facility] Comment on above: Performed By: #### P OCGLUC #### [facility] [address] [place] [address] Dr. Misha Torres Hemoglobin (Bld) [Mass/Vol] 15.9 g/dL Normal 12.0-16.[address] [facility] Comment on above: Performed By: #### P OCGLUC #### [facility] [address] [place] [address] Dr. Misha Torres IG # 0.03 10e3/ul Normal 0.00-0.[address] [facility] Comment on above: Performed By: #### P OCGLUC #### [facility] [address] [place] [address] Dr. Misha Torres IG % 0.3 % Normal 0.0-0.[address] [facility] Comment on above: Performed By: #### P OCGLUC #### [facility] [address] [place] [address] Dr. Misha Torres LYMPH # 1.4 103/ul Normal 1.2-3.[address] [facility] Comment on above: Performed By: #### P OCGLUC #### [facility] [address] [place] [address] [address] Misha Torres Lymphocytes/100 WBC (Bld) 14.8 % Critically low 20.5-60.0 [facility] Comment on above: Performed By: #### P OCGLUC #### [facility] [address] [place] [address] [address] Misha Torres MANUAL DIFF REQ NO Normal [facility] Comment on above: Performed By: #### P OCGLUC #### [facility] [address] [place] [address] [address] Misha Torres MCH (RBC) [Entitic mass] 29.6 pg Normal 26.7-34.0 [facility] Comment on above: Performed By: #### P OCGLUC #### [facility] [address] [place] [address] Dr. Misha Torres MCHC (RBC) [Mass/Vol] 34.0 g/dL Normal 29.9-35.2 [facility] Comment on above: Performed By: #### P OCGLUC #### [facility] [address] [place] [address] Dr. Misha Torres MCV (RBC) [Entitic vol] 87.0 fL Normal 81.0-99.0 [facility] Comment on above: Performed By: #### P OCGLUC #### [facility] [address] [place] [address] Dr. Misha Torres MONO # 0.4 103/ul Normal 0.3-0.8 [facility] Comment on above: Performed By: #### P OCGLUC #### [facility] [address] [place] [address] Dr. Misha Torres Monocytes/100 WBC (Bld) 3.6 % Normal 1.7-12.0 [facility] Comment on above: Performed By: #### P OCGLUC #### [facility] [address] [place] [address] Dr. Misha Torres NEUT # 7.8 103/ul Critically high 1.4-6.5 [facility] Comment on above: Performed By: #### P OCGLUC #### [facility] [address] [place] [address] [address] Misha Torres Neutrophils/100 WBC (Bld) 81.0 % Critically high 43.0-75.[address] [facility] Comment on above: Performed By: #### P OCGLUC #### [facility] [address] [place] [address] [address] Misha Torres Platelet mean volume (Bld) [Entitic vol] 10.7 fL Normal 9.5-13.[address] [facility] Comment on above: Performed By: #### P OCGLUC #### [facility] [address] [place] [address] [address] Misha Torres PLT 231 103/ul Normal 150-[address] [facility] Comment on above: Performed By: #### P OCGLUC #### [facility] [address] [place] [address] [address] Misha Torres RBC 5.38 106/ul Normal 4.20-5.[address] [facility] Comment on above: Performed By: #### P OCGLUC #### [facility] [address] [place] [address] [address] Misha Torres WBC 9.6 103/ul Normal 4.0-11.[address] [facility] Comment on above: Performed By: #### P OCGLUC #### [facility] [address] [place] [address] STROKE HEAD WOon [...] CM SANTOS Date: 2022-04-28 16:[address] [facility] CULTURE BLOODon 04-28-2022 Microscopic examination of blood, culture Culture Observations: NO GROWTH AT [address] [facility] Comment on above: Performed By: #### B LDCX2 #### [facility] [address] [place], [place] [address] Dr. Misha Torres Performed By: #### B LDCX1 ####[facility] [address] [place] [address]Dr. Misha Torres CULTURE URINEon 04-28-2022 CULTURE URINE Culture Observations : NO GROWTH. Normal [facility] Comment on above: Performed By: #### U RCX ####[facility] [address] [place] [address]DrErrol Torres Cov[facility]19 [facility]on SARS-CoV-2 (COVID-19) RNA KRYSTA+probe Ql (Unsp spec) Not detected Normal NOT DETECTED [facility] Comment on above: Result Comment: When [...] for this test is supported by the Embedded Developer of Health and Human Service's declaration that [...] used). Performed By: #### P OCGLUC #### [facility] [address] [place] [address] [address] Misha Torres ER URINE PROFILEon 2 Bilirubin Ql (U) Negative Normal NEGATIVE [facility] Comment on above: Performed By: #### U MICRO, ERUR ####[facility] [address] [place] [address]Dr. Misha Torres Clarity (U) CLEAR Normal CLEAR [facility] Comment on above: Performed By: #### U MICRO, ERUR ####[facility] [address] [place] [address]Dr. Misha Torres Color (U) LT. YELLOW Normal YELLOW [facility] Comment on above: Performed By: #### U MICRO, ERUR ####[facility] [address] [place] [address]Dr. Misha BUENOAHD A micrscopic examination will be performed if indicated. Normal [facility] Comment on above: Performed By: #### U MICRO, ERUR ####[facility] [address] [place] [address]Dr. Misha Torres Glucose Ql (U) >1000 Abnormal NEGATIVE [facility] Comment on above: Performed By: #### U MICRO, ERUR ####[facility] [address] [place], [place] [address]Dr. Misha Torres Hemoglobin Ql (U) TRACE-INTACT Abnormal NEGATIVE [facility] Comment on above: Performed By: #### U MICRO, ERUR ####[facility] [address] [place] [address]Dr. Misha Torres Ketones Ql (U) 40 mg/dl Abnormal NEGATIVE [facility] Comment on above: Performed By: #### U MICRO, ERUR ####[facility] [address] [place], [place] [address]Dr. Misha Torres LEUKOCYTES TRACE Abnormal NEGATIVE [facility] Comment on above: Performed By: #### U MICRO, ERUR ####[facility] [address] [place] [address]Dr. Misha Torres Nitrite Ql (U) Negative Normal NEGATIVE [facility] Comment on above: Performed By: #### U MICRO, ERUR ####[facility] [address] [place] [address]Dr. Misha Torres pH (U) 5.5 [pH] Normal 5-9 [facility] Comment on above: Performed By: #### U MICRO, ERUR ####[facility] [address] [place] [address]Dr. Misha Torres Protein (U) [Mass/Vol] 30 mg/dL Abnormal NEGAT CAROLYN/ TRACE [facility] Comment on above: Performed By: #### U MICRO, ERUR ####[facility] [address] [place] [address]Dr. Misha Torres SPEC GRAVITY >=1.030 Abnormal 1.005-<=1.025 [facility] Comment on above: Performed By: #### U MICRO, ERUR ####[facility] [address] [place] [address]Dr. Misha Torres UR MICRO IND INDICATED Normal [facility] Comment on above: Performed By: #### U MICRO, ERUR ####[facility] [address] [place] [address]Dr. Misha Torres Urobilinogen Qn (U) 0.2 {Felipa'U}/dL Normal 0.2 - 1. 0 [facility] Comment on above: Performed By: #### U MICRO, ERUR ####[facility] [address] [place] [address]DrErrol Torres LACTATE/LACTIC ACIDon 2021 Lactate [Moles/Vol] 1.8 mmol/L Normal 0.4-1.9 [facility] Comment on above: Performed By: #### L ACT #### [facility] [address] [place] [address] [address] Misha Torres Lactate [Moles/Vol] 2.1 mmol/L Critically high 0.4-1.9 [facility] Comment on above: Performed By: #### P OCGLUC #### [facility] [address] [place] [address] [address] Misha Torres PH VENOUS BLOODon 04-28-2022 PCO2 VENOUS 47.6 mmHg Normal 40.0-52.0 [facility] Comment on above: Performed By: #### P OCGLUC #### [facility] [address] [place] [address] [address] Misha Torres pH VENOUS 7.403 Normal 7.330-7.430 [facility] Comment on above: Performed By: #### P OCGLUC #### [facility] [address] [place] [address] [address] Msiha oTrres POINT OF CARE GLUCOSEon 11 Glucose [Mass/Vol] 337 mg/dL Critically high 74-106 [facility] Comment on above: Performed By: #### P OCGLUC #### [facility] [address] [place] [address] Dr. Misha Torres PROF 14(COMP METB)on 022 Albumin [Mass/Vol] 3.7 g/dL Normal 3.4-5.0 [facility] Comment on above: Performed By: #### P OCGLUC #### [facility] [address] [place] [address] Dr. Misha Torres Albumin/Globulin [Mass ratio] 0.9 {ratio} Normal [facility] Comment on above: Performed By: #### P OCGLUC #### [facility] [address] [place] [address] Dr. Misha Torres ALP [Catalytic activity/Vol] 115 U/L Normal 46-116 [facility] Comment on above: Performed By: #### P OCGLUC #### [facility] [address] [place] [address] [address] Misha Torres ALT [Catalytic activity/Vol] 36 U/L Normal 14-59 [facility] Comment on above: Performed By: #### P OCGLUC #### [facility] [address] [place] [address] Dr. Misha Torres Anion gap [Moles/Vol] 8.8 mmol/L Normal [facility] Comment on above: Performed By: #### P OCGLUC #### [facility] [address] [place] [address] [address] Misha Torres AST [Catalytic activity/Vol] 24 U/L Normal 15-37 [facility] Comment on above: Performed By: #### P OCGLUC #### [facility] [address] [place] [address] [address] Misha Torres Bilirubin [Mass/Vol] 0.8 mg/dL Normal 0.2-1.0 [facility] Comment on above: Performed By: #### P OCGLUC #### [facility] [address] [place] [address] [address] Misha Torres Calcium [Mass/Vol] 9.0 mg/dL Normal 8.5-10.1 [facility] Comment on above: Performed By: #### P OCGLUC #### [facility] [address] [place] [address] [address] Misha Torres Chloride [Moles/Vol] 96 mmol/L Critically low 98-107 [facility] Comment on above: Performed By: #### P OCGLUC #### [facility] [address] [place] [address] [address] Misha Torres CO2 [Moles/Vol] 30.1 mmol/L Normal 21.0-32.0 [facility] Comment on above: Performed By: #### P OCGLUC #### [facility] [address] [place] [address] [address] Misha Torres Creatinine [Mass/Vol] 1.24 mg/dL Critically high 0.55-1.02 [facility] Comment on above: Performed By: #### P OCGLUC #### [facility] [address] [place] [address] [address] Misha Torres EGFR-AF [place] 50 mL/min/1.73m2 Critically low >=[address] [facility] Comment on above: Performed By: #### P OCGLUC #### [facility] [address] [place] [address] [address] Misha Torres EGFR-NON AF [place] 41 mL/min/1.73m2 Critically low >=60 [facility] Comment on above: Performed By: #### P OCGLUC #### [facility] [address] [place] [address] [address] Misha Torres Globulin (S) [Mass/Vol] 4.3 g/dL Normal [facility] Comment on above: Performed By: #### P OCGLUC #### [facility] [address] [place] [address] [address] Misha Torres Glucose [Mass/Vol] 309 mg/dL Critically high 74-106 [facility] Comment on above: Performed By: #### P OCGLUC #### [facility] [address] [place] [address] [address] Misha Torres Potassium [Moles/Vol] 3.9 mmol/L Normal 3.5-5.1 [facility] Comment on above: Performed By: #### P OCGLUC #### [facility] [address] [place] [address] [address] Misha Torres Protein [Mass/Vol] 8.0 g/dL Normal 6.4-8.2 [facility] Comment on above: Performed By: #### P OCGLUC #### [facility] [address] [place] [address] [address] Misha Torres Sodium [Moles/Vol] 131 mmol/L Critically low 136-145 [facility] Comment on above: Performed By: #### P OCGLUC #### [facility] [address] [place] [address] [address] Misha Torres Urea nitrogen [Mass/Vol] 17.0 mg/dL Normal 7.0-18.0 [facility] Comment on above: Performed By: #### P OCGLUC #### [facility] [address] [place] [address] [address] Misha Torres Urea nitrogen/Creatinine [Mass ratio] 13.7 mg/mg Normal [facility] Comment on above: Performed By: #### P OCGLUC #### [facility] [address] [place] [address] Dr. Misha Torres PROTIMEon 04-28-2022 INR Coag (PPP) [Relative time] 1.00 {INR} Normal [facility] Comment on above: Performed By: #### P T, PTT ####[facility] [address] [place], [place] [address]Ou. Misha Torres INR GUIDELINES SEE BELOW Normal [facility] Comment on above: Result Comment: KRISTOPHER RED INR: 2.0 - 3.0 CONDITIONS NOT LISTED BELOW 2.5 - 3.5 FOR PROSTHETIC HEART VALVE REPLACEMENT 2.5 - 3.5 RECURRENT THROMBOSIS Performed By: #### P T, PTT ####[facility] [address] [place] [id number]. Misha Torres PT Coag (PPP) [Time] 10.8 s Normal 9.0-11.6 [facility] Comment on above: Performed By: #### P T, PTT ####[facility] [address] [place] [address]DrErrol Torres PTTon 04-28-2022 aPTT Coag (Bld) [Time] 26.6 s Normal 22.3-36.2 [facility] Comment on above: Performed By: #### P T, PTT ####[facility] [address] [place] [address]DrErrol Torres TROPONIN, HIGH SENSITIVITYon 04-28-2022 HSTROP 21.3 pg/mL Normal 4.0-51.3 [facility] Comment on above: Result Comment: CUT- OFF POINTS HAVE BEEN ESTABLISHED BASED ON THE FOURTH UNIVERSAL DEFINITIONS OF MYOCARDIAL INFARCTION. THE UPPER REFERENCE LIMIT (URL) OF TROPONIN, DEFINED THE 99TH PERCENTILE OF cTnI DISTRIBUTION IN A REFERENCE POPULATION, HAS BEEN CONFIRMED THE DECISION THRESHOLD FOR [place] DIAGNOSIS. Performed By: #### P OCGLUC #### [facility] [address] [place] [address] [address] Misha Torres TSHon 04-28-2022 TSH 1.257 uIU/mL Normal 0.358-3.740 [facility] Comment on above: Performed By: #### P OCGLUC #### [facility] [address] [place] [address] [address] Misha Torres URINE MICROSCOPIC ONLYon BACTERIA LARGE Abnormal NONE SEEN [facility] Comment on above: Performed By: #### U MICRO, ERUR ####[facility] [address] [place] [address]Dr. Misha Torres Bacteria identified Cx Nom (U) INDICATED Normal [facility] Comment on above: Performed By: #### U MICRO, ERUR ####[facility] [address] [place] [address]Dr. Misha Torres CAST NONE SEEN Normal NONE SEEN [facility] Comment on above: Performed By: #### U MICRO, ERUR ####[facility] [address] [place] [address]Dr. Misha Torres Crystals LM Nom (Urine sed) NONE SEEN Normal NONE SEEN [facility] Comment on above: Performed By: #### U MICRO, ERUR ####[facility] [address] [place] [address]Dr. Misha Torres Epithelial cells LM Ql (Urine sed) RARE Normal NONE SEEN /RARE [facility] Comment on above: Performed By: #### U MICRO, ERUR ####[facility] [address] [place], [place] [address]Dr. Misha Torres MUCOUS NONE SEEN Normal NONE SEEN [facility] Comment on above: Performed By: #### U MICRO, ERUR ####[facility] [address] [place], [place] [address]Dr. Misha Torres RBC NONE SEEN Abnormal 0-[address] [facility] Comment on above: Performed By: #### U MICRO, ERUR ####[facility] [address] [place], [place] [address]Dr. Misha Torres WBC 0-2 Abnormal NONE SEEN [facility] Comment on above: Performed By: #### U MICRO, ERUR ####[facility] [address] [place], [place] [address]Dr. Misha Torres XR CHEST 1 Von 04-28-2022 [...] LAURA THOMAS Date: 2022-04-28 17:[address] [facility] Coding Summary.on 01-11-2021 Coding Summary. CD:[id number] G h0bWw+PGhlYWQ+HS4SDSU fL39voGChcC4CL4qJJE6Q QGHGXKDTSP5UQW5bfIP5E PmtY5IajrOo QhoeeARuJD23DHg0RAR5v QicEEyaoB9soQPsQ3y6Hv WcBO47jD15ANrtLRIbYcO 3LjZpbjsgbWFy B2hnOqTwsJLoZck+PHRhY mxlIHdpZHRoPScxMDAlJy RkyWdrKP6qHc8pKZJsTDZ vbGxhcHNlOiBj w5gbFDKkNSvzZQ9teDzhH 9ZrgUW4GXGut8g0Lh34oU I+FORmOTQ6nYakJDqfb49 7EtAhu4smJZC9 uFZrPZbfZEX1B07zh9Z7D EUeUAPgUBM3pOB7wC5arX nfdycpI3ZemHGpKlA8MOG 1aTQsuU0azKnw szwmoE9vXgh+R35KVB3IR GFBVF3SBit4B4RfFoxqiD I+HN70GQCmPI65mOHeaEE sf6uikSj6KaJy SDVnBRN8zBzfTQpep5GtS JRlT25cuMBju0G4HQNctX ltfBBrQlAazVP7yG2gJHm hdyusw2mtjoex Muljd6dyzz93mV28R93xQ PvvZUBoZLQ9GQTzNGZzjP ffeu3mtQ5vSm6+HSghx0c kl0imnVt1WtCp KTZanqKqxTskJRA2t7NaY s12K9LtdCvlj6KoWht8hk 68aFCnx7S8wRN8COrmEGG vlJ8eBIkdRpD7 XOVkShMltY55jXNbQDzwE g7xpJlcvYtgMA8mPJDuyf ulQLAtwV7zPQRskHBebQz cAT4jVCRttjmu b440QpCiXZH1CXTzcLKrK 7YmuZ9iKzVhXNZrZUIqX8 AcnVJiAPpmQ712VUhcLsF 6UIFcuwKeW4Kc MWFbeTsnOdC7w0U5Wg9Tk 7XyojxgUIH9YTeyBKW1Oq U0PyMfIpB8V5TfKng5RBW cjDadUT0bT0Vf OQFcadtcodeisFC6HTHrX PEhvT03fULyLMrmZm7ng8 C0d819VRRvAYEovV75Jg5 udDogMTBwdCBU lA6euamuo5lvkjidXeCnC AIaKIu5KMp8MSAasFxqCy GtNWE4LmS7TFP0hEBkaK5 dbHildexshL3m Oyc+M83okH3aFPR1DXU2e wmlZBMzgeJiVQ84UM31K8 RyPjwvdGFibGU+PGRpdiB cbJwdTT5jZtXe j8tpa1JvXEghY2HcWWJbR QfuQby3CBSoDZN6bET9eK 1uKJGiGQbhw2W4wNS2D1B jmgJtjg0bm9ek JLElMZdhM31mjDUoa1I1D KQffPA4GZNiyRayTnZrsW 93Oyc+ELOokHgnc2JoRry cf9jqm3vfvGt6 VdVgKSIzpxZplPyiUPW9p 2VbYs33X64jYNbsCKCyGN OdNRIqQTTspUchsa6mcH6 wIi8+PGNvbCB3 oYS9aK2hPDHaWyG6BFcrA 267FyXisJRtVnxgd7qiy5 jkyBj0NoRyMRQaztUtbNg dECF3s1HuDp34 C68xLZchZCRwEDZjAVNlD UWhwLhyja4akD9dSn3+PC 0rf4fviy65zM18dLG+PHR kXQA8qPnlENro REMioB9xNAakOgY6SUDgD sArwM78lUImYWgyMz0lmB bxcTmmHA4jCIJtmonxl97 5NnTyv3oaWCZu rYPkOXnhFVJ8W53su0T7Z VVhGEEoDKZ2lVM4cM8bbK lnbjogbGVmdDsgdmVydGl uGFwkQZizA118 IHRvcDsnPlBhdGllbnQgT kGeQVk2N3FnHov5XAUhvA yuVY0kbNTkVNtqFq2jxPl tvWsaJY1zXHWp lyckf992YsJfr8vmUPJof HQcBOpdHNG2S00lf0Q3ER OzLTMxWEV7yUJ9nL4fyNi nbjogbGVmdDsg sgQkuYmcHQdhLXdvR970D HRvcDsnPkJpcnRoIERhdG A8JN46IP73tDDeh6B8tCC 6P6IuZCDwvkrp shxabRG5TOXnDPFxzM81N o6doGfrWo2iYXCrJIK2PP FoxCEfW0DdyF2mEdBfQTG sRELaL3ZmeQGw MCslK189NMvyCyM0UZNob nKvN7AiTITcsNmgQiH6i3 J6Wh8SO4M5WL14LL45iRC zp7R6rCX8U2An GEEnmiamjbzihZX9GVOjL OGxsW93La1weHlhUc2dWT NbDQI1PNNfvGJtY7OdiU7 yOiAjMDAwMDAw Q7QukOWnIEqpN360CRrfN aU5UGBjetYuU0DnQBUdjK xiEfG0c4A9Ym0IMSu4KC3 3GT53eGJdg0V9 wOM2J5YhWZRkgwjflxgzb IK2HGJnRHIsmF74Wi0glI iiCb3eTMYcUAP9HCZeeMU eJ2UsiS5hPmLt LJMzFLDbU4TveHYbLHryV 208SUnlCqH6IWYepuSrT0 DaGCDaeQuxKxM7y7H9Rf3 GPARtXQ82TFM3 lFX3LZ58IW11U6YcTrhip GFibGU+PHRhYmxlIHdpZH RoPScxMDAlJyBzdHlsZT0 tQj9rOKPzYVBr aNljeNIhLwQpd1qeDFRvX BrbQZ7loGazR7AjbSR3JJ Tzd2j3Xo67A95gF6IigEJ +FGGsjWY1hDX2 hJ7dAhBeUxW0FMfhI952F aPyjMRuNrrym2wlr1zhkL j7ZrL4IEYrqnJewZnxNRT 5b1MjOf10I02x IHdpZHRoPSIxNSUiIHZhb Lkpme6qpP9xOt9+PGNvbC M9gVI0nR6lFjNzSgR6VRx iP391QtWmyAFc Ouijm9itb5rmtBu5LrIcS PHfrkDybQvbYGO3s6ApIv 00E5AwoRdul1PyTab3sy2 9pPWeo0J7kSF4 C7XgQQBhzzxdjIYaxNbfG Q8cIOHapxibVUBdbP9xNX YfS1e5DkUuWwR9KYhvE1U xhtS6BBTotWFh CTnmFSX4Q75gl6P6MMMcM KLqHRR9yCP0zZ2jfTncpw ogbGVmdDsgdmVydGljYWw zACzdA851SKHp oAjjRMNhhW4fMNHiaCIqi QdaTN3pIJDibdqcKzoCRj NXPdqMDyoqEFGYWJ4TFWW 5D4ZsLkk7ZOJt kKhxHM3puQHrLSwsIq7mc DdpdUdwKL3yPUQxcrskHD YakY3gZLLjzZWvcYitCQ4 xOUDegantu388 GbQwUQE8YUSmsJJhX6Mdz G7lIwTaRETwQURcD8DriZ JnGNwdO597IJhmQkF5ZUC mlxKfL7BcNPWj iWgvOeX0o5T5Xd5qAM9uU S7mLTVjOK38LZ97bCOni9 M5pGU2V3ZnDWLnqvyvrpm tvDV7OIIbHCOz tG88lALpIDssHk4ky0P1x 491LWAkJPVauH14Ch2mbU vtNKHhiYHUaY6uoqsjn0n vcjogIzAwMDAw YYk9QZm2IITuaQcgRrKnE IW3MyA9YUI7sDKudJ5ywI omqyxkiH6kPxd+ODAgWWV kflO1F4XdCui0 RBUikHdgLC4eyMFdXLtoH g1ciOfbyArjRI9nMRZewi jnCLPfdH0gKUQaqSCegNn wDM9sZUUigzfw j261BbRzHJT6NYIgpBLdC 4OkjP9vRrRmRWHlBNZjZ5 EctZHnJWykP690BCnbGgH 4ZDBhckSnO6Fl SGEymQuzKcF5f9P5Hs7VB O8qoQL5O7SvXqh2QLCfnG esKZ6kpUFaKZbrQu1whXv riRrhQS6aVIKi axraYPAhyU0nRWZjdKQos HuzKH8wPHUhbsifi217Xa MzQDN2ZDJcnOYzH7VcuK9 yOiAjMDAwMDAw J8PsnCNzYBczI567NTziT sB8LZEqaqZkJ2DuISVlmW pqImN0c0P2It2UdLYeSJA vSZ94JW45OU24 G6UzQjsygAQapTM+PHRhY mxlIHdpZHRoPScxMDAlJy RlcZdhTI4bSx8sCLRvMVQ vbGxhcHNlOiBj a4flTYThASysPY1ymGiwG 2YlsVS2VEEsq0h7Pe72X5 5nH7EflKY+HMGxtKJ7zCA 7bX5oDlBtJnU7 HRpvI615FiUbcYXtPffga 4mju2aczJy1TqVvUCUtvw AhhYivXKO8e7JhTf03A59 sIHdpZHRoPSIy ZVNtLMGhdZrqkh1uiG7hO i8+MLRfwOR1pVN2qT3aCh QlYpO7CXgeT930SkMcmJD iKnebA90rT8Nj dXA+FSClFaq9BHPtbQahZ G4ryYAqFAoqSt1nQAV2Tf OePeUsGOutT9SdMQNozud atinolOQ2VGTl BBUmkM36Vc3bwGzjFu2xI HBsOHH8DIPicNIwM6QyjU 1mCgSrEWKrIAQjZ8KceXN iVBlsY022XVao HhR1WWKdbeJgP6LmCAHke MvxYuM2a0R4Ky2QjTwndI WyNU8iFzAkXWu3S7ThNfd 1KYDhqOsfTG8i cMUcLFheKm3jnSlqkUtpK A1aEMTflhyaf054WhKxm6 rxITUgeWPaNNyaGMD7J33 qi9K8BPMiEZAr FGB5sFD6eE3rkTgroqpdn GVmdDsgdmVydGljYWwtYW zaL046NOVhoMczDhNOQyb 7J0RyNkm1MOFm oPvnPX6ftHMsSLxmTi4kc UxcpYppTD6vHHQxpftrs6 29QeFtz4pdYMDpuRHoTXe hGTE4N93pb0E0 YGSxRQVvZNK0nLT1kJ9xu GlnbjogbGVmdDsgdmVydG ivBXzrDDsrF764JXZnjZp aIf5QPgz8K4Sw Dfd5ZNDceBmaBC6yvZGrO IzkEm6mlHkazVfhCN0wSQ Nmivppf040ZfRct5ilCEZ wcHQgVGltZXM7 O05cz5J3IMVmTGIfCHW0u SK7vN6xeFrjiudbtHTwcX htsxOxhCwjECzmLFbfQ88 6IHRvcDsnPlBh eWVyOjwvdGQ+LY12lw74J 7UtMkrtAbj1UDKoDBU0aE X8tW7lXCPyRSsrv3Z9rAV 9O4XqokSwaz9h b2xs (more content not included)... Normal [facility] IntraOperative Documentson 0 01-11-2021 IntraOperative Documents [id number]# 1.00CD:127 Normal [facility] Consent for Procedure/Surger yon 01-06-2021 Consent for Procedure/Surgery [id number]# 1.00CD:127 Normal [facility] Main OR Intraoperative Recor don 01-05-2021 Main OR Intraoperative Record IntraOp Document Type FT Summary Primary Physician: Sherine DAO MD Finalized Date/Time: 01/05/21 12:27:08 Pt. Name: SHRUTHI DE ANDA/Sex: 1940 Female Med Rec #: [id number] Physician: Sherine DAO MD Financial #: [id number] Pt. Type: O Room/Bed: / Admit/Disch: 01/01/21 [...] opened to review and send charges. 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 Case Attendance FT Entry 1 Entry 2 Entry 3 Case Attendee Papito Oliver Jr., DO, MD, Sherine Garvin RN, Brina Role Performed Anesthesiologist of Surgeon - Primary College Service Officer - Primary Record Time In 01/01/21 10:41:00 01/01/21 10:41:00 01/01/21 10:41:00 Time Out 01/01/21 10:59:00 01/01/21 10:59:00 01/01/21 10:59:00 Procedure COLONOSCOPY(.) COLONOSCOPY(.) COLONOSCOPY(.) Comments Last Modified By: Virgie RN, Brina Garvin RN, Brina Garvin RN, Brina [...] Antibiotic No Time Out Papito Oliver Jr., DO, SALAM MD, Virgie Basurto RN, Antonino Gonsalves Micala [...] and tissue Entry 1 Skin Integrity Intact, [employer], Warm, and Skin Abnormality No Dry Outcomes [...] at [place] (more content not included)... Normal [facility] Postoperative Documentson Postoperative Documents [id number]# 1.00CD:127 [facility] IntraOperative Documentson 0 01-04-2021 IntraOperative Documents [id number]# 1.00CD:127 [facility] Consent for Anesthesiaon Consent for Anesthesia [id number]#1 .00CD:127 [facility] Consent for Treatmenton Consent for Treatment [id number]#1 .00CD:127 [facility] Discharge Instructionson Discharge Instructions [id number]#1 .00CD:127 [facility] Endoscopic Procedure Report - Otheron 01-01-2021 [...] internal hemorrhoids Images Procedure images: Rec1_hd_video_2020_ _[id number].jpg Rec1_hd_video_2020_ _[id number].jpg Rec1_hd_video_2020_ _[id number]_[id number]_12_[id number].jpg Rec1_hd_video_ _[id number]_55_[id number]_630.jpg Rec1_hd_video_2020_ _[id number]_[id number].jpg . Post-Procedure Complications: none. Estimated blood loss: [...] medications. Return to activities:: After [address] [facility] Comment on above: Result Comment: Elec tronically Signed By: ALLEN REED, Sherine\.br\Date and Time Signed: 01/01/21 11:00 EDT Other Comment: Aaliyah thompson Attachment - attachment storage system not supported [id number] Can be viewed in source systemMissing Attachment - attachment storage system not supported [id number] Can be viewed in source systemMissing Attachment - attachment storage system not supported [id number] Can be viewed in source systemMissing Attachment - attachment storage system not supported [id number] Can be viewed in source systemMissing Attachment - attachment storage system not supported [id number] Can be viewed in source system Inpatient Patient Summaryon 01-01-2021 Inpatient Patient Summary [place] [id number] [facility] Clinical Discharge Instructions PERSON INFORMATION Name: SHRUTHI [...] Milligram By Mouth every day. Comment: Normal [facility] Main OR PACU I Recordon Main OR PACU I Record PACU Phase I Docum ent Type FT Summary Primary Physician: Sherine DAO MD Finalized Date/Time: 01/01/21 13:03:02 Pt. Name: SHRUTHI DE ANDA Miguel A /Sex: 1940 Female Med Rec #: [id number] Physician: Sherine DAO MD Financial #: [id number] Pt. Type: O Room/Bed: / Admit/Disch: 01/01/21 [...] By: Francesca Ramirez RN 01/01/21 13:03 Normal [facility] Main OR Preoperative Recordo n 01-01-2021 Main OR Preoperative Record Holding Area Document Type FT Summary Primary Physician: Sherine DAO MD Finalized Date/Time: 01/01/21 10:41:02 Pt. Name: SHRUTHI DE ANDA/Sex: 1940 Female Med Rec #: [id number] Physician: Sherine DAO MD Financial #: [id number] Pt. Type: O Room/Bed: / Admit/Disch: 01/01/21 [...] Patient NPO after Midnight: No Personal Items Marck Comment: Limitations: Walker Case Cancelled in No Holding Area see comments below for reason Last Modified By: Yoon Best RN 01/01/21 09:57:50 General Comments: NPO after prep completed around per patient. RHRn Finalized By: Yoon Best RN Document Signatures Signed By: Yoon Best RN 01/01/21 10:41 Normal [facility] Monitor Recordon 01-01-2021 Monitor Record [id number]# 1.00CD:127 Normal [facility] Outpatient Surgery Discharge Instructionon 01-01-2021 Outpatient Surgery Discharge Instruction [place] [id number] Patient Discharge Instructions PERSON INFORMATION Name: SHRUTHI DE ANDA Date of : 1940 Current Date: 01/01/2021 10:59:40 PHYSICIANS Admitting Physician: Sherine DAO MD Discharge Diagnosis: Colon polyp SHRUTHI DE ANDA [...] THE NEAREST EMERGENCY ROOM OR CALL 911 NEETU Cervantes ARLENE A, have received the attached patient education materials/instruction s and have verbalized understanding: May we do a follow up call? Yes No I was present when discharge instructions were given Patient Signature Date Clinican/Nurse Signature Date Follow up: Pharmacy Information: Haroon Jeff You may receive a survey from [employer] asking you to rate your care experience. Your feedback is important and will help us understand what we do well and how we can improve the quality of care we provide to you, your loved ones and our community. It?s an honor to serve you. Thank you for choosing [facility] HERE ARE THE MEDICATION CHANGES THAT OCCURRED [...] every day. PATIENT EDUCATION INFORMATION Instructions: Normal [facility] Patient Education - Texton 0 01-01-2021 Patient Education - Text Normal [facility] Progress Note-Physicianon Progress Note-Physician Patient: SHRUTHI SAVAGE [...] complications noted. Plan Transfer/ Discharge: Condition stable. Normal [facility] Comment on above: Result Comment: Elec tronically [...] follow instructions per packaging and physician's handout, [facility] 1623 Documented Medications Documented Ibuprofen PM: 2 tab(s), [...] been selected or recorded. Procedure history: Colonoscopy ([id number]). Social History Social & Psychosocial Habits Tobacco 11/30/2020 Tobacco Use: Never (less than 100 in l . Physical Examination Respiratory: Lungs are clear to auscultation. Cardiovascular: Regular rhythm. Plan [place] [employer] Anesthesiologists (ASA) physical status classification: Class III. Anesthetic Preoperative Plan Anesthesia: General. . Anesthetic plan, risks, benefits, and alternatives discussed with the patient and/or family. Patient verbalized understanding. [facility] Comment on above: Result Comment: Elec tronically Signed By: Papito Oliver Jr., DO\.br\Date and Time Signed: 01/01/21 10:04 EDT Consent for Procedure/Surger yon 12-02-2020 Consent for Procedure/Surgery [id number]# 1.00CD:127 [facility] Historical Records Officeon 12-02-2020 Historical Records Office [id number]#1 .00CD:127 [facility] Gastroenterology Office/Clin ic Noteon 12-01-2020 Gastroenterology [...] after patient consented to recording for virtual retail selling specialist and provider reviewed before signing. DANNY: Carolann Aguila Follow-up With When Contact Information Sherine DAO MD, DYLLAN, MED Only if needed [facility] [address], [place] [address]- Additional Instructions: Patient Education Colon Polyps Problem [...] than 100 in lifetime) Tobacco Use:., 11/30/2020 [facility] Comment on above: Result Comment: Elec tronically Signed By: Sherine DAO MD\.br\Date and Time Signed: 12/01/20 12:38 EDT\.br\Electronically Co-Signed By: Carolann Aguila\.br\Date and Time Co-Signed: 11/30/20 15:20 EDT Ambulatory Clinical Summaryo n 11-30-2020 Ambulatory Clinical Summary {[id number]}CD:[id number] [facility] Patient Educationon 06-07-20 21 Patient Education Oncology Colon Polyps Polyps [...] 03/08/2005 Document Revised: 09/27/2018 Document Reviewed: 09/27/2018 [employer] Patient Education ? [address] [employer] [facility] November 16, 2020 [address]DA [address] [place] [address] SHRUTHI DE ANDA 1940 Dear Shruthi, This is a SECOND ATTEMPT to remind you that you are due for an appointment with Dr. Dao or Dr. Omer. Please call [facility] at [phone] to schedule an appointment at your earliest convenience. Thank you, [facility] Patient Letter FTon 2020 Patient Letter [facility] September 30, 2020 SHRUTHI DE ANDA [address] [place] [address] SHRUTHI DE ANDA 1940 Dear Shruthi, This is a reminder that you are due for an appointment with Dr. Dao or Dr. Omer. Please call [facility] at [phone] to schedule an appointment at your earliest convenience. Thank you, [facility] Encounters Encounter Date Encounter Type Care Provider Facility Start: 07-28-2023 End: 07-28-2023 ambulatory Rolf Ball Other [email or web address] Other Start: 07-28-2023 Telephone encounter Rolf Ball [facility] Start: 07-27-2023 End: 07-27-2023 ambulatory Rolf Ball Other [email or web address] Other Start: 07-27-2023 Telephone encounter Rolf Ball [facility] Start: 07-26-2023 End: 07-26-2023 ambulatory Rolf Ball Other [facility] Other Start: 07-26-2023 Telephone encounter Rolf Ball [facility] Start: 07-25-2023 End: 07-25-2023 ambulatory Rolf Ball Other [facility] Other Start: 07-25-2023 Telephone encounter Rolf Ball [facility] Start: 07-17-2023 End: 07-17-2023 ambulatory Rolf Ball Other [facility] Other Start: 07-17-2023 Telephone encounter Rolf Ball [facility] Start: 06-08-2023 End: 06-08-2023 ambulatory Rolf Dai Other [facility] Other Start: 06-08-2023 Home visit est pt mod-hi severity 40 minutes Rolf Dai [facility] [address] Start: 05-15-2023 End: 05-15-2023 ambulatory Rolf Dai Other [facility] Other Start: 05-15-2023 Telephone encounter Rolf Ball [facility] Start: 05-04-2023 End: 05-04-2023 ambulatory Rolf Ball Other [facility] Other Start: 05-04-2023 Telephone encounter Rolf Ball [facility] Start: 04-28-2023 End: 04-28-2023 ambulatory Rolf Ball Other [facility] Other Start: 04-28-2023 Telephone encounter Rolf Ball [facility] Start: 04-26-2023 End: 04-26-2023 ambulatory Rolf Ball Other [facility] Other Start: 04-26-2023 Telephone encounter Rolf Ball [facility] Start: 04-24-2023 End: 04-24-2023 ambulatory Rolf Ball Other [facility] Other Start: 04-24-2023 Telephone encounter Rolf Ball [facility] Start: 04-07-2023 End: 04-07-2023 ambulatory Rolf Ball Other [facility] Other Start: 04-07-2023 Telephone encounter Rolf Ball [facility] Start: 03-15-2023 End: 03-15-2023 ambulatory Rolf Ball Other [facility] Other Start: 03-15-2023 Telephone encounter Rolf Ball [facility] Start: 03-13-2023 End: 03-13-2023 ambulatory Rolf Ball Other [facility] Other Start: 03-13-2023 Telephone encounter Rolf Dai [facility] Start: 02-16-2023 End: 02-16-2023 ambulatory Rolf Suhas Other [facility] Other Start: 02-16-2023 Telephone encounter Rolf Dai [facility] Start: 02-13-2023 End: 02-13-2023 ambulatory Rolf Suhas Other [facility] Other Start: 02-13-2023 Telephone encounter Rolf Dai [facility] Start: 01-17-2023 End: 01-17-2023 ambulatory Rolf Suhas Other [facility] Other Start: 01-17-2023 Telephone encounter Rolf Dai [facility] Start: 01-12-2023 End: 01-12-2023 ambulatory Rolf Dai Other [facility] Other Start: 01-12-2023 Home visit est pt mod-hi severity 40 minutes Rolf Dai [facility] Start: 01-11-2023 End: 01-11-2023 ambulatory Rolf Dai Other [facility] Other Start: 01-11-2023 Telephone encounter Rolf Ball [facility] Start: 01-03-2023 End: 01-03-2023 ambulatory Rolf Suhas Other [facility] Other Start: 01-03-2023 Telephone encounter Rolf Ball [facility] Start: 12-26-2022 End: 12-26-2022 ambulatory Rolf Ball Other [facility] Other Start: 12-26-2022 Telephone encounter Rolf Suhas [facility] Start: 12-22-2022 End: 12-22-2022 ambulatory Rolf Ball Other [facility] Other Start: 12-22-2022 Home visit est pt mod-hi severity 40 minutes Rolf Cobos [facility] Start: 12-08-2022 End: 12-08-2022 ambulatory Rolf Suhas Other [facility] Other Start: 12-08-2022 Telephone encounter Rolf [facility] Start: 10-26-2022 End: 10-26-2022 ambulatory Rolf Suhas Other [facility] Other Start: 10-26-2022 Telephone encounter Rolf [facility] Start: 10-06-2022 End: 10-06-2022 ambulatory Rolf Suhas Other [facility] Other Start: 10-06-2022 Telephone encounter Rolf [facility] Start: 09-22-2022 End: 09-22-2022 ambulatory Rolf Dai Other [facility] Other Start: 09-22-2022 Home visit est pt mod-hi severity 40 minutes Rolf Dai [facility] Start: 04-29-2022 End: 05-01-2022 Evaluation and management of inpatient DR ROLF DAI Facility:[facility] Start: 02-15-2022 End: 02-15-[address] ROLF DAI Facility:[facility] Start: 05-19-2020 Adult health examination Rolf Dai Other [email or web address] Other Procedures Date Procedure Procedure Detail Performing Clinician Start: 01-15-2017 Screening for osteoporosis Rolf Dai Other Start: 08-05-2016 Pre-surgery evaluation Rolf Dai Other Start: 08-05-2016 Preoperative cardiov ascular examination Rolf Dai Other Start: 12-30-2014 Screening for osteoporosis Rolf Dai Other Start: 12-30-2014 Screening mammography B enjuana Dai Other Start: 03-15-2013 General examination of patient Rolf Dai Other Depression screening Lexis Dai Other Screening for malign ant neoplasm of breast Rolf Dai Other Immunizations Immunization Date Immunization Notes Care Provider Graciela morales 03-10-2021 influenza virus vaccine, split virus (incl. purified surface antigen) Rolf Dai Other [facility] Other 07-27-2020 COVID-19 Vaccine Moderna - Documentation Purposes Only Rolf Dai Other [email or web address] Other 04-01-2020 influenza virus vaccine, split virus (incl. purified surface antigen) Rolf Dai Other [facility] Other 04-19-2017 influenza virus vaccine, split virus (incl. purified surface antigen) Rolf Dai Other [facility] Other 05-11-2016 influenza virus vaccine, split virus (incl. purified surface antigen) Rolf Dai Other [facility] Other 03-08-2016 pneumococcal conjuga te vaccine, 13 valent Rolf Dai Other [facility] Other 03-08-2016 pneumococcal Conjuga te, unspecified formulation; Translations: [Need for prophylactic vaccination against Streptococcus pneumoniae (pneumococcus)] Rolf Dai Other [facility] Other 02-29-2012 tetanus and diphther ia toxoids, adsorbed, preservative free, for adult use (5 Lf of tetanus toxoid and 2 Lf of diphtheria toxoid) Rolf Dai Other [facility] Other Payers Date Payer Category Payer Medicare [id number] 1959 Private Health Insurance [id number] 1940 Unknown [id number] 1940 Unknown [id number] Unknown [id number] Social History Date Type Detail Facility Sex Assigned At [email or web address] Other Medical Equipment Procedure Code Equipment Code Equipment Origin al Text Equipment Identifier Dates [place] 31G X 8 MM Start: 03-13-2023 Clinical Notes 01-06-2021 to 07-28-2023 Note Date & Type Note Facility 07-28-2023 Evaluation note Encounter Date Diagnosis Assessment Notes Jul, Acute cystitis with hematuria (ICD-10 - N30.01) [facility] Other 02-01-2024 Evaluation note* Encounter Date Diagnosis Assessment Notes Treatment Notes Treatment Clinical Notes Jul, Type 2 diabetes mellitus with hyperglycemia (ICD-10 - E11.65) [email or web address] Other 01-30-2024 Evaluation note* Encounter Date Diagnosis Assessment Notes Treatment Notes Treatment Clinical Notes Jun, Type 2 diabetes mellitus with hyperglycemia (ICD-10 - E11.65) Jun, shelter (current) use of insulin (ICD-10 - Z79.4) [facility] Other 12-14-2023 Evaluation note* Encounter Date Diagnosis Assessment Notes Treatment Notes Treatment Clinical Notes May, Type 2 diabetes mellitus with [...] w/ IADL Requires assistance w/ all MRADL [email or web address] Other 10-30-2023 Evaluation note* Encounter Date Diagnosis Assessment Notes Treatment Notes Treatment Clinical Notes Mar, Acute cough (ICD-10 - R05.1) [facility] Other 09-18-2023 Evaluation note* Encounter Date Diagnosis [...] > 350 14u Continue to monitor BS. [facility] Other 08-21-2023 Evaluation note* Encounter Date Diagnosis Assessment Notes Treatment Notes Treatment Clinical Notes Jan, Mucopurulent chronic bronchitis (ICD-10 - J41.1) [facility] Other 07-19-2023 Evaluation note* Encounter Date Diagnosis Assessment Notes Treatment Notes Treatment Clinical Notes Dec, High cholesterol (ICD-10 - E78.00) [facility] Other 06-29-2023 Evaluation note* Encounter Date Diagnosis [...] use, the patient reduces the risk for NH, CVA, HTN, cardiac dysrhythmias and sudden cardiac [...] Neurology Nov, High cholesterol (ICD-10 - E78.00) [facility] Other 03-30-2023 Evaluation note* Encounter Date Diagnosis [...] use, the patient reduces the risk for NH, CVA, HTN, cardiac dysrhythmias and sudden cardiac deaths.The patient is also aware of the association between RAMÓN and morning headaches, daytime somnolence, fatigue and obesity Aug, Cerebral atherosclerosis (ICD-10 - I67.2) Continue secondary prevention w/ ASA and Statin therapy Aug, Parkinson''s disease (ICD-10 - G20) Continue present treatment, f/u Neurology as needed [facility] [employer] Other 07-14-2021 Note [id number]#1.00CD:[address] [place] [address] 01-06-2021 [id number]#1.00CD:[address] [place], [place] [address]Evaluation noteNo InformationNortUpper [facility] [employer] Other [facility] Other History general Narrative - Reported* Type [...] History cancer Hospitalization History SEE SURGICAL HX [facility] [employer] Other History general Narrative - ReportedNoparkland [facility] center [facility] Other History general Narrative - ReportedNoparkland health center [facility] Other Summary Purpose Family History No Family History Records FoundNo Family History Records Found Advance Directives No Advanced Directives Records FoundNo Advanced Directives Records Found Additional Source Comments INFORMATION SOURCE (unrecogn ized section and content) DATE CREATED AUTHOR 01/11/2021 [facility] DATE CREATED AUTHOR AUTHOR'S ORGANIZ ATION 05/09/2022 [facility] REASON FOR VISIT (unrecogniz ed section and content) [facility] Pap[facility] Gardens PlaceERRORUpdateRefillcompression stockingsNebulizer and medicationNo InformationClyde Gardens PlaceNo InformationNo InformationUpdatePTCoughPrescription needs faxedupdateTCMmessageUpdateClyde GardensChgallup [facility] centerty [facility] [place] HHPrescriptionNo Informationhospital bedMedication change FOR RECORDS PERTAINING TO PATIENTS WHO ARE [...] BE BASED ON THE PRIMARY CLINICAL RECORDS. [employer] provides no warranty or guarantee of the accuracy or completeness of information in this document.
[2023-08-31 14:17] LABS: Basophils Percent Auto 0.6 % (0.2-2.0); Bilirubin Urine NEGATIVE (NEGATIVE); Blood Urine SMALL (NEGATIVE); Clarity Urine CLEAR (CLEAR); Color Urine LT. YELLOW (YELLOW); Eosinophils Absolute Auto 0.2 10^3/uL (0.0-0.7); Glucose Urine UA NEGATIVE (NEGATIVE); Hematocrit 36.9 % (36.0-48.0); Hemoglobin 11.3 g/dL (12.0-16.0); Immature Granulocytes Abs Auto 0.02 10^3/uL (0.00-0.03); Immature Granulocytes Pct Auto 0.3 % (0.0-0.5); Ketones Urine NEGATIVE (NEGATIVE); Leukocyte Esterase Urine SMALL (NEGATIVE); Lymphocytes Absolute Auto 1.6 10^3/uL (1.2-3.8); Mean Corpuscular HGB Conc 30.6 g/dL (29.9-35.2); Mean Corpuscular Hemoglobin 28.7 pg (26.7-34.0); Mean Corpuscular Volume 93.7 fL (81.0-99.0); Mean Platelet Volume 10.9 fL (9.5-13.5); Monocytes Absolute Auto 0.5 10^3/uL (0.3-0.8); Monocytes Percent Auto 7.6 % (1.7-12.0); Neutrophils Absolute Auto 4.3 10^3/uL (1.4-6.5); Neutrophils Percent Auto 64.5 % (43.0-75.0); Nitrite Urine POSITIVE (NEGATIVE); Platelet Count 175 10^3/uL (150-450); Protein Urine NEGATIVE (NEG/TRACE); Red Blood Count 3.94 10^6/uL (4.20-5.40); Red Cell Distribution Width 13.2 % (11.0-15.0); Specific Gravity Urine 1.025 (1.005-1.025); Urobilinogen Urine 0.2 EU/dL (0.2-1.0); White Blood Count 6.7 10^3/uL (4.0-11.0)
[2023-08-31 14:19] LABS: Urine Microscopic Indicated YES
[2023-08-31 14:24] LABS: Bacteria Urine LARGE #/HPF (NONE SEEN); Cast Seen? NONE SEEN #/LPF (NONE SEEN); Crystals Seen? None Seen #/HPF (None Seen); Mucus Urine NONE SEEN (NONE SEEN); Squamous Epithelial Cell Urine RARE #/LPF (NONE/RARE); Urine Culture Indicated YES
[2023-08-31 14:25] LABS: Alanine Aminotransferase 10 U/L (14-59); Albumin Globulin Ratio 0.9; Albumin Level 3.3 g/dL (3.4-5.0); Alkaline Phosphatase 92 U/L (46-116); Anion Gap 10.2; Aspartate Amino Transferase 14 U/L (15-37); BUN Creatinine Ratio 19.3; Bilirubin Total 0.3 mg/dL (0.2-1.0); Calcium 8.8 mg/dL (8.5-10.1); Carbon Dioxide 31.8 mmol/L (21.0-32.0); Chloride 105 mmol/L (98-107); Estimated GFR (African America 58 (>=60); Estimated GFR (Non-African Ame 48 (>=60); Globulin 3.8 g/dL; Glucose 146 mg/dL (74-106); INR 1.02; Prothrombin Time 10.8 sec (9.0-11.6); Sodium 143 mmol/L (136-145); Total Protein 7.1 g/dL (6.4-8.2)
[2023-08-31 14:33] LABS: Thyroid Stimulating Hormone 3.701 uIU/mL (0.358-3.740); Troponin I High Sensitivity <4.0 pg/mL (4.0-51.3)
[2023-08-31 14:38] LABS: Lactate/Lactic Acid 1.3 mmol/L (0.4-2.0)
[2023-08-31] MEDS: CIPROFLOXACIN HCL 500 MG TABLET PO (15:24)
--- NOTE | 2023-09-02 10:17 | PC.NURSE ---
09/02/23 1017 called pt phone, both not working, called pt daughter Merry and left message for return call. Pt urine c+s from 08/31/[address] judy jacobs to change aatb from cipro to macrobid 100 po BID times 7 days. will call into pharm once return call from pt or family. Ese Rossi RN
== END 2023-08-31 18:10 | disposition home or self-care (01) ==
PROVIDERS: Physician Assistant; Emergency Provider Emergency Medicine Emergency Medical Services; PCP Internal Medicine
DX: N39.0 Urinary tract infection, site not specified (principal); E11.9 Type 2 diabetes mellitus without complications; G20.A1 Parkinson's disease without dyskinesia, without mention of fluctuations; F02.80 Dementia in other diseases classified elsewhere, unspecified severity, without behavioral disturbance, psychotic disturbance, mood disturbance, and anxiety; I69.359 Hemiplegia and hemiparesis following cerebral infarction affecting unspecified side; G47.33 Obstructive sleep apnea (adult) (pediatric); I12.9 Hypertensive chronic kidney disease with stage 1 through stage 4 chronic kidney disease, or unspecified chronic kidney disease; N18.31 Chronic kidney disease, stage 3a; Z90.710 Acquired absence of both cervix and uterus; Z66 Do not resuscitate; Z98.890 Other specified postprocedural states; Z87.891 Personal history of nicotine dependence; Z79.02 Long term (current) use of antithrombotics/antiplatelets; Z79.82 Long term (current) use of aspirin; Z79.899 Other long term (current) drug therapy; Z79.4 Long term (current) use of insulin
CPT/HCPCS: 36415; 70450; 71045; 80053; 81001; 83605; 84443; 84484; 85025; 85610; 87086; 87150; 87186; 93005; 99285

== ENCOUNTER 2024-07-04 05:50 | Emergency (ER) | payer MEDICARE, OTHER, SELFPAY ==
[2024-07-04 05:54] VITALS: BP 218/108; PULSE 96; TEMP 36.3; O2SAT 94
--- NOTE | 2024-07-04 05:56 | XR_ITS ---
The [address] [address] Patient Name: SHRUTHI DE ANDA MRN: [id number] date: 1940 Sex: F Assigned Patient Location: ER Current Patient Location: ER Accession/Order Number: [id number] Exam Date: 07/04/2024 06:45 Report Date: 07/04/2024 07:00 At the request of: INOCENCIO GORMAN Procedure: XR hip RT min 2V PROCEDURE: XR hip RT min 2V HISTORY: fall COMPARISON: None. FINDINGS: BONES:No fracture, acute abnormality. mild-moderate arthropathy. SOFT TISSUES:No visible soft tissue swelling. EFFUSION:None visible. OTHER: Negative. XR/XR hip RT min 2V IMPRESSION: 1. No acute bone abnormality. 2. Moderate degenerative changes. Electronically authenticated by: JAIDEN EDDY Date: 07/04/2024 07:00
--- NOTE | 2024-07-04 05:56 | XR_ITS ---
The [address] [address] Patient Name: SHRUTHI DE ANDA MRN: [id number] date: 1940 Sex: F Assigned Patient Location: ER Current Patient Location: Accession/Order Number: [id number] Exam Date: 07/04/2024 06:45 Report Date: 07/04/2024 07:01 At the request of: INOCENCIO GORMAN Procedure: XR elbow RT min 3V PROCEDURE: XR elbow RT min 3V HISTORY: fall COMPARISON: None. FINDINGS: BONES:No fracture, acute abnormality, or significant arthropathy. SOFT TISSUES:No visible soft tissue swelling. EFFUSION:None visible. OTHER: Negative. XR/XR elbow RT min 3V IMPRESSION: 1. No acute bone abnormality. 2. Mild degenerative changes. Electronically authenticated by: JAIDEN EDDY Date: 07/04/2024 07:01
--- NOTE | 2024-07-04 05:56 | CT_ITS ---
The [address] [address] Patient Name: SHRUTHI DE ANDA MRN: [id number] date: 1940 Sex: F Assigned Patient Location: ER Current Patient Location: ER Accession/Order Number: [id number] Exam Date: 07/04/2024 06:25 Report Date: 07/04/2024 06:59 At the request of: INOCENCIO GORMAN Procedure: CT cervical spine wo con EXAMINATION: CT cervical spine wo con HISTORY: fall COMPARISON: No relevant comparison available. TECHNIQUE: Axial, Coronal, and Sagittal images were created without IV contrast. Dose reduction techniques were achieved by using automated exposure control and/or adjustment of mA and/or kV according to patient size and/or use of iterative reconstruction technique. FINDINGS: VERTEBRAL BODIES: No fracture or significant spondylolisthesis. FACET JOINTS: Multilevel moderate-marked degenerative changes resulting in bone encroachment on the neural foramen and central canal. No disruption or abnormal widening. DISCS: Multilevel moderate-marked narrowing. Large posterior disc osteophyte complex at C5-C6 and C6-C7 resulting in marked central canal and foraminal narrowing. CENTRAL CANAL: No evidence of hemorrhage. PARASPINAL AREA: No visible mass. CT/CT cervical spine wo con IMPRESSION: 1. No appreciable acute amount. 2. Marked degenerative changes. Electronically authenticated by: JAIDEN EDDY Date: 07/04/2024 06:59
--- NOTE | 2024-07-04 05:56 | CT_ITS ---
The [address] [address] Patient Name: SHRUTHI DE ANDA MRN: [id number] date: 1940 Sex: F Assigned Patient Location: ER Current Patient Location: .MAIN Accession/Order Number: [id number] Exam Date: 07/04/2024 06:25 Report Date: 07/04/2024 06:57 At the request of: INOCENCIO GORMAN Procedure: CT head/brain wo con EXAMINATION: CT head/brain wo con HISTORY: fall COMPARISON: CT head 08/31/2023 TECHNIQUE: Axial CT images were obtained without IV contrast. Dose reduction techniques were achieved by using automated exposure control and/or adjustment of mA and/or kV according to patient size and/or use of iterative reconstruction technique. FINDINGS: BRAIN: No intracranial hemorrhage. Encephalomalacic changes from remote infarction involving the right middle cerebral artery territory and the posterior left watershed area between the middle and posterior circulation. CSF SPACES: No hydrocephalus, subarachnoid hemorrhage, or mass. Appropriate for age. SKULL: No fracture, mass, or other significant visible lesion. SINUSES: Mucosal thickening within the ethmoid air cells and sphenoid sinuses compatible with chronic sinusitis. ORBITS: No appreciable abnormality on the limited views. OTHER: Negative CT/CT head/brain wo con IMPRESSION: 1. No intracranial hemorrhage or appreciable acute abnormality. 2. Stable chronic changes detailed above. Electronically authenticated by: JAIDEN EDDY Date: 07/04/2024 06:57
--- NOTE | 2024-07-04 05:56 | ED.GENADUL1 ---
HPI HPI - General Adult General Chief complaint: Fall Stated complaint: FALL Time Seen by Provider: 07/04/24 05:52 History of Present Illness HPI narrative: 84-year-old female presents to the emergency department for evaluation from a fall. She went down to the floor when she slipped out of bed. This happened before coming into the emergency department and paramedics transported her after placing a c-collar. She complains of pain at the right hip and the right elbow in her neck. Related Data Home Medications ?Medication ?Instructions ?Recorded ?Confirmed amlodipine 5 mg tablet 5 mg PO DAILY 01/06/23 07/27/23 aspirin 81 mg tablet,delayed 81 mg PO DAILY 01/06/23 07/27/23 release (Adult Low Dose Aspirin) atorvastatin 20 mg tablet 20 mg PO DAILY 01/06/23 07/27/23 carbidopa 25 mg-levodopa 100 mg 1 tab PO TID 01/06/23 07/27/23 tablet clopidogrel 75 mg tablet 75 mg PO DAILY 01/06/23 07/27/23 docusate sodium 100 mg capsule 100 mg PO BID 01/06/23 07/27/23 (Colace) escitalopram oxalate 5 mg tablet 5 mg PO DAILY 01/06/23 07/27/23 hydralazine 25 mg tablet 25 mg PO Q8H 01/06/23 07/27/23 insulin aspart U-100 100 unit/mL 10 unit subcut TID 01/06/23 07/04/24 (3 mL) subcutaneous pen (Novolog FlexPen U-100 Insulin aspart) insulin detemir U-100 100 unit/mL 16 unit subcut DAILY 01/06/23 07/27/23 (3 mL) subcutaneous pen (Levemir FlexPen) melatonin 5 mg capsule 5 mg PO DAILY PRN sleep 01/06/23 07/27/23 polyethylene glycol 3350 17 17 g PO DAILY 01/06/23 07/04/24 gram/dose oral powder (Miralax) clonidine 0.2 mg/24 hr weekly 07/04/24 transdermal patch Previous Rx's ?Medication ?Instructions ?Recorded albuterol sulfate 2.5 mg/3 mL 2.5 mg (3 mL) inhalation Q4H PRN 04/28/23 (0.083 %) solution for nebulization Shortness Of Breath Or Wheezing #75 mL ipratropium 0.5 mg-albuterol 3 mg 3 ml inhalation Q4H 2 weeks #90 mL 04/28/23 (2.5 mg base)/3 mL nebulization soln ciprofloxacin HCl 500 mg tablet 500 mg PO BID 7 days #14 tabs 07/27/23 (Cipro) ciprofloxacin HCl 500 mg tablet 500 mg PO BID #14 tabs 08/31/23 (Cipro) Allergies Allergy/AdvReac Type Severity Reaction Status Date / Time acetaminophen (From Percocet) Allergy Unknown Unknown Verified 07/04/24 06:18 amoxicillin Allergy Unknown Unknown Verified 07/04/24 06:18 codeine Allergy Unknown Unknown Verified 07/04/24 06:18 levofloxacin Allergy Unknown Unknown Verified 07/04/24 06:18 oxycodone (From Percocet) Allergy Unknown Unknown Verified 07/04/24 06:18 Penicillins Allergy Unknown Unknown Verified 07/04/24 06:18 Sulfa (Sulfonamide Allergy Unknown Unknown Verified 07/04/24 06:18 Antibiotics) sulfamethoxazole (From Allergy Unknown Unknown Verified 07/04/24 06:18 Bactrim) trimethoprim (From Bactrim) Allergy Unknown Unknown Verified 07/04/24 06:18 cephalexin AdvReac Unknown Unknown Verified 07/04/24 06:18 Opioid HPI Opioid Management Most Recent Opioid Data: No Data to Display Review of Systems ROS Narrative A ten point review of systems is negative except as noted above. 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 ?I69.352 - Hemiplegia and 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 (ICD-10) HTN (hypertension) ?I10 - Essential (primary) hypertension (ICD-10) Carpal tunnel syndrome ?G56.00 - Carpal tunnel syndrome, unspecified upper limb (ICD-10) Hemiplegia ?G81.90 - Hemiplegia, unspecified affecting unspecified side (ICD-10) History of CVA (cerebrovascular accident) ?Z86.73 - Personal history of transient ischemic attack (TIA), and cerebral infarction without residual deficits (ICD-10) Parkinson disease ?G20.A1 - Parkinson's disease without dyskinesia, without mention of fluctuations (ICD-10) Dementia due to Parkinson's disease ?G20.A1 - Parkinson's disease without dyskinesia, without mention of fluctuations (ICD-10) ?F02.80 - Dementia in other diseases classified elsewhere, unspecified severity, without behavioral disturbance, psychotic disturbance, mood disturbance, and anxiety (ICD-10) DM2 (diabetes mellitus, type 2) ?E11.9 - Type 2 diabetes mellitus without complications (ICD-10) Asthmatic bronchitis ?J45.909 - Unspecified asthma, uncomplicated (ICD-10) Elevated lactic acid level ?R79.89 - Other specified abnormal findings of blood chemistry (ICD-10) Syncope ?R55 - Syncope and collapse (ICD-10) Surgical History History of carpal tunnel surgery of right wrist ?Z98.890 - Other specified postprocedural states (ICD-10) History of carpal tunnel surgery of left wrist ?Z98.890 - Other specified postprocedural states (ICD-10) History of hysterectomy ?Z90.710 - Acquired absence of both cervix and uterus (ICD-10) Family History Mother Family history of CHF (congestive heart failure) Family history of cancer Son Family history of diabetes mellitus Social History Smoking status: Former smoker Do you think of yourself as: straight/heterosexual Gender Identity: female Exam Narrative Exam Narrative: Nurses note and vital signs reviewed and patient is not hypoxic. General: The patient appears in no acute distress. She has a c-collar in place. Skin: Warm, dry, no pallor noted. There is no rash noted. Head: Normocephalic, atraumatic Eye: Normal conjunctiva, no drainage Ears, Nose, Mouth, and Throat: oral mucosa is moist. Nares patent. Cardiovascular: Regular Rate and Rhythm Respiratory: Patient is in no distress, no accessory muscle use, lungs are clear to auscultation, no wheezing, rales or rhonchi GI: Normal bowel sounds, no tenderness to palpation, no masses appreciated. No rebound, guarding, or rigidity noted. Musculoskeletal: The patient has an abrasion at her right elbow which has full range of motion. Right shoulder and wrist are nontender. Right hip has full active range of motion. No deformity. The right knee is nontender Neurological: A&O x4, normal speech Psychiatric: Cooperative Constitutional Vital Signs, click to edit/add: Last Vital Signs Temp 97.4 F L 07/04/24 05:54 Pulse 96 H 07/04/24 05:54 Resp 22 H 07/04/24 05:54 BP 218/108 H 07/04/24 05:54 Pulse Ox 97 07/04/24 06:26 O2 Del Method Nasal Cannula 07/04/24 06:26 O2 Flow Rate 2 07/04/24 06:26 Course Vital Signs Vital signs: Vital Signs Temperature 97.4 F L 07/04/24 05:54 Pulse Rate 96 H 07/04/24 05:54 Respiratory Rate 22 H 07/04/24 05:54 Blood Pressure 218/108 H 07/04/24 05:54 Pulse Oximetry 94 L 07/04/24 05:54 Oxygen Delivery Method Room Air 07/04/24 05:54 Temperature 97.4 F L 07/04/24 05:54 Pulse Rate 96 H 07/04/24 05:54 Respiratory Rate 22 H 07/04/24 05:54 Blood Pressure 218/108 H 07/04/24 05:54 Pulse Oximetry 97 07/04/24 06:26 Oxygen Delivery Method Nasal Cannula 07/04/24 06:26 Oxygen Delivery Flow Rate 2 07/04/24 06:26 Medical Decision Making [facility] Narrative Medical decision making narrative: CAT scans and x-rays are ordered and the patient is signed out to Dr. [place]. Differential Diagnosis Differential Diagnosis: Contusions, abrasions, cervical spine fracture Discharge Plan Discharge Patient Disposition: Still a Patient
[2024-07-04] MEDS: ADACEL DIPH,PERTUSS(ACELL),TET VAC/PF 0.5 ML ADULT SYRINGE IM (06:14)
[2024-07-04 06:26] VITALS: O2SAT 97
--- NOTE | 2024-07-04 06:27 | PC.NURSE ---
Patient is on 2L as baseline.
[2024-07-04] MEDS: IBUPROFEN 600 MG TABLET PO (08:19)
[2024-07-04 11:01] VITALS: BP 178/90
== END 2024-07-04 11:15 | disposition home or self-care (01) ==
PROVIDERS: Emergency Provider Student in an Organized Health Care Education/Training Program; PCP Internal Medicine
DX: T14.8XXA Other injury of unspecified body region, initial encounter (principal); W06.XXXA Fall from bed, initial encounter; S50.311A Abrasion of right elbow, initial encounter; Z90.710 Acquired absence of both cervix and uterus; Z87.891 Personal history of nicotine dependence; Z23 Encounter for immunization
CPT/HCPCS: 70450; 72125; 73080; 73502; 90471; 90715; 99285

== ENCOUNTER 2025-01-11 14:44 | Outpatient (OUT) | payer MEDICARE, OTHER, SELFPAY ==
--- OUTSIDE RECORDS SUMMARY | 2025-01-11 14:47 | XMS_ITS | CCD ---
Author Organization [facility] Care Team Providers Care Volunteer Manager Name Role Phone SUHAS, DR JACKSON Admitting Unavailable SUHAS, DR JACKSON Attending Unavailable BALL, DR JACKSON [...] TANVIR Consulting Unavailable BUNDY, CARLEY Consulting Unavailable Rolf Dai Unavailable ROLF DAI Referring Unavailable SUHAS, ROLF Byers Primary Care Unavailable ROLF DAI Primary Care Unavailable MILY, LAURA Attending Unavailable MAREN, LEX Attending Unavailable LEX ENGEL Referring Unavailable SUHAS, ROLF Byers Primary Care Unavailable ZANDER VILLARREAL Referring Unavailibis e ROLF DAI Primary Care Unavailable Allergies Allergy Classification Reported Allergen(s) Allergy Type Date of Onset Reaction(s) Facility (1 source) Acetaminophen / oxyCODONE Drug Allergy 11-21-19 16 [facility] Repository (20 sources) Amoxicillin; Translations: [AMOXICILLIN] Drug Allergy 01-07-20 23 Unknown [facility] (1 source) Cephalosporins (Antibiotic) Drug allergy (disorder) [facility] (4 sources) Codeine; Translations: [CODEINE] Drug Allergy 11-21-19 16 [facility] (20 sources) levoFLOXacin Drug Allergy Unknown [facility] (20 sources) Penicillin Drug Allergy Unknown [facility] (1 source) Sulfamethoxazole / Trimethoprim Drug Allergy [facility] (1 source) Sulfonamides (Antibiotic) Drug allergy (disorder) [facility] (20 sources) Codeine Drug Allergy 03-15-20 13 Unknown [facility] Other (20 sources) Non-steroidal anti-inflammatory agent Drug allergy Unknown [facility] Other (20 sources) predniSONE Drug Allergy Unknown [facility] Other (20 sources) Sulfamethoxazole / Trimethoprim Drug Allergy Unknown [facility] Other (20 sources) Cephalosporins (Antibiotic) Drug allergy 03-15-20 13 Unknown [facility] Other (20 sources) Corticosteroids Drug allergy 03-15-20 13 Unknown [facility] Other (20 sources) HMG-CoA reductase inhibitor Drug allergy 03-15-20 13 Unknown [facility] Other (20 sources) Penicillins; Translations: [PENICILLINS] Drug allergy 03-15-20 13 Unknown [facility] Repository (20 sources) Sulfamethoxazole Drug Allergy 03-15-20 13 Unknown [facility] Other (20 sources) patient allergy list reviewed by nurse or physicia Propensity to adverse reactions 01-25-20 16 Comment:Done [facility] Other (20 sources) Vioxx *ANALGESICS - ANTI-INFLAMMATORY* Propensity to adverse reactions 03-15-20 13 Unknown [facility] Other (3 sources) Acetaminophen / oxyCODONE; Translations: [OXYCODONE-ACETAMIN OPHEN] Drug Allergy 01-07-20 [facility] Repository (3 sources) Cephalexin; Translations: [CEPHALEXIN] Drug Allergy 01-07-20 23 [facility] Repository (3 sources) Sulfonamides (Antibiotic); Translations: [SULFA (SULFONAMIDE ANTIBIOTICS)] Propensity to adverse reactions to drug (disorder) 01-07-20 [facility] Repository Medications Current Medications Medication Drug Class(es) Dates [...] tablet (20 sources) HMG-CoA Reductase Inhibitor Start: 023 take 1 tablet by mouth every twenty-four [...] extended release oral tablet (6 sources) Uncompetitive B-teeiur-G-aspartate Receptor Antagonist, Sigma-1 Agonist Start: 023 take 1 tablet by mouth every twelve [...] days Jul, Active take 1 capsule by [facility] every twenty-four hours Doxycycline [...] as directed Sublingual Active polyethylene glycol 3350 [id number] mg powder for oral solution (5 sources) [...] Active Problems Problem Classification Problem Date Documented Da te Episodic/Chronic Acute and unspecified renal failure (1 [...] Onset: 01-07-2014 Chronic Other aftercare (1 source) half-way (current) use of aspirin; 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] Onset: 05-09-2022 Episodic Other aftercare (1 source) half-way (current) use of oral hypoglycemic drugs; Translations: [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 USE ORAL HYPOGLYCEMIC DX] Onset: 05-09-2022 Episodic Other aftercare (20 sources) Long-term current use of drug therapy; Translations: [Other fdc (current) drug therapy] Episodic Other aftercare (5 sources) Long-term current use of insulin; Translations: [long 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 care administrator (current) use of insulin] Episodic Other aftercare (1 source) half-way (current) use of insulin Episodic Other and [...] insufficiency (chronic) (peripheral)] Onset: 07-11-2017 Episodic Other gastrointestinal disorders (1 source) Constipation, unspecified; Translations: [Constipation, unspecified] Onset: 03-18-2024 Episodic Other gastrointestinal disorders (1 source) Constipation Onset: 03-18-2024 Episodic Other hereditary and degenerative nervous system [...] NONCOMPLIANCE W/ MED REGIMEN] Onset: 05-09-2022 Episodic Residual codes; unclassified (1 source) Pain, unspecified; Translations: [Pain, unspecified] Onset: 08-31-2023 Episodic Respiratory failure; insufficiency; arrest (adult) (20 sources) Dependence on supplemental oxygen; Translations: [Dependence on supplemental oxygen] Chronic Spondylosis; intervertebral disc disorders; other back problems (20 sources) Cervical spondylosis without myelopathy; Translations: [Spondylosis without myelopathy or radiculopathy, cervical region] Chronic Unclassified (1 source) CONTACT W/AND (SUSP) EXPOS COVID-19; Translations: [CONTACT W/AND (SUSP) EXPOS COVID-19] Onset: 05-09-2022 Unclassified (1 source) EMS Onset: 03-18-2024 Urinary tract infections (2 sources) Urinary tract [...] Test Name Value Interpretation Reference Range Facility XR ABDOMEN COMP DECUB ERECTo n 03-18-2024 XR ABDOMEN COMP DECUB ERECT XR ABDOMEN COMP DECUB ERECT SUPINE/UPRIGHT ABDOMINAL RADIOGRAPHS HISTORY: Abdominal pain, constipation COMPARISON: None IMPRESSION: * Large amount of stool in the colon. * No dilated air-filled loops of bowel to suggest ileus or obstruction. * Calcification projecting over the right abdomen measuring 1.6 cm could represent a gallstone or renal stone. Finalized by Marcos Weathers MD on 03/18/2024 1:45 PM Normal [facility] CBC AUTO DIFFon 05-01-2022 BASO # 0.0 103/ul Normal 0.0-0.1 [facility] Comment on above: Performed By: #### C BC #### [facility] [address] [address] [address] Misha Torres Basophils/100 WBC (Bld) 0.5 % Normal 0.2-2.0 [facility] Comment on above: Performed By: #### C BC #### [facility] [address] [address] [address] Misha Torres EO # 0.2 103/ul Normal 0.0-0.7 [facility] Comment on above: Performed By: #### C BC #### [facility] [address] [address] [address] Misha Torres Eosinophils/100 WBC (Bld) 2.5 % Normal 0.9-7.0 [facility] Comment on above: Performed By: #### C BC #### [facility] [address] [address] [address] Misha Torres Erythrocyte distribution width (RBC) [Ratio] 13.6 % Normal 11.0-15.0 [facility] Comment on above: Performed By: #### C BC #### [facility] [address] [address] [address] Misha Torres Hematocrit (Bld) [Volume fraction] 36.0 % Normal 36.0-48.0 [facility] Comment on above: Performed By: #### C BC #### [facility] [address] [address] [address] Misha Torres Hemoglobin (Bld) [Mass/Vol] 11.7 g/dL Critically low 12.0-16.0 [facility] Comment on above: Performed By: #### C BC #### [facility] [address] [place] [address] Dr. Misha Torres IG # 0.01 10e3/ul Normal 0.00-0.03 [facility] Comment on above: Performed By: #### C BC #### [facility] [address] [place] [address] Dr. Misha Torres IG % 0.2 % Normal 0.0-0.5 [facility] Comment on above: Performed By: #### C BC #### [facility] [address] [place] [address] Dr. Misha Torres LYMPH # 2.0 103/ul Normal 1.2-3.8 [facility] Comment on above: Performed By: #### C BC #### [facility] [address] [place] [address] Dr. Misha Torres Lymphocytes/100 WBC (Bld) 31.2 % Normal 20.5-60.0 [facility] Comment on above: Performed By: #### C BC #### [facility] [address] [place] [address] Dr. Misha Torres MANUAL DIFF REQ NO Normal [facility] Comment on above: Performed By: #### C BC #### [facility] [address] [place] [address] Dr. Misha Torres MCH (RBC) [Entitic mass] 29.4 pg Normal 26.7-34.0 [facility] Comment on above: Performed By: #### C BC #### [facility] [address] [place] [address] Dr. Misha Torres MCHC (RBC) [Mass/Vol] 32.5 g/dL Normal 29.9-35.2 [facility] Comment on above: Performed By: #### C BC #### [facility] [address] [place] [address] Dr. Misha Torres MCV (RBC) [Entitic vol] 90.5 fL Normal 81.0-99.0 [facility] Comment on above: Performed By: #### C BC #### [facility] [address] [address] [address] Misha Torres MONO # 0.6 103/ul Normal 0.3-0.8 [facility] Comment on above: Performed By: #### C BC #### [facility] [address] [address] [address] Misha Torres Monocytes/100 WBC (Bld) 9.5 % Normal 1.7-12.0 [facility] Comment on above: Performed By: #### C BC #### [facility] [address] [address] [address] Misha Torres NEUT # 3.6 103/ul Normal 1.4-6.5 [facility] Comment on above: Performed By: #### C BC #### [facility] [address] [place] [address] Dr. Misha Torres Neutrophils/100 WBC (Bld) 56.1 % Normal 43.0-75.0 [facility] Comment on above: Performed By: #### C BC #### [facility] [address] [address] [address] Misha Torres Platelet mean volume (Bld) [Entitic vol] 11.0 fL Normal 9.5-13.5 [facility] Comment on above: Performed By: #### C BC #### [facility] [address] [place] [address] Dr. Misha Torres PLT 152 103/ul Normal 150-450 [facility] Comment on above: Performed By: #### C BC #### [facility] [address] [address] [address] Misha Torres RBC 3.98 106/ul Critically low 4.20-5.40 [facility] Comment on above: Performed By: #### C BC #### [facility] [address] [address] [address] Misha Torres WBC 6.4 103/ul Normal 4.0-11.0 [facility] Comment on above: Performed By: #### C BC #### [facility] [address] [address] [address] Misha Torres POINT OF CARE GLUCOSEon 11-0 Glucose [Mass/Vol] 253 mg/dL Critically high 74-106 [facility] Comment on above: Performed By: #### P OCGLUC #### [facility] [address] [address] [address] Misha Torres Glucose [Mass/Vol] 201 mg/dL Critically high 74-106 [facility] Comment on above: Performed By: #### P OCGLUC #### [facility] [address] [address] [address] Misha Torres PROF CHEM 8 (BAS METB)on Anion gap [Moles/Vol] 9.2 mmol/L Normal [facility] Comment on above: Performed By: #### P OCGLUC #### [facility] [address] [address] [address] Misha Torres Calcium [Mass/Vol] 8.1 mg/dL Critically low 8.5-10.1 [facility] Comment on above: Performed By: #### P OCGLUC #### [facility] [address] [address] [address] Misha Torres Chloride [Moles/Vol] 104 mmol/L Normal 98-107 [facility] Comment on above: Performed By: #### P OCGLUC #### [facility] [address] [address] [address] Misha Torres CO2 [Moles/Vol] 25.4 mmol/L Normal 21.0-32.0 [facility] Comment on above: Performed By: #### P OCGLUC #### [facility] [address] [address] [address] Misha Torres Creatinine [Mass/Vol] 1.22 mg/dL Critically high 0.55-1.02 [facility] Comment on above: Performed By: #### P OCGLUC #### [facility] [address] [address] [address] Misha Torres EGFR-AF JORDANIAN 51 mL/min/1.73m2 Critically low >=60 [facility] Comment on above: Performed By: #### P OCGLUC #### [facility] [address] [address] [address] Misha Torres EGFR-NON AF JORDANIAN 42 mL/min/1.73m2 Critically low >=60 [facility] Comment on above: Performed By: #### P OCGLUC #### [facility] [address] [address] [address] Misha Torres Glucose [Mass/Vol] 180 mg/dL Critically high 74-106 [facility] Comment on above: Performed By: #### P OCGLUC #### [facility] [address] [address] [address] Misha Torres Potassium [Moles/Vol] 3.6 mmol/L Normal 3.5-5.1 [facility] Comment on above: Performed By: #### P OCGLUC #### [facility] [address] [address] [address] Misha Torres Sodium [Moles/Vol] 135 mmol/L Critically low 136-145 [facility] Comment on above: Performed By: #### P OCGLUC #### [facility] [address] [address] [address] Misha Torres Urea nitrogen [Mass/Vol] 23.0 mg/dL Critically high 7.0-18.0 [facility] Comment on above: Performed By: #### P OCGLUC #### [facility] [address] [address] [address] Misha Torres Urea nitrogen/Creatinine [Mass ratio] 18.9 mg/mg Normal [facility] Comment on above: Performed By: #### P OCGLUC #### [facility] [address] [address] [address] Misha Torres CBC AUTO DIFFon 04-30-2022 BASO # 0.0 103/ul Normal 0.0-0.1 [facility] Comment on above: Performed By: #### P OCGLUC #### [facility] [address] [address] [address] Misha Torres Basophils/100 WBC (Bld) 0.3 % Normal 0.2-2.0 [facility] Comment on above: Performed By: #### P OCGLUC #### [facility] [address] [place] [address] Dr. Misha Torres EO # 0.1 103/ul Normal 0.0-0.7 [facility] Comment on above: Performed By: #### P OCGLUC #### [facility] [address] [place] [address] Dr. Misha Torres Eosinophils/100 WBC (Bld) 0.8 % Critically low 0.9-7.0 [facility] Comment on above: Performed By: #### P OCGLUC #### [facility] [address] [place] [address] Dr. Misha Torres Erythrocyte distribution width (RBC) [Ratio] 13.3 % Normal 11.0-15.0 [facility] Comment on above: Performed By: #### P OCGLUC #### [facility] [address] [place] [address] Dr. Misha Torres Hematocrit (Bld) [Volume fraction] 37.7 % Normal 36.0-48.0 [facility] Comment on above: Performed By: #### P OCGLUC #### [facility] [address] [place] [address] Dr. Misha Torres Hemoglobin (Bld) [Mass/Vol] 12.4 g/dL Normal 12.0-16.0 [facility] Comment on above: Performed By: #### P OCGLUC #### [facility] [address] [place] [address] Dr. Misha Torres IG # 0.02 10e3/ul Normal 0.00-0.03 [facility] Comment on above: Performed By: #### P OCGLUC #### [facility] [address] [place] [address] Dr. Misha Torres IG % 0.2 % Normal 0.0-0.5 [facility] Comment on above: Performed By: #### P OCGLUC #### [facility] [address] [place] [address] Dr. Misha Torres LYMPH # 2.4 103/ul Normal 1.2-3.8 [facility] Comment on above: Performed By: #### P OCGLUC #### [facility] [address] [place] [address] Dr. Misha Torres Lymphocytes/100 WBC (Bld) 24.6 % Normal 20.5-60.0 [facility] Comment on above: Performed By: #### P OCGLUC #### [facility] [address] [place] [address] Dr. Misha Torres MANUAL DIFF REQ NO Normal [facility] Comment on above: Performed By: #### P OCGLUC #### [facility] [address] [place] [address] Dr. Misha Torres MCH (RBC) [Entitic mass] 29.4 pg Normal 26.7-34.0 [facility] Comment on above: Performed By: #### P OCGLUC #### [facility] [address] [place] [address] Dr. Misha Torres MCHC (RBC) [Mass/Vol] 32.9 g/dL Normal 29.9-35.2 [facility] Comment on above: Performed By: #### P OCGLUC #### [facility] [address] [place] [address] Dr. Misha Torres MCV (RBC) [Entitic vol] 89.3 fL Normal 81.0-99.0 [facility] Comment on above: Performed By: #### P OCGLUC #### [facility] [address] [place] [address] Dr. Misha Torres MONO # 0.9 103/ul Critically high 0.3-0.8 [facility] Comment on above: Performed By: #### P OCGLUC #### [facility] [address] [place] [address] Dr. Misha Torres Monocytes/100 WBC (Bld) 8.9 % Normal 1.7-12.0 [facility] Comment on above: Performed By: #### P OCGLUC #### [facility] [address] [place] [address] Dr. Misha Torres NEUT # 6.2 103/ul Normal 1.4-6.5 [facility] Comment on above: Performed By: #### P OCGLUC #### [facility] [address] [place] [address] Dr. Misha Torres Neutrophils/100 WBC (Bld) 65.2 % Normal 43.0-75.0 [facility] Comment on above: Performed By: #### P OCGLUC #### [facility] [address] [place] [address] Dr. Misha Torres Platelet mean volume (Bld) [Entitic vol] 10.3 fL Normal 9.5-13.5 [facility] Comment on above: Performed By: #### P OCGLUC #### [facility] [address] [place] [address] Dr. Misha Torres PLT 168 103/ul Normal 150-450 [facility] Comment on above: Performed By: #### P OCGLUC #### [facility] [address] [place] [address] Dr. Misha Torres RBC 4.22 106/ul Normal 4.20-5.40 [facility] Comment on above: Performed By: #### P OCGLUC #### [facility] [address] [place] [address] Dr. Misha Torres WBC 9.6 103/ul Normal 4.0-11.0 [facility] Comment on above: Performed By: #### P OCGLUC #### [facility] [address] [place] [address] Dr. Misha Torres CTA HEAD WO W [...] stenosis. LEFT VERTEBRAL ARTERY: No significant stenosis. [place] OF [place]: The bilateral intracranial internal carotid arteries, anterior cerebral arteries, middle cerebral arteries and anterior and posterior communicating arteries are normal. 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 There is reconstitution of the distal segment. Somewhat limited evaluation. Patent bilateral WORT EXTRACTOR. 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 Misha Torres Glucose [Mass/Vol] 289 mg/dL Critically high 74-106 [facility] Comment on above: Performed By: #### P OCGLUC #### [facility] [address] [address] [address] Misha Torres Glucose [Mass/Vol] 285 mg/dL Critically high 74-106 [facility] Comment on above: Performed By: #### P OCGLUC #### [facility] [address] [address] [address] Misha Torres Glucose [Mass/Vol] 179 mg/dL Critically high 74-106 [facility] Comment on above: Performed By: #### P OCGLUC #### [facility] [address] [address] [address] Misha Torres PROF CHEM 8 (BAS METB)on Anion gap [Moles/Vol] 7.6 mmol/L Normal [facility] Comment on above: Performed By: #### B MP #### [facility] [address] [place] [address] Dr. Misha Torres Calcium [Mass/Vol] 8.1 mg/dL Critically low 8.5-10.1 [facility] Comment on above: Performed By: #### B MP #### [facility] [address] [place] [address] Dr. Misha Torres Chloride [Moles/Vol] 102 mmol/L Normal 98-107 [facility] Comment on above: Performed By: #### B MP #### [facility] [address] [place] [address] Dr. Misha Torrse CO2 [Moles/Vol] 27.8 mmol/L Normal 21.0-32.0 [facility] Comment on above: Performed By: #### B MP #### [facility] [address] [place] [address] Dr. Misha Torres Creatinine [Mass/Vol] 1.34 mg/dL Critically high 0.55-1.02 [facility] Comment on above: Performed By: #### B MP #### [facility] [address] [place] [address] Dr. Misha Torres EGFR-AF JORDANIAN 46 mL/min/1.73m2 Critically low >=60 [facility] Comment on above: Performed By: #### B MP #### [facility] [address] [address] [address] Misha Torres EGFR-NON AF JORDANIAN 38 mL/min/1.73m2 Critically low >=60 [facility] Comment on above: Performed By: #### B MP #### [facility] [address] [address] [address] Misha Torres Glucose [Mass/Vol] 178 mg/dL Critically high 74-106 [facility] Comment on above: Performed By: #### B MP #### [facility] [address] [address] [address] Misha Torres Potassium [Moles/Vol] 3.4 mmol/L Critically low 3.5-5.1 [facility] Comment on above: Performed By: #### B MP #### [facility] [address] [address] [address] Misha Torres Sodium [Moles/Vol] 134 mmol/L Critically low 136-145 [facility] Comment on above: Performed By: #### B MP #### [facility] [address] [address] [address] Misha Torres Urea nitrogen [Mass/Vol] 24.0 mg/dL Critically high 7.0-18.0 [facility] Comment on above: Performed By: #### B MP #### [facility] [address] [address] [address] Misha Torres Urea nitrogen/Creatinine [Mass ratio] 17.9 mg/mg Normal [facility] Comment on above: Performed By: #### B MP #### [facility] [address] [address] [address] Misha Torres CBC AUTO DIFFon 04-29-2022 BASO # 0.0 103/ul Normal 0.0-0.1 [facility] Comment on above: Performed By: #### C BC ####[facility] [id number] [id number] Misha Torres Basophils/100 WBC (Bld) 0.2 % Normal 0.2-2.0 [facility] Comment on above: Performed By: #### C BC ####[facility] Eatdnxcfej76[address] [place] [id number]. Misha Torres EO # 0.0 103/ul Normal 0.0-0.7 [facility] Comment on above: Performed By: #### C BC ####[facility] Pswscfu[address] [place] [address]Dr. Misha Torres Eosinophils/100 WBC (Bld) 0.1 % Critically low 0.9-7.0 [facility] Comment on above: Performed By: #### C BC ####[facility] Euhuqfcyvx[address] [place], [place] [address]Dr. Misha Torres Erythrocyte distribution width (RBC) [Ratio] 13.1 % Normal 11.0-15.0 [facility] Comment on above: Performed By: #### C BC ####[facility] Aqburovxrr[address] [place], [place] [address]Dr. Misha Torres Hematocrit (Bld) [Volume fraction] 41.3 % Normal 36.0-48.0 [facility] Comment on above: Performed By: #### C BC ####[facility] Yxpsqmesjh[address] [place], [place] [address]Dr. Misha Torres Hemoglobin (Bld) [Mass/Vol] 13.9 g/dL Normal 12.0-16.0 [facility] Comment on above: Performed By: #### C BC ####[facility] Kwqbeiffqa[address] [place], [place] [address]Dr. Misha Torres IG # 0.03 10e3/ul Normal 0.00-0.03 [facility] Comment on above: Performed By: #### C BC ####[facility] Obdfjlklxb[address] [place], [place] [address]Dr. Misha Torres IG % 0.3 % Normal 0.0-0.5 [facility] Comment on above: Performed By: #### C BC ####[facility] Xviphmusmf[address] [place], [place] [address]Dr. Misha Torres LYMPH # 1.7 103/ul Normal 1.2-3.8 [facility] Comment on above: Performed By: #### C BC ####[facility] Xydqoucsus23[address] [place] [id number]. Misha Torres Lymphocytes/100 WBC (Bld) 16.3 % Critically low 20.5-60.0 [facility] Comment on above: Performed By: #### C BC ####[facility] Rpyzhkxqgm7270 [place] [id number]. Misha Torres MANUAL DIFF REQ NO Normal [facility] Comment on above: Performed By: #### C BC ####[facility] Kubvwdqehf8954 [place] [id number]. Misha Torres MCH (RBC) [Entitic mass] 29.4 pg Normal 26.7-34.0 [facility] Comment on above: Performed By: #### C BC ####[facility] Kbfxpyeiqp7516 [place] [id number]. Misha Torres MCHC (RBC) [Mass/Vol] 33.7 g/dL Normal 29.9-35.2 [facility] Comment on above: Performed By: #### C BC ####[facility] Ugblmkeema7229 [place] [id number]. Misha Torres MCV (RBC) [Entitic vol] 87.3 fL Normal 81.0-99.0 [facility] Comment on above: Performed By: #### C BC ####[facility] Hzisymjrsm7233 [place] [id number]. Misha Torres MONO # 0.7 103/ul Normal 0.3-0.8 [facility] Comment on above: Performed By: #### C BC ####[facility] Dnoypshhic1063 [place] [id number]. Misha Torres Monocytes/100 WBC (Bld) 6.9 % Normal 1.7-12.0 [facility] Comment on above: Performed By: #### C BC ####[facility] Qhfqzzcbss6656 [place] [id number]. Misha Torres NEUT # 7.9 103/ul Critically high 1.4-6.5 [facility] Comment on above: Performed By: #### C BC ####[facility] Zdrzrsynaq4658 [place], [place] [address]Vm. Misha Torres Neutrophils/100 WBC (Bld) 76.2 % Critically high 43.0-75.0 [facility] Comment on above: Performed By: #### C BC ####[facility] Ypbzrrnabw9034 [place], [place] [address]Pf. Misha Torres Platelet mean volume (Bld) [Entitic vol] 10.8 fL Normal 9.5-13.5 [facility] Comment on above: Performed By: #### C BC ####[facility] Yafkqdyors7321 [place], [place] [address]Db. Misha Torres PLT 202 103/ul Normal 150-450 [facility] Comment on above: Performed By: #### C BC ####[facility] Vpiusueiwy8198 [place] [id number]. Misha Torres RBC 4.73 106/ul Normal 4.20-5.40 [facility] Comment on above: Performed By: #### C BC ####[facility] Pxnpnjkugr2754 [place], [place] [address]Nu. Misha Torres WBC 10.3 103/ul Normal 4.0-11.0 [facility] Comment on above: Performed By: #### C BC ####[facility] Ntccksvtzw6893 [place] [id number]. Misha Torres ECHOCARDIO M/2D COMPLETEon 1 06-29-2021 ECHOCARDIO M/2D COMPLETE Patient: SHRUTHI DE ANDA Exam Date: 04/29/2022 : 1940 Gender:F Ordering : TANVIRMARIA T CRONIN Admission #: [id number] Family : DR LISA WAYNE . Order #: [id number] CLICK HERE TO VIEW EXAM ECHOCARDIOGRAM REPORT [...] Pretty M.D. on 04/29/2022 at 18:00 Normal [facility] GLYCOHEMOGLOBIN A1Con 2021 ADA RECOMMENDATION SEE BELOW Normal [facility] Comment on above: Result Comment: ADA RECOMMENDED LIMIT 4.0 - 6.0 ADA THERAPEUTIC TARGET < 7.0 ACTION SUGGESTED > 7.0 Performed By: #### A 1C ####[facility] Mvplxqixqk24[address] [place] [address]Dr. Misha Torres Glucose [Mass/Vol] 269 mg/dL Normal [facility] Comment on above: Performed By: #### A 1C ####[facility] Ljiwhsacux4672 [place] [address]DrErrol Torres HbA1c (Bld) [Mass fraction] 11.0 % Critically high 4.5-6.2 [facility] Comment on above: Performed By: #### A 1C ####[facility] Qzjesvyjva1829 [place] [address]DrErrol Torres LACTATE/LACTIC ACIDon 2021 Lactate [Moles/Vol] 1.8 mmol/L Normal 0.4-1.9 [facility] Comment on above: Performed By: #### L ACT ####[facility] Sjyevwumoc[address] [place], [place] [address]Dr. Misha Torres LIPID PROFILEon 04-29-2022 CHOL-HDL RATIO NORM SEE BELOW Normal [facility] Comment on above: Result Comment: 3.3 - 4.4 LOW RISK 4.4 - 7.1 AVERAGE RISK 7.1 - 11.0 MODERATE RISK >11.0 HIGH RISK Performed By: #### M [place], LIPID, BMP ####[facility] Hkzkrgxfep8162 [place] [address]Dr. Kirajonna Torres Cholesterol [Mass/Vol] 231 mg/dL Critically high <=200 [facility] Comment on above: Performed By: #### Sonia Eisenberg, LIPID, BMP ####[facility] Gzipsebkhr7778 [place] [address]Dr. Kirajonna Brian Cholesterol in HDL [Mass/Vol] 39 mg/dL Critically low 40-60 [facility] Comment on above: Performed By: #### M [place], LIPID, BMP ####[facility] Kcfinrdayo1518 [place] [address]Dr. Misha Torres Cholesterol in LDL [Mass/Vol] 144.6 mg/dL Normal [facility] Comment on above: Performed By: #### Sonia Eisenberg, LIPID, BMP ####[facility] Mpgytbpfkf8437 [place] [address]Dr. Kirajonna Brian Cholesterol.total/Chol esterol in HDL [Mass ratio] 5.9 {ratio} Normal [facility] Comment on above: Performed By: #### Sonia Eisenberg, LIPID, BMP ####[facility] Elwegdfkbk69[address] [place] [address]Dr. Kirajonna Torres HDL NORMAL > or = 60 mg/dl - LO W CARDIOVASCULAR RISK <40 mg/dl - HIGH CARDIOVASCULAR RISK Normal [facility] Comment on above: Performed By: #### Sonia Eisenberg, LIPID, BMP ####[facility] Fidjdvugss5147 [place] [address]Dr. Misha Torres LDL CALC NORMAL SEE BELOW Normal [facility] Comment on above: Result Comment: <100 mg/dl OPTIMAL 100 - 129 mg/dl NEAR OR ABOVE OPTIMAL 130 - 159 mg/dl BORDERLINE HIGH 160 - 189 mg/dl HIGH >190 mg/dl VERY HIGH Performed By: #### M [place], LIPID, BMP ####[facility] Bhrhlbvnze5526 [place] [address]Dr. Misha Torres Triglyceride [Mass/Vol] 237 mg/dL Critically high <=150 [facility] Comment on above: Performed By: #### M G, LIPID, BMP ####[facility] Tsexwrwbyu8832 [place], [place] [address]Dr. Misha Torres VLDL CALC 47.4 mg/dL Normal [facility] Comment on above: Performed By: #### M G, LIPID, BMP ####[facility] Fwasyifwkk9115 [place], [place] [address]Qp. Misha Torres MAGNESIUMon 04-29-2022 Magnesium [Mass/Vol] 1.7 mg/dL Critically low 1.8-2.4 [facility] Comment on above: Performed By: #### M G, LIPID, BMP ####[facility] Drscwxysqf6970 [place], [place] [address]Vd. Misha Torres MRI BRAIN WO CONon 2 [...] by: AMY CAMPBELL Date: 2022-04-29 12:50 Normal [facility] POINT OF CARE GLUCOSEon 11-0 Glucose [Mass/Vol] 216 mg/dL Critically high 74-106 T he [facility] Comment on above: Performed By: #### P OCGLUC ####[facility] Vmgfnvzvig6[address] [place] [address]DrErrol Torres Glucose [Mass/Vol] 308 mg/dL Critically high 74-106 [facility] Comment on above: Performed By: #### P OCGLUC #### [facility] [address] [place] [address] [address] Misha Torres Glucose [Mass/Vol] 305 mg/dL Critically high 74-106 [facility] Comment on above: Performed By: #### P OCGLUC #### [facility] [address] [place] [address] [address] Misha Torres PROF CHEM 8 (BAS METB)on Anion gap [Moles/Vol] 9.6 mmol/L Normal [facility] Comment on above: Performed By: #### M G, LIPID, BMP ####[facility] Xkkvlinofk75[address] [place] [address]Dr. Misha Torres Calcium [Mass/Vol] 8.3 mg/dL Critically low 8.5-10.1 [facility] Comment on above: Performed By: #### M G, LIPID, BMP ####[facility] Njfqketezr02[address] [place] [address]Dr. Misha Torres Chloride [Moles/Vol] 98 mmol/L Normal 98-107 [facility] Comment on above: Performed By: #### M G, LIPID, BMP ####[facility] Kioqizeoao[address] [place] [address]Dr. Misha Torres CO2 [Moles/Vol] 27.2 mmol/L Normal 21.0-32.0 [facility] Comment on above: Performed By: #### M G, LIPID, BMP ####[facility] Fqeaemkgls79[address] [place] [address]Dr. Misha Torres Creatinine [Mass/Vol] 1.09 mg/dL Critically high 0.55-1.02 [facility] Comment on above: Performed By: #### M G, LIPID, BMP ####[facility] Relfithhdi15[address] [place] [address]Dr. Misha Torres EGFR-AF JORDANIAN 58 mL/min/1.73m2 Critically low >=60 [facility] Comment on above: Performed By: #### Sonia Eisenberg LIPID, BMP ####[facility] Qeqkbdflty6[address] [place] [address]Dr. Misha Torres EGFR-NON AF JORDANIAN 48 mL/min/1.73m2 Critically low >=60 [facility] Comment on above: Performed By: #### Sonia Eisenberg LIPID, BMP ####[facility] Jtlituyiav0826 [place] [address]Dr. Misha Torres Glucose [Mass/Vol] 288 mg/dL Critically high 74-106 [facility] Comment on above: Performed By: #### Sonia Eisenberg LIPID, BMP ####[facility] Zlzmddrfmw110[address] [place] [address]Dr. Misha Torres Potassium [Moles/Vol] 3.8 mmol/L Normal 3.5-5.1 [facility] Comment on above: Performed By: #### Sonia Eisenberg LIPID, BMP ####[facility] Hherwgikew3[address] [place] [address]Dr. Misha Torres Sodium [Moles/Vol] 131 mmol/L Critically low 136-145 [facility] Comment on above: Performed By: #### Sonia Eisenberg LIPID, BMP ####[facility] Zvczsfhjof74[address] [place] [address]Dr. Misha Torres Urea nitrogen [Mass/Vol] 17.0 mg/dL Normal 7.0-18.0 [facility] Comment on above: Performed By: #### Sonia Eisenberg LIPID, BMP ####[facility] Dpnhmwidpb2880 [place] [address]Dr. Misha Torres Urea nitrogen/Creatinine [Mass ratio] 15.6 mg/mg Normal [facility] Comment on above: Performed By: #### Sonia Eisenberg LIPID, BMP ####[facility] Nnvdbbbhvv[address] [place], [place] [address]Dr. Misha Torres US CAROTID ART BILon 022 [...] LAURA BRAGA Date: 2022-04-29 14:17 Normal [facility] ACETONE SERUMon 04-28-2022 ACETONE Negative Normal NEGATIVE [facility] Comment on above: Performed By: #### A CETON ####[facility] Cxbsgsattf17[address] [place] [address]DrErrol Torres AMMONIAon 04-28-2022 Ammonia (P) [Mass/Vol] ug/dL Critically low [facility] Comment on above: Performed By: #### P OCGLUC #### [facility] [address] [place] [address] [address] Misha Torres BLOOD CULTURE ID PANELon A. baumannii Not detected Normal NOT DETECTED The [facility] Comment on above: Performed By: #### B CID2 ####[facility] Aqmyrwzrwg0601 [place] [address]DrErrol Torres Bacteriodes fragilis Not detected Normal NOT DETECTED [facility] Comment on above: Performed By: #### B CID2 ####[facility] Xcfzghqneh1345 [place] [address]DrErrol Torres BCID CONTROLS PASSED Normal [facility] Comment on above: Performed By: #### B CID2 ####[facility] Vuofzuusgk9992 [place] [address]Dr. Misha Torres BCIDBTHD BLOOD CULTURE BOTTLE INFORMATION Normal [facility] Comment on above: Performed By: #### B CID2 ####[facility] Psvnmnrzrk1265 [place] [address]Dr. Yijonna Torres BCIDHD1 ANTIMICROBIAL RESISTANCE GENES Normal [facility] Comment on above: Performed By: #### B CID2 ####[facility] Lddlsyfeks[address] [place], [place] [address]Dr. Yijonna Torres BCIDHD2 SEE BELOW Normal [facility] Comment on above: Result Comment: Note : Antimicrobial resitance can occur via multiple mechanisms. A Not Detected result for the [employer] antomicrobial resistance gene assays does not indicate antimicrobial susceptibility. Subculturing is required for species identification and susceptibility testing of isolates. Performed By: #### B CID2 ####[facility] Lwhjpyoqoy[address] [place], [place] [address]Dr. Misha Torres BCIDHD3 Positive [facility] Comment on above: Performed By: #### B CID2 ####[facility] Ytclticjyo[address] [place], [place] [address]Dr. Misha Torres BCIDHD4 Negative Normal [facility] Comment on above: Performed By: #### B CID2 ####[facility] Yocflbujhu[address] [place], [place] [address]Dr. Yijonna Torres BCIDHD5 YEAST Normal [facility] Comment on above: Performed By: #### B CID2 ####[facility] Yntpeurefu140[address] [place], [place] [address]Dr. Yijonna Torres Bottle Set: Set 2 Normal [facility] Comment on above: Performed By: #### B CID2 ####[facility] Yyrpjvcthn23[address] [place], [place] [address]Dr. Misha Torres Bottle: Anaerobic Normal [facility] Comment on above: Performed By: #### B CID2 ####[facility] Wnndzkqeyc[address] [place], [place] [address]Dr. Yilan Torres C. neoformans/gattii Not detected Normal NOT DETECTED [facility] Comment on above: Performed By: #### B CID2 ####[facility] Hbyxcdmfuq5809 [place] [id number]. Yilan Torres Rylee albicans Not detected Normal NOT DETECTED [facility] Comment on above: Performed By: #### B CID2 ####[facility] Fksazavlrv7[address] [place] [address]Dr. Yilan Torres Rylee auris Not detected Normal NOT DETECTED The [facility] Comment on above: Performed By: #### B CID2 ####[facility] Ivmohonxtn2742 [place] [address]Dr. Yilan Torres Rylee glabrata Not detected Normal NOT DETECTED [facility] Comment on above: Performed By: #### B CID2 ####[facility] Iuzjlzqhxx[address] [place], [place] [address]Dr. Yilan Torres Rylee Krusei Not detected Normal NOT DETECTED The [facility] Comment on above: Performed By: #### B CID2 ####[facility] Crloigjucx60[address] [place], [place] [address]Dr. Yilan Torres Rylee Parapsilosis Not detected Normal NOT DETECTED [facility] Comment on above: Performed By: #### B CID2 ####[facility] Jyihejucmp[address] [place], [place] [address]Dr. Yilan Torres Rylee Tropicalis Not detected Normal NOT DETECTED [facility] Comment on above: Performed By: #### B CID2 ####[facility] Bffatudlrq426[address] [place], [place] [address]Dr. Misha Torres CTX-M Resistant Gene Not detected Normal NOT DETECTED [facility] Comment on above: Performed By: #### B CID2 ####[facility] Mnuhzidgoj30[address] [place] [address]Dr. Yilan Torres E. Cloacae complex Not detected Normal NOT DETECTED [facility] Comment on above: Performed By: #### B CID2 ####[facility] Mqhwaitkwr7135 [place] [address]Dr. Yijonna Torres E. faecalis Not detected Normal NOT DETECTED [facility] Comment on above: Performed By: #### B CID2 ####[facility] Biftnobfou[address] [place], [place] [address]Dr. Misha Torres E. faecium Not detected Normal NOT DETECTED [facility] Comment on above: Performed By: #### B CID2 ####[facility] Xrkuwpvhyj[address] [place], [place] [address]Dr. Misha Torres Enterobacteriaceae Not detected Normal NOT DETECTED [facility] Comment on above: Performed By: #### B CID2 ####[facility] Cekxxrbwsf44[address] [place], [place] [address]Dr. Misha Torres Escherichia coli Not detected Normal NOT DETECTED [facility] Comment on above: Performed By: #### B CID2 ####[facility] Ycgzzidpwo411[address] [place], [place] [address]Dr. Misha Torres H. influenzae Not detected Normal NOT DETECTED The [facility] Comment on above: Performed By: #### B CID2 ####[facility] Jmqbajbida10[address] [place], [place] [address]Dr. Misha Torres IMP Resistant Gene Not detected Normal NOT DETECTED [facility] Comment on above: Performed By: #### B CID2 ####[facility] Vfeiyzejkn[address] [place], [place] [address]Dr. Misha Torres K. oxytoca Not detected Normal NOT DETECTED [facility] Comment on above: Performed By: #### B CID2 ####[facility] Dgwajyxicp5125[address] [place], [place] [address]Dr. Misha Torres K. pneumoniae Not detected Normal NOT DETECTED [facility] Comment on above: Performed By: #### B CID2 ####[facility] Dvfcedrllo[address] [place], [place] [address]Dr. Misha Torres Klebsiella aerogenes Not detected Normal NOT DETECTED [facility] Comment on above: Performed By: #### B CID2 ####[facility] Xcfinblsal487[address] [place], [place] [address]Dr. Misha Torres KPC Resistant Gene Not detected Normal NOT DETECTED [facility] Comment on above: Performed By: #### B CID2 ####[facility] Wdxfrhdnmb[address] [place], [place] [address]Dr. Misha Torres List. monocytogenes Not detected Normal NOT DETECTED [facility] Comment on above: Performed By: #### B CID2 ####[facility] Vvsqhevsat875[address] [place], [place] [address]Dr. Misha Torres Mcr-1 Resistant Gene Not detected Normal NOT DETECTED [facility] Comment on above: Performed By: #### B CID2 ####[facility] Icjgkuhezh57[address] [place], [place] [address]Dr. Misha Torres mecA/C Not detected Normal NOT DETECTED [facility] Comment on above: Performed By: #### B CID2 ####[facility] Gxljpfhczf9[address] [place], [place] [address]Dr. Misha Torres mecA/C MREJ Not detected Normal NOT DETECTED The [facility] Comment on above: Performed By: #### B CID2 ####[facility] Vowhqusids[address] [place], [place] [address]Dr. Misha Torres N. meningitidis Not detected Normal NOT DETECTED The [facility] Comment on above: Performed By: #### B CID2 ####[facility] Hpruljiekx[address] [place], [place] [address]Dr. Misha Torres NDM Resistant Gene Not detected Normal NOT DETECTED [facility] Comment on above: Performed By: #### B CID2 ####[facility] Exzldmjxxt9924[address] [place], [place] [address]Dr. Misha Torres Oxa-48-like Not detected Normal NOT DETECTED [facility] Comment on above: Performed By: #### B CID2 ####[facility] Wadvdrolil1169[address] [place], [place] [address]Dr. Misha Torres Proteus Not detected Normal NOT DETECTED [facility] Comment on above: Performed By: #### B CID2 ####[facility] Ufithzffok[address] [place], [place] [address]Dr. Misha Torres Pseud. aeruginosa Not detected Normal NOT DETECTED [facility] Comment on above: Performed By: #### B CID2 ####[facility] Bjbrwejfdo6360[address] [place], [place] [address]Dr. Misha Torres S. maltophilia Not detected Normal NOT DETECTED [facility] Comment on above: Performed By: #### B CID2 ####[facility] Udwipqgiqj2824[address] [place], [place] [address]Dr. Misha Torres Salmonella Not detected Normal NOT DETECTED [facility] Comment on above: Performed By: #### B CID2 ####[facility] Fehvtlmvkg174[address] [place], [place] [address]Dr. Misha Torres Seratia marcescens Not detected Normal NOT DETECTED [facility] Comment on above: Performed By: #### B CID2 ####[facility] Npsufdpksx1030[address] [place], [place] [address]Dr. Misha Torres Site: left ac Normal [facility] Comment on above: Performed By: #### B CID2 ####[facility] Nsvtpjugga80[address] [place], [place] [address]Dr. Misha Torres Staph. aureus Not detected Normal NOT DETECTED The [facility] Comment on above: Performed By: #### B CID2 ####[facility] Bxgmxbbxfi906[address] [place], [place] [address]Dr. Misha Torres Staph. epidermidis Not detected Normal NOT DETECTED [facility] Comment on above: Performed By: #### B CID2 ####[facility] Vndaauvxar07[address] [place], [place] [address]Dr. Misha Torres Staph. lugdunensis Not detected Normal NOT DETECTED [facility] Comment on above: Performed By: #### B CID2 ####[facility] Bvbcrxzmeh32[address] [place], [place] [address]Dr. Misha Torres Staphylococcus Not detected Normal NOT DETECTED [facility] Comment on above: Performed By: #### B CID2 ####[facility] Mpacgmecsy[address] [place], [place] [address]Dr. Misha Torres Strep. agalactiae Not detected Normal NOT DETECTED [facility] Comment on above: Performed By: #### B CID2 ####[facility] Hhr[address] [place], [place] [address]Dr. Misha Torres Strep. pneumoniae Not detected Normal NOT DETECTED [facility] Comment on above: Performed By: #### B CID2 ####[facility] [address] [place] [address]Dr. Misha Torres Strep. pyogenes Not detected Normal NOT DETECTED [facility] Comment on above: Performed By: #### B CID2 ####[facility] [address] [address]Dr. Misha Torres Streptococcus Not detected Normal NOT DETECTED [facility] Comment on above: Performed By: #### B CID2 ####[facility] [address] [place] [address]Dr. Misha Torres Murtaza/B Resist. Gene Not detected Normal NOT DETECTED [facility] Comment on above: Performed By: #### B CID2 ####[facility] [address] [place] [address]Dr. Misha Torres VIM Resistant Gene Not detected Normal NOT DETECTED [facility] Comment on above: Performed By: #### B CID2 ####[facility] [address] [place] [address]Dr. Misha Torres CBC AUTO DIFFon 04-28-2022 BASO # 0.0 103/ul Normal 0.0-0.1 [facility] Comment on above: Performed By: #### P OCGLUC #### [facility] [address] [place] [address] Dr. Misha Torres Basophils/100 WBC (Bld) 0.3 % Normal 0.2-2.0 [facility] Comment on above: Performed By: #### P OCGLUC #### [facility] [address] [place] [address] Dr. Misha Torres EO # 0.0 103/ul Normal 0.0-0.7 [facility] Comment on above: Performed By: #### P OCGLUC #### [facility] [address] [place] [address] Dr. Misha Torres Eosinophils/100 WBC (Bld) 0.0 % Critically low 0.9-7.0 [facility] Comment on above: Performed By: #### P OCGLUC #### [facility] [address] [address] [address] Misha Torres Erythrocyte distribution width (RBC) [Ratio] 13.1 % Normal 11.0-15.0 [facility] Comment on above: Performed By: #### P OCGLUC #### [facility] [address] [place] [address] Dr. Misha Torres Hematocrit (Bld) [Volume fraction] 46.8 % Normal 36.0-48.0 [facility] Comment on above: Performed By: #### P OCGLUC #### [facility] [address] [place] [address] Dr. Misha Torres Hemoglobin (Bld) [Mass/Vol] 15.9 g/dL Normal 12.0-16.0 [facility] Comment on above: Performed By: #### P OCGLUC #### [facility] [address] [place] [address] Dr. Misha Torres IG # 0.03 10e3/ul Normal 0.00-0.03 [facility] Comment on above: Performed By: #### P OCGLUC #### [facility] [address] [place] [address] Dr. Misha Torres IG % 0.3 % Normal 0.0-0.5 [facility] Comment on above: Performed By: #### P OCGLUC #### [facility] [address] [place] [address] Dr. Misha Torres LYMPH # 1.4 103/ul Normal 1.2-3.8 [facility] Comment on above: Performed By: #### P OCGLUC #### [facility] [address] [place] [address] Dr. Misha Torres Lymphocytes/100 WBC (Bld) 14.8 % Critically low 20.5-60.0 [facility] Comment on above: Performed By: #### P OCGLUC #### [facility] [address] [place] [address] Dr. Misha Torres MANUAL DIFF REQ NO Normal [facility] Comment on above: Performed By: #### P OCGLUC #### [facility] [address] [place] [address] Dr. Misha Torres MCH (RBC) [Entitic mass] 29.6 pg Normal 26.7-34.0 [facility] Comment on above: Performed By: #### P OCGLUC #### [facility] [address] [address] [address] Misha Torres MCHC (RBC) [Mass/Vol] 34.0 g/dL Normal 29.9-35.2 [facility] Comment on above: Performed By: #### P OCGLUC #### [facility] [address] [address] [address] Misha Torres MCV (RBC) [Entitic vol] 87.0 fL Normal 81.0-99.0 [facility] Comment on above: Performed By: #### P OCGLUC #### [facility] [address] [place] [address] Dr. Misha Torres MONO # 0.4 103/ul Normal 0.3-0.8 [facility] Comment on above: Performed By: #### P OCGLUC #### [facility] [address] [place] [address] Dr. Misha Torres Monocytes/100 WBC (Bld) 3.6 % Normal 1.7-12.0 [facility] Comment on above: Performed By: #### P OCGLUC #### [facility] [address] [place] [address] Dr. Misha Torres NEUT # 7.8 103/ul Critically high 1.4-6.5 [facility] Comment on above: Performed By: #### P OCGLUC #### [facility] [address] [place] [address] Dr. Misha Torres Neutrophils/100 WBC (Bld) 81.0 % Critically high 43.0-75.0 [facility] Comment on above: Performed By: #### P OCGLUC #### [facility] [address] [place] [address] Dr. Misha Torres Platelet mean volume (Bld) [Entitic vol] 10.7 fL Normal 9.5-13.5 [facility] Comment on above: Performed By: #### P OCGLUC #### [facility] [address] [address] [address] Misha Torres PLT 231 103/ul Normal 150-450 [facility] Comment on above: Performed By: #### P OCGLUC #### [facility] [address] [address] [address] Misha Torres RBC 5.38 106/ul Normal 4.20-5.40 [facility] Comment on above: Performed By: #### P OCGLUC #### [facility] [address] [address] [address] Misha Torres WBC 9.6 103/ul Normal 4.0-11.0 [facility] Comment on above: Performed By: #### P OCGLUC #### [facility] [address] STROKE HEAD WOon [...] CM SANTOS Date: 2022-04-28 16:41 Normal [facility] CULTURE BLOODon 04-28-2022 Microscopic examination of blood, culture Culture Observations: NO GROWTH AT 5 DAYS. Normal [facility] Comment on above: Performed By: #### B LDCX2 #### [facility] [address] [address] [address] Misha Torres Performed By: #### B LDCX1 ####[facility] [address] [address]Dr. Misha Torres CULTURE URINEon 04-28-2022 CULTURE URINE Culture Observations : NO GROWTH. Normal [facility] Comment on above: Performed By: #### U RCX ####[facility] [address] [place] [address]DrErrol Torres [facility]on SARS-CoV-2 (COVID-19) RNA KRYSTA+probe Ql (Unsp spec) Not detected Normal NOT DETECTED [facility] Comment on above: Result Comment: When [...] for this test is supported by the [place] of Health and Human Service's declaration that [...] used). Performed By: #### P OCGLUC #### [facility] [address] [place] [address] Dr. Misha Torres ER URINE PROFILEon 2 Bilirubin Ql (U) Negative Normal NEGATIVE [facility] Comment on above: Performed By: #### U MICRO, ERUR ####[facility] [address] [place] [address]Dr. Misha Torres Clarity (U) CLEAR Normal CLEAR [facility] Comment on above: Performed By: #### U MICRO, ERUR ####[facility] [address] [address]Dr. Misha Torres Color (U) LT. YELLOW Normal YELLOW [facility] Comment on above: Performed By: #### U MICRO, ERUR ####[facility] [address] [place], [place] [address]Dr. Misha LEBROND A micrscopic examination will be performed if indicated. Normal [facility] Comment on above: Performed By: #### U MICRO, ERUR ####[facility] [address] [place], [place] [address]Dr. Misha Torres Glucose Ql (U) >1000 Abnormal NEGATIVE [facility] Comment on above: Performed By: #### U MICRO, ERUR ####[facility] [address] [place], [place] [address]Dr. Misha Torres Hemoglobin Ql (U) TRACE-INTACT Abnormal NEGATIVE [facility] Comment on above: Performed By: #### U MICRO, ERUR ####[facility] [address] [place], [place] [address]Dr. Misha Torres Ketones Ql (U) 40 mg/dl Abnormal NEGATIVE [facility] Comment on above: Performed By: #### U MICRO, ERUR ####[facility] [address] [place], [place] [address]Dr. Misha Torres LEUKOCYTES TRACE Abnormal NEGATIVE [facility] Comment on above: Performed By: #### U MICRO, ERUR ####[facility] [address] [place], [place] [address]Dr. Misha Torres Nitrite Ql (U) Negative Normal NEGATIVE [facility] Comment on above: Performed By: #### U MICRO, ERUR ####[facility] [address] [place], [place] [address]Dr. Misha Torres pH (U) 5.5 [pH] Normal 5-9 [facility] Comment on above: Performed By: #### U MICRO, ERUR ####[facility] [address] [place], [place] [address]Dr. Misha Torres Protein (U) [Mass/Vol] 30 mg/dL Abnormal NEGAT CAROLYN/ TRACE [facility] Comment on above: Performed By: #### U MICRO, ERUR ####[facility] [address] [place] [address]DrErrol Torres SPEC GRAVITY >=1.030 Abnormal 1.005-<=1.025 [facility] Comment on above: Performed By: #### U MICRO, ERUR ####[facility] [address] [place] [address]Dr. Misha Torres UR MICRO IND INDICATED Normal [facility] Comment on above: Performed By: #### U MICRO, ERUR ####[facility] [address] [place] [address]Dr. Misha Torres Urobilinogen Qn (U) 0.2 {Felipa'U}/dL Normal 0.2 - 1. 0 [facility] Comment on above: Performed By: #### U MICRO, ERUR ####[facility] [address] [place] [address]DrErrol Torres LACTATE/LACTIC ACIDon 2021 Lactate [Moles/Vol] 1.8 mmol/L Normal 0.4-1.9 [facility] Comment on above: Performed By: #### L ACT #### [facility] [address] [address] [address] Misha Torres Lactate [Moles/Vol] 2.1 mmol/L Critically high 0.4-1.9 [facility] Comment on above: Performed By: #### P OCGLUC #### [facility] [address] [address] [address] Misha Torres PH VENOUS BLOODon 04-28-2022 PCO2 VENOUS 47.6 mmHg Normal 40.0-52.0 [facility] Comment on above: Performed By: #### P OCGLUC #### [facility] [address] [address] [address] Misha Torres pH VENOUS 7.403 Normal 7.330-7.430 [facility] Comment on above: Performed By: #### P OCGLUC #### [facility] [address] [address] [address] Misha Torres POINT OF CARE GLUCOSEon 11 Glucose [Mass/Vol] 337 mg/dL Critically high 74-106 [facility] Comment on above: Performed By: #### P OCGLUC #### [facility] [address] [address] [address] Misha Torres PROF 14(COMP METB)on 022 Albumin [Mass/Vol] 3.7 g/dL Normal 3.4-5.0 [facility] Comment on above: Performed By: #### P OCGLUC #### [facility] [address] [address] [address] Misha Torrse Albumin/Globulin [Mass ratio] 0.9 {ratio} Normal [facility] Comment on above: Performed By: #### P OCGLUC #### [facility] [address] [place] [address] Dr. Misha Torres ALP [Catalytic activity/Vol] 115 U/L Normal 46-116 [facility] Comment on above: Performed By: #### P OCGLUC #### [facility] [address] [address] [address] Misha Torres ALT [Catalytic activity/Vol] 36 U/L Normal 14-59 [facility] Comment on above: Performed By: #### P OCGLUC #### [facility] [address] [place] [address] Dr. Misha Torres Anion gap [Moles/Vol] 8.8 mmol/L Normal [facility] Comment on above: Performed By: #### P OCGLUC #### [facility] [address] [place] [address] Dr. Misha Torres AST [Catalytic activity/Vol] 24 U/L Normal 15-37 [facility] Comment on above: Performed By: #### P OCGLUC #### [facility] [address] [address] [address] Misha Torres Bilirubin [Mass/Vol] 0.8 mg/dL Normal 0.2-1.0 [facility] Comment on above: Performed By: #### P OCGLUC #### [facility] [address] [address] [address] Misha Torres Calcium [Mass/Vol] 9.0 mg/dL Normal 8.5-10.1 [facility] Comment on above: Performed By: #### P OCGLUC #### [facility] [address] [address] [address] Misha Torres Chloride [Moles/Vol] 96 mmol/L Critically low 98-107 [facility] Comment on above: Performed By: #### P OCGLUC #### [facility] [address] [address] [address] Misha Torres CO2 [Moles/Vol] 30.1 mmol/L Normal 21.0-32.0 [facility] Comment on above: Performed By: #### P OCGLUC #### [facility] [address] [place] [address] Dr. Misha Torres Creatinine [Mass/Vol] 1.24 mg/dL Critically high 0.55-1.02 [facility] Comment on above: Performed By: #### P OCGLUC #### [facility] [address] [address] [address] Misha Torres EGFR-AF JORDANIAN 50 mL/min/1.73m2 Critically low >=60 [facility] Comment on above: Performed By: #### P OCGLUC #### [facility] [address] [place] [address] Dr. Misha Torres EGFR-NON AF JORDANIAN 41 mL/min/1.73m2 Critically low >=60 [facility] Comment on above: Performed By: #### P OCGLUC #### [facility] [address] [address] [address] Misha Torres Globulin (S) [Mass/Vol] 4.3 g/dL Normal [facility] Comment on above: Performed By: #### P OCGLUC #### [facility] [address] [address] [address] Misha Torres Glucose [Mass/Vol] 309 mg/dL Critically high 74-106 [facility] Comment on above: Performed By: #### P OCGLUC #### [facility] [address] [address] [address] Misha Torres Potassium [Moles/Vol] 3.9 mmol/L Normal 3.5-5.1 [facility] Comment on above: Performed By: #### P OCGLUC #### [facility] [address] [address] [address] Misha Torres Protein [Mass/Vol] 8.0 g/dL Normal 6.4-8.2 [facility] Comment on above: Performed By: #### P OCGLUC #### [facility] [address] [address] [address] Misha Torres Sodium [Moles/Vol] 131 mmol/L Critically low 136-145 [facility] Comment on above: Performed By: #### P OCGLUC #### [facility] [address] [address] [address] Misha Torres Urea nitrogen [Mass/Vol] 17.0 mg/dL Normal 7.0-18.0 [facility] Comment on above: Performed By: #### P OCGLUC #### [facility] [address] [address] [address] Misha Torres Urea nitrogen/Creatinine [Mass ratio] 13.7 mg/mg Normal [facility] Comment on above: Performed By: #### P OCGLUC #### [facility] [address] [address] [address] Misha Torres PROTIMEon 04-28-2022 INR Coag (PPP) [Relative time] 1.00 {INR} Normal [facility] Comment on above: Performed By: #### P T, PTT ####[facility] [address] [address]Dr. Misha Torres INR GUIDELINES SEE BELOW Normal [facility] Comment on above: Result Comment: KRISTOPHER RED INR: 2.0 - 3.0 CONDITIONS NOT LISTED BELOW 2.5 - 3.5 FOR PROSTHETIC HEART VALVE REPLACEMENT 2.5 - 3.5 RECURRENT THROMBOSIS Performed By: #### P T, PTT ####[facility] [address] [place] [address]Dr. Misha Torres PT Coag (PPP) [Time] 10.8 s Normal 9.0-11.6 [facility] Comment on above: Performed By: #### P T, PTT ####[facility] [address] [place] [address]Dr. Misha Torres PTTon 04-28-2022 aPTT Coag (Bld) [Time] 26.6 s Normal 22.3-36.2 [facility] Comment on above: Performed By: #### P T, PTT ####[facility] [address] [place] [address]DrErrol Torres TROPONIN, HIGH SENSITIVITYon 04-28-2022 HSTROP 21.3 pg/mL Normal 4.0-51.3 [facility] Comment on above: Result Comment: CUT- OFF POINTS HAVE BEEN ESTABLISHED BASED ON THE FOURTH UNIVERSAL DEFINITIONS OF MYOCARDIAL INFARCTION. THE UPPER REFERENCE LIMIT (URL) OF TROPONIN, DEFINED THE 99TH PERCENTILE OF cTnI DISTRIBUTION IN A REFERENCE POPULATION, HAS BEEN CONFIRMED THE DECISION THRESHOLD FOR [place] DIAGNOSIS. Performed By: #### P OCGLUC #### [facility] [address] [place] [address] Dr. Misha Torres TSHon 04-28-2022 TSH 1.257 uIU/mL Normal 0.358-3.740 [facility] Comment on above: Performed By: #### P OCGLUC #### [facility] [address] [place] [address] Dr. Misha Torres URINE MICROSCOPIC ONLYon BACTERIA LARGE Abnormal NONE SEEN [facility] Comment on above: Performed By: #### U MICRO, ERUR ####[facility] [address] [place], [place] [address]DrErrol Torres Bacteria identified Cx Nom (U) INDICATED Normal [facility] Comment on above: Performed By: #### U MICRO, ERUR ####[facility] [address] [place] [address]DrErrol Torres CAST NONE SEEN Normal NONE SEEN [facility] Comment on above: Performed By: #### U MICRO, ERUR ####[facility] [address] [place], [place] [address]DrErrol Torres Crystals LM Nom (Urine sed) NONE SEEN Normal NONE SEEN [facility] Comment on above: Performed By: #### U MICRO, ERUR ####[facility] [address] [place] [id number]. Misha Torres Epithelial cells LM Ql (Urine sed) RARE Normal NONE SEEN /RARE [facility] Comment on above: Performed By: #### U MICRO, ERUR ####[facility] [address] [place] [id number]. Misha Torres MUCOUS NONE SEEN Normal NONE SEEN [facility] Comment on above: Performed By: #### U MICRO, ERUR ####[facility] [address] [place] [id number]. Misha Torres RBC NONE SEEN Abnormal 0-2 [facility] Comment on above: Performed By: #### U MICRO, ERUR ####[facility] [address] [place] [id number]. Misha Brian WBC 0-2 Abnormal NONE SEEN [facility] Comment on above: Performed By: #### U MICRO, ERUR ####[facility] [address] [place] [id number]. Misha Torres XR CHEST 1 Von 04-28-2022 [...] LAURA THOMAS Date: 2022-04-28 17:27 Normal [facility] Coding Summary.on 01-11-2021 Coding Summary. CD:[id number] G h0bWw+PGhlYWQ+QJ1JTCR sF24lnZKtoE4NO9aOLG7F VBQBKYQNJZ5PAU0xeEX2K EeeY6FnwdKy NebcuXAnGG45PMc3SCS0o SwdRArvtK5oiSSdX8s6Gp NyOI98dW82OXlvUVVaKiX 3LjZpbjsgbWFy K5pjPcGkhNSpKxr+PHRhY mxlIHdpZHRoPScxMDAlJy DkfIpfAW6fBq3fGVAhXMA vbGxhcHNlOiBj y5inQDVcEUhkQZ8zzUquJ 7UvnWB9LHXrk5c8Uo08vT I+OKLdDPK4dGocBNroq29 9McSds5paSUH2 jLEcEZptEAU3H09zq7Z3N DVzCPWrZCI0zAI8dC0tmX mlbqxpN1JjiQRvHzA0DVL 2mJFoqK5pnEtx khggoV3rQko+Z93ARZ9AR WAGXN8EVpi1T1ThHekriK I+UU54FDKfVA70sKGfyUN ky2ehhFx1OvGm CVSxTDV9qDnpLFxmd6XgN KKnG45oqMZnq7S0XMCfmP dwuSZjSqHvyLG7sB9pEWd nuphsc3odmcfu Ixlkv9glip86dT46E72gD TsqXWTuZER7LIJgPIJtbW vkah9zzI9gSg1+ZClce7q oq2ogrDg2SmRf ILZmvwMjxCooQRI5f3LsC y98L3JktXlmi6MfHis9ot 21oVGvl7X6eJW1ZSymLXN fuI0kTIbmBbP9 MFLyTdQnoN09pEDcJUpwD m7dqNgkkUdqPD8vDAKvdp uqULHxvE2mPKOdkTSwnBg yLY0oQVZemadg m426IgGhRPI7ZFHpjUYaY 6JdkH1oCqMaGSDvRROfE8 VshDYkIPjiK432FIbrLcF 9IZRnzdDtV9Fx LXXibKanPpI7b7U6Zn8Kx 1OuvteaSXL5RMatOIB9Nl M9VaQbKwQ9W1WvMgd1QSM qgOsfTW0cA6Of BCIjxkbrkrcbgKR8QUHsU CRncX03oXToSMddTy7bj1 G2d479LDRvNUBevY17Fe3 udDogMTBwdCBU fL6zalnof2ysswqqZzHcA NEaNUe1JGo7LNOxmCacEj FySGO7VbJ5IIC6tTFjrR8 qwXutwsfqqX9g Oyc+M89ctV9zMGW0TVU2c wgiRBAfsjNcHN64EY11Y8 RyPjwvdGFibGU+PGRpdiB hcNloTJ1rLuJr a9azj4CeFAdvX0BdACWcI JpsAyo6ARCzHDD1vJG3pM 5uJEKzUObgz2I7uRB2V0R ciySryd5ag3gm LVTwOXdzJ69olSLdu3P4J KSonHF3WHNwvDqfXkPjtF 93Oyc+CGKcgDyzm1XhUzi dl9lnl5hxhVj2 WuDkYTQszkHggQiyEGD4v 3GoVc78C74gZCsaDOXvII ArSSJsNCBtmMmpfx7hrL1 wIi8+PGNvbCB3 tRA7nI1qMYIlDwK7FWerQ 710ZpBkdIRlAvrnr4kpl0 svfXa3DxJyDMCyndNafNf qGZA4d5LlSb53 U75xZLyiKZVrRDVzRMRxU EHowTfrey7cpB5uPs7+PC 4fl5khml50jS75fOK+PHR zCMW7mBryBYbw IZOczI1tLHpxPzT9MITvJ vCouM44pQSkWHkyGh3pcC srgNfxPA5pKXMaiaeyq65 9OgVtj3jcFVYm uSJpGGhyTUQ9X29kb5J3J CMrUJZtJJG6jZF7rT4goY lnbjogbGVmdDsgdmVydGl fWVszEGphF229 IHRvcDsnPlBhdGllbnQgT rJiUEa2J2ScXkt6RSJrtO epEZ3flVTnQCqePp0vhUl yzGloEA3cXBPu divzv179LhAgs9qbEIKem ZCbSWlgWNN4V65yw0D2QC EnTSJoIGS4rWN7xH1xlZb nbjogbGVmdDsg eoLsbCvnXCqpOKzlO234F HRvcDsnPkJpcnRoIERhdG J3OA00QG79sDBaw6L8rOJ 6Z2BgPUHypnfp qmbolQS0PKOkTBMviX02H s8icIpzZp7pQJHzUGQ3PG QbwDTpU0ZofE9nIoRfVRX qZSUtV7PjmJGw LXefK321SBwjMpN9RJEjo eDqJ2KlRRLueGpoUpO6c9 F2Gu1BT2P3JD29IX24oEM lc7F1qJT8A9Vi EPHyvtkafvgxdLC4XJQtR CHkiU13Px1uwVanIi8eWR NjSQP7XIPscRSwB0NyoU5 yOiAjMDAwMDAw P3ElnFRwTDfnY933LBzsB rN1FYDsycTkU8UxXUHnbJ hcFeR7i5F5Kg5ZTLh4PA7 2FO73wTGvw5O2 tQR5U8UkNANiqrnggvhzb KR8MLCdJYQsqP17Qq8ifG qdXy0fIUQiWXT5TBLzyRP sO4AxsA0kHkSk EEQfDAMmA3VrwBNwKKpbK 699OAywSeV7VXWoysRkD1 VgWKGctMilNsR9k5F0Zj3 HYMBbPC89NUW4 sQD9AP52MC24J9RoEvukm GFibGU+PHRhYmxlIHdpZH RoPScxMDAlJyBzdHlsZT0 uKq1vEALoOWEg eMnfxEErImYwu7dfXJFeM RgyDC5osMwxB9LgpON9MO Uzd0g5Rg61O69cW2MwfRO +PWCyeDW7eHX5 eM8sLoEqRiX8PKeuU783V jEvnYTnIaqjl8kxg3qxyQ i2CgJ2LXKwmwYtjOjtGVX 3h2HlGw05T89f IHdpZHRoPSIxNSUiIHZhb Gxqcl9lfG2wIh4+PGNvbC I8tFY0pJ0wMfEnHhI9HBx jQ807WnFffZMz Xpnaw3vzp8qijWl6IdBfT JLudbJflQymMWC6x2QwTn 04K5IdmFopl6ZiTxk6bx5 3fCXsq9E9iTZ1 Q6PsJHMwwsolbMYqkJxuJ R0sILRcnsrmZTOrxG9iGI UnK9y5GjZfSpN3JSfnL8P rxwH3CGRplWPc JKpjVGJ8Q56eh2X3IKOzM KDgMSU4xHV4qB5ynNesmv ogbGVmdDsgdmVydGljYWw qYNrnK183QWRk sTqeSRNncR8zLEVouJDob NvqJK8uQGZwdnrmHyiELb WVAxyBLlvkEFVMYG1LWTQ 0N7ApLso7WYTd iFdtJW4gqVCtMDgeGo6te JjucTffYJ5nFLHmolbmXQ HfnW3jNPLsxTLfuUcxPW1 nOEDiiombd035 CgMnTXH5KZEblSEpM3Sur R8nOrKgTQAsUHUmC4GygI AwUOoyD466XMeoMhO4FPM cjpBmF7KgPCKk gAbvZpR7h1R6Vp2oGI2yM L2kZIRnPE67HK86bVNuw9 G5kLH3E5OuKRQpitevltt ofWV6RWIwICOe cN76mBAhWWgqHt9ek6V2t 730XPRfDMGmeY52Ou3zdZ jjHOKpoSEJtS9ijzotk0f vcjogIzAwMDAw HOl3OFw5AOSzwWlsNjLoI FY8KnG3EMP9pQKgbD8grV ueudnesE0rKxa+ODAgWWV rnbI1Z7ZzEzo9 SMBsiDexGY9dtXIjPCgrC i9voIrboXrmBB9bTRQnms psEUQyfE5lBXRpkHPokHj kIS9aODPmughc s364IqLeDTU5YGCntHMaI 2CjmA5xLfYyVSWzKYLiE9 XyuIUzJCirG352ITflBdW 3IEDscyIwA3Gt MSSiuEtlXdS5c6X9Kx2VY H9knCX7O2JgDkh8WVZrrE ixFL1zbJXfGCdcDd7kpDg zyXqeQU9iWTWs bamcHQCeyG2lYAKbwTYyc ZokLV7lSKVcmcflu447Ra PlFBO0QEJhfFYuW8JetW9 yOiAjMDAwMDAw C9KgbWOkYFzlK764UEsgW qR5AJOmdrTsV6MdZFXvrO jsGoS7r5O1Zq0DtNUfMTR gQS70UV47YZ75 Q7WpZhbjdBHovUZ+PHRhY mxlIHdpZHRoPScxMDAlJy QwkDvtFO7xGr8jSQHwQGZ vbGxhcHNlOiBj r7dbUXMaTQahFB8wyDgbR 0MvvTJ3SYEbu9g6Cd90H0 8jY5VqpIX+CDVazJP8zCC 0sV9sSlUrGjE7 OEioE833VpYdvYIaIlohw 8kgr7lenRn5KvHlKNKmtk VpqNgoRSJ1k9MhSb43P14 sIHdpZHRoPSIy GFJkUCLypEzetm2iiV4eJ i8+MLIekIK9zUE7wN4xDi KdMkK6RGovP760VzUejNF eSsygA82lS4Pv dXA+MBBbUem8WUInuQikE C0seFXaCSbpAk9fSLW9Qy QhJcUzJSvlU4JoOBGthrx byivxpEH4LMFc CYYxwL98Ua6wvYepFp9zP ANaHQS2XILqnYDtH8AsoS 6nYcRsNYTpYWWzJ5LjwWJ rAOrhN429HCzn EvO1WAUtdsPhH3HfZVFyc MxtGcM1e7T7Cj0FgVtoxM AlRH8uKuEdZJn5L6PxApv 3NLLodCaqRT6w dTHhZActBi2ziVbcfLnqS X6jTBFeycgad620OpGpa6 jyYGZmiEAaHWhaHYV7J09 eh7S5IBLeHHFr TRS7jFI7cD7sjLxspxvuh GVmdDsgdmVydGljYWwtYW mmE186OORnfFxgEsKSEmc 5D3QoYac4CPUg fIxuCJ6rjTOeKGgmMw6nz IdawOwiRS6fPWZtdayyb4 85JwGkt3ziPXZvuUErXPo hLIN8G93ta0A2 NMUwOLWvCVZ3gJH7aG2rf GlnbjogbGVmdDsgdmVydG xoRPwdVOigS951OAIrpHt mNg1OLlj1I4Zu Eit3XKPxvCwrCA6txGNrG SbeJo7hnVswqEiwCQ0dRL Erqziyh891UaUhm7rrZBJ wcHQgVGltZXM7 E76hh5P0ZDByLLVqGIM1t MS7mI6suIjgovtzcKJejI lidvHcmZewMDobNNziB02 6IHRvcDsnPlBh eWVyOjwvdGQ+ZR28nw11A 2CzFigsTmu9WKLeGVK3cI Z2yV5rQCWmGKpef9O8jRS 0X5KnroTlcx7t b2xs (more content not included)... Normal [facility] IntraOperative Documentson 0 01-11-2021 IntraOperative Documents [id number]# 1.00CD:127 Normal [facility] Consent for Procedure/Surger yon 01-06-2021 Consent for Procedure/Surgery [id number]# 1.00CD:127 Normal [facility] Main OR Intraoperative Recor don 01-05-2021 Main OR Intraoperative Record IntraOp Document Type FT Summary Primary Physician: Sherine DAO MD Finalized Date/Time: 01/05/21 12:27:08 Pt. Name: FLORENTINODEMETRISHRUTHI/Sex: 1940 Female Med Rec #: [id number] Physician: Sherine DAO MD Financial #: [id number] Pt. Type: O Room/Bed: / Admit/Disch: 01/01/21 [...] opened to review and send charges. David [facility] DIRECTOR. Case Attendance FT Entry 1 Entry 2 Entry 3 Case Attendee Papito Oliver Jr., DO, MD, Brina Reis RN Role Performed Anesthesiologist of Surgeon - Primary Law Firm Consultant - Primary Record Time In 01/01/21 10:41:00 01/01/21 10:41:00 01/01/21 10:41:00 Time Out 01/01/21 10:59:00 01/01/21 10:59:00 01/01/21 10:59:00 Procedure COLONOSCOPY(.) COLONOSCOPY(.) COLONOSCOPY(.) Comments Last Modified By: Brina Garvin RN RN, Brina Garvin RN, Brina 01/01/21 10:59:28 [...] Out Papito Oliver Jr., DO Given Participants ALLNE Eisenberg MD, Maher, Bogner RN, Antonino Gonsalves Micala E Time Out [...] Procedure Yes Primary Surgeon Sherine DAO MD Start 01/01/21 10:46:00 Stop 01/01/21 10:57:00 Anesthesia Type [...] and tissue Entry 1 Skin Integrity Intact, [place], Warm, and Skin Abnormality No Dry Outcomes [...] at [place] (more content not included)... Normal [facility] Postoperative Documentson Postoperative Documents [id number]# 1.00CD:127 Normal [facility] IntraOperative Documentson 0 01-04-2021 IntraOperative Documents [id number]# 1.00CD:127 Normal [facility] Consent for Anesthesiaon Consent for Anesthesia [id number]#1 .00CD:127 [facility] Consent for Treatmenton Consent for Treatment [id number]#1 .00CD:127 Normal [facility] Discharge Instructionson Discharge Instructions [id number]#1 .00CD:127 Normal [facility] Endoscopic Procedure Report - Otheron 01-01-2021 [...] Images Procedure images: Rec1_hd_video_2020_ _[id number].jpg Rec1_hd_video_ _[id number].jpg Rec_hd_video_2020_ _[id number].jpg Rec_hd_video_ _[id number].jpg Rec_hd_video_ _[id number].jpg . Post-Procedure Complications: none. Estimated blood [...] Return to activities:: After 24 hours. Normal [facility] Comment on above: Result Comment: Elec tronically Signed By: Sherine DAO MD\.br\Date and Time Signed: 01/01/21 11:00 EDT Other Comment: Aaliyah thompson Attachment - attachment storage system not supported [id number] Can be viewed in source systemMissing Attachment - attachment storage system not supported [id number] Can be viewed in source systemMissing Attachment - attachment storage system not supported [id number] Can be viewed in source systemMissing Attachment - attachment storage system not supported [id number] Can be viewed in source systemMissing Attachment - attachment storage system not supported [id number] Can be viewed in source system Inpatient Patient Summaryon 01-01-2021 Inpatient Patient Summary [place] [id number] [facility] Clinical Discharge Instructions PERSON INFORMATION Name: SHRUTHI [...] Milligram By Mouth every day. Comment: Normal [facility] Main OR PACU I Recordon Main OR PACU I Record PACU Phase I Docum ent Type FT Summary Primary Physician: Sherine DAO MD Finalized Date/Time: 01/01/21 13:03:02 Pt. Name: SHRUTHI DE ANDA/Sex: 1940 Female Med Rec #: [id number] Physician: Sherine DAO MD Financial #: [id number] Pt. Type: O Room/Bed: / Admit/Disch: 01/01/21 [...] By: Francesca Ramirez RN 01/01/21 13:03 Normal [facility] Main OR Preoperative Recordo n 01-01-2021 Main OR Preoperative Record Holding Area Document Type FT Summary Primary Physician: Sherine DAO MD Finalized Date/Time: 01/01/21 10:41:02 Pt. Name: SHRUTHI DE ANDA/Sex: 1940 Female Med Rec #: [id number] Physician: Sherine DAO MD Financial #: [id number] Pt. Type: O Room/Bed: / Admit/Disch: 01/01/21 [...] By: Yoon Best RN 01/01/21 10:41 Normal [facility] Monitor Recordon 01-01-2021 Monitor Record [id number]# 1.00CD:127 Normal [facility] Outpatient Surgery Discharge Instructionon 01-01-2021 Outpatient Surgery Discharge Instruction [place] [id number] Patient Discharge Instructions PERSON INFORMATION Name: NEETU SHRUTHI Grady Date of : 1940 Current Date: 01/01/2021 10:59:40 PHYSICIANS Admitting Physician: ALLEN REED Basurto Discharge Diagnosis: Colon polyp SHRUTHI DE [...] ROOM OR CALL 911 I, SHRUTHI DE ANDA, have received the attached patient education materials/instruction s and have verbalized understanding: May we do a follow up call? Yes No I was present when discharge instructions were given Patient Signature Date Clinican/Nurse Signature Date Follow up: Pharmacy Information: Haroon Jeff You may receive a survey from [employer] asking you to rate your care experience. Your feedback is important and will help us understand what we do well and how we can improve the quality of care we provide to you, your loved ones and our community. It?s an honor to serve you. Thank you for choosing [facility] HERE ARE THE MEDICATION CHANGES THAT OCCURRED [...] Mouth every day. PATIENT EDUCATION INFORMATION Instructions: [facility] Patient Education - Texton 0 01-01-2021 Patient Education - Text [facility] Progress Note-Physicianon 07 -09-2021 Progress Note-Physician Patient: SHRUTHI DE ANDA Age: 80 years [...] noted. Plan Transfer/ Discharge: Condition stable. Normal [facility] Comment on above: Result Comment: Elec tronically Signed By: Papito Oliver Jr., DO\.br\Date and Time Signed: 01/01/21 12:05 EDT Progress Note-Physician Patient: SHRUTHI DE ANDA Age: 80 years [...] follow instructions per packaging and physician's handout, [facility] 1628 Documented Medications Documented Ibuprofen PM: [...] been selected or recorded. Procedure history: Colonoscopy ([id number]). Social History Social & Psychosocial Habits Tobacco 11/30/2020 Tobacco Use: Never (less than 100 in l . Physical Examination Respiratory: Lungs are clear to auscultation. Cardiovascular: Regular rhythm. Plan [place] [employer]esthesi[employer] (ASA) physical status classification: Class III. Anesthetic Preoperative Plan Anesthesia: General. . Anesthetic plan, risks, benefits, and alternatives discussed with the patient and/or family. Patient verbalized understanding. Normal [facility] Comment on above: Result Comment: Elec tronically Signed By: Papito Oliver Jr., DO.haley\Date and Time Signed: 01/01/21 10:04 EDT Consent for Procedure/Surger yon 12-02-2020 Consent for Procedure/Surgery [id number]# 1.00CD:127 Normal [facility] Historical Records Officeon 12-02-2020 Historical Records Office [id number]#1 .00CD:127 Normal [facility] Gastroenterology Office/Clin ic Noteon 12-01-2020 Gastroenterology Office/Clinic Note Chief Complaint 3yr colon recall HPI Staff This is a 80 year old female who presents today for a 3 year colon recall. History of Present Illness The patient or their guardian verbally consented to allow [employer] to record this visit. The patient presents [...] after patient consented to recording for virtual critical care specialist and provider reviewed before signing. DANNY: Carolann Aguila Follow-up With When Contact Information ALLEN REED, DYLLAN Basurto, MED Only if needed [facility] [address] [place] [address]- Additional Instructions: Patient Education Colon Polyps Problem [...] than 100 in lifetime) Tobacco Use:., 11/30/2020 Normal [facility] Comment on above: Result Comment: Elec tronically Signed By: Sherine DAO MD\.br\Date and Time Signed: 12/01/20 12:38 EDT\.br\Electronically Co-Signed By: Carolann Aguila\.br\Date and Time Co-Signed: 11/30/20 15:20 EDT Ambulatory Clinical Summaryo n 11-30-2020 Ambulatory Clinical Summary {[id number]}CD:[id number] Normal [facility] Patient Educationon 12-01-19 21 Patient Education [...] 03/08/2005 Document Revised: 09/27/2018 Document Reviewed: 09/27/2018 [employer] Patient Education ? 2019 [employer]. [facility] November 16, [address]DA [address] [place] [address] SHRUTHI DE ANDA 1940 Dear Shruthi, This is a SECOND ATTEMPT to remind you that you are due for an appointment with Dr. Dao or Dr. Omer. Please call [facility] at [phone] to schedule an appointment at your earliest convenience. Thank you, [facility] Patient Letter [facility] Patient Letter [facility] September 30, 2020 [address] DE ANDA [address] [place] [address] SHRUTHI DE ANDA 1940 Dear Shruthi, This is a reminder that you are due for an appointment with Dr. Dao or Dr. Omer. Please call [facility] at [phone] to schedule an appointment at your earliest convenience. Thank you, [facility] Normal [facility] Encounters Encounter Date Encounter Type Care Provider Facility Start: 04-01-2024 End: 04-01-[address] [facility] Start: 03-18-2024 End: 03-19-2024 Emergency department patient visit [facility] Start: 08-31-2023 ambulatory ROLF Byers SUHAS [facility] Start: 07-28-2023 End: 07-28-2023 ambulatory Rolf Dai Other [facility] Start: 07-28-2023 Telephone encounter Rolf Dai [facility] Start: 07-27-2023 End: 07-27-2023 ambulatory Rolf Ball Other [facility] Start: 07-27-2023 Telephone encounter Rolf Ball [facility] Start: 07-26-2023 End: 07-26-2023 ambulatory Rolf Ball Other [facility] Start: 07-26-2023 Telephone encounter Rolf Ball [facility] Start: 07-25-2023 End: 07-25-2023 ambulatory Rolf Ball Other [facility] Start: 07-25-2023 Telephone encounter Rolf Ball [facility] Start: 07-17-2023 End: 07-17-2023 ambulatory Rolf Ball Other [facility] Start: 07-17-2023 Telephone encounter Rolf Ball [facility] Start: 06-08-2023 End: 06-08-2023 ambulatory Rolf Ball Other [facility] Start: 06-08-2023 [facility] visit est pt mod-hi severity 40 [facility] Start: 05-15-2023 End: 05-15-2023 ambulatory Rolf Suhas Other [facility] Start: 05-15-2023 Telephone encounter Rolf Ball [facility] Start: 05-04-2023 End: 05-04-2023 ambulatory Rolf Ball Other [facility] Start: 05-04-2023 Telephone encounter Rolf Ball [facility] Start: 04-28-2023 End: 04-28-2023 ambulatory Rolf Ball Other [facility] Start: 04-28-2023 Telephone encounter Rolf Ball [facility] Start: 04-26-2023 End: 04-26-2023 ambulatory Rolf Ball Other [facility] Start: 04-26-2023 Telephone encounter Rolf Ball [facility] Start: 04-24-2023 End: 04-24-2023 ambulatory Rolf Ball Other [facility] Start: 04-24-2023 Telephone encounter Rolf Ball [facility] Start: 04-07-2023 End: 04-07-2023 ambulatory Rolf Ball Other [facility] Start: 04-07-2023 Telephone encounter Rolf Ball [facility] Start: 03-15-2023 End: 03-15-2023 ambulatory Rolf Ball Other [facility] Start: 03-15-2023 Telephone encounter Rolf Ball [facility] Start: 03-13-2023 End: 03-13-2023 ambulatory Rolf Ball Other [facility] Start: 03-13-2023 Telephone encounter Rolf Ball [facility] Start: 02-16-2023 End: 02-16-2023 ambulatory Rolf Ball Other [facility] Start: 02-16-2023 Telephone encounter Rolf Ball [facility] Start: 02-13-2023 End: 02-13-2023 ambulatory Rolf Ball Other [facility] Start: 02-13-2023 Telephone encounter Rolf Ball [facility] Start: 01-17-2023 End: 01-17-2023 ambulatory Rolf Ball Other [facility] Start: 01-17-2023 Telephone encounter Rolf Ball [facility] Start: 01-12-2023 End: 01-12-2023 ambulatory Rolf Ball Other [facility] Start: 01-12-2023 Home visit est pt mod-hi severity 40 minutes Rolf Ball [facility] Start: 01-11-2023 End: 01-11-2023 ambulatory Rolf Ball Other [facility] Start: 01-11-2023 Telephone encounter Rolf Ball [facility] Start: 01-03-2023 End: 01-03-2023 ambulatory Rolf Ball Other [facility] Start: 01-03-2023 Telephone encounter Rolf Ball [facility] Start: 12-26-2022 End: 12-26-2022 ambulatory Rolf Ball Other [facility] Start: 12-26-2022 Telephone encounter Rolf Ball [facility] Start: 12-22-2022 End: 12-22-2022 ambulatory Rolf Ball Other [facility] Start: 12-22-2022 Home visit est pt mod-hi severity 40 minutes Rolf Ball [facility] Start: 12-08-2022 End: 12-08-2022 ambulatory Rolf Dai Other [facility] Start: 12-08-2022 Telephone encounter [facility] Start: 10-26-2022 End: 10-26-2022 ambulatory Rolf Dai Other [facility] Start: 10-26-2022 Telephone encounter [facility] Start: 10-06-2022 End: 10-06-2022 ambulatory Rolf Dai Other [facility] Start: 10-06-2022 Telephone encounter [facility] Start: 09-22-2022 End: 09-22-2022 ambulatory Rolf Dai Other [facility] Start: 09-22-2022 Home visit est pt mod-hi severity 40 minutes Rolf Dai [facility] Start: 04-29-2022 End: 05-01-2022 Evaluation and management of inpatient DR ROLF DAI Facility:[facility] Start: 02-15-2022 End: 02-15-[address] ROLF DAI Facility:[facility] Start: 05-19-2020 Adult health examination Rolf Dai Other [facility] Procedures Date Procedure Procedure Detail Performing Clinician Start: 01-15-2017 Screening for osteoporosis Rolf Dai Other Start: 08-05-2016 Pre-surgery evaluation Rolf Dai Other Start: 08-05-2016 Preoperative cardiov ascular examination Rolf Dai Other Start: 12-30-2014 Screening for osteoporosis Rolf Dai Other Start: 12-30-2014 Screening mammography B enjamin Suhas Other Start: 03-15-2013 General examination of patient Rolf Dai Other Depression screening Lexis n Suhas Other Screening for malign ant neoplasm of breast Rolf Dai Other Immunizations Immunization Date Immunization Notes Care Provider Graciela morales 03-10-2021 influenza virus vaccine, split virus (incl. purified surface antigen) Rolf Suhas Other [facility] 07-27-2020 COVID-19 Vaccine Moderna - Documentation Purposes Only Rolf Dai Other [facility] 04-01-2020 influenza virus vaccine, split virus (incl. purified surface antigen) Rolf Dai Other [facility] 04-19-2017 influenza virus vaccine, split virus (incl. purified surface antigen) Rolf Suhas Other [facility] 05-11-2016 influenza virus vaccine, split virus (incl. purified surface antigen) Rolf Suhas Other [facility] 03-08-2016 pneumococcal conjuga te vaccine, 13 valent Rolf Dai Other [facility] 03-08-2016 pneumococcal Conjuga te, unspecified formulation; Translations: [Need for prophylactic vaccination against Streptococcus pneumoniae (pneumococcus)] Rolf Dai Other [facility] 02-29-2012 tetanus and diphther ia toxoids, adsorbed, preservative free, for adult use (5 Lf of tetanus toxoid and 2 Lf of diphtheria toxoid) Rolf Suhas Other [facility] Other Payers Date Payer Category Payer Medicare [id number] 1959 Private Health Insurance [id number] 1940 Unknown [id number] 2.16.84 [id number] 1940 Unknown [id number] 2.16.84 [id number] 1940 Unknown [id number] 2.16.8 [id number] 1940 Unknown [id number] 2.16.8 [id number] 1940 Unknown [id number] 2.16.8 [id number] 1940 Unknown [id number] 2.16.8 [id number] Unknown [id number] 2.16. [id number] Social History Date Type Detail Facility Sex Assigned At [facility] Medical Equipment Procedure Code Equipment Code Equipment Origin al Text Equipment Identifier Dates Pen [place] [id number] X 8 MM Start: 03-13-2023 Clinical Notes 01-06-2021 to 07-28-2023 Note Date & Type Note Facility 07-28-2023 Evaluation note Encounter Date Diagnosis Assessment Notes Jul, Acute cystitis with hematuria (ICD-10 - N30.01) [facility] 02-01-2024 Evaluation note* Encounter Date Diagnosis Assessment Notes Treatment Notes Treatment Clinical Notes Jul, Type 2 diabetes mellitus with hyperglycemia (ICD-10 - E11.65) [facility] 01-30-2024 Evaluation note* Encounter Date Diagnosis Assessment Notes Treatment Notes Treatment Clinical Notes Jun, Type 2 diabetes mellitus with hyperglycemia (ICD-10 - E11.65) Jun, half-way (current) use of insulin (ICD-10 - Z79.4) [facility] 12-14-2023 Evaluation note* Encounter Date Diagnosis [...] w/ IADL Requires assistance w/ all MRADL [facility] 10-30-2023 Evaluation note* Encounter Date Diagnosis Assessment Notes Treatment Notes Treatment Clinical Notes Mar, Acute cough (ICD-10 - R05.1) [facility] 09-18-2023 Evaluation note* Encounter Date Diagnosis [...] > 350 14u Continue to monitor BS. [facility] 08-21-2023 Evaluation note* Encounter Date Diagnosis Assessment Notes Treatment Notes Treatment Clinical Notes Jan, Mucopurulent chronic bronchitis (ICD-10 - J41.1) [facility] 07-19-2023 Evaluation note* Encounter Date Diagnosis Assessment Notes Treatment Notes Treatment Clinical Notes Dec, High cholesterol (ICD-10 - E78.00) [facility] 06-29-2023 Evaluation note* Encounter Date Diagnosis [...] use, the patient reduces the risk for VT, CVA, HTN, cardiac dysrhythmias and sudden cardiac deaths.The patient is also aware of the association between RAMÓN and morning headaches, daytime somnolence, fatigue and obesity, which also has been improved with continued use.The patient is compliant with treatment, wearing the equipment every night for greater than 4 hours.The patient is instructed to continue use of the CPAP for RAMÓN treatment. 29 Shawn, 2023 Cerebral atherosclerosis (ICD-10 - I67.2) Continue secondary preventive measures. No new focal neurologic deficits Nov, Parkinson''s disease (ICD-10 - G20) Fall precautions, stable w/ treatment. f/u Neurology Nov, High cholesterol (ICD-10 - E78.00) [facility] 03-30-2023 Evaluation note* Encounter Date Diagnosis [...] use, the patient reduces the risk for VT, CVA, HTN, cardiac dysrhythmias and sudden cardiac deaths.The patient is also aware of the association between RAMÓN and morning headaches, daytime somnolence, fatigue and obesity Aug, Cerebral atherosclerosis (ICD-10 - I67.2) Continue secondary prevention w/ ASA and Statin therapy Aug, Parkinson''s disease (ICD-10 - G20) Continue present treatment, f/u Neurology as needed [facility] 07-14-2021 Note [id number]#1.00CD:[address] [place] [address] 01-06-2021 [id number]:127[facility] noteNo Information[facility] ex[facility] Other [facility] Other History general Narrative - Reported* Type Description Date Medical History Essential hypertension Medical History Controlled type 2 diabetes melli tus with hyperglycemia Medical History Type 2 diabetes [...] History cancer Hospitalization History SEE SURGICAL HX [facility] Other History general Narrative - [facility] Other History general Narrative - ReportedNoparkland health [facility] ex[facility] Other Summary Purpose Family History No Family History Records FoundNo Family History Records FoundNo Family History Records FoundNo Family History Records FoundNo Family History Records Found Advance Directives No Advanced Directives Records FoundNo Advanced Directives Records FoundNo Advanced Directives Records FoundNo Advanced Directives Records FoundNo Advanced Directives Records Found Additional Source Comments INFORMATION SOURCE (unrecogn ized section and content) DATE CREATED AUTHOR 01/11/2021 [facility] DATE CREATED AUTHOR AUTHOR'S ORGANIZ ATION 05/09/2022 [facility] DATE CREATED AUTHOR AUTHOR'S ORGANIZ ATION 09/07/2023 [facility] DATE CREATED AUTHOR AUTHOR'S ORGANIZ ATION 03/20/2024 [facility] DATE CREATED AUTHOR AUTHOR'S ORGANIZ ATION 04/01/2024 [facility] REASON FOR VISIT (unrecogniz ed section and content) [facility] PlaceERRORUpdateRefillcompression stockingsNebulizer and medicationNo InformationClyde [facility] PlaceNo InformationNo InformationUpdatePTCoughPrescription needs faxedupdateTCMmessageUpdateCle [place] service unitty - [facility] HHPrescriptionNo Informationhospital bedMedication change FOR RECORDS PERTAINING [...] BE BASED ON THE PRIMARY CLINICAL RECORDS. [employer] [facility]. provides no warranty or guarantee of the accuracy or completeness of information in this document.
--- OUTSIDE RECORDS SUMMARY | 2025-01-11 14:47 | XMS_ITS | Encounter Summary ---
Author Organization [employer] Address [id number] [address] [place] [address] Care Team Providers Care Plumbing Engineer Name Role Phone Rolf Dai Primary Care Provider [phone] Encounter Details Date Type Department Care Team ([facility] Contact Info) Description 01/09/2023 Orders Only [facility] [place] [address] Transcribe, Orders Support User Pain (Primary Dx) Social History Tobacco Use Types Packs/Day Years Used Date Smoking Tobacco: Never Smokeless Tobacco: Never Alcohol Use Standard Drinks/Week Comments Never 0 (1 standard drink = 0.6 oz pur e alcohol) AUDIT-C Answer Date Recorded Q1: How often do you have a drink containing alcohol? Never 01/07/2023 Q2: How many drinks containi ng alcohol do you have on a typical day when you are drinking? Patient does not drink Q3: How often do you have si x or more drinks on one occasion? Never 01/07/2023 Overall Financial Resource Strain (CARDIA) Answe r Date Recorded How hard is it for you to pa y for the very basics like food, housing, medical care, and heating? Not hard at all 01/07/2023 PHQ-2 Answer Date Recorded Total Score 10 01/07/2023 PRAPARE - Transportation Answer Date Re corded In the past 12 months, has l ack of transportation kept you from medical appointments or from getting medications? No 12/24 In the past 12 months, has l ack of transportation kept you from meetings, work, or from getting things needed for daily living? No 01/07/2023 Housing Instability Answer Date Recorde d Are you worried or concerned that in the next two months you may not have stable housing that you own, rent or stay in as a part of a household? No 01/10/2023 Hunger Screening Answer Date Recorded Within the past 12 months we worried whether our food would run out before we got money to buy more. Never True 01/10/2023 Within the past 12 months th e food we bought just didn't last and we didn't have money to get more. Never True 01/10/2023 Comments No Sex and Gender Information Value Date Recorded Sex Assigned at Not on file Legal Sex Female 7:25 PM EDT Gender Identity Not on file Sexual Orientation Not on file documented as of this encounter Mental Status * Question Answer Entry Date Author Overall Cognitive Status X 01/09/2023 9:33 AM EDT Kristin Rodriguez, PT * Question Answer Entry Date Author Overall Cognitive Status X 01/09/2023 9:03 AM EDT Domenica Daley, CCC-NURSE EMERGENCY documented in this encounter Plan of Treatment Not on file documented as of this encounter Goals Goal Patient Goal Type Associated Problems Recent Progress Patient-Stated? Author <enter goal here> General Yes Irais Geller, RN Note: Evaluation of progress towards goal: return to assisted living documented as of this encounter Results * CT angiogram carotid (04/30/2022 12:35 PM EDT) us Scanning Provider External IMG CT ORDERABLES Fin al Result * CT angiogram head (04/30/2022 12:30 PM EDT) us Scanning Provider External IMG CT ORDERABLES Fin al Result documented in this encounter Visit Diagnoses Diagnosis Pain- Primary Generalized pain documented in this encounter Additional Health Concerns Assessment Noted Time PHQ-9 Depression Total Score: 10 023 3:04 PM EDT documented as of this encounter Care Teams Plumbing Engineer Relationship Specialty [place] [address] [place] [id number] PCP - General Internal Medicine 01/06/23 documented as of this encounter
--- OUTSIDE RECORDS SUMMARY | 2025-01-11 14:47 | XMS_ITS | Clinical Summary ---
Author Organization [employer] Address [id number] [address] [place] [address] Care Team Providers Care Lap Cutter Truer Operator Name Role Phone Suhas Rolf Byers Primary Care Provider [phone] Allergies Active Allergy Reactions Criticality Noted Date Comments Amoxicillin 01/06/2023 Cephalexin 01/06/2023 Codeine 01/06/2023 Penicillins 01/06/2023 Oxycodone-Acetaminophen 01/06/2023 Sulfa (Sulfonamide Antibiotics) 12/24 Medications insulin aspart U-100 (NovoLOG) 100 unit/mL injection Inject 0.1 mL (10 Units total) under the skin in the morning and 0.1 mL (10 Units total) at noon and 0.1 mL (10 Units total) in the evening. Inject before meals. Active insulin aspart U-100 (NovoLOG) 100 unit/mL injection Inject 0.06-0.14 mL (6-14 Units total) under the skin in the morning and 0.06-0.14 mL (6-14 Units total) at noon and 0.06-0.14 mL (6-14 Units total) in the evening. Inject before meals. Per sliding scale. Active insulin detemir U-100 (LEVEMIR) 100 unit/mL injection Inject 0.16 mL (16 Units total) under the skin in the morning. Active amLODIPine (NORVASC) 10 mg tablet Take 0.5 tablets (5 mg total) by mouth in the morning. Active aspirin 81 mg Take 1 tablet (81 mg total) by mouth in the morning. Active carbidopa-levod opa (SINEMET CR) 25-100 mg per CR tablet Take 1 tablet by mouth 3 (three) times a day. Active clopidogreL (PLAVIX) 75 mg tablet Take 1 tablet (75 mg total) by mouth in the morning. Active docusate sodium (COLACE) 100 mg capsule Take 1 capsule (100 mg total) by mouth in the morning and 1 capsule (100 mg total) before bedtime. Active escitalopram (LEXAPRO) 5 mg tablet Take 1 tablet (5 mg total) by mouth nightly. Active hydrALAZINE (APRESOLINE) 25 mg tablet Take 1 tablet (25 mg total) by mouth 3 (three) times a day. Active labetaloL (NORMODYNE) 300 mg tablet Take 1 tablet (300 mg total) by mouth in the morning and 1 tablet (300 mg total) before bedtime. Active melatonin 5 mg tablet,chewable Chew 1 tablet and swallow nightly. Active polyethylene glycol (GLYCOLAX) 17 gram packet Take 17 g by mouth in the morning. Active Active Problems Problem Noted Date Diagnosed Date Syncope 01/06/2023 Immunizations Immunization Administration Dates Next Due Influenza, Trivalent, Adjuvanted 03/13/2019 Social History Tobacco Use Types Packs/Day Years Used Date Smoking Tobacco: Never Smokeless Tobacco: Never Tobacco Cessation:Counseling Given: Not Answered Alcohol Use Standard Drinks/Week Comments Never 0 [...] before we got money to buy more. Patient unable to answer 03/18/2024 Within the past 12 months th e food we bought just didn't last and we didn't have money to get more. Patient unable to answer 03/18/2024 Comments No Sex and Gender Information Value Date Recorded Sex Assigned at Not on file Legal Sex Female 7:25 PM EDT Gender Identity Not on file Sexual Orientation Not on file Last Filed Vital Signs Vital Sign Reading Time Taken Comments Blood Pressure 209/86 03/18/2024 7:30 PM EDT Pulse 75 03/18/2024 7:30 PM EDT Temperature 36.6 C (97.8 F) 03/18/2024 12:33 PM EDT Respiratory Rate 16 03/18/2024 7:30 PM EDT Oxygen Saturation 94% 03/18/2024 7:30 PM EDT Inhaled Oxygen Concentration - - Weight 105.8 kg (233 lb 4 oz) 01/10/2023 5:00 AM EDT Height 165.1 cm (5' 5 ) 01/07/2023 3:09 PM EDT Body Mass Index 38.81 01/07/2023 3:09 PM EDT Plan of Treatment Health Maintenance Due Date Last Done Comments DTaP,Tdap and Td Vaccines (1 - Tdap) 02/06/1959 Zoster (Shingles) Vaccine (1 of 2) 02/06/1990 Fall Risk Screening 02/06/2005 Depression Screening 01/08/2024 01/07/2023 Tobacco Screening 01/08/2024 01/07/2023 COVID-19 Vaccine ( season) 2024, 07/27/2020 Influenza Vaccine 02/24/2025 03/13/2019 Goals Goal Patient Goal Type Associated Problems Recent Progress Patient-Stated? Author <enter goal here> General Yes Irais Geller, RN Note: Evaluation of progress towards goal: return to assisted living Medical Devices Not on file Insurance MEDICARE [id number] Advance Directives Documents on File Type Date Recorded Patient Education Program Manager Expl anation Advance Directive 03/18/2024 12:34 PM Living Will 01/13/2023 1:18 PM Living Will 01/13/2023 1:17 PM * Full Code (Latest Code Status on File) Date Activated Date Inactivated Comments 01/06/2023 6:32 PM 01/10/2023 8:14 PM Care Teams Lap Cutter Truer Operator Relationship Specialty Start Date End Date Rolf Dai DO [address] [place] [address] PCP - General Internal Medicine 01/06/23
[2025-01-11 15:21] LABS: Glucose Urine UA 500 mg/dL (NEGATIVE)
[2025-01-11 15:42] LABS: Cast Seen? NONE SEEN #/LPF (NONE SEEN); Crystals Seen? None Seen #/HPF (None Seen)
[2025-01-11 15:43] LABS: Urine Culture Indicated YES-FRMC
== END 2025-01-11 14:45 | disposition home or self-care (01) ==
PROVIDERS: PCP Internal Medicine; Visit Provider Internal Medicine
DX: N39.0 Urinary tract infection, site not specified (principal)
CPT/HCPCS: 81001; 87086